=== PATIENT | female | born 1970 | race Caucasian/White ===

== ENCOUNTER 2016-11-05 17:57 | Emergency (ER) | payer BC ==
[~2016-11-05] VITALS: Ht 162.6 cm; Wt 72.0 kg
[~2016-11-05 17:57] MED LIST: MULT-884 PO; ZLF50 PO
[2016-11-05 18:00] VITALS: TEMP 36.8; Ht 162.6 cm; Wt 72.0 kg
[2016-11-05 19:01] LABS: BENZODIAZEPINE, URINE NEG (NEG); COCAINE,URINE NEG (NEG); PHENCYCLIDINE, URINE NEG (NEG)
[2016-11-05 19:30] LABS: HEMATOCRIT 36.8 % (37-47); MEAN CELL VOLUME 83.1 fL (80-100); MEAN CORPUSCULAR HEMOGLOBIN 26.2 pg (25-34); MEAN CORPUSCULAR HGB CONC 31.5 g/dl (32-36); MEAN PLATELET VOLUME 9.3 fL (7.4-10.4); PLATELET COUNT 349 K/uL (130-400); RED BLOOD COUNT 4.43 M/uL (4.2-5.4); WHITE BLOOD COUNT 8.48 K/uL (4.8-10.8)
[2016-11-05] MEDS ORDERED: LORAZEPAM 1 MG TAB SL STA (19:30)
[2016-11-05 19:49] LABS: ACETAMINOPHEN < 2 ug/ml (10-30); BUN/CREATININE RATIO 6.1 (10-20); CALCIUM 8.7 mg/dl (8.5-10.1); CREATININE 0.53 mg/dl (0.60-1.20); POTASSIUM 4.4 mmol/L (3.5-5.1)
[2016-11-05 20:00] LABS: THYROID STIMULATING HORMONE 1.57 uIu/ml (0.300-4.500)
[2016-11-05] MEDS ORDERED: LORAZEPAM 2 MG/ML 1 ML VIAL IM STA (20:25)
[2016-11-05] MEDS ORDERED: HALOPERIDOL DECANOATE INJ 50 MG/ML VIAL IM ONE (20:30)
[2016-11-05] MEDS ORDERED: HALOPERIDOL LACTATE 5 MG/ML 1 ML VIAL ONE (20:36)
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
[2016-11-05] MEDS ORDERED: THIAMINE HCL 100 MG/ML 2 ML VIAL IM STA (22:59)
--- NOTE | 2016-11-06 06:24 | EMERGENCY ROOM VISIT NOTE ---
ED Visit Note First contact with patient: 22:57 46 yr old heavily intoxicated female brought in by friend as she was making suicidal statements/threats. Initially evaluated and sedated by Dr Yanez do to need for restraints. She was medically evaluated and found to have very high Etoh. 302 petition on file due to statements. Signed out to me awaiting sobering up. Sleeping soundly and very somnolent on trying on awaken on multiple evaluations. Given IM Thiamine with her alcoholism history. Mild hypoxia at one point though lungs clear and improved with just 2 L NC. Still too sedated to be able to do mental health evaluation. Signed out to Dr Vidal awaiting sobering up.
--- NOTE | 2016-11-06 09:52 | EMERGENCY ROOM VISIT NOTE ---
ED Visit Note This patient was signed out to me awaiting mental health evaluation. The patient is evaluated by can help. The patient does not recall any of the statements that she had made previously. She is currently awake and alert. She denies being suicidal or homicidal. Can help did not have any concerns about the patient going home. The patient will be discharged.
[2016-11-06 10:25] VITALS: BP 108/65; PULSE 88; O2SAT 98
== END 2016-11-06 10:25 | disposition home or self-care (01) ==
LOC: C.EDB 17:59 → C.EDA 11-06 10:25
DX: F10.120 Alcohol abuse with intoxication, uncomplicated (principal); R45.851 Suicidal ideations; F32.9 Major depressive disorder, single episode, unspecified; J43.9 Emphysema, unspecified; F17.200 Nicotine dependence, unspecified, uncomplicated; Z85.118 Personal history of other malignant neoplasm of bronchus and lung; Z91.410 Personal history of adult physical and sexual abuse; Z83.3 Family history of diabetes mellitus; Z82.49 Family history of ischemic heart disease and other diseases of the circulatory system; Z84.1 Family history of disorders of kidney and ureter

== ENCOUNTER 2017-03-08 23:42 | Emergency (ER) | payer BC, OTHER ==
[~2017-03-08] VITALS: Ht 162.6 cm; Wt 76.8 kg
[2017-03-08 23:50] VITALS: TEMP 37.2; Ht 162.6 cm; Wt 76.8 kg
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
[2017-03-09 00:57] LABS: BENZODIAZEPINE, URINE NEG (NEG); COCAINE,URINE NEG (NEG); PHENCYCLIDINE, URINE NEG (NEG)
[2017-03-09 00:59] LABS: BUN/CREATININE RATIO 5.2 (10-20); CALCIUM 8.7 mg/dl (8.5-10.1); CREATININE 0.58 mg/dl (0.60-1.20); POTASSIUM 3.3 mmol/L (3.5-5.1)
[2017-03-09 10:40] VITALS: BP 110/66; PULSE 87; O2SAT 93
== END 2017-03-09 10:41 | disposition home or self-care (01) ==
LOC: C.EDA 23:42 → EDBD 23:42 → C.EDA 03-09 10:41
DX: F10.129 Alcohol abuse with intoxication, unspecified (principal); Y90.8 Blood alcohol level of 240 mg/100 ml or more; K59.00 Constipation, unspecified; F32.9 Major depressive disorder, single episode, unspecified; J43.9 Emphysema, unspecified; F43.10 Post-traumatic stress disorder, unspecified; K27.9 Peptic ulcer, site unspecified, unspecified as acute or chronic, without hemorrhage or perforation; F12.10 Cannabis abuse, uncomplicated; Z83.3 Family history of diabetes mellitus; Z82.49 Family history of ischemic heart disease and other diseases of the circulatory system; Z84.1 Family history of disorders of kidney and ureter

== ENCOUNTER 2017-05-09 16:34 | Emergency (ER) | payer OTHER ==
[~2017-05-09] VITALS: Ht 162.6 cm; Wt 77.6 kg
[2017-05-09 16:42] VITALS: TEMP 36.5; Ht 162.6 cm; Wt 77.6 kg
[2017-05-09] MEDS ORDERED: VNTHFA/IN INH (16:56)
[2017-05-09] MEDS ORDERED: KLONOPIN PO (16:56)
[2017-05-09] MEDS ORDERED: AMPH10TA2 PO (16:56)
--- NOTE | 2017-05-09 17:32 | DIAGNOSTIC IMAGING REPORT ---
CHEST ONE VIEW PORTABLE CLINICAL HISTORY: Medical clearance. COMPARISON STUDY: Chest radiograph May 03, 2015. FINDINGS: Lung volumes are normal. No pneumothorax or pleural effusion is present. Pulmonary vascularity is normal. No consolidation is identified. Appearance of the chest is unchanged. Opacity at the right cardiophrenic angle likely reflects epicardial fat pad. IMPRESSION: No acute cardiopulmonary findings. Electronically signed by: Cornelio Alvarez M.D. 05/09/2017 5:31 PM Dictated Date/Time: 05/09/2017 5:30 PM
[2017-05-09 17:35] LABS: BASO % 0.7 %; BASO ABS # 0.07 K/uL (0-0.2); COMPLETE YES; EOS % 4.1 %; IG% 0.2 %; LYMPH % 41.4 %; LYMPH ABS # 4.01 K/uL (1.2-3.4); MEAN CELL VOLUME 82.7 fL (80-100); MEAN CORPUSCULAR HEMOGLOBIN 25.4 pg (25-34); MEAN CORPUSCULAR HGB CONC 30.7 g/dl (32-36); MEAN PLATELET VOLUME 8.9 fL (7.4-10.4); MONO % 8.2 %; NEUT % 45.4 %; PLATELET COUNT 434 K/uL (130-400); WHITE BLOOD COUNT 9.68 K/uL (4.8-10.8)
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
[2017-05-09 17:53] LABS: ALT/SGPT 45 U/L (12-78); AST/SGOT 73 U/L (15-37); BLOOD UREA NITROGEN 4 mg/dl (7-18); BUN/CREATININE RATIO 7.2 (10-20); CALCIUM 8.6 mg/dl (8.5-10.1); CARBON DIOXIDE 22 mmol/L (21-32); CHLORIDE 109 mmol/L (98-107); CREATININE 0.59 mg/dl (0.60-1.20); GLUCOSE 91 mg/dl (70-99); POTASSIUM 3.6 mmol/L (3.5-5.1); SODIUM 142 mmol/L (136-145)
[2017-05-09 18:04] LABS: ALKALINE PHOSPHATASE 80 U/L (45-117)
[2017-05-09] MEDS ORDERED: LORAZEPAM 1 MG TAB SL STA (19:49)
[2017-05-09 20:06] LABS: BENZODIAZEPINE, URINE NEG (NEG); COCAINE,URINE NEG (NEG); PHENCYCLIDINE, URINE NEG (NEG)
[2017-05-09 20:32] LABS: URINE APPEARANCE CLEAR (CLEAR); URINE BILIRUBIN NEG (NEG); URINE COLOR YELLOW; URINE EPITHELIAL CELL AUTO >30 /lpf (0-5); URINE NITRITE NEG (NEG); URINE PH 5.5 (4.5-7.5); URINE SPECIFIC GRAVITY 1.023 (1.000-1.030); UROBILINOGEN NEG (NEG)
[2017-05-09 20:38] LABS: MANUAL MICROSCOPIC REQUIRED? NO; REVIEW REQ? NO
[2017-05-09 20:48] VITALS: BP 124/68; PULSE 82; O2SAT 95
[2017-05-09 21:21] LABS: ACETAMINOPHEN < 2 ug/ml (10-30)
[2017-05-16 08:31] LABS: SYNTHETIC CANNABINOIDS QL URIN NEGATIVE (Negative)
== END 2017-05-09 20:50 | disposition home or self-care (01) ==
LOC: C.EDB 16:36 → C.EDA 20:50
DX: F10.129 Alcohol abuse with intoxication, unspecified (principal); F32.9 Major depressive disorder, single episode, unspecified; R45.851 Suicidal ideations; J43.9 Emphysema, unspecified; F17.200 Nicotine dependence, unspecified, uncomplicated; Z87.11 Personal history of peptic ulcer disease; Z91.410 Personal history of adult physical and sexual abuse; Z85.118 Personal history of other malignant neoplasm of bronchus and lung; Z83.3 Family history of diabetes mellitus; Z82.49 Family history of ischemic heart disease and other diseases of the circulatory system; Z84.1 Family history of disorders of kidney and ureter

== ENCOUNTER 2017-11-07 11:12 | Inpatient (IN) | payer OTHER ==
[~2017-11-07] VITALS: Ht 162.6 cm; Wt 73.0 kg
[~2017-11-07 11:12] MED LIST changes: +AMPH10TA2 PO; +KLONOPIN PO; -MULT-884 PO; +VNTHFA/IN INH; -ZLF50 PO
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
[2017-11-07 12:27] LABS: BASO % 0.3 %; BASO ABS # 0.04 K/uL (0-0.2); EOS % 0.6 %; EOS ABS # 0.08 K/uL (0-0.5); HEMATOCRIT 40.8 % (37-47); HEMOGLOBIN 13.4 g/dL (12.0-16.0); IG# 0.05 K/uL (0.00-0.02); LYMPH % 29.3 %; LYMPH ABS # 3.96 K/uL (1.2-3.4); MEAN CELL VOLUME 81.3 fL (80-100); MEAN CORPUSCULAR HEMOGLOBIN 26.7 pg (25-34); MEAN CORPUSCULAR HGB CONC 32.8 g/dl (32-36); MEAN PLATELET VOLUME 9.1 fL (7.4-10.4); MONO % 6.7 %; NEUT % 62.7 %; NEUT ABS # 8.48 K/uL (1.4-6.5); PLATELET COUNT 304 K/uL (130-400); RED CELL DISTRIBUTION WIDTH CV 18.1 % (11.5-14.5); RED CELL DISTRIBUTION WIDTH SD 53.1 fL (36.4-46.3); WHITE BLOOD COUNT 13.51 K/uL (4.8-10.8)
--- NOTE | 2017-11-07 12:38 | DIAGNOSTIC IMAGING REPORT ---
CT SCAN OF THE BRAIN WITHOUT IV CONTRAST CLINICAL HISTORY: Fall. COMPARISON STUDY: CT of the brain dated 05/03/2015. TECHNIQUE: Unenhanced axial CT scan of the brain is performed from the vertex to the skull base. A dose lowering technique was utilized adhering to the principles of ALARA. CT DOSE: 1013.73 mGy.cm FINDINGS: Brain parenchyma: The brain parenchyma is normal in appearance. There is no hemorrhage, mass effect, or evidence of acute territorial ischemia by CT criteria. Verduzco-white matter is preserved. No extra-axial fluid collection is seen. Ventricles, sulci, cisterns: Normal in configuration. Intracranial vasculature: The visualized intracranial vasculature at the skull base is normal in appearance. Calvarium: There is no depressed calvarial fracture. Age-indeterminate nasal bone fractures are suspected. Sinuses and mastoids: Mild to moderate mucosal thickening is seen within the right maxillary antrum, the ethmoid sinuses, and the sphenoid sinuses. There is a trace right mastoid effusion. The left mastoid air cells are well pneumatized. Orbits: The bony orbits are grossly intact. IMPRESSION: 1. No acute intracranial abnormality. 2. Paranasal sinus disease as above. 3. Question age-indeterminate nasal bone fractures. Clinical correlation will be required. Electronically signed by: Herman Nathan M.D. 11/07/2017 12:37 PM Dictated Date/Time: 11/07/2017 12:33 PM
--- NOTE | 2017-11-07 12:39 | DIAGNOSTIC IMAGING REPORT ---
CHEST ONE VIEW PORTABLE CLINICAL HISTORY: cough dyspnea COMPARISON STUDY: 05/09/2017 FINDINGS: Minimal chronic interstitial change left base. No focal infiltrate of an acute nature. No significant cardiac enlargement. Diaphragms are smooth. IMPRESSION: Chronic change. No acute process. The above report was generated using voice recognition software. It may contain grammatical, syntax or spelling errors. Electronically signed by: Artur Evans M.D. 11/07/2017 12:38 PM Dictated Date/Time: 11/07/2017 12:37 PM
--- NOTE | 2017-11-07 12:41 | DIAGNOSTIC IMAGING REPORT ---
CT SCAN OF THE CERVICAL SPINE CLINICAL HISTORY: Fall. COMPARISON STUDY: No priors. TECHNIQUE: CT scan of the cervical spine is performed from the skull base to the upper thoracic spine. Images are reviewed in the axial, sagittal, and coronal planes. IV contrast was not administered for this examination. A dose lowering technique was utilized adhering to the principles of ALARA. FINDINGS: Skeletal structures: The skeletal structures are well mineralized. There is no evidence of fracture or subluxation involving the cervical spine. Vertebral body height and alignment are maintained. Straightening of the cervical lordosis. Anterior osteophytes are seen throughout. The odontoid process and lateral masses are intact. The atlantoaxial articulation is preserved noting productive degenerative change. The spinous processes appear intact. Mild facet arthropathy is seen in the lower cervical region. Intervertebral discs: Minimal disc space narrowing is seen at C6-C7. The remaining disc spaces are maintained. Central canal: Posterior disc osteophyte complexes at C5-C6 and C6-C7 may contribute to mild acquired compromise of the central canal. Soft tissues: The prevertebral and paraspinous soft tissues are within normal limits. Calvarium: The visualized calvarium at the skull base appears intact. Brain parenchyma: Partially visualized brain parenchyma the skull base is within normal limits. Sinuses and mastoids: Mucosal thickening is seen within the right maxillary antrum and the sphenoid sinuses. There is a trace right mastoid effusion. The left mastoid air cells are well pneumatized. Lung apices: Apical scarring and mild emphysematous change are noted. IMPRESSION: There is no evidence of fracture or subluxation involving the cervical spine. Electronically signed by: Herman Nathan M.D. 11/07/2017 12:40 PM Dictated Date/Time: 11/07/2017 12:37 PM
[2017-11-07 12:46] LABS: ALBUMIN 3.8 gm/dl (3.4-5.0); CALCIUM 8.8 mg/dl (8.5-10.1); CREATININE 0.67 mg/dl (0.60-1.20); POTASSIUM 3.3 mmol/L (3.5-5.1)
[2017-11-07 12:56] LABS: TOTAL PROTEIN 7.7 gm/dl (6.4-8.2)
[2017-11-07] MEDS ORDERED: CALCIUM CARBONATE 500 MG CHEWABLE PO PRN (13:45)
[2017-11-07] MEDS ORDERED: LORAZEPAM 1 MG TAB SL STA (22:58)
[2017-11-07] MEDS ORDERED: ONDANSETRON INJ 2 MG/ML 2 ML VIAL IV STA (23:07)
[2017-11-07] MEDS ORDERED: LORAZEPAM 2 MG/ML 1 ML VIAL IV STA (23:07)
--- NOTE | 2017-11-07 23:22 | EMERGENCY ROOM VISIT NOTE ---
ED Visit Note This is a 47-year-old female who was signed out to me awaiting mental health evaluation. During the patient's stay, she developed withdrawal symptoms and required IV Ativan and IV Zofran as she developed nausea and vomiting as well as shaking. The patient was administered the medication. I spoke with Dr. Christensen from psychiatry. He would prefer that the patient be medically admitted and they will be consulted until the patient is more medically stable for transfer to the psychiatric floor. I spoke with the hospitalist about the patient, they will see the patient for medical admission for withdrawal.
[2017-11-08] VITALS (7 sets, daily range): BP systolic 113–127; BP diastolic 76–86; PULSE 80–112; TEMP 36.6–37.3; O2SAT 93–97; Ht 162.6 cm; Wt 73.0 kg
[2017-11-08] MEDS ORDERED: LORAZEPAM 2 MG/ML 1 ML VIAL IV PRN (00:15)
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
[2017-11-08] MEDS ORDERED: MULTI-VITAMIN INFUSION INJ 10 ML, THIAMINE HCL INJ 100 MG, FoLIC ACID INJ 1 MG in SODIU... IV ONE ×2 (02:30→13:45)
[2017-11-08] MEDS ORDERED: LORAZEPAM INJ 3 MG in SYRINGE 1.5 ML IV PRN (04:30)
[2017-11-08] MEDS ORDERED: LORAZEPAM INJ 2 MG in SYRINGE 1 ML IV PRN (04:30)
[2017-11-08] MEDS ORDERED: PNEUMOCOCCAL POLYSACCHARIDES 25 MCG/0.5 ML VIAL/SYR IM. ONE (05:45)
[2017-11-08] MEDS ORDERED: PNEUMOCOCCAL ADMINISTRATION CHARGE ONE (05:45)
[2017-11-08] MEDS ORDERED: HEPARIN SOD 5000 UNIT/0.5 ML CARP SQ SCH (06:00)
[2017-11-08] MEDS: ALUMINUM/MAGNESIUM/SIMETH (MAALOX MAX) 30 ML UDC PO PRN ×2 (07:17→17:16)
[2017-11-08] MEDS ORDERED: DEXL60CA4 PO (10:29)
[2017-11-08] MEDS ORDERED: VENL75CA PO (10:29)
[2017-11-08] MEDS ORDERED: LEVE250T PO (10:29)
[2017-11-08] MEDS ORDERED: ABL10 PO (10:29)
[2017-11-08] MEDS ORDERED: SERTRALINE HCL 50 MG TAB PO ONE (12:00)
[2017-11-08] MEDS: LORAZEPAM INJ 1 MG in SYRINGE 0.5 ML IV PRN ×2 (12:06→23:42)
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
[2017-11-08 12:55] LABS: BASO % 0.2 %; BASO ABS # 0.02 K/uL (0-0.2); EOS % 1.3 %; EOS ABS # 0.11 K/uL (0-0.5); HEMATOCRIT 34.7 % (37-47); HEMOGLOBIN 11.1 g/dL (12.0-16.0); IG# 0.02 K/uL (0.00-0.02); LYMPH ABS # 2.15 K/uL (1.2-3.4); MEAN CELL VOLUME 81.1 fL (80-100); MEAN CORPUSCULAR HEMOGLOBIN 25.9 pg (25-34); MONO % 10.2 %; MONO ABS # 0.88 K/uL (0.11-0.59); NEUT % 63.1 %; NEUT ABS # 5.43 K/uL (1.4-6.5); PLATELET COUNT 267 K/uL (130-400); RED CELL DISTRIBUTION WIDTH CV 17.9 % (11.5-14.5); RED CELL DISTRIBUTION WIDTH SD 52.8 fL (36.4-46.3); WHITE BLOOD COUNT 8.61 K/uL (4.8-10.8)
[2017-11-08 13:15] LABS: CALCIUM 8.1 mg/dl (8.5-10.1); CREATININE 0.59 mg/dl (0.60-1.20); POTASSIUM 3.5 mmol/L (3.5-5.1)
[2017-11-08] MEDS ORDERED: GABAPENTIN 600 MG TAB PO SCH (13:15)
[2017-11-08] MEDS ORDERED: CLONIDINE HCL 0.1 MG TAB PO PRN (13:15)
[2017-11-08] MEDS ORDERED: LEVALBUTEROL/IPRATROPIUM NEB INH PRN (13:15)
[2017-11-08 13:16] LABS: PHOSPHORUS 1.9 mg/dl (2.5-4.9)
--- NOTE | 2017-11-08 13:20 | Progress Note ---
Medicine Progress Note Date & Time of Visit: Nov 08, 2017 at 13:10. Subjective seen with JOSSELYN Middleton at the bedside states she feels tired but slightly better than yesterday has some anxiety but denies tremors, hallucinations states mood could be better, but denies suicidality has some sinus congestion, rhinorrhea has chronic cough, no dyspnea no chest pain, dizziness, palpitations no other symptoms Objective Last 8 Hrs Date Time Temp Pulse Resp B/P (MAP) Pulse Ox O2 Delivery O2 Flow Rate FiO2 11/08/17 11:09 36.8 82 20 126/84 (98) 97 Room Air 11/08/17 08:00 Room Air 11/08/17 07:12 37.3 93 20 125/80 (95) 95 Physical Exam: General- oriented x 3, not in distress, speaks in sentences with no effort appears tired, has to pause to answer questions about her medications, PCP, etc. Head- atraumatic Eyes- PERRL, EOMI, anicteric ENT- poor dentition, oropharynx clear Neck- supple, no JVD, no adenopathy, no thyromegaly Lungs- clear breath sounds bilaterally Heart- regular rhythm; no murmur, normal rate Abdomen- normal bowel sounds, soft, nontender, non distended Extremities- no pretibial edema, no calf tenderness; peripheral pulses intact Neuro- alert, oriented x 3; PERRL, EOMI; no facial palsy; no dysarthria; motor 5 /5 bilaterally; no other gross focal deficits Skin- warm & dry Psych- no suicidal ideations Laboratory Results: Last 24 Hours Test 11/08/17 07:10 11/08/17 12:31 Prothrombin Time 10.7 SECONDS Prothromb Time International Ratio 1.0 Activated Partial Thromboplast Time 28.0 SECONDS Partial Thromboplastin Ratio 1.1 White Blood Count 8.61 K/uL Red Blood Count 4.28 M/uL Hemoglobin 11.1 g/dL Hematocrit 34.7 % Mean Corpuscular Volume 81.1 fL Mean Corpuscular Hemoglobin 25.9 pg Mean Corpuscular Hemoglobin Concent 32.0 g/dl Platelet Count 267 K/uL Mean Platelet Volume 9.0 fL Neutrophils (%) (Auto) 63.1 % Lymphocytes (%) (Auto) 25.0 % Monocytes (%) (Auto) 10.2 % Eosinophils (%) (Auto) 1.3 % Basophils (%) (Auto) 0.2 % Neutrophils # (Auto) 5.43 K/uL Lymphocytes # (Auto) 2.15 K/uL Monocytes # (Auto) 0.88 K/uL Eosinophils # (Auto) 0.11 K/uL Basophils # (Auto) 0.02 K/uL RDW Standard Deviation 52.8 fL RDW Coefficient of Variation 17.9 % Immature Granulocyte % (Auto) 0.2 % Immature Granulocyte # (Auto) 0.02 K/uL Assessment & Plan Patient is a poor historian, will obtain records from PCP in [place]?, will obtain medication list from Pharmacist in [place]. Please clarify past medical history and medications from patient again. ALCOHOL INTOXICATION HISTORY OF ALCOHOLISM, DELIRIUM TREMENS - no signs of alc withdrawal at this time - Alcohol withdrawal protocol including Gabapentin Taper SUICIDAL IDEATIONS HISTORY OF DEPRESSION - denies suicidal ideations today evaluated by Psych SVC - Sertraline started 1:1 not in indicated at this time per psych svc ACUTE VS. CHRONIC SINUSITIS - Augmentin BID HISTORY OF SEIZURE - will try to get records from PCP in [place]? and medication list from Pharmacy patient states she takes Keppra but does not recall the dose HISTORY OF COPD SMOKING - states she uses Albuterol inhaler daily - not in exacerbation - PRN Nebs Nicotine patch HISTORY OF HYPERTENSION - PRN Clonidine MARIJUANA USE - needs counselling DVT PROPHYLAXIS SCDs FULL CODE DISPOSITION Psych SVC recommending transfer from Hospital to Inpatient Alc Rehab Current Inpatient Medications: Current Inpatient Medications Medications (Trade) Dose Ordered Sig/Leola Route Start Time Stop Time Status Last Admin Dose Admin Al Hydrox/Mg Hydrox/Simethicone (Maalox Max Susp) 15 ml Q4H PRN PO 11/08/17 00:15 12/08/17 00:14 11/08/17 07:17 15 ML Ondansetron HCl (Zofran Inj) 4 mg Q6H PRN IV 11/08/17 00:15 12/08/17 00:14 Lorazepam (Ativan Inj) PRN Dosing -Active Protocol Q1H PRN IV 11/08/17 00:15 12/08/17 00:14 Lorazepam 1 mg/ Syringe 1 ml @ 1 mls/min Q1H PRN IV 11/08/17 04:30 12/08/17 04:29 11/08/17 12:06 1 MLS/MIN Lorazepam 2 mg/ Syringe 2 ml @ 1 mls/min Q1H PRN IV 11/08/17 04:30 12/08/17 04:29 Lorazepam 3 mg/ Syringe 3 ml @ 1 mls/min Q1H PRN IV 11/08/17 04:30 12/08/17 04:29 Sertraline HCl (Zoloft Tab) 50 mg QAM PO 11/09/17 09:00 12/09/17 08:59 Sodium Chloride 1,000 ml @ 75 mls/hr [id number] IV 11/08/17 13:01 12/08/17 13:00 UNV Multivitamins 10 ml/Thiamine HCl 100 mg/Folic Acid 1 mg/Sodium Chloride 1,011.2 ml @ 60 mls/hr [id number] ONCE IV 11/08/17 13:01 11/09/17 05:52 UNV Gabapentin (Neurontin Tab) 1,200 mg SEE PROTOCOL TEXT PO 11/08/17 13:15 12/08/17 13:14 UNV Lorazepam (Ativan Tab) 0.5 mg Q4H PRN PO 11/08/17 13:15 12/08/17 13:14 UNV Nicotine (Nicoderm Cq 7 Mg Patch) 1 patch QAM TD 11/09/17 09:00 12/09/17 08:59 UNV Miscellaneous (Remove Nicoderm Patch) 1 ea HS N/A 11/08/17 21:00 12/08/17 20:59 UNV Nicotine (Nicoderm Cq 7 Mg Patch) 1 patch 1301 ONCE TD 11/08/17 13:01 11/08/17 13:02 UNV Amoxicillin/ Clavulanate Potassium (Augmentin Tab) 875 mg BIDM PO 11/08/17 17:00 11/18/17 16:59 UNV Miscellaneous (Xopenex/ Atrovent Neb) 1 ea Q4H PRN INH 11/08/17 13:15 12/08/17 13:14 UNV Clonidine HCl (Catapres Tab) 0.1 mg Q6H PRN PO 11/08/17 13:15 12/08/17 13:14 UNV
[2017-11-08] MEDS ORDERED: VNTHFA/IN INH (13:25)
[2017-11-08] MEDS ORDERED: NXM/40 PO (13:25)
[2017-11-08] MEDS ORDERED: EFFSR75 PO (13:25)
[2017-11-08] MEDS ORDERED: LEVETIRACETAM 500 MG TAB PO ONE (13:45)
[2017-11-08] MEDS ORDERED: NICOTINE 7 MG/24 HR TDSY TD ONE (13:45)
[2017-11-08] MEDS ORDERED: LEVALBUTEROL 1.25MG/0.5ML NEB INH PRN (14:00)
[2017-11-08] MEDS ORDERED: IPRATROPIUM BROMIDE NEB SOLN 0.02% 2.5 ML VIAL INH PRN (14:00)
[2017-11-08] MEDS: POT PHOSPHATE MONOBASIC W/ SOD TAB PO SCH ×3 (14:11→20:43)
[2017-11-08] MEDS: GABAPENTIN 1200MG LOADING DOSE PO SCH (14:49)
[2017-11-08] MEDS: AMOXICILLIN/CLAVULANATE TAB 875 MG TAB PO SCH (16:47)
[2017-11-08] MEDS: GABAPENTIN 600MG Q6H DOSE PO SCH (19:29)
[2017-11-08] MEDS: LEVETIRACETAM 500 MG TAB PO SCH (20:43)
[2017-11-09] VITALS (8 sets, daily range): BP systolic 119–139; BP diastolic 81–96; PULSE 77–90; TEMP 36.5–37.1; O2SAT 94–98
[2017-11-09] MEDS: GABAPENTIN 600MG Q6H DOSE PO SCH (05:31)
[2017-11-09] MEDS: SODIUM CHLORIDE 0.9% 1000ML 1,000 ML IV SCH ×2 (05:32→20:45)
[2017-11-09] MEDS: AMOXICILLIN/CLAVULANATE TAB 875 MG TAB PO SCH ×2 (08:59→17:12)
[2017-11-09] MEDS ORDERED: PANTOprazole SOD 40 MG TAB PO SCH (09:00)
[2017-11-09] MEDS: POT PHOSPHATE MONOBASIC W/ SOD TAB PO SCH ×4 (09:01→20:45)
[2017-11-09] MEDS: SERTRALINE HCL 50 MG TAB PO SCH (09:01)
[2017-11-09] MEDS: NICOTINE 7 MG/24 HR TDSY TD SCH (09:02)
[2017-11-09] MEDS: LEVETIRACETAM 500 MG TAB PO SCH ×2 (09:04→20:46)
[2017-11-09] MEDS: LORAZEPAM 0.5 MG TAB PO PRN ×3 (09:06→21:51)
[2017-11-09] MEDS: ALUMINUM/MAGNESIUM/SIMETH (MAALOX MAX) 30 ML UDC PO PRN (09:07)
--- NOTE | 2017-11-09 11:50 | Psychiatric Progress Notes ---
Progress Note Date of Service Nov 09, 2017. Interval History 47-year-old white female with a history of severe alcohol dependence, depression not otherwise specified, OCD, and treatment noncompliance who presented to the emergency room yesterday with alcohol intoxication, hematemesis , and thoughts about harming herself. She was admitted medically for alcohol withdrawal, and psychiatry is consulted to assess suicidality. Chief Complaint "Just tired ". Subjective Patient was seen & assessed and interval progress reviewed, case reviewed with adult protective caseworker, and with the primary attending yesterday. Tamara states that her mood has improved since admission, she continues to deny suicidal thoughts, and she remains willing for rehab. Her outpatient adult protective caseworker, Lilliam, through the [facility] was contacted and reported that the patient contacted her on the day of admission stating she was not feeling well and had back and chest pain. Lilliam went to the patient's house, found her extremely intoxicated, and brought her to the emergency room. Lilliam dated the patient has had multiple ER visits for intoxication, and in June 2017 was sent to [facility] for detox and then rehab, but left after 3 days. She stated the patient has been noncompliant with most rehab attempts. She denies withdrawal symptoms, but continues to feel tired, although she slept well last night. She denies any side effects to the sertraline. She is hoping to get in touch with her brother , who lives in [place], and is supportive. Encouraged her to talk to him about packing a bag for her in case she is accepted to rehab and is able to go there directly from the hospital. Mental Status Exam During interview pt is: cooperative, other (Appears tired, but able to answer questions appropriately) Appearance: disheveled, other (Overweight, lying in bed dressed in a hospital gown, disheveled and unkempt, appears older than stated age, poor dentition.) Eye contact is: good Motor behavior is: no abnormal motor movements Speech: normal in rate, rhythm & volume Affect: mood congruent, depressed (But reactive and appropriate) Mood is: other ("A little better") Thought process: goal directed Thought content: reality based without delusions Suicidal thought are: denied Homicidal thoughts are: denied Hallucinations: denies auditory, denies visual Cognition: attention grossly intact, language grossly intact, other (Memory impaired as evidenced by inability to give an accurate timeline of events and for events that occurred when intoxicated) Insight: fair Judgement: fair Impression 47-year-old white female with a history of severe alcohol dependence, depression not otherwise specified, OCD, and treatment noncompliance who is admitted medically with alcohol withdrawal after she presented to the emergency room yesterday with a blood alcohol level of 368. She made suicidal statements in the emergency room while intoxicated, but has denied active suicidal thoughts since admission. She has had chronic, passive suicidal thoughts for the past 10 years without any attempts. She remains willing for inpatient substance abuse treatment, states she is ready to make a change to get sober and improve her health. She has been restarted on sertraline for mood and anxiety symptoms. Plan (1) Depression Differential includes major depression versus substance-induced depression. There may also be a personality disorder component. Patient endorses depressive symptoms and is willing to retrial sertraline, which I will start at 25 mg today and increase to 50 mg tomorrow. She was educated about the common side effects, risks, and benefits of the medication, including that she needs to take it for a full 4-6 weeks to see the full effect , and that she needs to abstain from alcohol in order for it to work optimally. She expressed understanding. I have asked the psychiatric liaison nurse to contact her outpatient adult protective caseworker for collateral information, as the patient admits she does not recall all the events that occurred prior to admission and her adult protective caseworker was apparently present and brought her into the hospital. She is not acutely suicidal and is willing to go to rehab, so would pursue that as soon as she is medically stable. 11/09 -continue sertraline 50 mg daily. She will need to follow up with an outpatient psychiatrist and therapist after completing rehab, and this will be arranged by the rehab program. She has never had good compliance with treatment in the past, and would benefit from a step down program such as a half-way house. -No indication for inpatient mental health treatment. Patient is psychiatrically stable to go to inpatient substance abuse treatment. If her discharge plans change, please notify our team so that she can be assessed and appropriate outpatient treatment arranged. (2) Alcohol dependence Patient indicates she is willing to return to inpatient rehab, and this is my primary recommendation, as her mood and anxiety symptoms her unlikely to improve if she continues to drink. I have encouraged her to complete the rehab program, then followed through with a half-way house or stepdown program, as she is unlikely to maintain sobriety if she returns to independent living. She should also pursue employment, so that she can achieve her goal of getting her own place to live. Please consult case management for rehab referrals. Would recommend that she go straight from the hospital to inpatient rehab to decrease the risk of relapse. 11/09 -case management to make referrals for inpatient substance abuse treatment. Ideally she would go directly from the hospital to rehab. (3) Alcohol withdrawal Treatment of alcohol withdrawal per primary team. Discussed briefly with the resident physician, and suggested consideration of use of the AWSS withdrawal protocol, with the gabapentin taper to help prevent withdrawal symptoms and avoid benzodiazepine use if possible. She should not be discharged from the hospital on any controlled substances due to the severity of her substance abuse. Discharge / Aftercare Planning Primary Care Physician: Name: Adiel Trevizo Therapist: Name: Jacinda, "I had one before" Offset Proof Press Operator: Name: Jacinda Visit Code E&M Code: 53702 Risk Factors Assessment : Yes /single/: No (But from ) Higher / Fall in social status: No Health problems: Yes Mental Health Diagnoses: Yes Substance use disorders: Yes Previous attempt: No Family history of suicide: Yes Previous psychiatric stay: No Hopelessness: Yes Smoker: Yes Protective Factors Assessment Rastafarian beliefs: Yes : Yes Responsible for young children: No Employed: No Stable relationships: Yes (Has supportive friends) Good rapport with provider: No Data Vital Signs Last 24 Hrs: Date Time Temp Pulse Resp B/P (MAP) Pulse Ox O2 Delivery O2 Flow Rate FiO2 11/09/17 08:25 36.6 79 119/85 (96) 97 11/09/17 08:00 Room Air 11/09/17 04:39 37.0 84 18 123/81 (95) 97 Room Air 11/09/17 04:00 Room Air 11/09/17 00:22 36.5 87 18 124/85 (98) 94 Room Air 11/09/17 00:00 Room Air 11/08/17 19:30 Room Air 11/08/17 19:06 36.8 99 20 125/81 (96) 93 Room Air 11/08/17 16:00 Room Air 11/08/17 15:11 37.0 80 16 116/77 (90) 96 Room Air 11/08/17 12:00 Room Air Meds Administered Last 24 Hrs: Meds Administered (Past 24Hrs) Medications (Trade) Dose Ordered Sig/Leola Route Start Time Stop Time Status Last Admin Dose Admin Calcium Carbonate (Tums Chew Tab) 500 mg NOW PRN PO 11/07/17 13:45 11/08/17 02:03 DC 11/07/17 14:00 500 MG Lorazepam (Ativan Tab) 2 mg NOW STAT SL 11/07/17 22:58 11/07/17 23:07 DC 11/07/17 23:08 2 MG Ondansetron HCl (Zofran Inj) 4 mg NOW STAT IV 11/07/17 23:07 11/07/17 23:08 DC 11/07/17 23:23 4 MG Lorazepam (Ativan Inj) 2 mg NOW STAT IV 11/07/17 23:07 11/07/17 23:08 DC 11/07/17 23:23 2 MG Al Hydrox/Mg Hydrox/Simethicone (Maalox Max Susp) 15 ml Q4H PRN PO 11/08/17 00:15 12/08/17 00:14 11/09/17 09:07 15 ML Multivitamins 10 ml/Thiamine HCl 100 mg/Folic Acid 1 mg/Sodium Chloride 1,011.2 ml @ 500 mls/ hr Q2H2M ONCE IV 11/08/17 02:30 11/08/17 04:31 DC 11/08/17 04:07 500 MLS/HR Lorazepam 1 mg/ Syringe 1 ml @ 1 mls/min Q1H PRN IV 11/08/17 04:30 12/08/17 04:29 11/08/17 23:42 1 MLS/MIN Sertraline HCl (Zoloft Tab) 50 mg QAM PO 11/09/17 09:00 12/09/17 08:59 11/09/17 09:01 50 MG Sertraline HCl (Zoloft Tab) 25 mg NOW ONCE PO 11/08/17 12:00 11/08/17 12:12 DC 11/08/17 12:39 25 MG Sodium Chloride 1,000 ml @ 75 mls/hr [id number] IV 11/09/17 06:30 12/09/17 06:29 11/09/17 05:32 75 MLS/HR Multivitamins 10 ml/Thiamine HCl 100 mg/Folic Acid 1 mg/Sodium Chloride 1,011.2 ml @ 60 mls/hr [id number] ONCE IV 11/08/17 13:45 11/09/17 06:36 DC 11/08/17 14:10 60 MLS/HR Lorazepam (Ativan Tab) 0.5 mg Q4H PRN PO 11/08/17 13:15 12/08/17 13:14 11/09/17 09:06 0.5 MG Nicotine (Nicoderm Cq 7 Mg Patch) 1 patch QAM TD 11/09/17 09:00 12/09/17 08:59 11/09/17 09:02 1 PATCH Miscellaneous (Remove Nicoderm Patch) 1 ea HS N/A 11/08/17 21:00 12/08/17 20:59 11/08/17 20:43 1 EA Nicotine (Nicoderm Cq 7 Mg Patch) 1 patch 1345 ONCE TD 11/08/17 13:45 11/08/17 13:46 DC 11/08/17 14:10 1 PATCH Amoxicillin/ Clavulanate Potassium (Augmentin Tab) 875 mg BIDM PO 11/08/17 17:00 11/18/17 16:59 11/09/17 08:59 875 MG Levetiracetam (Keppra Tab) 500 mg BID PO 11/08/17 21:00 12/08/17 20:59 11/09/17 09:04 500 MG Pantoprazole Sodium (Protonix Tab) 1 mg DAILY PO 11/09/17 09:00 11/09/17 09:08 DC 11/09/17 09:03 40 MG Levetiracetam (Keppra Tab) 500 mg 1345 ONCE PO 11/08/17 13:45 11/08/17 13:46 DC 11/08/17 14:10 500 MG Potassium/ Phosphorus/Sodium (Phospha 250 Neutral 155-852-130 Mg) 2 tab QID PO 11/08/17 13:30 12/08/17 13:29 11/09/17 09:01 2 TAB Gabapentin (Neurontin Tab) 1,200 mg TODAY@1400 PO 11/08/17 14:00 12/08/17 13:59 3/14/18 14:49 1,200 MG Gabapentin (Neurontin Tab) 600 mg Q6H PO 11/08/17 20:00 11/09/17 06:01 DC 11/09/17 05:31 600 MG Lab Results Last 24 Hrs: Last 24 Hours Test 11/08/17 12:31 11/09/17 08:01 White Blood Count 8.61 K/uL Red Blood Count 4.28 M/uL Hemoglobin 11.1 g/dL Hematocrit 34.7 % Mean Corpuscular Volume 81.1 fL Mean Corpuscular Hemoglobin 25.9 pg Mean Corpuscular Hemoglobin Concent 32.0 g/dl Platelet Count 267 K/uL Mean Platelet Volume 9.0 fL Neutrophils (%) (Auto) 63.1 % Lymphocytes (%) (Auto) 25.0 % Monocytes (%) (Auto) 10.2 % Eosinophils (%) (Auto) 1.3 % Basophils (%) (Auto) 0.2 % Neutrophils # (Auto) 5.43 K/uL Lymphocytes # (Auto) 2.15 K/uL Monocytes # (Auto) 0.88 K/uL Eosinophils # (Auto) 0.11 K/uL Basophils # (Auto) 0.02 K/uL RDW Standard Deviation 52.8 fL RDW Coefficient of Variation 17.9 % Immature Granulocyte % (Auto) 0.2 % Immature Granulocyte # (Auto) 0.02 K/uL Sodium Level 134 mmol/L Potassium Level 3.5 mmol/L Chloride Level 101 mmol/L Carbon Dioxide Level 24 mmol/L Anion Gap 9.0 mmol/L Blood Urea Nitrogen 6 mg/dl Creatinine 0.59 mg/dl Est Creatinine Clear Calc Drug Dose 117.2 ml/min Estimated GFR () 127.4 Estimated GFR (Non- 109.9 BUN/Creatinine Ratio 10.0 Random Glucose 110 mg/dl Calcium Level 8.1 mg/dl Phosphorus Level 1.9 mg/dl Magnesium Level 1.8 mg/dl Vitamin B12 Level 412 pg/mL Folate > 24.00 ng/mL
[2017-11-09] MEDS: ONDANSETRON INJ 2 MG/ML 2 ML VIAL IV PRN (12:12)
[2017-11-09] MEDS: GABAPENTIN 1200MG LOADING DOSE PO SCH (13:51)
[2017-11-09] MEDS: GABAPENTIN 600MG Q8H DOSE PO SCH ×2 (13:52→21:51)
--- NOTE | 2017-11-09 15:27 | Progress Note ---
Internal Med Progress Note Date of Service: Nov 09, 2017. Provider Documentation: SUBJECTIVE: Seen and examined at bedside Reports having sinus congestion Admit to having Emphysema but has not been using inhalers due to financial issues Denies chest pain No signs of withdrawal Denies any suicidal thoughts No other complaints OBJECTIVE: Vital Signs-as noted below Physical Exam: General Appearance:Moderately built and nourished, no apparent distress Head: normocephalic, Atraumatic Eyes: normal inspection, EOMI, PERRL Neck: supple, Trachea midline Respiratory/Chest: Normal breath sounds, CTA Cardiovascular: S1, S2, No murmur Abdomen/GI:Soft, Non tender, Bowel sounds present Extremities/Musculoskelatal:normal inspection, no edema Neurologic/Psych:AAOX3, grossly no focal neurological deficits Skin: normal color, warm Lab data as noted below. ASSESSMENT & PLAN: Patient is a 47 yr female, poor historian, will obtain records from PCP in [facility]? , will obtain medication list from Pharmacist in [place]. Please clarify past medical history and medications from patient as able Alcohol Intoxication: H/O Alcoholism, Delirium Tremens no signs of withdrawal Continue Alcohol withdrawal protocol including Gabapentin Taper Needs Alcohol rehab placement DC IVF tmw Depression: Appreciate Psychiatry Input Continue Sertraline Needs follow up with Psychiatry as outpatient Possible Sinusitis, UTI Continue Augmentin BID Denies urinary symptoms H/O Seizure Will try to get records from PCP in [facility]? and medication list from Pharmacy patient states she takes Keppra but does not recall the dose Continue Keppra H/O COPD Ongoing Tobacco use: She uses Albuterol inhaler daily No signs of exacerbation PRN Nebs Nicotine patch H/O HTN: PRN Clonidine Marijuana Use: educational guidance counselor to quit DVT Px: SCDs Code Status: Full Code Disposition: Needs Inpatient Alcohol Rehab placement Vital Signs: Date Time Temp Pulse Resp B/P (MAP) Pulse Ox O2 Delivery O2 Flow Rate FiO2 11/09/17 14:53 36.9 77 16 134/91 (105) 97 11/09/17 12:00 Room Air 11/09/17 11:39 37.1 90 17 130/96 (107) 95 11/09/17 08:25 36.6 79 119/85 (96) 97 11/09/17 08:00 Room Air 11/09/17 04:39 37.0 84 18 123/81 (95) 97 Room Air 11/09/17 04:00 Room Air 11/09/17 00:22 36.5 87 18 124/85 (98) 94 Room Air 11/09/17 00:00 Room Air 11/08/17 19:30 Room Air 11/08/17 19:06 36.8 99 20 125/81 (96) 93 Room Air 11/08/17 16:00 Room Air Lab Results: Results Past 24 Hours Test 11/09/17 08:01 Range/Units Vitamin B12 Level 412 211-911 pg/mL Folate > 24.00 >5.38 ng/mL
[2017-11-10] VITALS (7 sets, daily range): BP systolic 117–142; BP diastolic 82–100; PULSE 67–103; TEMP 36.3–36.9; O2SAT 97–99
[2017-11-10] MEDS ORDERED: IBUPROFEN 200 MG TAB PO ONE (04:30)
[2017-11-10] MEDS: GABAPENTIN 600MG Q8H DOSE PO SCH (06:23)
[2017-11-10] MEDS: SERTRALINE HCL 50 MG TAB PO SCH (08:20)
[2017-11-10] MEDS: POT PHOSPHATE MONOBASIC W/ SOD TAB PO SCH ×4 (08:20→20:24)
[2017-11-10] MEDS: PANTOprazole SOD 40 MG TAB PO SCH (08:20)
[2017-11-10] MEDS: AMOXICILLIN/CLAVULANATE TAB 875 MG TAB PO SCH ×2 (08:21→16:49)
[2017-11-10] MEDS: LEVETIRACETAM 500 MG TAB PO SCH ×2 (08:21→20:24)
[2017-11-10] MEDS: NICOTINE 7 MG/24 HR TDSY TD SCH (08:22)
[2017-11-10 10:09] LABS: CALCIUM 8.5 mg/dl (8.5-10.1); CREATININE 0.61 mg/dl (0.60-1.20); POTASSIUM 4.1 mmol/L (3.5-5.1)
[2017-11-10] MEDS: LORAZEPAM 0.5 MG TAB PO PRN ×3 (12:45→23:10)
[2017-11-10] MEDS: GABAPENTIN 1200MG LOADING DOSE PO SCH (13:35)
[2017-11-10] MEDS: IBUPROFEN 200 MG TAB PO PRN (15:28)
[2017-11-10] MEDS: SODIUM CHLORIDE 0.9% 1000ML 1,000 ML IV SCH (16:49)
[2017-11-10] MEDS: GABAPENTIN 600MG Q12H DOSE PO SCH (16:49)
--- NOTE | 2017-11-10 18:06 | Progress Note ---
Internal Med Progress Note Date of Service: Nov 10, 2017. Provider Documentation: SUBJECTIVE: Seen and examined at bedside No significant change from yesterday Has dry cough Denies chest pain, SOB No signs of withdrawal Denies any suicidal thoughts No other complaints OBJECTIVE: Vital Signs-as noted below Physical Exam: General Appearance:Moderately built and nourished, no apparent distress Head: normocephalic, Atraumatic Eyes: normal inspection, EOMI, PERRL Neck: supple, Trachea midline Respiratory/Chest: Normal breath sounds, CTA Cardiovascular: S1, S2, No murmur Abdomen/GI:Soft, Non tender, Bowel sounds present Extremities/Musculoskelatal:normal inspection, no edema Neurologic/Psych:AAOX3, grossly no focal neurological deficits Skin: normal color, warm Lab data as noted below. ASSESSMENT & PLAN: Patient is a 47 yr female, poor historian, will obtain records from PCP in [facility]? , will obtain medication list from Pharmacist in [place]. Please clarify past medical history and medications from patient as able Alcohol Intoxication: H/O Alcoholism, Delirium Tremens no signs of withdrawal Continue Alcohol withdrawal protocol including Gabapentin Taper Needs Alcohol rehab placement DC IVF Depression: Appreciate Psychiatry Input Continue Sertraline Needs follow up with Psychiatry as outpatient Possible Sinusitis, UTI Continue Augmentin BID Denies urinary symptoms H/O Seizure Will try to get records from PCP in [facility]? and medication list from Pharmacy patient states she takes Keppra but does not recall the dose Continue Keppra H/O COPD Ongoing Tobacco use: She uses Albuterol inhaler daily No signs of exacerbation PRN Nebs Nicotine patch H/O HTN: PRN Clonidine Marijuana Use: certified alcohol counselor to quit DVT Px: SCDs Code Status: Full Code Disposition: Needs Inpatient Alcohol Rehab placement social work specialist consulted Vital Signs: Date Time Temp Pulse Resp B/P (MAP) Pulse Ox O2 Delivery O2 Flow Rate FiO2 11/10/17 16:00 Room Air 11/10/17 15:29 36.9 103 18 136/93 (107) 99 11/10/17 14:44 36.9 103 20 136/93 (107) 99 11/10/17 12:00 Room Air 11/10/17 11:07 36.4 83 18 130/93 (105) 97 11/10/17 08:03 36.9 82 18 137/93 (108) 98 3/16/18 07:49 Room Air 11/10/17 04:20 Room Air 11/10/17 03:51 36.3 78 18 117/82 (94) 98 Room Air 11/10/17 00:20 Room Air 11/09/17 23:43 36.5 84 18 137/96 (110) 98 Room Air 11/09/17 20:30 Room Air 11/09/17 19:47 36.7 79 16 139/92 (108) 97 Room Air 11/09/17 19:06 36.8 79 16 134/89 (104) 97 Lab Results: Results Past 24 Hours Test 11/10/17 08:30 Range/Units Sodium Level 136 136-145 mmol/L Potassium Level 4.1 3.5-5.1 mmol/L Chloride Level 106 98-107 mmol/L Carbon Dioxide Level 21 21-32 mmol/L Anion Gap 8.0 3-11 mmol/L Blood Urea Nitrogen 4 7-18 mg/dl Creatinine 0.61 0.60-1.20 mg/dl Est Creatinine Clear Calc Drug Dose 113.3 ml/min Estimated GFR () 126.0 Estimated GFR (Non- 108.7 BUN/Creatinine Ratio 6.5 10-20 Random Glucose 136 70-99 mg/dl Calcium Level 8.5 8.5-10.1 mg/dl Magnesium Level 2.1 1.8-2.4 mg/dl
[2017-11-11 00:25] VITALS: BP 134/87; PULSE 60; TEMP 36.8; O2SAT 96
[2017-11-11 04:11] VITALS: BP 128/84; PULSE 63; TEMP 36.7; O2SAT 96
[2017-11-11] MEDS: GABAPENTIN 600MG Q12H DOSE PO SCH (06:08)
[2017-11-11 07:42] LABS: WHITE BLOOD COUNT 8.14 K/uL (4.8-10.8)
[2017-11-11 07:43] LABS: HEMATOCRIT 35.8 % (37-47); HEMOGLOBIN 11.6 g/dL (12.0-16.0); MEAN CELL VOLUME 82.9 fL (80-100); MEAN CORPUSCULAR HEMOGLOBIN 26.9 pg (25-34); MEAN CORPUSCULAR HGB CONC 32.4 g/dl (32-36); MEAN PLATELET VOLUME 9.4 fL (7.4-10.4); PLATELET COUNT 260 K/uL (130-400); RED CELL DISTRIBUTION WIDTH CV 18.3 % (11.5-14.5); RED CELL DISTRIBUTION WIDTH SD 55.1 fL (36.4-46.3)
[2017-11-11 08:03] LABS: CALCIUM 8.1 mg/dl (8.5-10.1); CREATININE 0.51 mg/dl (0.60-1.20); POTASSIUM 4.3 mmol/L (3.5-5.1)
[2017-11-11 08:05] VITALS: BP 129/89; PULSE 67; TEMP 36.8; O2SAT 98
[2017-11-11] MEDS: PANTOprazole SOD 40 MG TAB PO SCH (08:17)
[2017-11-11] MEDS: SERTRALINE HCL 50 MG TAB PO SCH (08:17)
[2017-11-11] MEDS: AMOXICILLIN/CLAVULANATE TAB 875 MG TAB PO SCH ×2 (08:17→16:52)
[2017-11-11] MEDS: POT PHOSPHATE MONOBASIC W/ SOD TAB PO SCH ×4 (08:18→20:13)
[2017-11-11] MEDS: LEVETIRACETAM 500 MG TAB PO SCH ×2 (08:18→20:13)
[2017-11-11] MEDS: NICOTINE 7 MG/24 HR TDSY TD SCH (08:19)
[2017-11-11 12:00] VITALS: BP 128/85; PULSE 78; TEMP 36.9; O2SAT 98
[2017-11-11] MEDS: ONDANSETRON INJ 2 MG/ML 2 ML VIAL IV PRN (12:43)
[2017-11-11] MEDS: LORAZEPAM 0.5 MG TAB PO PRN ×3 (12:46→23:54)
[2017-11-11] MEDS: GABAPENTIN 1200MG LOADING DOSE PO SCH (14:48)
--- NOTE | 2017-11-11 15:33 | Progress Note ---
Internal Med Progress Note Date of Service: Nov 11, 2017. Provider Documentation: SUBJECTIVE: Seen and examined at bedside States having diarrhea since yesterday Reports mild back discomfort Denies chest pain, SOB, dizziness No signs of withdrawal No other complaints OBJECTIVE: Vital Signs-as noted below Physical Exam: General Appearance:Moderately built and nourished, no apparent distress Head: normocephalic, Atraumatic Eyes: normal inspection, EOMI, PERRL Neck: supple, Trachea midline Respiratory/Chest: Normal breath sounds, CTA Cardiovascular: S1, S2, No murmur Abdomen/GI:Soft, Non tender, Bowel sounds present Extremities/Musculoskelatal:normal inspection, no edema Neurologic/Psych:AAOX3, grossly no focal neurological deficits Skin: normal color, warm Lab data as noted below. ASSESSMENT & PLAN: Patient is a 47 yr female, poor historian, will obtain records from PCP in [facility]? , will obtain medication list from Pharmacist in [place]. Please clarify past medical history and medications from patient as able Alcohol Intoxication: H/O Alcoholism, Delirium Tremens no signs of withdrawal Continue Alcohol withdrawal protocol including Gabapentin Taper Needs Alcohol rehab placement IVF discontinued Awaiting for placement Diarrhea: Check Stool for c.diff monitor Depression: Appreciate Psychiatry Input Continue Sertraline Needs follow up with Psychiatry as outpatient Possible Sinusitis, UTI Continue Augmentin BID Denies urinary symptoms H/O Seizure Will try to get records from PCP in [facility]? and medication list from Pharmacy patient states she takes Keppra but does not recall the dose Continue Keppra H/O COPD Ongoing Tobacco use: She uses Albuterol inhaler daily No signs of exacerbation PRN Nebs Nicotine patch H/O HTN: PRN Clonidine Marijuana Use: legal counsel to quit DVT Px: SCDs Code Status: Full Code Disposition: Needs Inpatient Alcohol Rehab placement perinatal social worker consulted Vital Signs: Date Time Temp Pulse Resp B/P (MAP) Pulse Ox O2 Delivery O2 Flow Rate FiO2 11/11/17 12:00 36.9 78 20 128/85 (99) 98 Room Air 11/11/17 12:00 98 Room Air 11/11/17 08:05 36.8 67 20 129/89 (102) 98 Room Air 11/11/17 08:00 Room Air 11/11/17 04:11 36.7 63 18 128/84 (99) 96 Room Air 11/11/17 04:00 Room Air 11/11/17 00:25 36.8 60 18 134/87 (103) 96 Room Air 11/11/17 00:00 Room Air 11/10/17 20:00 Room Air 11/10/17 19:55 133/87 (102) 11/10/17 19:38 36.6 67 20 142/100 (114) 98 Room Air 11/10/17 16:00 Room Air Lab Results: Results Past 24 Hours Test 11/11/17 07:23 Range/Units White Blood Count 8.14 4.8-10.8 K/uL Red Blood Count 4.32 4.2-5.4 M/uL Hemoglobin 11.6 12.0-16.0 g/dL Hematocrit 35.8 37-47 % Mean Corpuscular Volume 82.9 80-100 fL Mean Corpuscular Hemoglobin 26.9 25-34 pg Mean Corpuscular Hemoglobin Concent 32.4 32-36 g/dl RDW Standard Deviation 55.1 36.4-46.3 fL RDW Coefficient of Variation 18.3 11.5-14.5 % Platelet Count 260 130-400 K/uL Mean Platelet Volume 9.4 7.4-10.4 fL Sodium Level 136 136-145 mmol/L Potassium Level 4.3 3.5-5.1 mmol/L Chloride Level 107 98-107 mmol/L Carbon Dioxide Level 23 21-32 mmol/L Anion Gap 6.0 3-11 mmol/L Blood Urea Nitrogen 8 7-18 mg/dl Creatinine 0.51 0.60-1.20 mg/dl Est Creatinine Clear Calc Drug Dose 135.4 ml/min Estimated GFR () 133.7 Estimated GFR (Non- 115.3 BUN/Creatinine Ratio 15.2 10-20 Random Glucose 100 70-99 mg/dl Calcium Level 8.1 8.5-10.1 mg/dl
[2017-11-11 16:05] VITALS: BP 125/93; PULSE 69; TEMP 36.9; O2SAT 98
[2017-11-11 19:08] VITALS: BP 121/83; PULSE 74; TEMP 37; O2SAT 98
[2017-11-11] MEDS: IBUPROFEN 200 MG TAB PO PRN (19:11)
[2017-11-12] VITALS (9 sets, daily range): BP systolic 109–119; BP diastolic 73–81; PULSE 71–82; TEMP 36.7–37.1; O2SAT 94–98
[2017-11-12] MEDS ORDERED: GABAPENTIN 600MG X1 DOSE PO SCH (06:00)
[2017-11-12] MEDS: POT PHOSPHATE MONOBASIC W/ SOD TAB PO SCH ×2 (07:49→12:11)
[2017-11-12] MEDS: LEVETIRACETAM 500 MG TAB PO SCH ×2 (07:49→20:58)
[2017-11-12] MEDS: PANTOprazole SOD 40 MG TAB PO SCH (07:49)
[2017-11-12] MEDS: NICOTINE 7 MG/24 HR TDSY TD SCH (07:50)
[2017-11-12] MEDS: AMOXICILLIN/CLAVULANATE TAB 875 MG TAB PO SCH ×2 (07:50→17:23)
[2017-11-12] MEDS: SERTRALINE HCL 50 MG TAB PO SCH (07:50)
[2017-11-12] MEDS: LORAZEPAM 0.5 MG TAB PO PRN ×2 (12:11→23:29)
--- NOTE | 2017-11-12 14:17 | Progress Note ---
Internal Med Progress Note Date of Service: Nov 12, 2017. Provider Documentation: SUBJECTIVE: Seen and examined at bedside [place] anxious this morning, improved after ativan No other complaints Denies chest pain, SOB, dizziness OBJECTIVE: Vital Signs-as noted below Physical Exam: General Appearance:Moderately built and nourished, no apparent distress Head: normocephalic, Atraumatic Eyes: normal inspection, EOMI, PERRL Neck: supple, Trachea midline Respiratory/Chest: Normal breath sounds, CTA Cardiovascular: S1, S2, No murmur Abdomen/GI:Soft, Non tender, Bowel sounds present Extremities/Musculoskelatal:normal inspection, no edema Neurologic/Psych:AAOX3, grossly no focal neurological deficits Skin: normal color, warm Lab data as noted below. ASSESSMENT & PLAN: Patient is a 47 yr female, poor historian, will obtain records from PCP in [facility]? , will obtain medication list from Pharmacist in [place]. Please clarify past medical history and medications from patient as able Alcohol Intoxication: H/O Alcoholism, Delirium Tremens no signs of withdrawal Continue Alcohol withdrawal protocol including Gabapentin Taper Needs Alcohol rehab placement IVF discontinued continue to monitor for withdrawal Ativan PRN Diarrhea: Check Stool for c.diff if reoccurs monitor Depression: Appreciate Psychiatry Input Continue Sertraline Needs follow up with Psychiatry as outpatient Possible Sinusitis, UTI Continue Augmentin BID Denies urinary symptoms H/O Seizure Will try to get records from PCP in [facility]? and medication list from Pharmacy ( [facility]) patient states she takes Keppra but does not recall the dose Continue Keppra H/O COPD Ongoing Tobacco use: She uses Albuterol inhaler daily No signs of exacerbation PRN Nebs Nicotine patch H/O HTN: PRN Clonidine Marijuana Use: job placement counselor to quit DVT Px: SCDs Code Status: Full Code Disposition: Needs Inpatient Alcohol Rehab placement social media developer consulted Vital Signs: Date Time Temp Pulse Resp B/P (MAP) Pulse Ox O2 Delivery O2 Flow Rate FiO2 11/12/17 08:00 97 Room Air 11/12/17 07:55 36.7 74 20 117/73 (88) 97 Room Air 11/12/17 04:00 Room Air 11/12/17 03:49 36.9 78 20 109/75 (86) 97 Room Air 11/12/17 00:14 36.9 72 18 112/76 (88) 98 Room Air 11/12/17 00:01 Room Air 11/11/17 20:00 Room Air 11/11/17 19:08 37.0 74 18 121/83 (96) 98 Room Air 11/11/17 16:05 36.9 69 18 125/93 (104) 98 Room Air 11/11/17 16:00 Room Air
[2017-11-12] MEDS: GABAPENTIN 1200MG LOADING DOSE PO SCH (15:29)
[2017-11-12] MEDS: DOCUSATE SODIUM 100 MG CAP PO PRN (20:58)
[2017-11-13 04:18] VITALS: BP 122/79; PULSE 81; TEMP 36.7; O2SAT 98
[2017-11-13 08:00] VITALS: O2SAT 98
[2017-11-13 08:06] VITALS: BP 118/79; PULSE 75; TEMP 36.9; O2SAT 98
[2017-11-13] MEDS: PANTOprazole SOD 40 MG TAB PO SCH (08:50)
[2017-11-13] MEDS: LEVETIRACETAM 500 MG TAB PO SCH (08:50)
[2017-11-13] MEDS: SERTRALINE HCL 50 MG TAB PO SCH (08:50)
[2017-11-13] MEDS: DOCUSATE SODIUM 100 MG CAP PO PRN (08:51)
[2017-11-13] MEDS: LORAZEPAM 0.5 MG TAB PO PRN (08:51)
[2017-11-13] MEDS: AMOXICILLIN/CLAVULANATE TAB 875 MG TAB PO SCH (09:58)
[2017-11-13] MEDS: NICOTINE 7 MG/24 HR TDSY TD SCH (09:58)
[2017-11-13 11:30] VITALS: BP 117/77; PULSE 75; TEMP 36.8; O2SAT 98
[2017-11-13 12:00] VITALS: O2SAT 98
--- NOTE | 2017-11-13 12:49 | Progress Note ---
Internal Med Progress Note Date of Service: Nov 13, 2017. Provider Documentation: SUBJECTIVE: Seen and examined at bedside Feels well today No complaints Patient is not interested in going to alcohol rehab facility She prefers to be discharged home and understands the consequences Denies chest pain, SOB, dizziness OBJECTIVE: Vital Signs-as noted below Physical Exam: General Appearance:Moderately built and nourished, no apparent distress Head: normocephalic, Atraumatic Eyes: normal inspection, EOMI, PERRL Neck: supple, Trachea midline Respiratory/Chest: Normal breath sounds, CTA Cardiovascular: S1, S2, No murmur Abdomen/GI:Soft, Non tender, Bowel sounds present Extremities/Musculoskelatal:normal inspection, no edema Neurologic/Psych:AAOX3, grossly no focal neurological deficits Skin: normal color, warm Lab data as noted below. ASSESSMENT & PLAN: Alcohol Intoxication: H/O Alcoholism, Delirium Tremens no signs of withdrawal Continue Alcohol withdrawal protocol including Gabapentin Taper Needs Alcohol rehab placement but patient prefers to be discharged home IVF discontinued continue to monitor for withdrawal Ativan PRN Diarrhea: Resolved monitor Depression: Was on Abilify and Effexor at home but ? compliance as patient has not refilled her meds since July 2017 as per her Pharmacist Appreciate Psychiatry Input Continue Sertraline Needs follow up with Psychiatry as outpatient Discussed with today Plan to continue sertraline only (Stop Abilify and Effexor) Possible Sinusitis, UTI Completed Augmentin BID, 5 days Denies urinary symptoms H/O Seizure Takes Keppra 500 BID her home dose No acute issues H/O COPD Ongoing Tobacco use: She uses Albuterol inhaler daily No signs of exacerbation PRN Nebs Nicotine patch Refuses to quit smoking despite counselling H/O HTN: PRN Clonidine Marijuana Use: assistant counsel to quit DVT Px: SCDs Code Status: Full Code Disposition: Needs Inpatient Alcohol Rehab placement, but patient refuses currently and wants to be discharged home school social worker consulted Plan to discharge home today Follow up with your PCP Dr.Tamar Puentes in 1 week as scheduled Follow up with your Psychiatrist as advised Your Medication changes: Stop taking Abilify and Effexor Start taking Zoloft 50mg daily Seek immediate medical attention if your symptoms reoccur or worsen Quit smoking and drinking alcohol as advised Vital Signs: Date Time Temp Pulse Resp B/P (MAP) Pulse Ox O2 Delivery O2 Flow Rate FiO2 11/13/17 11:30 36.8 75 18 117/77 (90) 98 11/13/17 08:06 36.9 75 18 118/79 (92) 98 Room Air 11/13/17 04:18 36.7 81 20 122/79 (93) 98 Room Air 11/13/17 04:00 Room Air 11/13/17 00:00 Room Air 11/12/17 23:32 36.8 78 20 118/79 (92) 97 Room Air 11/12/17 20:00 Room Air 11/12/17 19:23 36.9 82 18 119/81 (94) 97 Room Air 11/12/17 16:00 97 Room Air 11/12/17 14:43 37.1 71 20 114/73 (87) 94
[2017-11-13] MEDS ORDERED: CLC100X PO (13:07)
[2017-11-13] MEDS ORDERED: ZLF50 PO (13:07)
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
--- NOTE | 2017-11-13 13:42 | Psychiatric Progress Notes ---
Psychiatric Progress Note Date of Service Nov 13, 2017. Notes Reviewed chart, discussed case with psychiatric liaison nurse, and discharge planning with Dr. Trinh. Recommend continuing sertraline 50mg daily and f/u with outpatient psychiatrist for med management. Tamara's outpatient mental health case manager , Lilliam, is trying to schedule her with Dr. Mccray. The primary recommendation continues to be inpatient rehab to address her alcoholism. Lilliam is aware and can assist the patient with referrals if she changes her mind and is willing to go to rehab.
[2017-11-13] MEDS: GABAPENTIN 1200MG LOADING DOSE PO SCH (14:04)
[2017-11-13 14:52] VITALS: BP 117/77; PULSE 75; TEMP 36.8; O2SAT 98
[2017-11-14] MEDS ORDERED: ARIPIprazole TAB 10 MG TAB PO SCH (09:00)
[2017-11-14] MEDS ORDERED: VENLAFAXINE HCL XR 75 MG CAPXR PO SCH (09:00)
== END 2017-11-13 15:08 | disposition home or self-care (01) | DRG 897 ==
LOC: C.EDB 11:13 → C.MS2W 11-08 00:12 → ENRESERV 11-08 00:55
PROVIDERS: ADMIT Family Medicine; ATTEND Internal Medicine
DX: F10.229 Alcohol dependence with intoxication, unspecified (principal); R45.851 Suicidal ideations; G40.89 Other seizures; N39.0 Urinary tract infection, site not specified; F43.10 Post-traumatic stress disorder, unspecified; J43.9 Emphysema, unspecified; F17.200 Nicotine dependence, unspecified, uncomplicated; F12.20 Cannabis dependence, uncomplicated; F41.8 Other specified anxiety disorders; J32.9 Chronic sinusitis, unspecified; Z91.19 Patient's noncompliance with other medical treatment and regimen; Z59.0 Homelessness

== ENCOUNTER 2022-03-16 10:09 | Inpatient (IN) ==
[2022-03-16] MEDS ORDERED: MULTI-VITAMIN INFUSION 10 ML, THIAMINE HCL 100 MG, FOLIC ACID 1 MG in SODIUM CHLORIDE 0... IV ONE (11:05)
[2022-03-16 11:15] LABS: Basophils # (auto) 0.09 K/uL (0-0.2); Basophils % (auto) 0.6 %; Eosinophils # (auto) 0.23 K/uL (0-0.50); Eosinophils % (auto) 1.5 %; Hematocrit (blood only) 39.8 % (34.1-44.9); Hemoglobin 13.6 g/dl (12.0-16.0); Immature Granulocytes # (auto) 0.12 K/uL (0.00-0.02); Immature Granulocytes % (auto) 0.8 %; Lymphocytes % (auto) 16.6 %; Mean Corpuscular Hemoglobin 34.2 pg (25.0-34.0); Mean Corpuscular Hgb Conc 34.2 g/dL (32.0-36.0); Mean Platelet Volume 9.7 fL (9.4-12.3); Monocytes # (auto) 1.86 K/uL (0.24-0.82); Monocytes % (auto) 11.9 %; Neutrophils # (auto) 10.74 K/uL (1.4-6.5); Neutrophils % (auto) 68.6 %; Platelet Count 400 K/uL (130-400); RDW Coefficient of Variation 16.2 % (11.5-14.5); RDW Standard Deviation 59.9 fL (36.4-46.3); Red Blood Count 3.98 M/uL (3.93-5.22); White Blood Count 15.64 K/ul (4.8-10.8)
[2022-03-16] MEDS ORDERED: SODIUM CHLORIDE 0.9% 1000ML 1,000 ML IV SCH (11:15)
[2022-03-16 11:28] LABS: INR 1.1 (0.9-1.1); Partial Thromboplastin Ratio 1.1; Partial Thromboplastin Time 30.9 Seconds (21.0-31.0); Prothrombin Time 11.9 Seconds (9.0-12.0)
[2022-03-16 11:31] LABS: Alanine Aminotransferase 31 U/L (7-52); Albumin Level 3.3 gm/dl (3.4-5.0); Alkaline Phosphatase 224 U/L (34-104); Anion Gap 11 (3-11); Aspartate Aminotransferase 86 U/L (13-39); BUN Creatinine Ratio 13.8 (10-20); Bilirubin,Total 2.8 mg/dl (0.2-1.0); Blood Urea Nitrogen 4 mg/dl (6-23); Calcium 8.2 mg/dl (8.5-10.1); Carbon Dioxide 23 mmol/L (21-32); Chloride 100 mmol/L (98-107); Creatinine Clr Calc Pharmacy 220.5 ml/min; Est GFR (African American) > 150.0 ml/min; Globulin 3.4 gm/dl (2.5-4.0); Glucose 117 mg/dl (70-99(Fasting)); Magnesium 1.7 mg/dl (1.7-2.4); Phosphorus 1.9 mg/dl (2.5-4.9); Potassium 3.1 mmol/L (3.5-5.1); Sodium 134 mmol/L (136-145); Total Protein 6.7 gm/dl (6.0-8.3)
[2022-03-16 11:47] LABS: Thyroid Stimulating Hormone 6.736 uIu/ml (0.300-4.500)
--- NOTE | 2022-03-16 11:48 | XRay Report ---
XR chest 1V portable CLINICAL HISTORY: weakness. Evaluate cardiopulmonary status COMPARISON STUDY: 03/03/2022 TECHNIQUE: 1 view of the chest FINDINGS: Single frontal view of the chest demonstrates the cardiomediastinal silhouette to be within normal li mits. The lungs are clear of alveolar opacities. There is no evidence for pleural effusion. There is no evidence for vascular congestion. There is no acute osseous pathology. IMPRESSION: 1. No acute cardiopulmonary disease. ACT 112: Negative or not required by law. Electronically signed by: Matt Urias M.D. 03/16/2022 11:46 AM
[2022-03-16] MEDS ORDERED: POTASSIUM PHOSPHATE 21 MMOL in SODIUM CHLORIDE 0.9% 500 ML IV ONE (12:00)
[2022-03-16] MEDS ORDERED: SODIUM CHLORIDE 1 GM TABLET PO ONE (12:00)
[2022-03-16 12:25] LABS: T4 Free Thyroxine 1.26 ng/dl (0.61-1.60)
[2022-03-16 12:42] LABS: Appearance Urine Clear (Clear); Bacteria Urine Automated 4+ (Negative); Bilirubin Urine Negative (Negative); Blood Urine Trace (Negative); Color Urine Dark Yellow; Epithelial Cell Urine Auto >30 /lpf (0-5); Glucose Urine UA Negative (Negative); Ketones Urine Trace (Negative); Leukocyte Esterase Urine Trace (Negative); Nitrite Urine Positive (Negative); Protein Urine Negative (Negative); RBC Urine Automated 0-4 /hpf (0-4); Specific Gravity Urine 1.007 (1.000-1.030); Urobilinogen Urine Positive (Negative)
[2022-03-16 12:53] LABS: Lyme Ab IgG w/WB Rflx Negative (Negative)
[2022-03-16 13:02] LABS: Lyme Ab IgM w/WB Rflx Equivocal (Negative)
[2022-03-16] MEDS ORDERED: cefTRIAXone SODIUM 1,000 MG/50 ML BAG IV STA (13:49)
--- NOTE | 2022-03-16 13:56 | History & Physical Report ---
Date of Service March 16, 2022 Assessment & Plan (1) Intractable nausea and vomiting: Plan: - This is been ongoing issue for over a month now, which started before patient gave up alcohol entirely. She was seen here on 03/[address] A/P did not reveal any acute findings other than hepatic steatosis and small abdominal varices suggesting possible portal hypertension. She was referred to GI, who she follows with regularly. She was actually scheduled for colonoscopy on 03/10 which was being done for constipation and occasional rectal bleeding. Results of the colonoscopy revealed nonbleeding internal hemorrhoids and a lipoma of the ascending colon. They recommended referral to [facility] for a lower EUS to further evaluate the ascending colon. - She has Phenergan for nausea and vomiting, we are avoiding Zofran due to prolonged QT interval on previous EKGs. - We will also consult [facility] as recommended by her primary [facility] GI team given the ascending colon lipoma. - Would recommend she follow-up with her regular GI team for her hepatic stea tosis portal hypertension. She not had any hematemesis. (2) UTI (urinary tract infection): Plan: - WBC 15.64, UA with nitrite, leuk esterase, 5-10 WBCs, 4+ bacteria. Urine cx pending. -Patient essentially asymptomatic other than some back pain which is chronic for her, nausea and vomiting longstanding. - Will start on Rocephin while hospitalized--a UTI may be causing some of her discomfort and nausea and vomiting but doubt that this is what caused this over a month ago (3) Hypokalemia: Plan: - 3.1, so far repleted with 21 mmol K-Phos in ED, will continue repletion, recheck with a.m. labs. - Magnesium borderline at 1.7, will replete with 1 bag. - Underlying alcohol abuse, intractable nausea/vomiting. - Prescribed 20 mEq KCl daily. (4) Hypophosphatemia: Plan: - 1.9, so far repleted with 21 mmol K-Phos in ED, will recheck with a.m. labs. (5) Hypocalcemia: Plan: - 8.2, add on ionized calcium-- - (6) Alcohol dependence: Plan: - Longstanding history of a fifth of alcohol per day for the past 9 years, however last drink 1 month ago. - Will place on AWSS. - Banana bag in ED. Continue IVF. - Daily folic acid and thiamine supplementation. - B12 and folic acid levels with a.m. labs. (7) Lyme disease: Plan: - Tested in ED given history of weakness, while living with an outdoor cat. - IgM is equivocal, bands pending. - Should she be positive for Lyme, the Rocephin she is receiving for her UTI will also cover for this. (8) Hypothyroidism: Plan: - Continue levothyroxine 112 mcg daily. (9) COPD (chronic obstructive pulmonary disease): Plan: - Has albuterol as needed, has not used recently. - No shortness of breath, evidence for acute exacerbation. (10) Depression: Plan: - No current medications. (11) Hemorrhoids: Plan: - Continue Anusol cream. History of Present Illness Chief Complaint: Generalized weakness Primary Care Provider: Natalia Puentes MD Tamara Hanna is a 51-year-old female with past medical history significant for al cohol abuse, COPD, CAD, hypertension, hypothyroidism, fatty liver, depression, anxiety who presents today from home with complaints of weakness. She states for the past month she has had left-sided abdominal pain and very frequent nausea and vomiting daily, with nearly 10 episodes per day. She was evaluated for this in our ED on 03/03 at that time she was hypokalemic and CT of the abdomen and pelvis was obtained and revealed splenomegaly, severe hepatic steatosis and small abdominal varices with trace pelvic ascites suggestive of portal hypertension, as well as a 7 mm intermediate left renal lesion which was too small to characterize. Appendix appeared normal, there is no bowel obstruction. She was discharged with Phenergan and a potassium supplement recommended to follow-up with her PCP. She did have follow-up with her PCP approximately 1 week later, who referred her to GI as she has frequent follow-up with them. She had a routine colonoscopy scheduled for , which revealed nonbleeding internal hemorrhoids and a small lipoma in the ascending colon. Plan was to refer her to [facility] for a lower endoscopy for to further evaluate the ascending colon lesion. Patient does have a longstanding history of alcohol abuse of a fifth a day for past 9 years, however stopped drinking alcohol entirely 1 month ago because she was vomiting so much did not feel it was worth it to keep drinking if she cannot keep it down. Of note, the nausea and vomiting did start before she stopped drinking alcohol. She reports agitation from not being able to drink, however denies any other withdrawal symptoms including seizures or hallucinations. In ED, she presented tachycardic heart rate of 121, otherwise vital signs within normal limits labs significant for elevated WBC of 15.64, elevated CRP at 4.16, potassium 3.1, sodium 134, calcium 8.2, phosphorus 1.9, t bili 2.8, AST 86, alk phos 224, TSH 6.736. UA with nitrites, leuk esterase, WBCs, bacteria and trace blood, ketones. Urine cx pending. Lyme IgM Ab equivocal. CXR unremarkable. Allergies Allergy/AdvReac Type Severity Reaction Status Date / Time promethazine AdvReac Intermediate MADE ME Verified 03/16/22 15:11 SICKER hair dye Allergy Unknown scalp Uncoded 03/16/22 15:11 irriration/swelling Home Medications Medication Instructions Recorded Confirmed Type ascorbic acid (vitamin C) 500 mg 500 mg PO QAM 06/24/21 03/16/22 History tablet (Vitamin C) omeprazole 20 mg capsule,delayed 20 mg PO BID #60 caps 07/01/21 03/16/22 Rx release Lactobacillus acidophilus 10 10,000 mmu cells PO QAM 07/20/21 03/16/22 History billion cell capsule (Probiotic) cyanocobalamin (vitamin B-12) 1,000 mcg PO QAM 07/20/21 03/16/22 History 1,000 mcg capsule albuterol sulfate 90 mcg/actuation 2 puff inhalation DIRECTED PRN 03/08/22 03/16/22 History aerosol inhaler COPD/ASTHMA cholecalciferol (vitamin D3) 10 10 mcg PO QAM 03/08/22 03/16/22 History mcg (400 unit) tablet (Vitamin D3) potassium chloride 20 mEq 20 meq PO QAM 03/08/22 03/16/22 History tablet,extended release(part/cryst) hydrocortisone 2.5 % topical cream 1 applic FL BID PRN Hemorrhoids 03/16/22 03/16/22 History with perineal applicator (Anusol-HC) levothyroxine 112 mcg tablet 112 mcg PO DAILY 03/16/22 03/16/22 History ondansetron 4 mg disintegrating 4 mg PO Q6H PRN NAUSEA/VOMITING 03/16/22 03/16/22 History tablet Past Med/Surg History Medical History Acid reflux Alcohol dependence A FIFTH A DAY FOR 9 YRS NONE FOR LAST 3 WEEKS "WAS GETTING SICK WHEN I DRINK IT AND MY BODY WON'T ALLOW ME TO HAVE IT" Anxiety and depression Constipation REASON FOR UPCOMING PROCEDURE COPD (chronic obstructive pulmonary disease) AND ASTHMA PER PT - LAST USE INHALER LAST WEEK Fatty liver Heavy menses High blood pressure NO MEDS/MONITORS History of anemia History of seizure LAST EVENT 2 YEARS AGO (ALCHOHOL WITHDRAWL) Hypothyroidism Muscle mass LOSS OF MUSCLE MASS OVER LAST 2 MON Nausea and vomiting reason for upcoming procedure PTSD (post-traumatic stress disorder) PUD (peptic ulcer disease) Rectal bleeding REASON FOR UPCOMING PROCEDURE Snores Spontaneous pneumothorax HX (REPAIRED 2005) Vitamin D deficiency pt reports probably all her vitamins are low Surgical History H/O tooth extraction 02/11/18 - Multiple teeth extracted under general anesthesia History of section X 3 History of colonoscopy MOST RECENT A COUPLE MONTHS AGO ? - PT NOT SURE DETAILS ON FINDINGS (DONE AT [facility]) History of endoscopy Family History Mother Family hx of colon cancer Stomach cancer Anxiety Depression Kidney disease Colorectal cancer Lung disease Gallbladder disease Family history of cancer Grandmother (Maternal) Stomach cancer Alcohol abuse Father Depression Cardiac disorder Kidney stones Kidney disease Myocardial infarction Oral-mouth cancer Lung disease Hypertension Sister Drug abuse Anxiety Depression Aunt Breast cancer Maternal Brother Family history of diabetes mellitus Other No family history of adverse response to anesthesia Denies family history of Ovarian cancer Prostate cancer Social History Smoking Status: Current every day smoker Tobacco Type: Cigarettes packs per day: 0.5; Years Smoked: 40; Cigarettes Per Day: 8; Second Hand Exposure: Yes; Hx Alcohol Use: Yes (HX VODKA A FIFTH A DAY (FOR 9 YRS), NONE FOR 3 WEEKS) Alcohol type: other Alcohol type Comment: VOLDKA Hx Substance Use: No Preferred Language: Puerto Rican Communication Ability: Effective Osteopathic Resident Required: No Beliefs That Will Affect Care: None marital status: Current Living Situation: Other Current Living Situation Comment: ROOMATE current occupational status: employed 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 Feels Safe at Home: Yes caffeine: Yes (coffee) Dental Care, Regularly: No Physical Activity Frequency: 1-2 Times per Week Seatbelt Use: always Sunscreen Use: No Assistive Devices: Denture - Upper, Denture - Lower and Glasses Review of Systems Review of Systems: Constitutional: Feels generally weak and fatigued; no fever/chills, myalgias, anorexia, night sweats Eyes: No diplopia, no worsening or blurred vision ENT: normal hearing, no trouble swallowing Respiratory: No cough, sputum, dyspnea at rest or on exertion Cardiovascular: No chest pain, tightness or palpitations Abdomen: Left-sided abdominal pain and over 1 month of nausea, vomiting, without hematemesis; BMs are loose, however infrequent : Denies dysuria, hematuria, increased urgency/frequency, urinary retention Musculoskeletal: Bilateral low back pain which is chronic for patient; no joint pain, calf pain, swelling Neurologic: No weakness, numbness/tingling, or balance problems Psychiatric: No anxiety or depression Skin: No rash or itch Physical Exam Physical Exam: General: awake, alert, no apparent distress Head: Normocephalic, atraumatic ENT: PERRL, EOMI, no pharyngeal exudate, mucous membranes moist Chest: Clear to auscultation, on room air, no adventitious breath sounds Cardiac: Regular rate and rhythm, no murmur, no JVD, normal peripheral pulses, good capillary refill Abdominal: TTP in LUQ and lower ribs; NABS x 4 quadrants, soft, otherwise nontender to palpation, no rebound, guarding or tenderness Extremities: Normal inspection, no peripheral edema or erythema, calfs nontender to palpation Psych: Normal mood and affect Neuro: AAO x 3, strength intact bilaterally and rated 5/5, no motor deficits, speech is clear, no peripheral sensory deficits Skin: no rash or erythema Results & Data Results & Data ([facility]) Vital Signs (Past 12 Hours) Vital Signs Temp Pulse Pulse Resp BP BP Pulse Ox 03/16/22 13:23 100 H 16 132/93 95 03/16/22 11:15 96 H 19 93 03/16/22 10:52 100 H 18 134/92 94 03/16/22 10:15 36.4 C L 121 H 18 125/75 98 O2 Del Method 03/16/22 13:23 Room Air 03/16/22 11:15 Room Air 03/16/22 10:52 Room Air 03/16/22 10:15 Room Air Laboratory Results Abnormal lab results 03/16/22 03/16/22 03/16/22 Range/Units 10:30 10:30 10:30 WBC 15.64 H (4.8-10.8) K/ul MCH 34.2 H (25.0-34.0) pg RDW Std Deviation 59.9 H (36.4-46.3) fL RDW Coeff of Celestina 16.2 H (11.5-14.5) % Neut # (Auto) 10.74 H (1.4-6.5) K/uL [place] # (Auto) 1.86 H (0.24-0.82) K/uL Immature Gran # (Auto) 0.12 H (0.00-0.02) K/uL Sodium 134 L (136-145) mmol/L Potassium 3.1 L (3.5-5.1) mmol/L BUN 4 L (6-23) mg/dl Creatinine 0.29 L (0.6-1.2) mg/dl Glucose 117 H (70-99(Fasting)) mg/dl Calcium 8.2 L (8.5-10.1) mg/dl Phosphorus 1.9 L (2.5-4.9) mg/dl Total Bilirubin 2.8 H (0.2-1.0) mg/dl AST 86 H (13-39) U/L Alkaline Phosphatase 224 H (34-104) U/L C-Reactive Protein (0-0.5) mg/dl Albumin 3.3 L (3.4-5.0) gm/dl TSH 6.736 H (0.300-4.500) uIu/ml Urine Ketones (Negative) Urine Blood (Negative) Urine Nitrite (Negative) Urine Urobilinogen (Negative) Ur Leukocyte Esterase (Negative) Urine WBC (Auto) (0-5) /hpf U Epithel Cells (Auto) (0-5) /lpf Urine Bacteria (Auto) (Negative) Lyme Disease IgM Ab (Negative) 03/16/22 03/16/22 03/16/22 Range/Units 10:30 10:30 12:19 WBC (4.8-10.8) K/ul MCH (25.0-34.0) pg RDW Std Deviation (36.4-46.3) fL RDW Coeff of Celestina (11.5-14.5) % Neut # (Auto) (1.4-6.5) K/uL [place] # (Auto) (0.24-0.82) K/uL Immature Gran # (Auto) (0.00-0.02) K/uL Sodium (136-145) mmol/L Potassium (3.5-5.1) mmol/L BUN (6-23) mg/dl Creatinine (0.6-1.2) mg/dl Glucose (70-99(Fasting)) mg/dl Calcium (8.5-10.1) mg/dl Phosphorus (2.5-4.9) mg/dl Total Bilirubin (0.2-1.0) mg/dl AST (13-39) U/L Alkaline Phosphatase (34-104) U/L C-Reactive Protein 4.16 H (0-0.5) mg/dl Albumin (3.4-5.0) gm/dl TSH (0.300-4.500) uIu/ml Urine Ketones Trace H (Negative) Urine Blood Trace H (Negative) Urine Nitrite Positive A (Negative) Urine Urobilinogen Positive H (Negative) Ur Leukocyte Esterase Trace H (Negative) Urine WBC (Auto) 5-10 H (0-5) /hpf U Epithel Cells (Auto) >30 H (0-5) /lpf Urine Bacteria (Auto) 4+ H (Negative) Lyme Disease IgM Ab Equivocal A (Negative) Diagnostic Findings Chest X-Ray 03/16/22 11:03 XR chest 1V portable CLINICAL HISTORY: weakness. Evaluate cardiopulmonary status COMPARISON STUDY: 03/03/2022 TECHNIQUE: 1 view of the chest FINDINGS: Single frontal view of the chest demonstrates the cardiomediastinal silhouette to be within normal limits. The lungs are clear of alveolar opacities. There is no evidence for pleural effusion. There is no evidence for vascular congestion. There is no acute osseous pathology. IMPRESSION: 1. No acute cardiopulmonary disease. ACT 112: Negative or not required by law. Electronically signed by: Matt Urias M.D. 03/16/2022 11:46 AM Chest X-Ray 03/16/22 11:03 XR chest 1V portable CLINICAL HISTORY: weakness. Evaluate cardiopulmonary status COMPARISON STUDY: 03/03/2022 TECHNIQUE: 1 view of the chest FINDINGS: Single frontal view of the chest demonstrates the cardiomediastinal silhouette to be within normal limits. The lungs are clear of alveolar opacities. There is no evidence for pleural effusion. There is no evidence for vascular congestion. There is no acute osseous pathology. IMPRESSION: 1. No acute cardiopulmonary disease. ACT 112: Negative or not required by law. Electronically signed by: Matt Urias M.D. 03/16/2022 11:46 AM ECG Additional Comments: Sinus tachycardia Otherwise normal ECG When compared with ECG of 03-MAR-2022 07:05,. Code Status & VTE Plan Code Status DNR/DNI Supervising Physician Co-Signing Physician Notes Patient seen and examined, chart reviewed, case discussed with Ana Paula Ruiz PA-C and I agree with the assessment and plan as above except as otherwise noted Tamara is a 51-year-old female with a history of alcohol dependence, COPD, CAD, tobacco abuse, hypertension, portal hypertension, hepatic steatosis, ADD, and depression who presented with numbness from her toes to her chest and a nondermatomal distribution and tachycardia with a equivocal Lyme IgM. She has been recommended for admission for evaluation of numbness and UTI. On assessment breathing is unlabored, regular tachycardic, tender at L rib border w hx of fracutre, no underlying abdomina ltenderness/rebout. Lungs clear. UTI UA infected appearing Leukocytosis to 15.64 Afebrile UC pending Patient also with equivocal IgM Lyme, negative IgG. Is covered with Rocephin for UTI. Creatinine not elevated on admission CRP 4.16, trended Hypophosphatemia, hypokalemia Phosphorus 1.9, magnesium normal, potassium 3.1 Repletion as noted, trend Numbness/tingling TSH 6.7, free T4 normal CRP as noted Nondermatomal distribution B12 pending No focal neurologic deficits Lyme equivocal Western blot pending, is covered with Rocephin treatment for UTI above If Western blot positive treat for 10 days. Pending sensitivities and clinical progression, cefuroxime reasonable for coverage of both UTI and Lyme if needed CXR: No acute findings PG Care Time/CCT Total # of Minutes Spent Total Time Spent with Patient: Total time spent is greater than 50% in coordination of care (as documented) at patient's floor/unit and/or counseling patient: Coding Level of Care Code 45952 Initial Inpt Care Lvl 3 Diagnoses Intractable nausea and vomiting R11.2 UTI (urinary tract infection) N39.0 Hypokalemia E87.6 Hypophosphatemia E83.39 Hypocalcemia E83.51 Alcohol dependence F10.29 Substance use status: unspecified alcohol-induced disorder Lyme disease A69.20 Hypothyroidism E03.9 COPD (chronic obstructive pulmonary disease) J44.9 Depression F32.9 Hemorrhoids K64.9 (1) Alcohol dependence Substance use status: unspecified alcohol-induced disorder Qualified Code(s): F10.29 - Alcohol dependence with unspecified alcohol-induced disorder
--- NOTE | 2022-03-16 15:05 | Emergency Department Note ---
Impression & Plan UTI (urinary tract infection), Hypokalemia, Hypophosphatasia, Acute hyponatremia, History of ETOH abuse ED Provider Note CHIEF COMPLAINT: Numbness and tingling of the hands, feet and torso HISTORY OF PRESENT ILLNESS: This 51-year-old female patient presents to the emergency department complaints of tingling of the hands, feet up to the breasts. Patient states she does not have full sensation when she wipes after toileting. She denies any recent falls or injuries to the back. She has not had any recent surgeries. Patient does have a history of alcohol abuse and stopped drinking 3 weeks ago. Patient is in the emergency department with her catalytic case operator who is she needs to be evaluated. Patient has not had any difficulty with speech, vision or headaches. She denies any chest pain or shortness of breath. The patient has had a poor p.o. intake and per her catalytic case operator does vomit quite often. Patient denies any blood in her emesis or stools. REVIEW OF SYSTEMS: A review of systems was performed with positives and pertinent negatives listed in the history of present illness. 10 systems were reviewed and are otherwise negative. ALLERGIES: see below MEDICATIONS: see below PMH: see below SOCIAL HISTORY: see below DDx: Infection, dehydration, metabolic abnormality, hypo/hyperglycemia, electrolyte disturbance, anemia, hypoxia, cardiac sources, intracerebral event, toxicologic, neurologic, as well as other pathologies. PHYSICAL EXAM: Vital signs reviewed. General: Chronically ill-appearing 51-year-old female, in no significant distress. HEENT: No scleral icterus, PERRLA, neck supple. Edentulous, dry mucous membranes Cardiovascular: Regular rate and rhythm, no extra sounds. Pulmonary: Clear to auscultation bilaterally, normal work of breathing. Abdomen: Soft, nontender, nondistended, positive bowel sounds. Musculoskeletal: Atraumatic, no peripheral edema. Neurologic: Patient awake alert and oriented x 3 Skin: Warm, dry, no rash EMERGENCY DEPARTMENT COURSE/MDM: This patient was evaluated and appeared to be in no significant distress. IV access was obtained and laboratory work was drawn. The patient is noted to be hyponatremic, hypokalemic, hypophosphatemic. Her alcohol level is 0. Patient's urinalysis is positive for infection but is also contaminated will be sent for culture. Patient's Lyme titer is equivocal IgM. Patient was given 1 g of IV ceftriaxone. She was given a banana bag and electrolytes were repleted. I did discuss my findings with the patient and her catalytic case operator at the bedside. It was felt that the patient has very little social support at home and that she was not doing well from a sobriety/p.o. intake standpoint and would not be able to do well at home tonight. Patient was discussed with the hospitalist service for admission and further management. She is expressed understanding of the plan and agrees. MONITORING: An order for cardiac monitoring was placed and the patient is noted to be in a sinus tachycardia at 120 beats per minute. RADIOLOGY: See below EKG: Sinus tachycardia 102 bpm. QTC is 513. Normal ST segments. No PVC, no PAC. No significant change from 03/03/2022. DISPOSITION: Admission Past Med/Surg History Medical History Acid reflux Alcohol dependence A FIFTH A DAY FOR 9 YRS NONE FOR LAST 3 WEEKS "WAS GETTING SICK WHEN I DRINK IT AND MY BODY WON'T ALLOW ME TO HAVE IT" Anxiety and depression Constipation REASON FOR UPCOMING PROCEDURE COPD (chronic obstructive pulmonary disease) AND ASTHMA PER PT - LAST USE INHALER LAST WEEK Fatty liver Heavy menses High blood pressure NO MEDS/MONITORS History of anemia History of seizure LAST EVENT 2 YEARS AGO (ALCHOHOL WITHDRAWL) Hypothyroidism Muscle mass LOSS OF MUSCLE MASS OVER LAST 2 MON Nausea and vomiting reason for upcoming procedure PTSD (post-traumatic stress disorder) PUD (peptic ulcer disease) Rectal bleeding REASON FOR UPCOMING PROCEDURE Snores Spontaneous pneumothorax HX (REPAIRED 2005) Vitamin D deficiency pt reports probably all her vitamins are low Surgical History H/O tooth extraction 02/11/18 - Multiple teeth extracted under general anesthesia History of section X 3 History of colonoscopy MOST RECENT A COUPLE MONTHS AGO ? - PT NOT SURE DETAILS ON FINDINGS (DONE AT [facility]) History of endoscopy Family History Mother Family hx of colon cancer Stomach cancer Anxiety Depression Kidney disease Colorectal cancer Lung disease Gallbladder disease Family history of cancer Grandmother (Maternal) Stomach cancer Alcohol abuse Father Depression Cardiac disorder Kidney stones Kidney disease Myocardial infarction Oral-mouth cancer Lung disease Hypertension Sister Drug abuse Anxiety Depression Aunt Breast cancer Maternal Brother Family history of diabetes mellitus Other No family history of adverse response to anesthesia Denies family history of Ovarian cancer Prostate cancer Social History Smoking Status: Current every day smoker Tobacco Type: Cigarettes packs per day: 0.5; Years Smoked: 40; Cigarettes Per Day: 6 CIGS PER DAY; Second Hand Exposure: Yes; Hx Alcohol Use: Yes (HX VODKA A FIFTH A DAY (FOR 9 YRS), NONE FOR 3 WEEKS) Alcohol type: other Alcohol type Comment: VOLDKA Hx Substance Use: No Preferred Language: Ecuadorean Communication Ability: Effective Group Exercise Instructor Required: No Beliefs That Will Affect Care: None marital status: Current Living Situation: Other Current Living Situation Comment: ROOMATE current occupational status: employed 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 Feels Safe at Home: Yes caffeine: Yes (coffee) Dental Care, Regularly: No Physical Activity Frequency: 1-2 Times per Week Seatbelt Use: always Sunscreen Use: No Assistive Devices: Denture - Upper, Denture - Lower and Glasses Allergies Allergies Allergy/AdvReac Type Severity Reaction Status Date / Time promethazine AdvReac Intermediate MADE ME Verified 03/16/22 15:11 SICKER hair dye Allergy Unknown scalp Uncoded 03/16/22 15:11 irriration/swelling Home Meds Home Medications Medication Instructions Recorded Confirmed ascorbic acid (vitamin C) 500 mg 500 mg PO QAM 06/24/21 03/15/22 tablet (Vitamin C) Lactobacillus acidophilus 10 10,000 mmu cells PO QAM 07/20/21 03/15/22 billion cell capsule (Probiotic) cyanocobalamin (vitamin B-12) 1,000 mcg PO QAM 07/20/21 03/15/22 1,000 mcg capsule albuterol sulfate 90 mcg/actuation 2 puff inhalation UD PRN 03/08/22 03/15/22 aerosol inhaler COPD/ASTHMA cholecalciferol (vitamin D3) 10 10 mcg PO QAM 03/08/22 03/15/22 mcg (400 unit) tablet (Vitamin D3) potassium chloride 20 mEq 20 meq PO QAM 03/08/22 03/15/22 tablet,extended release(part/cryst) promethazine 25 mg tablet 25 mg PO UD PRN Nausea/PAIN 03/08/22 03/15/22 Previous Rx's Medication Instructions Recorded omeprazole 20 mg capsule,delayed 20 mg PO BID #60 caps 07/01/21 release levothyroxine 112 mcg tablet 112 mcg PO .COMPLEX #32 tabs 12/08/21 ondansetron 4 mg disintegrating 4 mg PO Q6H #30 tabs 03/11/22 tablet hydrocortisone 2.5 % topical cream 1 applic PA BID hemorrhoids #30 03/15/22 with perineal applicator grams (Anusol-HC) Results & Data (ED) Vital Signs Vital Signs - 24 hr 03/16/22 10:15 03/16/22 10:52 03/16/22 11:15 Temperature 36.4 C L Temperature Source Oral Pulse Rate 121 H 96 H Pulse Rate [Right Finger] 100 H Pulse Rhythm Regular Pulse Rhythm [Right Finger] Regular Pulse Strength [Right Finger] Normal Respiratory Rate 18 18 19 Respiratory Effort / Characteristics Non-Labored Spontaneous Respiratory Depth Normal Respiratory Pattern Regular Blood Pressure 125/75 Blood Pressure [Right Arm] 134/92 Blood Pressure Mean 91 Blood Pressure Mean [Right Arm] 106 Blood Pressure Position [Right Arm] Lying Pulse Oximetry 98 94 93 Oxygen Delivery Method Room Air Room Air Room Air Sepsis Recent Fever Within 48 Hours No Sepsis New/Unexplained Change in Mental Status No Sepsis Action Taken by Nursing No Action Required 03/16/22 13:23 Temperature Temperature Source Pulse Rate Pulse Rate [Right Finger] 100 H Pulse Rhythm Pulse Rhythm [Right Finger] Pulse Strength [Right Finger] Respiratory Rate 16 Respiratory Effort / Characteristics Respiratory Depth Respiratory Pattern Blood Pressure Blood Pressure [Right Arm] 132/93 Blood Pressure Mean Blood Pressure Mean [Right Arm] 106 Blood Pressure Position [Right Arm] Pulse Oximetry 95 Oxygen Delivery Method Room Air Sepsis Recent Fever Within 48 Hours Sepsis New/Unexplained Change in Mental Status Sepsis Action Taken by Long Term Medications Current Medication List: was personally reviewed by me Laboratory Data Attestation: I reviewed the patient's lab results. Result diagrams: 03/16/22 10:30 03/16/22 10:30 Lab Results 03/16/22 03/16/22 03/16/22 Range/Units 10:30 10:30 10:30 WBC 15.64 H (4.8-10.8) K/ul RBC 3.98 (3.93-5.22) M/uL Hgb 13.6 (12.0-16.0) g/dl Hct 39.8 (34.1-44.9) % MCV 100.0 (80.0-100.0) fL MCH 34.2 H (25.0-34.0) pg MCHC 34.2 (32.0-36.0) g/dL RDW Std Deviation 59.9 H (36.4-46.3) fL RDW Coeff of Celestina 16.2 H (11.5-14.5) % Plt Count 400 (130-400) K/uL MPV 9.7 (9.4-12.3) fL Immature Gran % (Auto) 0.8 % Neut % (Auto) 68.6 % Lymph % (Auto) 16.6 % Amador % (Auto) 11.9 % Eos % (Auto) 1.5 % Baso % (Auto) 0.6 % Neut # (Auto) 10.74 H (1.4-6.5) K/uL Lymph # (Auto) 2.60 (1.2-3.4) K/uL Amador # (Auto) 1.86 H (0.24-0.82) K/uL Eos # (Auto) 0.23 (0-0.50) K/uL Baso # (Auto) 0.09 (0-0.2) K/uL Immature Gran # (Auto) 0.12 H (0.00-0.02) K/uL PT (9.0-12.0) Seconds INR (0.9-1.1) APTT (21.0-31.0) Seconds PTT Ratio Sodium 134 L (136-145) mmol/L Potassium 3.1 L (3.5-5.1) mmol/L Chloride 100 (98-107) mmol/L Carbon Dioxide 23 (21-32) mmol/L Anion Gap 11 (3-11) BUN 4 L (6-23) mg/dl Creatinine 0.29 L (0.6-1.2) mg/dl Est Cr Clr Drug Dosing 220.5 ml/min Est GFR ( Amer) > 150.0 ml/min Est GFR (Non-Af Amer) 135.0 ml/min BUN/Creatinine Ratio 13.8 (10-20) Glucose 117 H (70-99(Fasting)) mg/dl Lactate (0.4-2.0) mmol/L Calcium 8.2 L (8.5-10.1) mg/dl Phosphorus 1.9 L (2.5-4.9) mg/dl Magnesium 1.7 (1.7-2.4) mg/dl Total Bilirubin 2.8 H (0.2-1.0) mg/dl AST 86 H (13-39) U/L ALT 31 (7-52) U/L Alkaline Phosphatase 224 H (34-104) U/L C-Reactive Protein (0-0.5) mg/dl Total Protein 6.7 (6.0-8.3) gm/dl Albumin 3.3 L (3.4-5.0) gm/dl Globulin 3.4 (2.5-4.0) gm/dl Albumin/Globulin Ratio 1.0 (0.9-2) TSH 6.736 H (0.300-4.500) uIu/ml Free T4 1.26 (0.61-1.60) ng/dl Urine Color Urine Appearance (Clear) Urine pH (4.5-7.5) Ur Specific [place] (1.000-1.030) Urine Protein (Negative) Urine Glucose (UA) (Negative) Urine Ketones (Negative) Urine Blood (Negative) Urine Nitrite (Negative) Urine Bilirubin (Negative) Urine Urobilinogen (Negative) Ur Leukocyte Esterase (Negative) Urine WBC (Auto) (0-5) /hpf Urine RBC (Auto) (0-4) /hpf U Hyaline Cast (Auto) (0-5) /lpf U Epithel Cells (Auto) (0-5) /lpf Urine Bacteria (Auto) (Negative) Ethyl Alcohol mg/dL (<10.0) mg/dl Lyme Disease IgG Ab (Negative) Lyme Disease IgM Ab (Negative) SARS-CoV-2, RNA, NAAT (NEGATIVE) 03/16/22 03/16/22 03/16/22 Range/Units 10:30 10:30 10:30 WBC (4.8-10.8) K/ul RBC (3.93-5.22) M/uL Hgb (12.0-16.0) g/dl Hct (34.1-44.9) % MCV (80.0-100.0) fL MCH (25.0-34.0) pg MCHC (32.0-36.0) g/dL RDW Std Deviation (36.4-46.3) fL RDW Coeff of Celestina (11.5-14.5) % Plt Count (130-400) K/uL MPV (9.4-12.3) fL Immature Gran % (Auto) % Neut % (Auto) % Lymph % (Auto) % Amador % (Auto) % Eos % (Auto) % Baso % (Auto) % Neut # (Auto) (1.4-6.5) K/uL Lymph # (Auto) (1.2-3.4) K/uL Am[place] # (Auto) (0.24-0.82) K/uL Eos # (Auto) (0-0.50) K/uL Baso # (Auto) (0-0.2) K/uL Immature Gran # (Auto) (0.00-0.02) K/uL PT 11.9 (9.0-12.0) Seconds INR 1.1 (0.9-1.1) APTT 30.9 (21.0-31.0) Seconds PTT Ratio 1.1 Sodium (136-145) mmol/L Potassium (3.5-5.1) mmol/L Chloride (98-107) mmol/L Carbon Dioxide (21-32) mmol/L Anion Gap (3-11) BUN (6-23) mg/dl Creatinine (0.6-1.2) mg/dl Est Cr Clr Drug Dosing ml/min Est GFR ( Amer) ml/min Est GFR (Non-Af Amer) ml/min BUN/Creatinine Ratio (10-20) Glucose (70-99(Fasting)) mg/dl Lactate (0.4-2.0) mmol/L Calcium (8.5-10.1) mg/dl Phosphorus (2.5-4.9) mg/dl Magnesium (1.7-2.4) mg/dl Total Bilirubin (0.2-1.0) mg/dl AST (13-39) U/L ALT (7-52) U/L Alkaline Phosphatase (34-104) U/L C-Reactive Protein 4.16 H (0-0.5) mg/dl Total Protein (6.0-8.3) gm/dl Albumin (3.4-5.0) gm/dl Globulin (2.5-4.0) gm/dl Albumin/Globulin Ratio (0.9-2) TSH (0.300-4.500) uIu/ml Free T4 (0.61-1.60) ng/dl Urine Color Urine Appearance (Clear) Urine pH (4.5-7.5) Ur Specific [place] (1.000-1.030) Urine Protein (Negative) Urine Glucose (UA) (Negative) Urine Ketones (Negative) Urine Blood (Negative) Urine Nitrite (Negative) Urine Bilirubin (Negative) Urine Urobilinogen (Negative) Ur Leukocyte Esterase (Negative) Urine WBC (Auto) (0-5) /hpf Urine RBC (Auto) (0-4) /hpf U Hyaline Cast (Auto) (0-5) /lpf U Epithel Cells (Auto) (0-5) /lpf Urine Bacteria (Auto) (Negative) Ethyl Alcohol mg/dL (<10.0) mg/dl Lyme Disease IgG Ab Negative (Negative) Lyme Disease IgM Ab Equivocal A (Negative) SARS-CoV-2, RNA, NAAT (NEGATIVE) 03/16/22 03/16/22 03/16/22 Range/Units 11:18 12:10 12:19 WBC (4.8-10.8) K/ul RBC (3.93-5.22) M/uL Hgb (12.0-16.0) g/dl Hct (34.1-44.9) % MCV (80.0-100.0) fL MCH (25.0-34.0) pg MCHC (32.0-36.0) g/dL RDW Std Deviation (36.4-46.3) fL RDW Coeff of Celestina (11.5-14.5) % Plt Count (130-400) K/uL MPV (9.4-12.3) fL Immature Gran % (Auto) % Neut % (Auto) % Lymph % (Auto) % Amador % (Auto) % Eos % (Auto) % Baso % (Auto) % Neut # (Auto) (1.4-6.5) K/uL Lymph # (Auto) (1.2-3.4) K/uL Am[place] # (Auto) (0.24-0.82) K/uL Eos # (Auto) (0-0.50) K/uL Baso # (Auto) (0-0.2) K/uL Immature Gran # (Auto) (0.00-0.02) K/uL PT (9.0-12.0) Seconds INR (0.9-1.1) APTT (21.0-31.0) Seconds PTT Ratio Sodium (136-145) mmol/L Potassium (3.5-5.1) mmol/L Chloride (98-107) mmol/L Carbon Dioxide (21-32) mmol/L Anion Gap (3-11) BUN (6-23) mg/dl Creatinine (0.6-1.2) mg/dl Est Cr Clr Drug Dosing ml/min Est GFR ( Amer) ml/min Est GFR (Non-Af Amer) ml/min BUN/Creatinine Ratio (10-20) Glucose (70-99(Fasting)) mg/dl Lactate 1.5 (0.4-2.0) mmol/L Calcium (8.5-10.1) mg/dl Phosphorus (2.5-4.9) mg/dl Magnesium (1.7-2.4) mg/dl Total Bilirubin (0.2-1.0) mg/dl AST (13-39) U/L ALT (7-52) U/L Alkaline Phosphatase (34-104) U/L C-Reactive Protein (0-0.5) mg/dl Total Protein (6.0-8.3) gm/dl Albumin (3.4-5.0) gm/dl Globulin (2.5-4.0) gm/dl Albumin/Globulin Ratio (0.9-2) TSH (0.300-4.500) uIu/ml Free T4 (0.61-1.60) ng/dl Urine Color Urine Appearance (Clear) Urine pH (4.5-7.5) Ur Specific [place] (1.000-1.030) Urine Protein (Negative) Urine Glucose (UA) (Negative) Urine Ketones (Negative) Urine Blood (Negative) Urine Nitrite (Negative) Urine Bilirubin (Negative) Urine Urobilinogen (Negative) Ur Leukocyte Esterase (Negative) Urine WBC (Auto) (0-5) /hpf Urine RBC (Auto) (0-4) /hpf U Hyaline Cast (Auto) (0-5) /lpf U Epithel Cells (Auto) (0-5) /lpf Urine Bacteria (Auto) (Negative) Ethyl Alcohol mg/dL < 10.0 (<10.0) mg/dl Lyme Disease IgG Ab (Negative) Lyme Disease IgM Ab (Negative) SARS-CoV-2, RNA, NAAT NEGATIVE (NEGATIVE) 03/16/22 Range/Units 12:19 WBC (4.8-10.8) K/ul RBC (3.93-5.22) M/uL Hgb (12.0-16.0) g/dl Hct (34.1-44.9) % MCV (80.0-100.0) fL MCH (25.0-34.0) pg MCHC (32.0-36.0) g/dL RDW Std Deviation (36.4-46.3) fL RDW Coeff of Celestina (11.5-14.5) % Plt Count (130-400) K/uL MPV (9.4-12.3) fL Immature Gran % (Auto) % Neut % (Auto) % Lymph % (Auto) % Amador % (Auto) % Eos % (Auto) % Baso % (Auto) % Neut # (Auto) (1.4-6.5) K/uL Lymph # (Auto) (1.2-3.4) K/uL [place] # (Auto) (0.24-0.82) K/uL Eos # (Auto) (0-0.50) K/uL Baso # (Auto) (0-0.2) K/uL Immature Gran # (Auto) (0.00-0.02) K/uL PT (9.0-12.0) Seconds INR (0.9-1.1) APTT (21.0-31.0) Seconds PTT Ratio Sodium (136-145) mmol/L Potassium (3.5-5.1) mmol/L Chloride (98-107) mmol/L Carbon Dioxide (21-32) mmol/L Anion Gap (3-11) BUN (6-23) mg/dl Creatinine (0.6-1.2) mg/dl Est Cr Clr Drug Dosing ml/min Est GFR ( Amer) ml/min Est GFR (Non-Af Amer) ml/min BUN/Creatinine Ratio (10-20) Glucose (70-99(Fasting)) mg/dl Lactate (0.4-2.0) mmol/L Calcium (8.5-10.1) mg/dl Phosphorus (2.5-4.9) mg/dl Magnesium (1.7-2.4) mg/dl Total Bilirubin (0.2-1.0) mg/dl AST (13-39) U/L ALT (7-52) U/L Alkaline Phosphatase (34-104) U/L C-Reactive Protein (0-0.5) mg/dl Total Protein (6.0-8.3) gm/dl Albumin (3.4-5.0) gm/dl Globulin (2.5-4.0) gm/dl Albumin/Globulin Ratio (0.9-2) TSH (0.300-4.500) uIu/ml Free T4 (0.61-1.60) ng/dl Urine Color Dark Yellow Urine Appearance Clear (Clear) Urine pH 7.0 (4.5-7.5) Ur Specific [place] 1.007 (1.000-1.030) Urine Protein Negative (Negative) Urine Glucose (UA) Negative (Negative) Urine Ketones Trace H (Negative) Urine Blood Trace H (Negative) Urine Nitrite Positive A (Negative) Urine Bilirubin Negative (Negative) Urine Urobilinogen Positive H (Negative) Ur Leukocyte Esterase Trace H (Negative) Urine WBC (Auto) 5-10 H (0-5) /hpf Urine RBC (Auto) 0-4 (0-4) /hpf U Hyaline Cast (Auto) 1-5 (0-5) /lpf U Epithel Cells (Auto) >30 H (0-5) /lpf Urine Bacteria (Auto) 4+ H (Negative) Ethyl Alcohol mg/dL (<10.0) mg/dl Lyme Disease IgG Ab (Negative) Lyme Disease IgM Ab (Negative) SARS-CoV-2, RNA, NAAT (NEGATIVE) Administered Medications Sodium Chloride (Nss 1000ml) 1,000 mls @ 125 mls/hr IV .Q8H SLIM Stop: 03/16/22 19:14 Last Admin: 03/16/22 11:57 Dose: 125 mls/hr Documented By: CDV Potassium Phosphate 21 mmol/ (Sodium Chloride) 507 mls @ 88 mls/hr IV ONE ONE Stop: 03/16/22 17:45 Last Admin: 03/16/22 12:31 Dose: 88 mls/hr Documented By: CDV Discontinued Medications Multivitamins 10 ml/ Thiamine HCl 100 mg/ Folic Acid 1 mg/Sodium Chloride 1 ,011.2 mls @ 1,011.2 mls/hr IV .Q1H ONE Stop: 03/16/22 12:04 Last Infusion: 03/16/22 11:56 Dose: 0 mls/hr Documented By: Admin: 03/16/22 11:23 Dose: 1,011.2 mls/hr Documented By: CDV Ceftriaxone Sodium (Rocephin) 1,000 mg in 50 mls @ 100 mls/hr IV NOW STA Stop: 03/16/22 14:18 Last Infusion: 03/16/22 14:48 Dose: 0 mls/hr Documented By: Admin: 03/16/22 14:10 Dose: 100 mls/hr Documented By: CDV Sodium Chloride (Sodium Chloride 1 Gm Tablet) 1 gm PO ONE ONE Stop: 03/16/22 12:01 Last Admin: 03/16/22 12:31 Dose: 1 gm Documented By: CDV Imaging Data Radiologist's Impression: Chest X-Ray 03/16/22 11:03 XR chest 1V portable CLINICAL HISTORY: weakness. Evaluate cardiopulmonary status COMPARISON STUDY: 03/03/2022 TECHNIQUE: 1 view of the chest FINDINGS: Single frontal view of the chest demonstrates the cardiomediastinal silhouette to be within normal limits. The lungs are clear of alveolar opacities. There is no evidence for pleural effusion. There is no evidence for vascular congestion. There is no acute osseous pathology. IMPRESSION: 1. No acute cardiopulmonary disease. ACT 112: Negative or not required by law. Electronically signed by: Matt Urias M.D. 03/16/2022 11:46 AM Blood Pressure Blood Pressure Findings: Normal blood pressure Blood Pressure Disposition: did not require urgent referral Discharge Plan Visit Data Chief Complaint: Neuro Symptoms/Deficit Stated Complaint: NUMBNESS IN ARMS AND LEGS ED Provider: Sharri Joiner Discharge Problem: UTI (urinary tract infection), Hypokalemia, Hypophosphatasia, Acute hyponatremia, History of ETOH abuse Forms Stand Alone Forms: My [facility] Prescriptions Prescriptions: No Action levothyroxine 112 mcg tablet 112 mcg PO .COMPLEX Qty: 32 5RF Label Comments: I SWALLOW IT , THAT'S ALL THEY TOLD ME TO DO Rx Instructions: Take 112 mcg PO daily but take an extra 1/2 tab on Sundays. Medication to be taken Sublingually due to GI absorption issues. ( VERIFIED DOSE INFO PAT CALL 03/08/22) ondansetron 4 mg tablet,disintegrating 4 mg PO Q6H Qty: 30 0RF hydrocortisone [Anusol-HC] 2.5 % cream with perineal applicator 1 applic PA BID Qty: 30 1RF omeprazole 20 mg capsule,delayed release(DR/EC) 20 mg PO BID Qty: 60 2RF ascorbic acid (vitamin C) [Vitamin C] 500 mg Tablet 500 mg PO QAM cholecalciferol (vitamin D3) [Vitamin D3] 10 mcg (400 unit) Tablet 10 mcg PO QAM potassium chloride 20 mEq tablet,ER particles/crystals 20 meq PO QAM promethazine 25 mg tablet 25 mg PO UD PRN (Reason: Nausea/PAIN) albuterol sulfate 90 mcg/actuation HFA aerosol inhaler 2 puff inhalation UD PRN (Reason: COPD/ASTHMA) Label Comments: LAST USE THE OTHER DAY cyanocobalamin (vitamin B-12) 1,000 mcg capsule 1,000 mcg PO QAM Probiotic 10 billion cell Capsule 10,000 mmu cells PO QAM Referrals Referrals: Natalia Puentes MD [Primary Care Provider] - : UTI (urinary tract infection) Qualifiers: Urinary tract infection type: acute cystitis Hematuria presence: without hematuria Qualified Code(s): N30.00 - Acute cystitis without hematuria
[2022-03-16] MEDS ORDERED: ALBUTEROL HFA 8 GM INHALER INH PRN (16:26)
[2022-03-16] MEDS ORDERED: POLYETHYLENE (MIRALAX) 17 GM PACK PO PRN (16:26)
[2022-03-16] MEDS ORDERED: PROMETHAZINE HCL 25 MG TAB PO PRN (16:26)
[2022-03-16] MEDS ORDERED: MoRPHine SULFATE 2 MG/ML CARP IV PRN (16:26)
[2022-03-16] MEDS ORDERED: LORazepam 1 MG TAB PO PRN (16:40)
--- NOTE | 2022-03-16 16:51 | Electrocardiogram Report ---
Test Reason : Blood Pressure : / mmHG Vent. Rate : 102 BPM Atrial Rate : 102 BPM P-R Int : 148 ms QRS Dur : 078 ms QT Int : 394 ms P-R-T Axes : 061 049 064 degrees QTc Int : 513 ms Sinus tachycardia Otherwise normal ECG When compared with ECG of 03-MAR-2022 07:05, Criteria for Septal infarct are no longer Present Confirmed by Genaro Torrez ([id number]) on 03/16/2022 4:50:49 PM Referred By: REFERRED SELF Confirmed By:Genaro Torrez
[2022-03-16] MEDS: KETOROLAC TROMETHAMINE 15 MG/ML VIAL IV PRN (17:08)
[2022-03-16] MEDS ORDERED: POTASSIUM CHLORIDE CRTAB 20 MEQ TABCR PO STA (17:08)
[2022-03-16] MEDS ORDERED: MAGNESIUM SULFATE / D5W 1 GM/100 ML BAG IV ONE (17:15)
[2022-03-16] MEDS: FOLIC ACID 1 MG TAB PO SCH (17:44)
[2022-03-16] MEDS: THIAMINE HCL 100 MG TAB PO SCH (17:45)
[2022-03-16] MEDS: MoRPHine SULFATE 4 MG/ML 1 ML CARP\\VIAL IV PRN (20:22)
[2022-03-16] MEDS: PANTOprazole 40 MG TAB PO SCH (20:23)
[2022-03-16] MEDS: HYDROCORTISONE HC 2.5% CRM 30GM TUBE EXT SCH (20:23)
[2022-03-17] MEDS: MoRPHine SULFATE 4 MG/ML 1 ML CARP\\VIAL IV PRN ×3 (01:25→20:19)
[2022-03-17] MEDS: LEVOTHYROXINE SODIUM 112 MCG TABLET PO SCH (05:51)
[2022-03-17] MEDS: CHOLECALCIFEROL 400 UNITS 10 MCG TAB PO SCH (08:25)
[2022-03-17] MEDS: POTASSIUM CHLORIDE CRTAB 20 MEQ TABCR PO SCH (08:25)
[2022-03-17] MEDS: ASCORBIC ACID 500 MG TAB PO SCH (08:25)
[2022-03-17] MEDS: CYANOCOBALAMIN (B-12) 500 MCG TABLET PO SCH (08:25)
[2022-03-17] MEDS: FOLIC ACID 1 MG TAB PO SCH (08:26)
[2022-03-17] MEDS: THIAMINE HCL 100 MG TAB PO SCH (08:26)
[2022-03-17] MEDS: PANTOprazole 40 MG TAB PO SCH ×2 (08:27→20:16)
[2022-03-17] MEDS: HYDROCORTISONE HC 2.5% CRM 30GM TUBE EXT SCH ×2 (08:28→20:16)
[2022-03-17] MEDS: LIDOCAINE 5% 1 PATCH TD SCH (08:29)
[2022-03-17 08:48] LABS: Basophils # (auto) 0.09 K/uL (0-0.2); Basophils % (auto) 0.7 %; Eosinophils # (auto) 0.48 K/uL (0-0.50); Eosinophils % (auto) 3.9 %; Hemoglobin 12.2 g/dl (12.0-16.0); Immature Granulocytes # (auto) 0.09 K/uL (0.00-0.02); Immature Granulocytes % (auto) 0.7 %; Lymphocytes # (auto) 2.64 K/uL (1.2-3.4); Lymphocytes % (auto) 21.5 %; Mean Corpuscular Hemoglobin 33.9 pg (25.0-34.0); Mean Corpuscular Volume 102.8 fL (80.0-100.0); Mean Platelet Volume 9.8 fL (9.4-12.3); Monocytes # (auto) 1.85 K/uL (0.24-0.82); Neutrophils # (auto) 7.15 K/uL (1.4-6.5); Neutrophils % (auto) 58.2 %; Platelet Count 345 K/uL (130-400); RDW Coefficient of Variation 16.1 % (11.5-14.5); RDW Standard Deviation 61.7 fL (36.4-46.3)
[2022-03-17 09:14] LABS: Alanine Aminotransferase 30 U/L (7-52); Albumin Level 2.9 gm/dl (3.4-5.0); Alkaline Phosphatase 209 U/L (34-104); Anion Gap 6 (3-11); Aspartate Aminotransferase 86 U/L (13-39); Bilirubin,Total 2.3 mg/dl (0.2-1.0); Blood Urea Nitrogen 3 mg/dl (6-23); Calcium 7.9 mg/dl (8.5-10.1); Carbon Dioxide 24 mmol/L (21-32); Chloride 107 mmol/L (98-107); Est GFR (African American) > 150.0 ml/min; Est GFR (Non-African American) 145.7 ml/min; Globulin 2.8 gm/dl (2.5-4.0); Glucose 104 mg/dl (70-99(Fasting)); Magnesium 1.8 mg/dl (1.7-2.4); Phosphorus 2.5 mg/dl (2.5-4.9); Potassium 3.7 mmol/L (3.5-5.1); Sodium 137 mmol/L (136-145); Total Protein 5.7 gm/dl (6.0-8.3)
--- NOTE | 2022-03-17 09:42 | Gastrointestinal Consultation ---
Date of Consultation March 17, 2022 Assessment & Plan (1) Intractable nausea and vomiting: (2) Abdominal pain: Plan Patient is a 51 year old female with a past medical history of alcohol abuse, COPD, CAD, hypertensions, hypothyroidism, fatty liver, depression, anxiety who presented yesterday to ED with complaints of weakness in her hands. she also has been complaining of a one month history of left sided abdominal pain, nausea, and vomiting. GI was consulted to evaluate this. - patient is written for promethazine 25mg as needed for nausea/vomiting. Per MAR she has not gotten this yet. she tells me nausea/vomiting has not returned since admission. should follow with endocrine on abnormal TSH. can consider GES as outpatient. - her left sided abdominal pain may be related to constipation. her last bowel movement was 2 days ago. Would try to limit narcotic pain medications. Can start miralax 17 gm daily and see if moving her bowels helps her symptoms. Her colonoscopy and egd are up to date. - she did have elevated lfts, will update US of liver to further evaluate. Supervising Physician Co-Signing Physician Notes Agree with CLARICE Bernstein as above Abd: Soft, NT, ND Recommend HIDA scan for further evaluation of abnormal RUQ US as per radiologist. Continue current therapy and supportive care Consider GES as outpatient History of Present Illness Reason for Consultation: Nausea and vomiting Requesting Physician: Ana Paula Ruiz PA-C Attending Physician: Paco Morgan MD History of Present Illness Patient is a 51 year old female with a past medical history of alcohol abuse, COPD, CAD, hypertensions, hypothyroidism, fatty liver, depression, anxiety who presented yesterday to ED with complaints of weakness in her hands. she also has been complaining of a one month history of left sided abdominal pain, nausea, and vomiting. GI was consulted to evaluate this. In ED, she presented tachycardic heart rate of 121, otherwise vital signs within normal limits labs significant for elevated WBC of 15.64, elevated CRP at 4.16, potassium 3.1, sodium 134, calcium 8.2, phosphorus 1.9, t bili 2.8, AST 86, alk phos 224, TSH 6.736. UA with nitrites, leuk esterase, WBCs, bacteria and trace blood, ketones. Urine cx pending. Lyme IgM Ab equivocal. CXR unremarkable. She tells me she that the nausea and vomiting has been ongioing for the past month. She admits to early satiety. she denies any heartburn or dysphagia. she tells me that since admission her nausea and vomiting has resolved and she has had no further symptoms. the left sided abdominal pain has also been ongoing for the past month. rated 5/10. she feels its been better since starting morphine. she also admits to constipation. she tells me she can go days between her bowel movements. Last bowel movement was 2 days ago. she is not sure if moving her bowels improves pain. she does admit to some blood with moving bowels. no melena. colonoscopy 03/15/22 internal hemorrhoids, lipoma in ascending colon ( EUS set up as outpatient to further evaluate). egd 07/26/[address] 03/03/22 was suggestive of severe fatty liver and possible cirrhosis. she does admit to a 10 year history of a gallon of vodka a day. she tells me that the last time she used any alcohol was a month ago. Allergies Allergy/AdvReac Type Severity Reaction Status Date / Time promethazine AdvReac Intermediate MADE ME Verified 03/16/22 15:11 SICKER hair dye Allergy Unknown scalp Uncoded 03/16/22 15:11 irriration/swelling Home Medications Medication Instructions Recorded Confirmed Type ascorbic acid (vitamin C) 500 mg 500 mg PO QAM 06/24/21 03/16/22 History tablet (Vitamin C) omeprazole 20 mg capsule,delayed 20 mg PO BID #60 caps 07/01/21 03/16/22 Rx release Lactobacillus acidophilus 10 10,000 mmu cells PO QAM 07/20/21 03/16/22 History billion cell capsule (Probiotic) cyanocobalamin (vitamin B-12) 1,000 mcg PO QAM 07/20/21 03/16/22 History 1,000 mcg capsule albuterol sulfate 90 mcg/actuation 2 puff inhalation DIRECTED PRN 03/08/22 03/16/22 History aerosol inhaler COPD/ASTHMA cholecalciferol (vitamin D3) 10 10 mcg PO QAM 03/08/22 03/16/22 History mcg (400 unit) tablet (Vitamin D3) potassium chloride 20 mEq 20 meq PO QAM 03/08/22 03/16/22 History tablet,extended release(part/cryst) hydrocortisone 2.5 % topical cream 1 applic MA BID PRN Hemorrhoids 03/16/22 03/16/22 History with perineal applicator (Anusol-HC) levothyroxine 112 mcg tablet 112 mcg PO DAILY 03/16/22 03/16/22 History ondansetron 4 mg disintegrating 4 mg PO Q6H PRN NAUSEA/VOMITING 03/16/22 03/16/22 History tablet Patient History Medical History Acid reflux Alcohol dependence A FIFTH A DAY FOR 9 YRS NONE FOR LAST 3 WEEKS "WAS GETTING SICK WHEN I DRINK IT AND MY BODY WON'T ALLOW ME TO HAVE IT" Anxiety and depression Constipation REASON FOR UPCOMING PROCEDURE COPD (chronic obstructive pulmonary disease) AND ASTHMA PER PT - LAST USE INHALER LAST WEEK Fatty liver Heavy menses High blood pressure NO MEDS/MONITORS History of anemia History of seizure LAST EVENT 2 YEARS AGO (ALCHOHOL WITHDRAWL) Hypothyroidism Muscle mass LOSS OF MUSCLE MASS OVER LAST 2 MON Nausea and vomiting reason for upcoming procedure PTSD (post-traumatic stress disorder) PUD (peptic ulcer disease) Rectal bleeding REASON FOR UPCOMING PROCEDURE Snores Spontaneous pneumothorax HX (REPAIRED 2005) Vitamin D deficiency pt reports probably all her vitamins are low Surgical History H/O tooth extraction 02/11/18 - Multiple teeth extracted under general anesthesia History of section X 3 History of colonoscopy MOST RECENT A COUPLE MONTHS AGO ? - PT NOT SURE DETAILS ON FINDINGS (DONE AT [facility]) History of endoscopy Family History Mother Family hx of colon cancer Stomach cancer Anxiety Depression Kidney disease Colorectal cancer Lung disease Gallbladder disease Family history of cancer Grandmother (Maternal) Stomach cancer Alcohol abuse Father Depression Cardiac disorder Kidney stones Kidney disease Myocardial infarction Oral-mouth cancer Lung disease Hypertension Sister Drug abuse Anxiety Depression Aunt Breast cancer Maternal Brother Family history of diabetes mellitus Other No family history of adverse response to anesthesia Denies family history of Ovarian cancer Prostate cancer Social History Smoking Status: Current every day smoker Tobacco Type: Cigarettes packs per day: 0.5; Years Smoked: 40; Cigarettes Per Day: 8; Second Hand Exposure: Yes; Hx Alcohol Use: Yes (HX VODKA A FIFTH A DAY (FOR 9 YRS), NONE FOR 3 WEEKS) Alcohol type: other Alcohol type Comment: VOLDKA Hx Substance Use: No Preferred Language: Turkish Communication Ability: Effective Marketing Support Specialist Required: No Beliefs That Will Affect Care: None marital status: Current Living Situation: Other Current Living Situation Comment: ROOMATE current occupational status: employed 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 How many Children do You have: 3 Feels Safe at Home: Yes caffeine: Yes (coffee) Dental Care, Regularly: No Physical Activity Frequency: 1-2 Times per Week Seatbelt Use: always Sunscreen Use: No Assistive Devices: None Review of Systems Review of Systems: Constitutional: Feels generally weak and fatigued; no fever/chills, myalgias, anorexia, night sweats Eyes: No diplopia, no worsening or blurred vision ENT: normal hearing, no trouble swallowing Respiratory: No cough, sputum, dyspnea at rest or on exertion Cardiovascular: No chest pain, tightness or palpitations Abdomen: Left-sided abdominal pain and over 1 month of nausea, vomiting, without hematemesis : Denies dysuria, hematuria, increased urgency/frequency, urinary retention Musculoskeletal: Bilateral low back pain which is chronic for patient; no joint pain, calf pain, swelling Neurologic: No weakness, numbness/tingling, or balance problems Psychiatric: No anxiety or depression Skin: No rash or itch Physical Exam Constitutional: WD/WN, vitals as above Eyes: + anicteric sclerae and PERRL ENMT: external ear and nose normal, oropharynx normal Respiratory: normal respiratory effort, lungs clear to auscultation Cardiovascular: RRR, no murmur, no edema Gastrointestinal (Abdomen): normal bowel sounds, mild diffuse tenderness, no guarding, soft. Skin: no rashes, warm and dry Psychiatric: A+Ox3, euthymic affect Results & Data ([facility]) Vital Signs (Past 12 Hours) Vital Signs Temp Pulse Pulse Resp BP Pulse Ox O2 Del Method 03/17/22 07:26 96 H 03/17/22 07:11 36.4 C L 90 18 116/83 96 Room Air 03/17/22 04:04 36.9 C 87 18 116/83 94 Room Air 03/16/22 22:17 102 H 03/16/22 23:07 36.8 C 102 H 18 106/73 95 PG Care Time/CCT Total # of Minutes Spent Total Time Spent with Patient: Total time spent is greater than 50% in coordination of care (as documented) at patient's floor/unit and/or counseling patient: Coding Level of Care Code 12921 Inpt Consult Level 4 Diagnoses Intractable nausea and vomiting R11.2 Abdominal pain R10.9
[2022-03-17 09:48] LABS: Folate (Folic Acid) 4.78 ng/ml (>5.38)
[2022-03-17] MEDS: POLYETHYLENE (MIRALAX) 17 GM PACK PO SCH ×2 (10:45→20:19)
--- NOTE | 2022-03-17 11:53 | Hospitalist Progress Note ---
Date of Service March 17, 2022 Assessment & Plan (1) Intractable nausea and vomiting: Plan: - This is been ongoing issue for over a month now, which started before patient gave up alcohol entirely. She was seen here on 03/[address] A/P did not reveal any acute findings other than hepatic steatosis and small abdominal varices suggesting possible portal hypertension. She was referred to GI, who she follows with regularly. She was actually scheduled for colonoscopy on 03/10 which was being done for constipation and occasional rectal bleeding. Results of the colonoscopy revealed nonbleeding internal hemorrhoids and a lipoma of the ascending colon. They recommended referral to [facility] for a lower EUS to further evaluate the ascending colon. - She has Phenergan for nausea and vomiting, we are avoiding Zofran due to prolonged QT interval on previous EKGs. - Did not require phenergan overnight, nausea improved - [facility] Consulted given past hx. No indciation for EGD/colo at this time. +bowel regimen. Minimize narcotics. - Liver US pending (2) UTI (urinary tract infection): Plan: - WBC 15.64, UA with nitrite, leuk esterase, 5-10 WBCs, 4+ bacteria. Urine cx pending. -Patient essentially asymptomatic other than some back pain which is chronic for her, nausea and vomiting longstanding. - On admit ? if a UTI may be causing some of her discomfort and nausea and vomiting but doubt that this is what caused this over a month ago - UC multiple counts. No dysuria on reassment. - No addition tx for this, even if underlying UTI would covered w/ rocephin for Lyme + test (3) Hypokalemia: Plan: - Mg, K, Ph repleted on admit and normalized next day (4) Hypophosphatemia: Plan: - Repleted, normalized (5) Hypocalcemia: Plan: - Ical low - calcium supplementation ordered (6) Alcohol dependence: Plan: - Longstanding history of a fifth of alcohol per day for the past 9 years, however last drink 1 month ago. - Will place on AWSS. - Banana bag in ED. Continue IVF. - Daily folic acid and thiamine supplementation. - +Folic acid supplementation, levels low (7) Lyme disease: Plan: - Tested in ED given history of weakness, while living with an outdoor cat. - IgM is equivocal, bands pending. - Rocphin coverage at this time (8) Hypothyroidism: Plan: - Continue levothyroxine 112 mcg daily. (9) COPD (chronic obstructive pulmonary disease): Plan: - Has albuterol as needed, has not used recently. - No shortness of breath, evidence for acute exacerbation. (10) Depression: Plan: - No current medications. (11) Hemorrhoids: Plan: - Continue Anusol cream. Admission and Anticipated Discharge Date Admission Date: March 16, 2022 Subjective Seen at bedside. Some LLQ abdominal pain today, no rib pain. Sweaty overnight with some subjective feeling of fever. No cp, cp, sob/dyspnea. No muscle aches. +fatigue. No BM today. Review of Systems Review of Systems: All systems reviewed & are unremarkable except as noted in Subjective Physical Exam Physical Exam: General: A&Ox3. NAD. Cooperative. HEENT: Atraumatic, normocephalic. Pulm: CTAB A&P. -wheezes, -rales, -rhonchi. Symmetrical chest rise. No increased work of breathing. No respiratory distress. Cardiac: RRR, -mrg. Radial pulses intact and symmetrical. Abdominal: +LLQ TTP. Minimal LL rib tenderness today. No rebound/guarding. Soft. Results & Data Results & Data ([facility]) Vital Signs (Past 12 Hours) Vital Signs Temp Pulse Pulse Resp BP BP Pulse Ox 03/17/22 11:04 36.7 C 107 H 20 116/85 95 03/17/22 07:30 03/17/22 07:26 96 H 03/17/22 07:11 36.4 C L 90 18 116/83 96 03/17/22 04:04 36.9 C 87 18 116/83 94 O2 Del Method 03/17/22 11:04 Room Air 03/17/22 07:30 Room Air 03/17/22 07:26 03/17/22 07:11 Room Air 03/17/22 04:04 Room Air PG Care Time/CCT Total # of Minutes Spent Total Time Spent with Patient: Total time spent is greater than 50% in coordination of care (as documented) at patient's floor/unit and/or counseling patient: Coding Level of Care Code 55134 Subseq Hosp Care Lvl 2 Diagnoses Intractable nausea and vomiting R11.2 UTI (urinary tract infection) N39.0 Hypokalemia E87.6 Hypophosphatemia E83.39 Hypocalcemia E83.51 Alcohol dependence F10.29 Substance use status: unspecified alcohol-induced disorder Lyme disease A69.20 Hypothyroidism E03.9 COPD (chronic obstructive pulmonary disease) J44.9 Depression F32.9 Hemorrhoids K64.9 (1) Alcohol dependence Substance use status: unspecified alcohol-induced disorder Qualified Code(s): F10.29 - Alcohol dependence with unspecified alcohol-induced disorder
--- NOTE | 2022-03-17 14:40 | Ultrasound Report ---
US liver CLINICAL HISTORY: elevated lfts TECHNIQUE: Multiple real-time sonographic images of the right upper quadrant were obtained. Comparison: None available at the time of this dictation. FINDINGS: The liver is diffusely echogenic in appearance with poor ultrasound penetration, with normal contour, which is consistent with fatty infiltration. No focal mass lesions are seen. No intrahepatic duct al dilatation is seen. Low level internal echoes are identified layering dependently within the gall bladder, which is consistent with gallbladder sludge. The gallbladder wall is not thickened. There is no pericholecystic fluid present. The wall measures 0.3 cm. Tenderness is noted over the gallbladder region. The common duct measures 0.9 cm in diameter at the level of the hepatic artery. The visuali zed portions of the pancreas appear normal. The right kidney shows normal echogenicity, cortical thickness and renal contour. The right kidney sh ows no evidence of hydronephrosis or mass. No ascites or free fluid is seen in Aguirre's pouch. IMPRESSION: 1. Gallbladder sludge, biliary ductal dilation, and gallbladder wall thickening is seen. There is te nderness over the gallbladder. Findings may represent acalculous cholecystitis. A nuclear medicine HI DA scan can be performed if there is remaining uncertainty. 2. Hepatic steatosis. ACT 112: Negative or not required by law. Electronically signed by: Mak Kaminski M.D. 03/17/2022 2:37 PM
[2022-03-17] MEDS: CALCIUM CARBONATE 1250MG TAB PO SCH ×2 (15:14→20:16)
--- NOTE | 2022-03-17 15:38 | Surgery Consultation ---
Date of Consultation March 17, 2022 Assessment & Plan (1) Abdominal pain: (2) History of ETOH abuse: (3) Intractable nausea and vomiting: Plan 51 year-old female with history of alcohol abuse intractable nausea and vomiting and recent left upper abdominal pain and numbness of her hands now with US showing gallbladder sludge and pain on exam which could possibly be early acute cholecystitis. She does have mild leukocytosis but this has improved. She is not complaint of any RUQ pain specifically after eating. CT scan in early February showing signs of cirrhosis likely secondary to her alcohol abuse. Plan: No indication for cholecystectomy at this time based on her vague symptoms of LUQ pain and nausea and vomiting especially given her CT scan early this month concerning for cirrhosis. Her t. bili has been elevated as well as LFTS. This is likely due to her cirrhosis. She is tender in the RUQ but again this could but due to cirrhosis and not cholecystitis. Could obtain MRCP for further evaluation of her liver and gallbladder. Would continue current medical management Encourage ambulation Laxative per GI for her chronic constipation Dr. Hart has seen and examined patient, see addendum for further recommendations/plan. Supervising Physician Co-Signing Physician Notes I have seen and examined the patient personally, and agree with the above assessment plan. She was admitted a few weeks ago for severe hepatic steatosis and has signs of possible early cirrhosis and portal hypertension. There is no acute indication for cholecystectomy. We will follow along peripherally. History of Present Illness Reason for Consultation: Possible cholecystitis Requesting Physician: Paco Morgan MD Attending Physician: Paco Morgan MD History of Present Illness Tamara is a 51 year-old female who presented to hospital with numbness of her hands left upper abdominal pain with chronic nausea and vomiting. She recently stopped drinking alcohol but per records was drinking 1/5 vodka daily for 9 years. She recently had colonoscopy which was unremarkable. Had EGD in 2020 which showed mild gastritis. She has had chronic constipation since her c- section for many years. States she chronically has had nausea and vomiting for years. US was ordered due to elevated lfts which showed gallbladder with sludge, no wall thickening, or pericholecystic fluid. She was tender of the gallbladder on US which could correlate with acute cholecystitis. She had a CT scan on 03/03/2022 which suggested severe fatty liver with small varices which could reflect cirrhosis. Our services consulted for possible cholecystitis. Allergies Allergy/AdvReac Type Severity Reaction Status Date / Time promethazine AdvReac Intermediate MADE ME Verified 03/16/22 15:11 SICKER hair dye Allergy Unknown scalp Uncoded 03/16/22 15:11 irriration/swelling Home Medications Medication Instructions Recorded Confirmed Type ascorbic acid (vitamin C) 500 mg 500 mg PO QAM 06/24/21 03/16/22 History tablet (Vitamin C) omeprazole 20 mg capsule,delayed 20 mg PO BID #60 caps 07/01/21 03/16/22 Rx release Lactobacillus acidophilus 10 10,000 mmu cells PO QAM 07/20/21 03/16/22 History billion cell capsule (Probiotic) cyanocobalamin (vitamin B-12) 1,000 mcg PO QAM 07/20/21 03/16/22 History 1,000 mcg capsule albuterol sulfate 90 mcg/actuation 2 puff inhalation DIRECTED PRN 03/08/22 03/16/22 History aerosol inhaler COPD/ASTHMA cholecalciferol (vitamin D3) 10 10 mcg PO QAM 03/08/22 03/16/22 History mcg (400 unit) tablet (Vitamin D3) potassium chloride 20 mEq 20 meq PO QAM 03/08/22 03/16/22 History tablet,extended release(part/cryst) hydrocortisone 2.5 % topical cream 1 applic VA BID PRN Hemorrhoids 03/16/22 03/16/22 History with perineal applicator (Anusol-HC) levothyroxine 112 mcg tablet 112 mcg PO DAILY 03/16/22 03/16/22 History ondansetron 4 mg disintegrating 4 mg PO Q6H PRN NAUSEA/VOMITING 03/16/22 03/16/22 History tablet Patient History Medical History Acid reflux Alcohol dependence A FIFTH A DAY FOR 9 YRS NONE FOR LAST 3 WEEKS "WAS GETTING SICK WHEN I DRINK IT AND MY BODY WON'T ALLOW ME TO HAVE IT" Anxiety and depression Constipation REASON FOR UPCOMING PROCEDURE COPD (chronic obstructive pulmonary disease) AND ASTHMA PER PT - LAST USE INHALER LAST WEEK Fatty liver Heavy menses High blood pressure NO MEDS/MONITORS History of anemia History of seizure LAST EVENT 2 YEARS AGO (ALCHOHOL WITHDRAWL) Hypothyroidism Muscle mass LOSS OF MUSCLE MASS OVER LAST 2 MON Nausea and vomiting reason for upcoming procedure PTSD (post-traumatic stress disorder) PUD (peptic ulcer disease) Rectal bleeding REASON FOR UPCOMING PROCEDURE Snores Spontaneous pneumothorax HX (REPAIRED 2005) Vitamin D deficiency pt reports probably all her vitamins are low Surgical History H/O tooth extraction 02/11/18 - Multiple teeth extracted under general anesthesia History of section X 3 History of colonoscopy MOST RECENT A COUPLE MONTHS AGO ? - PT NOT SURE DETAILS ON FINDINGS (DONE AT [facility]) History of endoscopy Family History Mother Family hx of colon cancer Stomach cancer Anxiety Depression Kidney disease Colorectal cancer Lung disease Gallbladder disease Family history of cancer Grandmother (Maternal) Stomach cancer Alcohol abuse Father Depression Cardiac disorder Kidney stones Kidney disease Myocardial infarction Oral-mouth cancer Lung disease Hypertension Sister Drug abuse Anxiety Depression Aunt Breast cancer Maternal Brother Family history of diabetes mellitus Other No family history of adverse response to anesthesia Denies family history of Ovarian cancer Prostate cancer Social History Smoking Status: Current every day smoker Tobacco Type: Cigarettes packs per day: 0.5; Years Smoked: 40; Cigarettes Per Day: 8; Second Hand Exposure: Yes; Hx Alcohol Use: Yes (HX VODKA A FIFTH A DAY (FOR 9 YRS), NONE FOR 3 WEEKS) Alcohol type: other Alcohol type Comment: VOLDKA Hx Substance Use: No Preferred Language: Haitian Communication Ability: Effective Title One Teacher Required: No Beliefs That Will Affect Care: None marital status: Current Living Situation: Other Current Living Situation Comment: ROOMATE current occupational status: employed 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 How many Children do You have: 3 Feels Safe at Home: Yes caffeine: Yes (coffee) Dental Care, Regularly: No Physical Activity Frequency: 1-2 Times per Week Seatbelt Use: always Sunscreen Use: No Assistive Devices: None Review of Systems Review of Systems: All systems reviewed & are unremarkable except as noted in HPI & below Physical Exam Constitutional: WD/WN, vitals as above no acute distress and not ill appearing Respiratory: normal respiratory effort, lungs clear to auscultation Cardiovascular: RRR, no murmur, no edema Gastrointestinal (Abdomen): Inspection/Auscultation: abdomen normal to inspection and normal bowel sounds; abdomen not distended Percussion/Palpation: + abdomen tender (RUQ, LUQ), abdomen soft and + fluid wave; no guarding and abdomen not rigid Skin: no rashes, warm and dry no jaundice Psychiatric: Orientation: alert and oriented x 3 Results & Data ([facility]) Vital Signs (Past 12 Hours) Vital Signs Temp Pulse Pulse Resp BP BP Pulse Ox 03/17/22 14:55 36.8 C 102 H 19 124/84 95 03/17/22 11:04 36.7 C 107 H 20 116/85 95 03/17/22 07:30 03/17/22 07:26 96 H 03/17/22 07:11 36.4 C L 90 18 116/83 96 03/17/22 04:04 36.9 C 87 18 116/83 94 O2 Del Method 03/17/22 14:55 Room Air 03/17/22 11:04 Room Air 03/17/22 07:30 Room Air 03/17/22 07:26 03/17/22 07:11 Room Air 03/17/22 04:04 Room Air Laboratory Results 03/17/22 03/17/22 03/17/22 Range/Units 07:52 07:52 07:52 WBC 12.30 H (4.8-10.8) K/ul RBC 3.60 L (3.93-5.22) M/uL Hgb 12.2 (12.0-16.0) g/dl Hct 37.0 (34.1-44.9) % MCV 102.8 H (80.0-100.0) fL MCH 33.9 (25.0-34.0) pg MCHC 33.0 (32.0-36.0) g/dL RDW Std Deviation 61.7 H (36.4-46.3) fL RDW Coeff of Celestina 16.1 H (11.5-14.5) % Plt Count 345 (130-400) K/uL MPV 9.8 (9.4-12.3) fL Immature Gran % (Auto) 0.7 % Neut % (Auto) 58.2 % Lymph % (Auto) 21.5 % [place] % (Auto) 15.0 % Eos % (Auto) 3.9 % Baso % (Auto) 0.7 % Neut # (Auto) 7.15 H (1.4-6.5) K/uL Lymph # (Auto) 2.64 (1.2-3.4) K/uL [place] # (Auto) 1.85 H (0.24-0.82) K/uL Eos # (Auto) 0.48 (0-0.50) K/uL Baso # (Auto) 0.09 (0-0.2) K/uL Immature Gran # (Auto) 0.09 H (0.00-0.02) K/uL Sodium 137 (136-145) mmol/L Potassium 3.7 (3.5-5.1) mmol/L Chloride 107 (98-107) mmol/L Carbon Dioxide 24 (21-32) mmol/L Anion Gap 6 (3-11) BUN 3 L (6-23) mg/dl Creatinine 0.23 L (0.6-1.2) mg/dl Est Cr Clr Drug Dosing 285.0 ml/min Est GFR ( Amer) > 150.0 ml/min Est GFR (Non-Af Amer) 145.7 ml/min BUN/Creatinine Ratio 13.0 (10-20) Glucose 104 H (70-99(Fasting)) mg/dl Calcium 7.9 L (8.5-10.1) mg/dl Ionized Calcium (1.12-1.32) mmol/L Phosphorus 2.5 (2.5-4.9) mg/dl Magnesium 1.8 (1.7-2.4) mg/dl Total Bilirubin 2.3 H (0.2-1.0) mg/dl AST 86 H (13-39) U/L ALT 30 (7-52) U/L Alkaline Phosphatase 209 H (34-104) U/L Total Protein 5.7 L (6.0-8.3) gm/dl Albumin 2.9 L (3.4-5.0) gm/dl Globulin 2.8 (2.5-4.0) gm/dl Albumin/Globulin Ratio 1.0 (0.9-2) Vitamin B12 602 (180-914) pg/ml Folate 4.78 L (>5.38) ng/ml 03/16/22 Range/Units 17:03 WBC (4.8-10.8) K/ul RBC (3.93-5.22) M/uL Hgb (12.0-16.0) g/dl Hct (34.1-44.9) % MCV (80.0-100.0) fL MCH (25.0-34.0) pg MCHC (32.0-36.0) g/dL RDW Std Deviation (36.4-46.3) fL RDW Coeff of Celestina (11.5-14.5) % Plt Count (130-400) K/uL MPV (9.4-12.3) fL Immature Gran % (Auto) % Neut % (Auto) % Lymph % (Auto) % [place] % (Auto) % Eos % (Auto) % Baso % (Auto) % Neut # (Auto) (1.4-6.5) K/uL Lymph # (Auto) (1.2-3.4) K/uL [place] # (Auto) (0.24-0.82) K/uL Eos # (Auto) (0-0.50) K/uL Baso # (Auto) (0-0.2) K/uL Immature Gran # (Auto) (0.00-0.02) K/uL Sodium (136-145) mmol/L Potassium (3.5-5.1) mmol/L Chloride (98-107) mmol/L Carbon Dioxide (21-32) mmol/L Anion Gap (3-11) BUN (6-23) mg/dl Creatinine (0.6-1.2) mg/dl Est Cr Clr Drug Dosing ml/min Est GFR ( Amer) ml/min Est GFR (Non-Af Amer) ml/min BUN/Creatinine Ratio (10-20) Glucose (70-99(Fasting)) mg/dl Calcium (8.5-10.1) mg/dl Ionized Calcium 1.04 L (1.12-1.32) mmol/L Phosphorus (2.5-4.9) mg/dl Magnesium (1.7-2.4) mg/dl Total Bilirubin (0.2-1.0) mg/dl AST (13-39) U/L ALT (7-52) U/L Alkaline Phosphatase (34-104) U/L Total Protein (6.0-8.3) gm/dl Albumin (3.4-5.0) gm/dl Globulin (2.5-4.0) gm/dl Albumin/Globulin Ratio (0.9-2) Vitamin B12 (180-914) pg/ml Folate (>5.38) ng/ml Diagnostic Findings US liver CLINICAL HISTORY: elevated lfts TECHNIQUE: Multiple real-time sonographic images of the right upper quadrant were obtained. Comparison: None available at the time of this dictation. FINDINGS: The liver is diffusely echogenic in appearance with poor ultrasound penetration, with normal contour, which is consistent with fatty infiltration. No focal mass lesions are seen. No intrahepatic ductal dilatation is seen. Low level internal echoes are identified layering dependently within the gallbladder, which is consistent with gallbladder sludge. The gallbladder wall is not thickened. There is no pericholecystic fluid present. The wall measures 0.3 cm. Tenderness is noted over the gallbladder region. The common duct measures 0.9 cm in diameter at the level of the hepatic artery. The visualized portions of the pancreas appear normal. The right kidney shows normal echogenicity, cortical thickness and renal contour. The right kidney shows no evidence of hydronephrosis or mass. No ascites or free fluid is seen in Aguirre's pouch. IMPRESSION: 1. Gallbladder sludge, biliary ductal dilation, and gallbladder wall thickening is seen. There is tenderness over the gallbladder. Findings may represent acalculous cholecystitis. A nuclear medicine HIDA scan can be performed if there is remaining uncertainty. 2. Hepatic steatosis. CT OF THE ABDOMEN AND PELVIS WITH CONTRAST 03/03/2022 CLINICAL HISTORY: Lower abdominal pain, nausea and vomiting. COMPARISON STUDY: Pelvic ultrasound February 19, 2020. TECHNIQUE: Following IV administration of 94 mL of Optiray, axial images of the abdomen and pelvis were obtained from the lung bases to the proximal femurs. Images were reviewed in the axial, sagittal, and coronal planes. IV contrast was administered without complication. Automated exposure control was utilized for the study. A dose lowering technique was utilized adhering to the principles of ALARA. CT DOSE: 676.56 mGycm FINDINGS: Emphysema is noted within the lower lungs. No pneumatosis, free air or portal venous gas is present. Severe geographic hepatic steatosis is noted. No hepatic lesions are identified on this portal venous phase study. A recanalized paraumbilical vein is noted. The main, left and right portal veins are patent. There are small paraesophageal varices. Trace ascites within the pelvis is noted. Borderline splenomegaly is noted. Adrenal glands, right kidney and pancreas are unremarkable. There is no biliary or pancreatic ductal dilatation. A 7 mm intermediate attenuation lesion within the midpole of the left kidney on image 170 of 501 is noted. This is indeterminate. A 6 mm hypodense lesion within the upper pole of the left kidney is too small to characterize as well but favors a cyst. There is no evidence for a bowel obstruction. Submucosal fat deposition within the colon is noted. The appendix is normal. No abdominal or pelvic lymphadenopathy is present. No acute fracture or suspicious lesion within the visualized skeletal structures. Major vasculature is patent. IMPRESSION: 1. Normal appendix. No bowel obstruction. Submucosal fat deposition within the colon which may indicate chronic inflammation. 2. Severe geographic hepatic steatosis. Small abdominal varices and trace pelvic ascites. These findings suggest portal hypertension possibly on the basis of cirrhosis. 3. 7 mm intermediate attenuation left renal lesion. This is too small to characterize. This could reflect a hyperdense cyst or small solid renal lesion. Follow-up renal protocol CT in 6 months is recommended.
[2022-03-17] MEDS: cefTRIAXone SODIUM 2,000 MG in DEXTROSE 5% 50 ML IV SCH (16:27)
[2022-03-17] MEDS: metroNIDAZOLE 500 MG/100 ML BAG IV SCH (16:27)
[2022-03-17 17:29] LABS: 18KDIGG Band NON-REACTIVE; 23KDIGG Band NON-REACTIVE; 23KDIGM Band NON-REACTIVE; 28KDIGG Band REACTIVE; 30KDIGG Band NON-REACTIVE; 39KDIGG Band REACTIVE; 39KDIGM Band NON-REACTIVE; 41KDIGG Band REACTIVE; 41KDIGM Band NON-REACTIVE; 45KDIGG Band NON-REACTIVE; 58KDIGG Band REACTIVE; 66KDIGG Band NON-REACTIVE; 93KDIGG Band NON-REACTIVE; Lyme Antibodies, WB IgG NEGATIVE (NEGATIVE); Lyme Antibodies, WB IgM NEGATIVE (NEGATIVE)
--- NOTE | 2022-03-17 19:01 | Magnetic Resonance Report ---
MRCP CLINICAL HISTORY: Elevated hepatic transaminases. COMPARISON STUDY: Abdominal CT dated 03/03/2022. Abdominal ultrasound dated 03/17/2022. TECHNIQUE: Abdominal MRCP is performed utilizing various T2-weighted sequences in the axial and coron al planes. IV contrast was not administered for this examination. 3-D reformats are created and asses sed. The examination is degraded by motion artifact. FINDINGS: The gallbladder is distended and there is intraluminal sludge/debris. There is trace pericholecystic fluid. The common bile duct is mildly dilated measuring up to 8 mm diameter. No significant intrahepa tic biliary ductal dilatation is seen. There are no definitive filling defects identified to indicate choledocholithiasis. The pancreatic duct is normal in caliber. Focal narrowing is suggested at the c onfluence of the common hepatic ducts. This is best seen on the 3-D reformatted images and on coronal MRCP image #106. The liver is enlarged and heterogeneous, measuring 20 cm in length. Severe steatosis was shown by ult rasound. Periportal edema is suggested. The unenhanced spleen, pancreas, and adrenal glands are gross ly normal. The kidneys are normal in size and without hydronephrosis. A subcentimeter cyst is noted i n the left kidney. There is trace perihepatic free fluid. The abdominal aorta is normal in caliber. N o bowel obstruction is seen. Atelectasis is noted at the right lung base. A small hiatal hernia is no karen. IMPRESSION: 1. Motion compromised examination. 2. Distended gallbladder with intraluminal sludge/debris. There is trace pericholecystic fluid and ac alculus cholecystitis is not excluded. 3. The common bile duct is mildly dilated with no intraluminal filling defects identified to confirm choledocholithiasis. 4. Focal narrowing is suggested at the confluence of the common hepatic ducts. Stricture or less like ly mass lesion is not excluded. There is no significant upstream intrahepatic biliary ductal dilatati on. ERCP could be considered for further evaluation. 5. Hepatomegaly and hepatic steatosis. Dictated: 03/17/2022 6:27 PM Transcribed: 03/17/2022 6:47 PM Itzel [id number] [email or web address] Electronically signed by: Herman Nathan M.D. 03/17/2022 6:58 PM
[2022-03-18] MEDS: metroNIDAZOLE 500 MG/100 ML BAG IV SCH ×4 (00:19→22:43)
[2022-03-18] MEDS: LEVOTHYROXINE SODIUM 112 MCG TABLET PO SCH (06:47)
[2022-03-18 07:34] LABS: Basophils # (auto) 0.08 K/uL (0-0.2); Basophils % (auto) 0.7 %; Eosinophils # (auto) 0.36 K/uL (0-0.50); Hematocrit (blood only) 34.4 % (34.1-44.9); Hemoglobin 11.5 g/dl (12.0-16.0); Immature Granulocytes # (auto) 0.07 K/uL (0.00-0.02); Immature Granulocytes % (auto) 0.6 %; Lymphocytes # (auto) 2.39 K/uL (1.2-3.4); Lymphocytes % (auto) 19.9 %; Mean Corpuscular Hemoglobin 34.1 pg (25.0-34.0); Mean Corpuscular Hgb Conc 33.4 g/dL (32.0-36.0); Mean Corpuscular Volume 102.1 fL (80.0-100.0); Mean Platelet Volume 9.5 fL (9.4-12.3); Monocytes # (auto) 1.85 K/uL (0.24-0.82); Monocytes % (auto) 15.4 %; Neutrophils # (auto) 7.29 K/uL (1.4-6.5); Neutrophils % (auto) 60.4 %; Platelet Count 306 K/uL (130-400); RDW Coefficient of Variation 16.2 % (11.5-14.5); RDW Standard Deviation 60.2 fL (36.4-46.3); Red Blood Count 3.37 M/uL (3.93-5.22); White Blood Count 12.04 K/ul (4.8-10.8)
[2022-03-18 07:57] LABS: Alanine Aminotransferase 30 U/L (7-52); Albumin Level 2.8 gm/dl (3.4-5.0); Alkaline Phosphatase 187 U/L (34-104); Anion Gap 7 (3-11); Aspartate Aminotransferase 85 U/L (13-39); Bilirubin,Total 2.2 mg/dl (0.2-1.0); Blood Urea Nitrogen 3 mg/dl (6-23); Calcium 8.5 mg/dl (8.5-10.1); Carbon Dioxide 23 mmol/L (21-32); Chloride 107 mmol/L (98-107); Creatinine Clr Calc Pharmacy 221.9 ml/min; Est GFR (African American) > 150.0 ml/min; Est GFR (Non-African American) 133.5 ml/min; Globulin 2.7 gm/dl (2.5-4.0); Glucose 114 mg/dl (70-99(Fasting)); Potassium 3.8 mmol/L (3.5-5.1); Sodium 137 mmol/L (136-145); Total Protein 5.5 gm/dl (6.0-8.3)
[2022-03-18] MEDS: cefTRIAXone SODIUM 2,000 MG in DEXTROSE 5% 50 ML IV SCH (08:29)
[2022-03-18] MEDS ORDERED: bisacodyL 5 MG TABEC PO PRN (09:48)
[2022-03-18] MEDS ORDERED: traMADol HCL 50 MG TABLET PO PRN (09:52)
[2022-03-18] MEDS: KETOROLAC TROMETHAMINE 15 MG/ML VIAL IV PRN (10:00)
--- NOTE | 2022-03-18 10:20 | Communication Note ---
Date of Service: March 18, 2022 [facility] GI asked to review MRCP. Imaging test with a distended gallbladder and sludge, mildly dilated CBD w/o intraluminal filling defects but concern for focal narrowing at the confluence of the common hepatic ducts. Platelet count normal, coag studies normal. Would ask that she is kept NPO for EUS +/- ERCP pending endoscopy and OR availability.
--- NOTE | 2022-03-18 11:28 | Surgery Progress Note ---
Date of Service March 18, 2022 Assessment & Plan (1) Abdominal pain: (2) History of ETOH abuse: (3) Intractable nausea and vomiting: Plan 51 year-old female with history of alcohol abuse intractable nausea and vomiting and recent left upper abdominal pain and numbness of her hands now with US showing gallbladder sludge and pain on exam which could possibly be early acute cholecystitis. She does have mild leukocytosis but this has improved. She is not complaining of any RUQ pain specifically after eating. CT scan in early February showing signs of cirrhosis likely secondary to her alcohol abuse. 03/18/2022: No RUQ abdominal pain MRCP showing distended gallbladder with sludge, mild pericholecystic fluid, focal narrowing at common hepatic duct Plan: No indication for cholecystectomy at this time based on her vague symptoms of LUQ pain and nausea and vomiting especially given her CT scan early this month concerning for cirrhosis. Her t. bili has been elevated as well as LFTS. This is likely due to her cirrhosis. She is tender in the RUQ but again this could but due to cirrhosis and not cholecystitis. GI planning for possible EUS/ERCP for MRCP findings Can continue IV antibiotics for now but cholecystitis is considered less likely Would continue current medical management Encourage ambulation our services singing off, will follow peripherally, [facility] surgery covering over weekend. Dr. Hart has seen and examined patient, agrees with above. Admission and Anticipated Discharge Date Admission Date: March 16, 2022 Supervising Physician Co-Signing Physician Notes I have seen and examined the patient personally and agree with the above assessment plan. No urgent surgical intervention required. We will await the results of the ERCP. If she requires any surgical intervention, she will most likely need to be done at a tertiary care center due to her probable cirrhosis. Subjective no RUQ abdominal pain main complaint is numbness and pain in her fingers, feet, and leg. GI might be planning for EUS with ERCP today based on MRCP findings Physical Exam Constitutional: WD/WN, vitals as above no acute distress and not ill appearing Neck: normal visual inspection and trachea midline Respiratory: normal respiratory effort; no respiratory distress and no labored breathing Skin: no rashes, warm and dry Psychiatric: Orientation: alert and oriented x 3 Results & Data ([facility]) Vital Signs (Past 12 Hours) Vital Signs Temp Pulse Pulse Resp BP BP Pulse Ox 03/18/22 11:06 36.7 C 96 H 16 123/76 95 03/18/22 08:36 37.0 C 101 H 16 113/73 94 03/18/22 07:17 110 H 03/18/22 02:40 36.9 C 100 H 18 108/77 94 O2 Del Method 03/18/22 11:06 Room Air 03/18/22 08:36 Room Air 03/18/22 07:17 03/18/22 02:40 Room Air Laboratory Results 03/18/22 03/18/22 03/16/22 Range/Units 07:25 07:25 10:30 WBC 12.04 H (4.8-10.8) K/ul RBC 3.37 L (3.93-5.22) M/uL Hgb 11.5 L (12.0-16.0) g/dl Hct 34.4 (34.1-44.9) % MCV 102.1 H (80.0-100.0) fL MCH 34.1 H (25.0-34.0) pg MCHC 33.4 (32.0-36.0) g/dL RDW Std Deviation 60.2 H (36.4-46.3) fL RDW Coeff of Celestina 16.2 H (11.5-14.5) % Plt Count 306 (130-400) K/uL MPV 9.5 (9.4-12.3) fL Immature Gran % (Auto) 0.6 % Neut % (Auto) 60.4 % Lymph % (Auto) 19.9 % [place] % (Auto) 15.4 % Eos % (Auto) 3.0 % Baso % (Auto) 0.7 % Neut # (Auto) 7.29 H (1.4-6.5) K/uL Lymph # (Auto) 2.39 (1.2-3.4) K/uL [place] # (Auto) 1.85 H (0.24-0.82) K/uL Eos # (Auto) 0.36 (0-0.50) K/uL Baso # (Auto) 0.08 (0-0.2) K/uL Immature Gran # (Auto) 0.07 H (0.00-0.02) K/uL Sodium 137 (136-145) mmol/L Potassium 3.8 (3.5-5.1) mmol/L Chloride 107 (98-107) mmol/L Carbon Dioxide 23 (21-32) mmol/L Anion Gap 7 (3-11) BUN 3 L (6-23) mg/dl Creatinine 0.30 L (0.6-1.2) mg/dl Est Cr Clr Drug Dosing 221.9 ml/min Est GFR ( Amer) > 150.0 ml/min Est GFR (Non-Af Amer) 133.5 ml/min BUN/Creatinine Ratio 10.0 (10-20) Glucose 114 H (70-99(Fasting)) mg/dl Calcium 8.5 (8.5-10.1) mg/dl Total Bilirubin 2.2 H (0.2-1.0) mg/dl AST 85 H (13-39) U/L ALT 30 (7-52) U/L Alkaline Phosphatase 187 H (34-104) U/L Total Protein 5.5 L (6.0-8.3) gm/dl Albumin 2.8 L (3.4-5.0) gm/dl Globulin 2.7 (2.5-4.0) gm/dl Albumin/Globulin Ratio 1.0 (0.9-2) Lyme IgG (Western Blot) NEGATIVE (NEGATIVE) Lyme IgG 18 kDa Band NON-REACTIVE Lyme IgG 23 kDa Band NON-REACTIVE Lyme IgG 28 kDa Band REACTIVE A Lyme IgG 30 kDa Band NON-REACTIVE Lyme IgG 39 kDa Band REACTIVE A Lyme IgG 41 kDa Band REACTIVE A Lyme IgG 45 kDa Band NON-REACTIVE Lyme IgG 58 kDa Band REACTIVE A Lyme IgG 66 kDa Band NON-REACTIVE Lyme IgG 93 kDa Band NON-REACTIVE Lyme IgM Ab (WB) NEGATIVE (NEGATIVE) Lyme IgM 23 kDa Band NON-REACTIVE Lyme IgM 39 kDa Band NON-REACTIVE Lyme IgM 41 kDa Band NON-REACTIVE Diagnostic Findings MRCP CLINICAL HISTORY: Elevated hepatic transaminases. COMPARISON STUDY: Abdominal CT dated 03/03/2022. Abdominal ultrasound dated 03/17/2022. TECHNIQUE: Abdominal MRCP is performed utilizing various T2-weighted sequences in the axial and coronal planes. IV contrast was not administered for this examination. 3-D reformats are created and assessed. The examination is degraded by motion artifact. FINDINGS: The gallbladder is distended and there is intraluminal sludge/debris. There is trace pericholecystic fluid. The common bile duct is mildly dilated measuring up to 8 mm diameter. No significant intrahepatic biliary ductal dilatation is seen. There are no definitive filling defects identified to indicate choledocholithiasis. The pancreatic duct is normal in caliber. Focal narrowing is suggested at the confluence of the common hepatic ducts. This is best seen on the 3-D reformatted images and on coronal MRCP image #106. The liver is enlarged and heterogeneous, measuring 20 cm in length. Severe steatosis was shown by ultrasound. Periportal edema is suggested. The unenhanced spleen, pancreas, and adrenal glands are grossly normal. The kidneys are normal in size and without hydronephrosis. A subcentimeter cyst is noted in the left kidney. There is trace perihepatic free fluid. The abdominal aorta is normal in caliber. No bowel obstruction is seen. Atelectasis is noted at the right lung base. A small hiatal hernia is noted. IMPRESSION: 1. Motion compromised examination. 2. Distended gallbladder with intraluminal sludge/debris. There is trace pericholecystic fluid and acalculus cholecystitis is not excluded. 3. The common bile duct is mildly dilated with no intraluminal filling defects identified to confirm choledocholithiasis. 4. Focal narrowing is suggested at the confluence of the common hepatic ducts. Stricture or less likely mass lesion is not excluded. There is no significant upstream intrahepatic biliary ductal dilatation. ERCP could be considered for further evaluation. 5. Hepatomegaly and hepatic steatosis.
--- NOTE | 2022-03-18 12:31 | History & Physical Bridge Note ---
Date of Service March 18, 2022 History & Physical Bridge Note I have examined the patient, reviewed the History & Physical and in the interval since the performance of the History & Physical I have noted the following changes of clinical significance: no changes noted, endoscopic ultrasound and ERCP have been requested by the patient's normal GI provider. Given the patient's history of alcohol abuse this could certainly represent alcoholic hepatitis or perhaps a common bile duct stone given her imaging studies. We will proceed with upper endoscopy and endoscopic ultrasound this morning, if a gallstone is seen in the bile duct we will then do ERCP. If no gallstone is seen in the bile duct then a liver biopsy will be performed to help clarify her underlying liver problem. We have discussed the risks and benefits of upper endoscopy endoscopic ultrasound and ERCP to include bleeding, infection, perforation, pain, pancreatitis, bile leak and postprocedural discomfort.
[2022-03-18] MEDS ORDERED: INDOMETHACIN 50 MG SUPP PR ONE (12:45)
[2022-03-18] MEDS ORDERED: HEPARIN 100 UNIT/ML 5ML FLUSH ONE (12:56)
--- NOTE | 2022-03-18 12:59 | Anesthesiology Consultation ---
Date of Service March 18, 2022 Assessment & Plan (1) Encounter for pre-operative examination: Chart Review Chart Review: Acceptable Risk for Surgery History Surgery Operation Date: 03/18/22 09:40 Proposed Procedures p Endoscopic Ultrasonography Upper - Helen Beard DO s Endoscopic Retrograde Cholangiopancreatogram - Helen Beard DO Height/Weight Height: 5 ft 4 in Weight: 74.6 kg Allergies Allergy/AdvReac Type Severity Reaction Status Date / Time promethazine AdvReac Intermediate MADE ME Verified 03/16/22 15:11 SICKER hair dye Allergy Unknown scalp Uncoded 03/16/22 15:11 irriration/swelling Medications Home Medications Medication Instructions Recorded Confirmed Last Taken ascorbic acid (vitamin C) 500 mg 500 mg PO QAM 06/24/21 03/16/22 03/15/22 tablet (Vitamin C) omeprazole 20 mg capsule,delayed 20 mg PO BID #60 caps 07/01/21 03/16/22 03/15/22 release Lactobacillus acidophilus 10 10,000 mmu cells PO QAM 07/20/21 03/16/22 03/15/22 billion cell capsule (Probiotic) cyanocobalamin (vitamin B-12) 1,000 mcg PO QAM 07/20/21 03/16/22 03/15/22 1,000 mcg capsule albuterol sulfate 90 mcg/actuation 2 puff inhalation DIRECTED PRN 03/08/22 03/16/22 03/11/22 aerosol inhaler COPD/ASTHMA cholecalciferol (vitamin D3) 10 10 mcg PO QAM 03/08/22 03/16/22 03/15/22 mcg (400 unit) tablet (Vitamin D3) potassium chloride 20 mEq 20 meq PO QAM 03/08/22 03/16/22 03/16/22 tablet,extended release(part/cryst) hydrocortisone 2.5 % topical cream 1 applic [place] BID PRN Hemorrhoids 03/16/22 03/16/22 Unknown with perineal applicator (Anusol-HC) levothyroxine 112 mcg tablet 112 mcg PO DAILY 03/16/22 03/16/22 03/15/22 ondansetron 4 mg disintegrating 4 mg PO Q6H PRN NAUSEA/VOMITING 03/16/22 2 Unknown tablet Active Medications Generic Name Dose Route Start Last Admin Trade Name Freq PRN Reason Stop Dose Admin Ascorbic Acid 500 mg 03/17/22 09:00 03/17/22 08:25 Ascorbic Acid 500 Mg Tab PO 04/16/22 08:59 500 mg QAM SLIM Administration Calcium Carbonate 1,250 mg 03/17/22 12:00 03/17/22 20:16 Calcium Carbonate 1250mg Tab PO 04/16/22 11:59 1,250 mg BID SLIM Administration Cyanocobalamin 1,000 mcg 03/17/22 09:00 03/17/22 08:25 Cyanocobalamin (B-12) 500 Mcg Tablet PO 04/16/22 08:59 1,000 mcg QAM SLIM Administration Folic Acid 1 mg 03/16/22 09:00 03/17/22 08:26 Folic Acid 1 Mg Tab PO 04/15/22 08:59 1 mg QAM SLIM Administration Hydrocortisone 1 appln 03/16/22 21:00 03/17/22 20:16 Hydrocortisone Hc 2.5% Crm 30gm Tube EXT 04/15/22 20:59 Not Given BID SLIM Metronidazole 500 mg in 100 mls @ 100 mls/hr 03/17/22 15:30 03/18/22 08:28 Flagyl IV 03/27/22 15:29 100 mls/hr Q8H SLIM Administration Protocol Ceftriaxone Sodium 2,000 mg/ 70 mls @ 100 mls/hr 03/17/22 15:30 03/18/22 08:29 Dextrose IV 03/27/22 15:29 100 mls/hr DAILY SLIM Administration Protocol Ketorolac Tromethamine 10 mg 03/16/22 16:26 03/18/22 10:00 Ketorolac Tromethamine 15 Mg/Ml Vial IV 03/21/22 16:25 10 mg Q6H PRN Administration Pain & Pre PT Levothyroxine Sodium 112 mcg 03/17/22 06:30 03/18/22 06:47 Levothyroxine Sodium 112 Mcg Tablet PO 04/16/22 06:29 Not Given DAILYBB SLIM Lidocaine 1 patch 03/17/22 09:00 03/17/22 08:29 Lidocaine 5% 1 Patch TD 04/16/22 08:59 1 patch QAM SLIM Administration Miscellaneous 1 each 03/17/22 21:00 03/17/22 20:17 Remove Lidoderm Patch N/A 04/16/22 20:59 1 each DAILY@2100 SLIM Administration Pantoprazole Sodium 40 mg 03/16/22 21:00 03/17/22 20:16 Pantoprazole 40 Mg Tab PO 04/15/22 20:59 40 mg BID SLIM Administration Polyethylene Glycol 17 gm 03/17/22 10:15 03/17/22 20:19 Polyethylene (Miralax) 17 Gm Pack PO 04/16/22 10:14 17 gm DAILY SLIM Administration Potassium Chloride 20 meq 03/17/22 09:00 03/17/22 08:25 Potassium Chloride Crtab 20 Meq Tabcr PO 04/16/22 08:59 20 meq QAM SLIM Administration Promethazine HCl 25 mg 03/16/22 16:26 03/17/22 16:28 Promethazine Hcl 25 Mg Tab PO 04/15/22 16:25 25 mg Q6H PRN Administration Nausea/PAIN Thiamine HCl 100 mg 03/16/22 17:00 03/17/22 08:26 Thiamine Hcl 100 Mg Tab PO 04/15/22 16:59 100 mg QAM SLIM Administration Vitamin D 400 units 03/17/22 09:00 03/17/22 08:25 Cholecalciferol 400 Units 10 Mcg Tab PO 04/16/22 08:59 400 units QAM SLIM Administration NPO Date Last Intake of Fluids: 03/17/22 Time Last Intake of Fluids: 08:30 Date Last Intake of Solids: 03/17/22 Time Last Intake of Solids: 08:30 Past Medical History Medical History Acid reflux Alcohol dependence A FIFTH A DAY FOR 9 YRS NONE FOR LAST 3 WEEKS "WAS GETTING SICK WHEN I DRINK IT AND MY BODY WON'T ALLOW ME TO HAVE IT" Anxiety and depression Constipation REASON FOR UPCOMING PROCEDURE COPD (chronic obstructive pulmonary disease) AND ASTHMA PER PT - LAST USE INHALER LAST WEEK Fatty liver Heavy menses High blood pressure NO MEDS/MONITORS History of anemia History of seizure LAST EVENT 2 YEARS AGO (ALCHOHOL WITHDRAWL) Hypothyroidism Muscle mass LOSS OF MUSCLE MASS OVER LAST 2 MON Nausea and vomiting reason for upcoming procedure PTSD (post-traumatic stress disorder) PUD (peptic ulcer disease) Rectal bleeding REASON FOR UPCOMING PROCEDURE Snores Spontaneous pneumothorax HX (REPAIRED 2005) Vitamin D deficiency pt reports probably all her vitamins are low Past Family History Family History Mother Family hx of colon cancer Stomach cancer Anxiety Depression Kidney disease Colorectal cancer Lung disease Gallbladder disease Family history of cancer Grandmother (Maternal) Stomach cancer Alcohol abuse Father Depression Cardiac disorder Kidney stones Kidney disease Myocardial infarction Oral-mouth cancer Lung disease Hypertension Sister Drug abuse Anxiety Depression Aunt Breast cancer Maternal Brother Family history of diabetes mellitus Other No family history of adverse response to anesthesia Denies family history of Ovarian cancer Prostate cancer Past Surgical History Surgical History H/O tooth extraction 02/11/18 - Multiple teeth extracted under general anesthesia History of section X 3 History of colonoscopy MOST RECENT A COUPLE MONTHS AGO ? - PT NOT SURE DETAILS ON FINDINGS (DONE AT [facility]) History of endoscopy Social History Smoking Status: Current every day smoker tobacco type: cigarettes Smoking cigarettes per day: 8 Hx Alcohol Use: Yes (HX VODKA A FIFTH A DAY (FOR 9 YRS), NONE FOR 3 WEEKS) Alcohol type: other alcohol intake frequency: 3 or more drinks per day Hx Substance Use: No substance use type: does not use Physical Exam Vital Signs Last Vital Signs Temp 36.7 C 03/18/22 12:35 Pulse 97 H 03/18/22 12:35 Resp 20 03/18/22 12:35 BP 121/97 03/18/22 12:35 Pulse Ox 100 03/18/22 12:35 O2 Del Method 03/18/22 12:35 Testing Laboratory Results 03/18/22 07:25 03/18/22 07:25 PT 11.9 Seconds (9.0-12.0) 03/16/22 10:30 INR 1.1 (0.9-1.1) 03/16/22 10:30 APTT 30.9 Seconds (21.0-31.0) 03/16/22 10:30 Urine Color Dark Yellow 03/16/22 12:19 Urine Appearance Clear (Clear) 03/16/22 12:19 Urine pH 7.0 (4.5-7.5) 03/16/22 12:19 Ur Specific [place] 1.007 (1.000-1.030) 03/16/22 12:19 Urine Protein Negative (Negative) 03/16/22 12:19 Urine Glucose (UA) Negative (Negative) 03/16/22 12:19 Urine Ketones Trace (Negative) H 03/16/22 12:19 Urine Nitrite Positive (Negative) A 03/16/22 12:19 Ur Leukocyte Esterase Trace (Negative) H 03/16/22 12:19 Urine WBC (Auto) 5-10 /hpf (0-5) H 03/16/22 12:19 Urine RBC (Auto) 0-4 /hpf (0-4) 03/16/22 12:19 U Hyaline Cast (Auto) 1-5 /lpf (0-5) 03/16/22 12:19 U Epithel Cells (Auto) >30 /lpf (0-5) H 03/16/22 12:19 Urine Bacteria (Auto) 4+ (Negative) H 03/16/22 12:19 03/16/22 12:19 Urine Culture - Final Urine,Clean Catch Three types of organisms present, all high counts. Repeat collection recommended. No further identifications or sensitivities to follow.
[2022-03-18] MEDS ORDERED: ATROPINE SULFATE 0.1 MG/ML 10ML SYR IV PRN (13:02)
[2022-03-18] MEDS ORDERED: ONDANSETRON INJ 2 MG/ML 2 ML VIAL IV PRN (13:02)
[2022-03-18] MEDS: CYANOCOBALAMIN (B-12) 500 MCG TABLET PO SCH (13:06)
[2022-03-18] MEDS: ASCORBIC ACID 500 MG TAB PO SCH (13:06)
[2022-03-18] MEDS: CHOLECALCIFEROL 400 UNITS 10 MCG TAB PO SCH (13:06)
[2022-03-18] MEDS: CALCIUM CARBONATE 1250MG TAB PO SCH ×2 (13:06→20:20)
[2022-03-18] MEDS: FOLIC ACID 1 MG TAB PO SCH (13:06)
[2022-03-18] MEDS: LIDOCAINE 5% 1 PATCH TD SCH (13:07)
[2022-03-18] MEDS: HYDROCORTISONE HC 2.5% CRM 30GM TUBE EXT SCH ×2 (13:07→20:21)
[2022-03-18] MEDS: THIAMINE HCL 100 MG TAB PO SCH (13:07)
[2022-03-18] MEDS: PANTOprazole 40 MG TAB PO SCH ×2 (13:07→20:20)
[2022-03-18] MEDS: POTASSIUM CHLORIDE CRTAB 20 MEQ TABCR PO SCH (13:07)
[2022-03-18] MEDS ORDERED: PROPOFOL IV EMULSION 10 MG/ML 20 ML VIAL IV ONE ×2 (13:08→13:27)
[2022-03-18] MEDS ORDERED: fentaNYL citrate 100 MCG/2 ML VIAL ONE (13:08)
[2022-03-18] MEDS ORDERED: LIDOCAINE 2% MPF LOCAL 5 ML VIAL INFIL ONE (13:08)
--- NOTE | 2022-03-18 13:22 | GI REPORT ---
Patient Name: Tamara Hanna Procedure Date: 03/18/2022 1:11 PM Date of : 1970 Admit Type: Inpatient Age: 51 Gender: Female Attending MD: Helen Beard DO Procedure: Upper GI endoscopy Providers: Helen Beard DO Referring MD: Paco Morgan Iv, M.d., Booker Ellsworth, Indications: Portal hypertension with suspected esophageal varices Medicines: Monitored Anesthesia Care Complications: No immediate complications. Estimated blood loss: Minimal. Estimated Blood Loss: Estimated blood loss was minimal. Procedure: Pre-Anesthesia Assessment: - Prior to the procedure, a History and Physical was performed, and patient medications, allergies and sensitivities were reviewed. The patient's tolerance of previous anesthesia was reviewed. - The risks and benefits of the procedure and the sedation options and risks were discussed with the patient. All questions were answered and informed consent was obtained. - Patient identification and proposed procedure were verified prior to the procedure by the physician, the nurse and the sealing machine operator. The procedure was verified in the procedure room. - Pre-procedure physical examination revealed no contraindications to sedation. - ASA Grade Assessment: III - A patient with severe systemic disease. - After reviewing the risks and benefits, the patient was deemed in satisfactory condition to undergo the procedure. - The anesthesia plan was to use monitored anesthesia care (MAC). - Immediately prior to administration of medications, the patient was re-assessed for adequacy to receive sedatives. - The heart rate, respiratory rate, oxygen saturations, blood pressure, adequacy of pulmonary ventilation, and response to care were monitored throughout the procedure. - The physical status of the patient was re-assessed after the procedure. After obtaining informed consent, the endoscope was passed under direct vision. Throughout the procedure, the patient's blood pressure, pulse, and oxygen saturations were monitored continuously. The Endoscope was introduced through the mouth, and advanced to the third part of duodenum. The upper GI endoscopy was accomplished without difficulty. The patient tolerated the procedure well. Findings: There is no endoscopic evidence of varices in the entire esophagus. The Z-line was irregular and was found 38 cm from the incisors. Biopsies were taken with a cold forceps for histology. The pathology specimen was placed into Bottle A. Estimated blood loss was minimal. Mild portal hypertensive gastropathy was found in the entire examined stomach. The examined duodenum was normal. Impression: - Z-line irregular, 38 cm from the incisors. Biopsied. - Portal hypertensive gastropathy. - Normal examined duodenum. Recommendation: - Perform an upper endoscopic ultrasound (UEUS) today. - Await pathology results. Helen Beard D.O. Helen Beard, 03/18/2022 1:21:12 PM This report has been signed electronically. Note Initiated On: 03/18/2022 1:11 PM Number of Addenda: 0 I attest to the content of the Intraoperative Record and orders documented therein, exceptions below {[id number]}
[2022-03-18] MEDS ORDERED: GLYCOPYRROLATE 0.2 MG/ML VIAL ONE (13:27)
[2022-03-18] MEDS ORDERED: DEXAMETHASONE SOD INJ 4 MG/ML VIAL ONE (13:30)
[2022-03-18] MEDS ORDERED: ONDANSETRON INJ 2 MG/ML 2 ML VIAL ONE (13:30)
--- NOTE | 2022-03-18 13:52 | Post Operative Brief Note ---
Immediate Post Op Note v1 Date of Surgery March 18, 2022 Pre & Post Diagnosis Operation Date: 03/18/22 09:40 Pre-Op Diagnosis: GENERALLIZED WEANESS, ELECTROLYES ABNORMALITIES Post-Op Diagnosis: gastritis, irregular GE junction suggestive of Sen's esophagus , liver bx I identified the patient and participated in the time-out.: Yes Procedure Operation Date: 03/18/22 09:40 Actual Procedures p Esophagogastroduodenoscopy with bx - Helen Beard DO p Endoscopic Ultrasonography Upper with liver bx - Helen Beard DO Surgeon Helen Beard, Trapeze Artist none Estimated Blood Loss 0 Findings Consistent with Post-Op Diagnosis
--- NOTE | 2022-03-18 13:53 | Communication Note ---
Date of Service: March 18, 2022 The patient underwent upper endoscopy and endoscopic ultrasound this afternoon. She was found to have evidence of portal gastropathy and irregular Z-line s uggestive of underlying short segment Sen's esophagus. A liver biopsy was performed due to extensive fatty infiltration and history of AST and ALT elevation. The patient's bile duct appeared to be within normal limits measuring approximately 7 mm greatest dimension. The gallbladder had extensive sludge and debris within it. Recommendation With anticoagulation for 72 hours Advance diet as tolerated Consider surgical evaluation for cholecystectomy given the extensive nature of the sludge and debris within the gallbladder Liver biopsy pending
--- NOTE | 2022-03-18 13:59 | GI REPORT ---
Patient Name: Tamara Hanna Procedure Date: 03/18/2022 1:21 PM Date of : 1970 Admit Type: Inpatient Age: 51 Gender: Female Attending MD: Helen Beard DO Procedure: Upper EUS Providers: Helen Beard DO Referring MD: Paco Morgan Md, Booker Ervin Case, DO Indications: Obstruction of bile duct on MRCP, Elevated liver enzymes Medicines: Monitored Anesthesia Care Complications: No immediate complications. Estimated blood loss: Minimal. Estimated Blood Loss: Estimated blood loss was minimal. Procedure: Pre-Anesthesia Assessment: - Prior to the procedure, a History and Physical was performed, and patient medications, allergies and sensitivities were reviewed. The patient's tolerance of previous anesthesia was reviewed. - The risks and benefits of the procedure and the sedation options and risks were discussed with the patient. All questions were answered and informed consent was obtained. - Patient identification and proposed procedure were verified prior to the procedure by the physician, the nurse and the emt basic. The procedure was verified in the procedure room. - Pre-procedure physical examination revealed no contraindications to sedation. - ASA Grade Assessment: III - A patient with severe systemic disease. - After reviewing the risks and benefits, the patient was deemed in satisfactory condition to undergo the procedure. - The anesthesia plan was to use monitored anesthesia care (MAC). - Immediately prior to administration of medications, the patient was re-assessed for adequacy to receive sedatives. - The heart rate, respiratory rate, oxygen saturations, blood pressure, adequacy of pulmonary ventilation, and response to care were monitored throughout the procedure. - The physical status of the patient was re-assessed after the procedure. After obtaining informed consent, the endoscope was passed under direct vision. Throughout the procedure, the patient's blood pressure, pulse, and oxygen saturations were monitored continuously. The Scope was introduced through the mouth, and advanced to the third part of duodenum. The upper EUS was accomplished without difficulty. The patient tolerated the procedure well. Findings: ENDOSONOGRAPHIC FINDING: : There was no sign of significant endosonographic abnormality in the ampulla. No pathologic lymphadenopathy and no masses were identified. There was no sign of significant endosonographic abnormality in the common bile duct. The maximum diameter of the duct was 7 mm. No stones, no biliary sludge and ducts of normal caliber were identified. There was abnormal echogenicity in the visualized portion of the liver. This area was hyperechoic. Fine needle biopsy was performed. Color Doppler imaging was utilized prior to needle puncture to confirm a lack of significant vascular structures within the needle path. One pass was made with the 19 gauge ultrasound core biopsy needle ([employer]) using a transgastric approach. A visible core of tissue was obtained. Final cytology results are pending. Estimated blood loss was minimal. There was no sign of significant endosonographic abnormality in the entire pancreas. The pancreas was well visualized, no pathologic lymphadenopathy, no masses. No lymphadenopathy seen. Extensive hyperechoic material consistent with sludge was visualized endosonographically in the gallbladder. Impression: - There was no sign of significant pathology in the ampulla. - There was no sign of significant pathology in the common bile duct. - There was abnormal echogenicity in the visualized portion of the liver. This was hyperechoic. Tissue has not been obtained. However, the endosonographic appearance is suggestive of fatty infiltration. Fine needle biopsy performed. - There was no sign of significant pathology in the entire pancreas. - Hyperechoic material consistent with sludge was visualized endosonographically in the gallbladder. Recommendation: - The patient will be observed post-procedure, until all discharge criteria are met. - Advance diet as tolerated today. - Await path results. - Nausea could be related to the extensiver amount of material in the gallbladder. Helen Beard D.O. Helen Beard, DO 03/18/2022 1:58:20 PM This report has been signed electronically. Note Initiated On: 03/18/2022 1:21 PM Number of Addenda: 0 I attest to the content of the Intraoperative Record and orders documented therein, exceptions below {[id number]}
--- NOTE | 2022-03-18 14:20 | Anesthesiology Progress Note ---
Date of Service March 18, 2022 Anesthesia Post Procedure Vital Signs Vital Signs: Temp Pulse Pulse Pulse Resp BP BP 03/18/22 14:19 104 H 16 121/86 03/18/22 14:10 105 H 14 116/74 03/18/22 14:00 107 H 20 130/92 03/18/22 13:50 36.5 C 112 H 14 110/81 03/18/22 12:35 36.7 C 97 H 20 121/97 03/18/22 11:06 36.7 C 96 H 16 123/76 03/18/22 08:36 37.0 C 101 H 16 113/73 03/18/22 07:17 110 H 03/18/22 02:40 36.9 C 100 H 18 108/77 03/17/22 22:16 105 H 03/17/22 23:07 37.0 C 91 H 18 106/73 03/17/22 19:19 36.6 C 92 H 18 119/87 03/17/22 15:44 100 H 03/17/22 14:55 36.8 C 102 H 19 124/84 Pulse Ox O2 Del Method O2 Flow Rate 03/18/22 14:19 95 Room Air 0 03/18/22 14:10 94 Room Air 0 03/18/22 14:00 97 Room Air 0 03/18/22 13:50 97 Oxymask 6 03/18/22 12:35 100 Room Air 03/18/22 11:06 95 Room Air 03/18/22 08:36 94 Room Air 03/18/22 07:17 03/18/22 02:40 94 Room Air 03/17/22 22:16 03/17/22 23:07 95 Room Air 03/17/22 19:19 95 Room Air 03/17/22 15:44 03/17/22 14:55 95 Room Air Pain Intensity Left Abdomen: Pain Intensity: 0 Bilateral Hand: Pain Intensity: 0 Transfer of Care Handoff Completed per policy Notes Mental Status: alert / awake / arousable Patient Amnestic to Procedure: Yes Nausea / Vomiting: adequately controlled Pain: adequately controlled Airway Patency, RR, SpO2: stable & adequate BP & HR: stable & adequate Hydration State: stable & adequate Anesthetic Complications: no major complications apparent
--- NOTE | 2022-03-18 15:12 | Hospitalist Progress Note ---
Date of Service March 18, 2022 Assessment & Plan (1) Intractable nausea and vomiting: Plan: Nausea/vomiting, abdominal pain, ?cholecystitis Present for over 1 month, proceeded giving up alcohol Patient does have history of cirrhosis. CT 03/03 with hepatic steatosis and possible portal hypertension, otherwise unremarkable. Follows as outpatient with GI, had a colonoscopy which showed nonbleeding internal hemorrhoids and ascending colon lipoma. Was to have [facility] [place] follow-up for EUS as outpatient - US: Gallbladder sludge, biliary ductal dilation, and gallbladder wall thickening is seen. There is tenderness over the gallbladder. Findings may represent acalculous cholecystitis. Covered with roceph/flagyl EGD 03/18: No evidence of varices. Irregular Z-line, biopsies taken. Portal hypertensive gastropathy. Normal duodenum. EUS as noted Liver biopsy pending Ultrasound with concern for gallbladder sludge and debris. MRCP motion compromised, distended gallbladder with intraluminal sludge/debris, trace pericholecystic fluid and a calculus cholecystitis not excluded. CBD mildly dilated, no filling defects to confirm choledocho. Hepatomegaly/hepatic steatosis appreciated. On upper EUS extensive hyperechoic material consistent with sludge visualized on EUS which may be contributing to patient's nausea. Surgery consulted, recommended no indication for cholecystectomy at this time based on symptoms & the setting of cirrhosis. Following peripherally at this time, medical management and antibiotics continued. ? percutaneous drainage if not improving with MM (2) Polyneuropathy: Plan: Patient endorses polyneuropathy, and pain in hands and feet bilaterally. No dermatomal distribution, upper and lower and bilateral. Endorses that has had this before chronically, but is worse in the last few days than it had been previously. Strength is intact 4+/5, but somewhat diffusely pain limited and uncomfortable, qualitatively decreased per pt No focal neurologic deficits appreciated B12 normal Calcium was low, this normalized with supplementation Potassium normal, creatinine normal A1c pending Med review with low likelihood for medication causing toxic neuropathy. Hx of EtoH abuse no etoh in last 6 weeks CK pending giving pain/aches No history of gout - RENITA pending (3) UTI (urinary tract infection): Plan: - On admission leukocytosis, UA with bacteria, culture multiple colonies high count - Patient asymptomatic other than some back pain which is chronic for her, nausea and vomiting longstanding. - On admit ? if a UTI may be causing some of her discomfort and nausea and vomiting but doubt that this is what caused this over a month ago - No addition tx for this, even if underlying UTI would covered w/ rocephin for Lyme + test (4) Hypokalemia: Plan: - Mg, K, Ph repleted on admit and normalized (5) Hypophosphatemia: Plan: - Repleted, normalized (6) Hypocalcemia: Plan: - Ical low - calcium supplementation ordered Calcium level normal 03/18 (7) Alcohol dependence: Plan: - Longstanding history of a fifth of alcohol per day for the past 9 years, however last drink 1 month ago. - Will place on AWSS. - Banana bag in ED. Continue IVF as needed/if NPO - +Folic acid supplementation, levels low (8) Lyme disease: Plan: - Tested in ED given history of weakness, while living with an outdoor cat. - IgM is equivocal, IgG bands 4/5 - Rocephin coverage at this time (9) Hypothyroidism: Plan: - Continue levothyroxine 112 mcg daily. (10) COPD (chronic obstructive pulmonary disease): Plan: - Has albuterol as needed, has not used recently. - No shortness of breath, evidence for acute exacerbation. (11) Depression: Plan: - No current medications. (12) Hemorrhoids: Plan: - Continue Anusol cream. Admission and Anticipated Discharge Date Admission Date: March 16, 2022 Subjective Nausea improved this morning at bedside. Continues to have mild intermittent stomach pain. Does continue to have numbness/tingling/burning pain in her hands, feet, ankles bilaterally which she has had before but which is much worse in the past couple of days. She denies any history of neuropathy/diabetes to her knowledge. She reports that the discomfort limits her strength, and while gross testing below is 4+5/5, is qualitatively much weaker than her normal baseline. Is hungry, and is eager to have clears advanced after her procedures today. No other questions at time of bedside. No fever. Review of Systems Review of Systems: All systems reviewed & are unremarkable except as noted in Subjective Physical Exam Physical Exam: General: A&Ox3. NAD. Cooperative. HEENT: Atraumatic, normocephalic. Vision.hearing intact. Pulm: CTAB A&P. -wheezes, -rales, -rhonchi. Symmetrical chest rise. No increased work of breathing. No respiratory distress. Cardiac: RRR, -mrg. Radial pulses intact and symmetrical. Abdominal: +RUQ/+LLQ TTP. Minimal LL rib tenderness today. No rebound/guarding. Soft. Extremities: Sensation of soft touch intact in hands, feet, knees bilaterally without asymmetry. Patient does endorse qualitative feeling like pins/needles in her upper and lower extremities bilaterally and worse distally. Billing Typist strength, wrist flexion/extension, elbow flexion/extension, ankle dorsiflexion/extension, and hip flexion 4+/5, qualitatively much weaker than normal per patient. Patellar DTR 1+ bilaterally. No saddle anesthesia. Spur ling's negative. Results & Data Results & Data ([facility]) Vital Signs (Past 12 Hours) Vital Signs Temp Pulse Pulse Pulse Resp BP BP 03/18/22 14:30 105 H 16 130/87 03/18/22 14:20 104 H 16 121/86 03/18/22 14:10 105 H 14 116/74 03/18/22 14:00 107 H 20 130/92 03/18/22 13:50 36.5 C 112 H 14 110/81 03/18/22 12:35 36.7 C 97 H 20 121/97 03/18/22 11:06 36.7 C 96 H 16 123/76 03/18/22 08:36 37.0 C 101 H 16 113/73 03/18/22 07:17 110 H Pulse Ox O2 Del Method O2 Flow Rate 03/18/22 14:30 94 Room Air 0 03/18/22 14:20 95 Room Air 0 03/18/22 14:10 94 Room Air 0 03/18/22 14:00 97 Room Air 0 03/18/22 13:50 97 Oxymask 6 03/18/22 12:35 100 Room Air 03/18/22 11:06 95 Room Air 03/18/22 08:36 94 Room Air 03/18/22 07:17 PG Care Time/CCT Total # of Minutes Spent Total Time Spent with Patient: Total time spent is greater than 50% in coordination of care (as documented) at patient's floor/unit and/or counseling patient: Coding Level of Care Code 37749 Subseq Hosp Care Lvl 2 Diagnoses Intractable nausea and vomiting R11.2 Polyneuropathy G62.9 UTI (urinary tract infection) N39.0 Hypokalemia E87.6 Hypophosphatemia E83.39 Hypocalcemia E83.51 Alcohol dependence F10.29 Substance use status: unspecified alcohol-induced disorder Lyme disease A69.20 Hypothyroidism E03.9 COPD (chronic obstructive pulmonary disease) J44.9 Depression F32.9 Hemorrhoids K64.9 (1) Alcohol dependence Substance use status: unspecified alcohol-induced disorder Qualified Code(s): F10.29 - Alcohol dependence with unspecified alcohol-induced disorder
[2022-03-18] MEDS: MELATONIN 3 MG TAB PO PRN (20:22)
[2022-03-18] MEDS: traMADol HCL 50 MG TABLET PO PRN (20:22)
--- NOTE | 2022-03-18 23:07 | Communication Note ---
Date of Service: March 18, 2022 day team aware of neuropathy of hands and feet. folate low. already receiving PO thiamine 100 and PO folate 1mg daily. ordering voltaren gel. Patient endorses heavy etoh use history. sober since 1.5 months ago, was drinking a fifth of a bottle a day before that. even heavier use before. denies hx of diabetes. ordering banana bag x1. Per 05/2021 echo, ef 55-60.
[2022-03-18] MEDS ORDERED: MULTI-VITAMIN INFUSION 10 ML, THIAMINE HCL 100 MG, FOLIC ACID 1 MG in SODIUM CHLORIDE 0... IV ONE (23:29)
[2022-03-18] MEDS: DICLOFENAC SOD 1% GEL 100 GM TUBE EXT PRN (23:37)
[2022-03-19] MEDS: LEVOTHYROXINE SODIUM 112 MCG TABLET PO SCH (05:50)
[2022-03-19] MEDS: traMADol HCL 50 MG TABLET PO PRN ×2 (05:56→18:18)
[2022-03-19 06:32] LABS: Basophils # (auto) 0.03 K/uL (0-0.2); Basophils % (auto) 0.2 %; Eosinophils # (auto) 0.03 K/uL (0-0.50); Eosinophils % (auto) 0.2 %; Hematocrit (blood only) 32.3 % (34.1-44.9); Hemoglobin 10.8 g/dl (12.0-16.0); Immature Granulocytes # (auto) 0.06 K/uL (0.00-0.02); Immature Granulocytes % (auto) 0.5 %; Lymphocytes # (auto) 1.96 K/uL (1.2-3.4); Lymphocytes % (auto) 14.8 %; Mean Corpuscular Hemoglobin 34.1 pg (25.0-34.0); Mean Corpuscular Hgb Conc 33.4 g/dL (32.0-36.0); Mean Corpuscular Volume 101.9 fL (80.0-100.0); Mean Platelet Volume 9.8 fL (9.4-12.3); Monocytes # (auto) 1.58 K/uL (0.24-0.82); Monocytes % (auto) 11.9 %; Neutrophils # (auto) 9.59 K/uL (1.4-6.5); Neutrophils % (auto) 72.4 %; Nucleated RBC # (auto) 0.02 K/uL (0-0); Nucleated RBC % (auto) 0.2 %; Platelet Count 344 K/uL (130-400); RDW Coefficient of Variation 16.1 % (11.5-14.5); RDW Standard Deviation 60.1 fL (36.4-46.3); Red Blood Count 3.17 M/uL (3.93-5.22); White Blood Count 13.25 K/ul (4.8-10.8)
[2022-03-19 06:42] LABS: Alanine Aminotransferase 29 U/L (7-52); Albumin Globulin Ratio 1.1 (0.9-2); Albumin Level 2.8 gm/dl (3.4-5.0); Alkaline Phosphatase 180 U/L (34-104); Anion Gap 7 (3-11); Aspartate Aminotransferase 72 U/L (13-39); BUN Creatinine Ratio 12.5 (10-20); Blood Urea Nitrogen 3 mg/dl (6-23); Calcium 8.2 mg/dl (8.5-10.1); Carbon Dioxide 24 mmol/L (21-32); Chloride 108 mmol/L (98-107); Creatinine Clr Calc Pharmacy 271.4 ml/min; Est GFR (African American) > 150.0 ml/min; Est GFR (Non-African American) 143.7 ml/min; Globulin 2.6 gm/dl (2.5-4.0); Glucose 115 mg/dl (70-99(Fasting)); Potassium 3.4 mmol/L (3.5-5.1); Sodium 139 mmol/L (136-145); Total Protein 5.4 gm/dl (6.0-8.3)
[2022-03-19 07:01] LABS: INR 1.2 (0.9-1.1); Prothrombin Time 12.4 Seconds (9.0-12.0)
[2022-03-19] MEDS: DICLOFENAC SOD 1% GEL 100 GM TUBE EXT PRN ×2 (07:32→18:14)
[2022-03-19] MEDS: metroNIDAZOLE 500 MG/100 ML BAG IV SCH ×3 (08:58→22:50)
[2022-03-19] MEDS: cefTRIAXone SODIUM 2,000 MG in DEXTROSE 5% 50 ML IV SCH (09:00)
[2022-03-19] MEDS: POTASSIUM CHLORIDE CRTAB 20 MEQ TABCR PO SCH (09:08)
[2022-03-19] MEDS: THIAMINE HCL 100 MG TAB PO SCH (09:09)
[2022-03-19] MEDS: CHOLECALCIFEROL 400 UNITS 10 MCG TAB PO SCH (09:09)
[2022-03-19] MEDS: FOLIC ACID 1 MG TAB PO SCH (09:09)
[2022-03-19] MEDS: CYANOCOBALAMIN (B-12) 500 MCG TABLET PO SCH (09:09)
[2022-03-19] MEDS: ASCORBIC ACID 500 MG TAB PO SCH (09:09)
[2022-03-19] MEDS: PANTOprazole 40 MG TAB PO SCH ×2 (09:10→20:37)
[2022-03-19] MEDS: HYDROCORTISONE HC 2.5% CRM 30GM TUBE EXT SCH ×2 (09:10→20:37)
[2022-03-19] MEDS: LIDOCAINE 5% 1 PATCH TD SCH (09:11)
[2022-03-19] MEDS: CALCIUM CARBONATE 1250MG TAB PO SCH ×2 (09:12→20:37)
[2022-03-19] MEDS: GABAPENTIN 100 MG CAP PO SCH ×2 (09:12→20:37)
[2022-03-19 10:42] LABS: Estimated Average Glucose 97 mg/dl
--- NOTE | 2022-03-19 13:57 | Hospitalist Progress Note ---
Date of Service March 19, 2022 Assessment & Plan (1) Intractable nausea and vomiting: Plan: Nausea/vomiting, abdominal pain, ?cholecystitis Present for over 1 month, proceeded giving up alcohol Patient does have history of cirrhosis. CT 03/03 with hepatic steatosis and possible portal hypertension, otherwise unremarkable. Follows as outpatient with GI, had a colonoscopy which showed nonbleeding internal hemorrhoids and ascending colon lipoma. Was to have [facility] follow-up for EUS as outpatient - US: Gallbladder sludge, biliary ductal dilation, and gallbladder wall thickening is seen. There is tenderness over the gallbladder. Findings may represent acalculous cholecystitis. Covered with roceph/flagyl EGD 03/18: No evidence of varices. Irregular Z-line, biopsies taken. Portal hypertensive gastropathy. Normal duodenum. EUS as noted Liver biopsy pending Ultrasound with concern for gallbladder sludge and debris. MRCP motion compromised, distended gallbladder with intraluminal sludge/debris, trace pericholecystic fluid and a calculus cholecystitis not excluded. CBD mildly dilated, no filling defects to confirm choledocho. Hepatomegaly/hepatic steatosis appreciated. On upper EUS extensive hyperechoic material consistent with sludge visualized on EUS which may be contributing to patient's nausea. Surgery consulted, recommended no indication for cholecystectomy at this time based on symptoms & the setting of cirrhosis. Following peripherally at this time, medical management and antibiotics continued. ? percutaneous drainage if not improving with MM 03/19 patient is clinically improving, and would like diet advanced today. Minimal pain. Slowly advance diet and follow clinically. Continue PT/OT (2) Polyneuropathy: Plan: Patient endorses polyneuropathy, and pain in hands and feet bilaterally. No dermatomal distribution, upper and lower and bilateral. Endorses that has had this before chronically, but is worse in the last few days than it had been previously. Strength is intact 4+/5, but somewhat diffusely pain limited and uncomfortable, qualitatively decreased per pt No focal neurologic deficits appreciated Spurling's negative B12 normal Calcium was low, this normalized with supplementation Potassium normal, creatinine normal A1c 5.0% Med review with low likelihood for medication causing toxic neuropathy. Hx of EtoH abuse no etoh in last 6 weeks CK Not elevated No history of gout - RENITA pending Hep C screen pending. Does not appear to have progressive ascending weakness at this time. Feet improved today, hands a little bit but not as much his feet. Thinks gabapentin is helping. Continue BID. (3) UTI (urinary tract infection): Plan: - On admission leukocytosis, UA with bacteria, culture multiple colonies high count - Patient asymptomatic other than some back pain which is chronic for her, nausea and vomiting longstanding. - On admit ? if a UTI may be causing some of her discomfort and nausea and vomiting but doubt that this is what caused this over a month ago - No addition tx for this, even if underlying UTI would covered w/ rocephin for Lyme + test (4) Hypokalemia: Plan: - Mg, K, Ph repleted on admit and normalized (5) Hypophosphatemia: Plan: - Repleted, normalized (6) Hypocalcemia: Plan: - Ical low - calcium supplementation ordered Calcium level normal 03/18 (7) Alcohol dependence: Plan: - Longstanding history of a fifth of alcohol per day for the past 9 years, however last drink 1 month ago. - Will place on AWSS. - Banana bag in ED. Continue IVF as needed/if NPO - +Folic acid supplementation, levels low (8) Lyme disease: Plan: - Tested in ED given history of weakness, while living with an outdoor cat. - IgM is equivocal, IgG bands 4/5 - Rocephin coverage at this time (9) Hypothyroidism: Plan: - Continue levothyroxine 112 mcg daily. (10) COPD (chronic obstructive pulmonary disease): Plan: - Has albuterol as needed, has not used recently. - No shortness of breath, evidence for acute exacerbation. (11) Depression: Plan: - No current medications. (12) Hemorrhoids: Plan: - Continue Anusol cream. Admission and Anticipated Discharge Date Admission Date: March 16, 2022 Subjective Seen at bedside this morning. Took gabapentin this morning, thinks this helped a little bit with her hand and foot pain, and notes that she slept better last night. She is not having abdominal pain this morning, and is tolerating a diet and would like this advance. Does continue to feel that her hands and feet and strength are limiting her, otherwise feels a little bit better. No chest pain/chest pressure, no shortness of breath. Intermittent nausea, no vomiting this morning Review of Systems Review of Systems: All systems reviewed & are unremarkable except as noted in Subjective Physical Exam Physical Exam: General: A&Ox3. NAD. Cooperative. HEENT: Atraumatic, normocephalic. Vision.hearing intact. Pulm: CTAB A&P. -wheezes, -rales, -rhonchi. Symmetrical chest rise. No increased work of breathing. No respiratory distress. Cardiac: RRR, -mrg. Radial pulses intact and symmetrical. Abdominal: No right upper quadrant tenderness today. Minimal LL rib tenderness today. No rebound/guarding. Soft. Extremities: Sensation of soft touch intact in hands, feet, knees bilaterally without asymmetry. Geology Teacher strength, elbow flexion, hip flexion, ankle dorsiflexion/plantarflexion 5/5 bilaterally. Results & Data Results & Data ([facility]) Vital Signs (Past 12 Hours) Vital Signs Temp Pulse Pulse Resp BP Pulse Ox O2 Del Method 03/19/22 11:09 36.7 C 99 H 16 128/82 93 Room Air 03/19/22 07:36 36.9 C 98 H 18 125/89 93 Room Air 03/19/22 07:16 96 H 03/19/22 04:01 36.7 C 96 H 18 117/72 94 Room Air PG Care Time/CCT Total # of Minutes Spent Total Time Spent with Patient: Total time spent is greater than 50% in coordination of care (as documented) at patient's floor/unit and/or counseling patient: Coding Level of Care Code 99808 Subseq Hosp Care Lvl 2 Diagnoses Intractable nausea and vomiting R11.2 Polyneuropathy G62.9 UTI (urinary tract infection) N39.0 Hypokalemia E87.6 Hypophosphatemia E83.39 Hypocalcemia E83.51 Alcohol dependence F10.29 Substance use status: unspecified alcohol-induced disorder Lyme disease A69.20 Hypothyroidism E03.9 COPD (chronic obstructive pulmonary disease) J44.9 Depression F32.9 Hemorrhoids K64.9 (1) Alcohol dependence Substance use status: unspecified alcohol-induced disorder Qualified Code(s): F10.29 - Alcohol dependence with unspecified alcohol-induced disorder
[2022-03-20] MEDS: DICLOFENAC SOD 1% GEL 100 GM TUBE EXT PRN (05:34)
[2022-03-20] MEDS: LEVOTHYROXINE SODIUM 112 MCG TABLET PO SCH (05:35)
[2022-03-20] MEDS ORDERED: LEVOTHYROXINE SODIUM 112 MCG TABLET PO SCH (06:30)
[2022-03-20] MEDS: metroNIDAZOLE 500 MG/100 ML BAG IV SCH ×3 (06:36→21:32)
[2022-03-20 07:27] LABS: Basophils # (auto) 0.05 K/uL (0-0.2); Basophils % (auto) 0.4 %; Eosinophils # (auto) 0.35 K/uL (0-0.50); Eosinophils % (auto) 2.7 %; Hematocrit (blood only) 32.9 % (34.1-44.9); Immature Granulocytes # (auto) 0.08 K/uL (0.00-0.02); Immature Granulocytes % (auto) 0.6 %; Lymphocytes # (auto) 2.49 K/uL (1.2-3.4); Lymphocytes % (auto) 19.6 %; Mean Corpuscular Hemoglobin 34.2 pg (25.0-34.0); Mean Corpuscular Hgb Conc 33.4 g/dL (32.0-36.0); Mean Corpuscular Volume 102.2 fL (80.0-100.0); Mean Platelet Volume 9.7 fL (9.4-12.3); Monocytes # (auto) 1.54 K/uL (0.24-0.82); Monocytes % (auto) 12.1 %; Neutrophils # (auto) 8.22 K/uL (1.4-6.5); Neutrophils % (auto) 64.6 %; Platelet Count 357 K/uL (130-400); RDW Coefficient of Variation 16.4 % (11.5-14.5); RDW Standard Deviation 61.5 fL (36.4-46.3); Red Blood Count 3.22 M/uL (3.93-5.22); White Blood Count 12.73 K/ul (4.8-10.8)
[2022-03-20 07:47] LABS: BUN Creatinine Ratio 11.8 (10-20); Calcium 8.5 mg/dl (8.5-10.1); Creatinine Clr Calc Pharmacy 191.3 ml/min; Est GFR (African American) 148.5 ml/min; Est GFR (Non-African American) 128.1 ml/min; Potassium 3.5 mmol/L (3.5-5.1)
[2022-03-20] MEDS: PANTOprazole 40 MG TAB PO SCH ×2 (08:06→20:08)
[2022-03-20] MEDS: ASCORBIC ACID 500 MG TAB PO SCH (08:06)
[2022-03-20] MEDS: GABAPENTIN 100 MG CAP PO SCH ×3 (08:06→20:08)
[2022-03-20] MEDS: CHOLECALCIFEROL 400 UNITS 10 MCG TAB PO SCH (08:06)
[2022-03-20] MEDS: CYANOCOBALAMIN (B-12) 500 MCG TABLET PO SCH (08:06)
[2022-03-20] MEDS: CALCIUM CARBONATE 1250MG TAB PO SCH ×2 (08:06→20:09)
[2022-03-20] MEDS: FOLIC ACID 1 MG TAB PO SCH (08:06)
[2022-03-20] MEDS: THIAMINE HCL 100 MG TAB PO SCH (08:06)
[2022-03-20] MEDS: POTASSIUM CHLORIDE CRTAB 20 MEQ TABCR PO SCH (08:06)
[2022-03-20] MEDS: LIDOCAINE 5% 1 PATCH TD SCH (08:06)
[2022-03-20] MEDS: HYDROCORTISONE HC 2.5% CRM 30GM TUBE EXT SCH ×2 (08:07→20:09)
[2022-03-20] MEDS: cefTRIAXone SODIUM 2,000 MG in DEXTROSE 5% 50 ML IV SCH (08:40)
[2022-03-20] MEDS ORDERED: MAGNESIUM HYDROXIDE SUSP 30 ML UDC PO PRN (10:42)
[2022-03-20] MEDS: POLYETHYLENE (MIRALAX) 17 GM PACK PO SCH (11:28)
--- NOTE | 2022-03-20 17:08 | Hospitalist Progress Note ---
Date of Service March 20, 2022 Assessment & Plan (1) Intractable nausea and vomiting: Plan: Nausea/vomiting, abdominal pain, ?cholecystitis Present for over 1 month, proceeded giving up alcohol Patient does have history of cirrhosis. CT 03/03 with hepatic steatosis and possible portal hypertension, otherwise unremarkable. Follows as outpatient with GI, had a colonoscopy which showed nonbleeding internal hemorrhoids and ascending colon lipoma. Was to have [facility] [place] follow-up for EUS as outpatient - US: Gallbladder sludge, biliary ductal dilation, and gallbladder wall thickening is seen. There is tenderness over the gallbladder. Findings may represent acalculous cholecystitis. Covered with roceph/flagyl EGD 03/18: No evidence of varices. Irregular Z-line, biopsies taken. Portal hypertensive gastropathy. Normal duodenum. EUS as noted Liver biopsy pending Ultrasound with concern for gallbladder sludge and debris. MRCP motion compromised, distended gallbladder with intraluminal sludge/debris, trace pericholecystic fluid and a calculus cholecystitis not excluded. CBD mildly dilated, no filling defects to confirm choledocho. Hepatomegaly/hepatic steatosis appreciated. On upper EUS extensive hyperechoic material consistent with sludge visualized on EUS which may be contributing to patient's nausea. Surgery consulted, recommended no indication for cholecystectomy at this time based on symptoms & the setting of cirrhosis. Following peripherally at this time, medical management and antibiotics continued. ? percutaneous drainage if not improving with MM 03/20, diet advanced with improved pain, but no bowel movement in several days. Doing well with diet, however has not moved bowels and continues to have poorly controlled pain in hands and feet. Bowel regimen increased included milk of mag and Dulcolax suppository. Seen by PT/OT, anticipate home health services with return home (2) Polyneuropathy: Plan: Patient endorses polyneuropathy, and pain in hands and feet bilaterally. No dermatomal distribution, upper and lower and bilateral. Endorses that has had this before chronically, but is worse in the last few days than it had been previously. Strength is intact 4+/5, but somewhat diffusely pain limited and uncomfortable, qualitatively decreased per pt No focal neurologic deficits appreciated. No overlying rash/erythema. Spurling's negative B12 normal Calcium was low, this normalized with supplementation Potassium normal, creatinine normal A1c 5.0% Med review with low likelihood for medication causing toxic neuropathy. Hx of EtoH abuse no etoh in last 6 weeks CK Not elevated No history of gout - CRP repeat/ESR/Inflammatory sendout pending - - Lyme tx as below, no other signs of neuro involvement Hep C screen neg. No progressive ascending weakness Improved symptoms in feet, hands somewhat equivocal. Thinks gabapentin is helping 3 times daily, continued (3) UTI (urinary tract infection): Plan: - On admission leukocytosis, UA with bacteria, culture multiple colonies high count - Patient asymptomatic other than some back pain which is chronic for her, nausea and vomiting longstanding. - On admit ? if a UTI may be causing some of her discomfort and nausea and vomiting but doubt that this is what caused this over a month ago - No addition tx for this, even if underlying UTI would covered w/ rocephin for Lyme + test (4) Hypokalemia: Plan: - Mg, K, Ph repleted on admit and normalized (5) Hypophosphatemia: Plan: - Repleted, normalized (6) Hypocalcemia: Plan: - Ical low - calcium supplementation ordered Calcium level normal 03/18 (7) Alcohol dependence: Plan: - Longstanding history of a fifth of alcohol per day for the past 9 years, however last drink 1 month ago. - Will place on AWSS. - Banana bag in ED. Continue IVF as needed/if NPO - +Folic acid supplementation, levels low (8) Lyme disease: Plan: - Tested in ED given history of weakness, while living with an outdoor cat. - IgM is equivocal, IgG bands 4/5 - Rocephin coverage at this time (9) Hypothyroidism: Plan: - Continue levothyroxine 112 mcg daily. (10) COPD (chronic obstructive pulmonary disease): Plan: - Has albuterol as needed, has not used recently. - No shortness of breath, evidence for acute exacerbation. (11) Depression: Plan: - No current medications. (12) Hemorrhoids: Plan: - Continue Anusol cream. Admission and Anticipated Discharge Date Admission Date: March 16, 2022 Subjective Seen the bedside this morning. Initially feeling well, continues to have pain in her hands although feet improved and thinks the gabapentin is helping. Tolerating meals well, abdominal pain improved. Has not had a bowel movement in several days, bowel regimen has not worked so far. Added milk of mag, and if not sufficient will trial look-alike suppository. Patient reports milk of mag Release works for her. No fever, chills, sweats. No chest pain or chest press ure. Continues to have some difficulty with coordination with her hands, and burning feeling in the hands without overlying rash. Review of Systems 2 Review of Systems: All systems reviewed & are unremarkable except as noted in Subjective Physical Exam Physical Exam: General: A&Ox3. NAD. Cooperative. HEENT: Atraumatic, normocephalic. Vision.hearing intact. Pulm: CTAB A&P. -wheezes, -rales, -rhonchi. Symmetrical chest rise. No increased work of breathing. No respiratory distress. Cardiac: RRR, -mrg. Radial pulses intact and symmetrical. Abdominal: No right upper quadrant tenderness today. Minimal LL rib tenderness today. No rebound/guarding. Soft. Extremities: Sensation of soft touch intact in hands, feet, knees bilaterally without asymmetry. Endorses qualitative burning and warmth in her hands and forearms, no overlying rash. Pain in feet improved. Results & Data Results & Data ([facility]) Vital Signs (Past 12 Hours) Vital Signs Temp Pulse Pulse Resp BP Pulse Ox O2 Del Method 03/20/22 15:54 36.6 C 95 H 16 112/58 L 94 Room Air 03/20/22 10:51 36.8 C 95 H 16 114/71 94 Room Air 03/20/22 08:46 89 03/20/22 07:23 36.8 C 98 H 16 124/86 94 Room Air PG Care Time/CCT Total # of Minutes Spent Total Time Spent with Patient: Total time spent is greater than 50% in coordination of care (as documented) at patient's floor/unit and/or counseling patient: Coding Level of Care Code 38453 Subseq Hosp Care Lvl 1 Diagnoses Intractable nausea and vomiting R11.2 Polyneuropathy G62.9 UTI (urinary tract infection) N39.0 Hypokalemia E87.6 Hypophosphatemia E83.39 Hypocalcemia E83.51 Alcohol dependence F10.29 Substance use status: unspecified alcohol-induced disorder Lyme disease A69.20 Hypothyroidism E03.9 COPD (chronic obstructive pulmonary disease) J44.9 Depression F32.9 Hemorrhoids K64.9 (1) Alcohol dependence Substance use status: unspecified alcohol-induced disorder Qualified Code(s): F10.29 - Alcohol dependence with unspecified alcohol-induced disorder
--- NOTE | 2022-03-20 17:12 | Discharge Summary ---
Date of Service March 20, 2022 Admission HPI Per Admitting Provider Tamara Hanna is a 51-year-old female with past medical history significant for alcohol abuse, COPD, CAD, hypertension, hypothyroidism, fatty liver, depression, anxiety who presents today from home with complaints of weakness. She states for the past month she has had left-sided abdominal pain and very frequent nausea and vomiting daily, with nearly 10 episodes per day. She was evaluated for this in our ED on 03/03 at that time she was hypokalemic and CT of the abdomen and pelvis was obtained and revealed splenomegaly, severe hepatic steatosis and small abdominal varices with trace pelvic ascites suggestive of portal hypertension, as well as a 7 mm intermediate left renal lesion which was too small to characterize. Appendix appeared normal, there is no bowel obstruction. She was discharged with Phenergan and a potassium supplement recommended to follow-up with her PCP. She did have follow-up with her PCP approximately 1 week later, who referred her to GI as she has frequent follow-up with them. She had a routine colonoscopy scheduled for 719, which revealed nonbleeding internal hemorrhoids and a small lipoma in the ascending colon. Plan was to refer her to [facility] for a lower endoscopy for to further evaluate the ascending colon lesion. Patient does have a longstanding history of alcohol abuse of a fifth a day for past 9 years, however stopped drinking alcohol entirely 1 month ago because she was vomiting so much did not feel it was worth it to keep drinking if she cannot keep it down. Of note, the nausea and vomiting did start before she stopped drinking alcohol. She reports agitation from not being able to drink, however denies any other withdrawal symptoms including seizures or hallucinations. In ED, she presented tachycardic heart rate of 121, otherwise vital signs within normal limits labs significant for elevated WBC of 15.64, elevated CRP at 4.16, potassium 3.1, sodium 134, calcium 8.2, phosphorus 1.9, t bili 2.8, AST 86, alk phos 224, TSH 6.736. UA with nitrites, leuk esterase, WBCs, bacteria and trace blood, ketones. Urine cx pending. Lyme IgM Ab equivocal. CXR unremarkable. Principal Diagnosis Lyme disease Nausea/vomiting Discharge Exam General: A&Ox3. NAD. Cooperative. HEENT: Atraumatic, normocephalic. Vision.hearing intact. Pulm: CTAB A&P. -wheezes, -rales, -rhonchi. Symmetrical chest rise. No increased work of breathing. No respiratory distress. Cardiac: RRR, -mrg. Radial pulses intact and symmetrical. Abdominal: No right upper quadrant tenderness today. Minimal LL rib tenderness today. No rebound/guarding. Soft. Extremities: Sensation to soft touch intact in hands, feet, knees bilaterally without asymmetry. Endorses qualitative burning and warmth in her hands and forearms, no overlying rash. Pain in feet remains improved. Freight Breaker strength 4+/5 bilaterally, ankle dorsiflexion/plantarflexion 4+/5 bilaterally, hip flexion in bed 5/5. Discharge Data Allergies Allergy/AdvReac Type Severity Reaction Status Date / Time promethazine AdvReac Intermediate MADE ME Verified 03/16/22 15:11 SICKER hair dye Allergy Unknown scalp Uncoded 03/16/22 15:11 irriration/swelling Consultations 03/16/22 13:51 ED Decision to Admit Stat 03/16/22 17:12 Consult Gastroenterology Routine 03/17/22 15:17 Consult General Surgery Routine Procedures Performed Operation Date: 03/18/22 09:40 Actual Procedures p Esophagogastroduodenoscopy with bx - Helen Beard DO p Endoscopic Ultrasonography Upper with liver bx - Helen Beard DO Ordered Studies 03/17/22 10:07 US RUQ [US liver] Urgent 03/17/22 17:04 MR MRCP Urgent 03/18/22 12:31 US upper EUS PACS images Routine Hospital Course (1) Intractable nausea and vomiting: Clarissa is a 51-year-old female with a past medical history of severe alcohol abuse/dependence in remission for 1 month, tobacco use, CAD, hypertension, cirrhosis who presented with nausea/vomiting and abdominal pain over 1 month after giving up alcohol and who developed burning discomfort in her hands and feet without overlying rash during admission.MRCP did not show evidence of choledocholithiasis, gallbladder was slightly distended with intraluminal sludge. EUS did not show ampulla pathology, no bile duct pathology, and hypoechoic material consistent with sludge was visualized by ultrasound within the gallbladder. Liver biopsy was taken which was pending at time of discharge. Surgery was consulted during admission and did not recommend surgical intervention at this time. Patient did clinically improve on antibiotics and was tolerating a diet well at time of discharge with regular bowel movements. During admission she did develop a burning pain in her hands, arms, and feet without overlying rash/erythema. This was clinically improving on gabapentin and blood work-up as below was negative, was discharged with follow-up as noted. To do as outpatient: 1. Routine follow-up with PCP 2. If abdominal symptoms return, recommend follow-up with general surgery for reassessment of cholecystectomy. Was not recommended at time of admission and patient's symptoms did clinically improve 3. Complete cefuroxime 500 mg twice daily antibiotics, 8 additional days to complete 14 days total for the treatment of Lyme 4. Follow-up on liver biopsy obtained during admission 5. 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 May consider nerve testing as outpatient. 6. Continue B complex daily Nausea/vomiting, abdominal pain, ?cholecystitis Present for over 1 month, proceeded giving up alcohol Patient does have history of cirrhosis. CT 03/03 with hepatic steatosis and possible portal hypertension, otherwise unremarkable. Follows as outpatient with GI, had a colonoscopy which showed nonbleeding internal hemorrhoids and ascending colon lipoma. Was to have [facility] follow[place]up for EUS as outpatient - US: Gallbladder sludge, biliary ductal dilation, and gallbladder wall thickening is seen. There is tenderness over the gallbladder. Findings may represent acalculous cholecystitis. Covered with roceph/flagyl EGD 03/18: No evidence of varices. Irregular Z-line, biopsies taken. Portal hypertensive gastropathy. Normal duodenum. EUS as noted Liver biopsy pending Ultrasound with concern for gallbladder sludge and debris. MRCP motion compromised, distended gallbladder with intraluminal sludge/debris, trace pericholecystic fluid and a calculus cholecystitis not excluded. CBD mildly dilated, no filling defects to confirm choledocho. Hepatomegaly/hepatic steatosis appreciated. On upper EUS extensive hyperechoic material consistent with sludge visualized on EUS which may be contributing to patient's nausea. Surgery consulted, recommended no indication for cholecystectomy at this time based on symptoms & the setting of cirrhosis. Following peripherally at this time, medical management and antibiotics continued. Patient with constipation, day of discharge patient had multiple bowel movements with increased bowel regimen including milk of magnesia and MiraLAX. (2) Polyneuropathy: Patient endorses polyneuropathy, and pain in hands and feet bilaterally. No dermatomal distribution, upper and lower and bilateral. Endorses that has had this before chronically, but is worse in the last few days than it had been previously. Strength is intact 4+/5, but somewhat diffusely pain limited and uncomfortable, qualitatively decreased per pt No focal neurologic deficits appreciated. No overlying rash/erythema. Spurling's negative B12 normal Calcium was low, this normalized with supplementation Potassium normal, creatinine normal A1c 5.0% Med review with low likelihood for medication causing toxic neuropathy. Hx of EtoH abuse no etoh in last 6 weeks CK Not elevated No history of gout - CRP repeat/ESR/Inflammatory sendout pending - - Lyme tx as below, no other signs of neuro involvement Hep C screen neg. No progressive ascending weakness Improved symptoms in feet, hands somewhat equivocal. Thinks gabapentin is helping 3 times daily, continued (3) UTI (urinary tract infection): - On admission leukocytosis, UA with bacteria, culture multiple colonies high count - Patient asymptomatic other than some back pain which is chronic for her, nausea and vomiting longstanding. - On admit ? if a UTI may be causing some of her discomfort and nausea and vomiting but doubt that this is what caused this over a month ago - No addition tx for this, even if underlying UTI would covered w/ rocephin for Lyme + test (4) Hypokalemia: - Mg, K, Ph repleted on admit and normalized (5) Hypophosphatemia: - Repleted, normalized (6) Hypocalcemia: - Ical low - calcium supplementation ordered Calcium level normal 03/18 (7) Alcohol dependence: - Longstanding history of a fifth of alcohol per day for the past 9 years, however last drink 1 month ago. - AWSS - Banana bag in ED. Continue IVF as needed/if NPO - +Folic acid supplementation during admit (8) Lyme disease: - Tested in ED given history of weakness, while living with an outdoor cat. - IgM is equivocal, IgG bands 4/5 - Rocephin coverage at this time --> cefuroxime on dc (9) Hypothyroidism: - Continue levothyroxine 112 mcg daily. (10) COPD (chronic obstructive pulmonary disease): - Has albuterol as needed, has not used recently. - No shortness of breath, evidence for acute exacerbation. (11) Depression: - No current medications. (12) Hemorrhoids: - Continue Anusol cream. Total Time Total Time Spent Total Time Spent (In Minutes): Time spend day of discharge 45 minutes including direct patient care, documentation, review of labs and images, and coordination of care. Discharge Plan Discharge Items Patient Disposition: Home - Home Health Services Reason For Visit: GENERALLIZED WEANESS, ELECTROLYES ABNORMALITIES Discharge Diagnosis: Weakness Activity: Resume your previous activity Non-emergency contact: Primary Care Provider Call non-emergency contact if: you have any medication questions, your symptoms worsen and your pain is not controlled Follow-up/Referrals: Niraj Alegre MD [Physician] - 10/19/22 8:00 am Natalia Puentes MD [Primary Care Provider] - 03/28/22 11:30 am Diet: Low Fat Addtl Attending Provider Instructions: You are seen in the hospital for nausea, vomiting, abdominal pain, and weakness. You are found to have an equivocal Lyme test were treated with antibiotics. You had an ultrasound and a MRCP scan which did not show gallbladder stones, but did show gallbladder sludge concerning for potential acalculous cholecystitis. Treated with antibiotics, surgery was consulted and did not recommend surgical intervention for this at this time, you may have follow-up as an outpatient if you have recurrent symptoms. You underwent an EGD (scope) on 03/18 which did not show evidence of varices and during which a biopsy was taken. The results of this biopsy were pending at time of discharge, please follow-up with your PCP regarding the final results you clinically improved on antibiotics, and have been discharged to complete a course of antibiotics for Lyme coverage as noted below. You experienced bilateral hand and foot pain during admission. A broad work-up was performed. Your ESR (a marker for vasculitis/inflammatory conditions) was normal, you did not show signs of muscle enzyme breakdown, did not show evidence of diabetes, did not show focal symptoms suggestive of neck/spine impingement, and had normal B12 (vitamin D) levels. Hep C screen was performed which was normal. You were positive for Lyme, you did not show any other signs of gisselle rologic involvement. It is possible that your nerve pain is related to polyneuropathy / toxic neuropathy. You have been continued on a medication called gabapentin for pain, with a short course of tramadol while this takes effect. Please take gabapentin 100 mg by mouth 3 times daily. You may take tramadol 50 mg up to 3 times daily as needed for breakthrough pain. Follow-up with neurology for potential nerve testing is being scheduled for you if your symptoms do not continue to improve. You have been prescribed antibiotic, cefuroxime, for your equivocal Lyme testing. Please take cefuroxime 500 mg by mouth twice daily for 8 additional days to complete a 14-day course of treatment. If you develop any new or worsening symptoms including fever, chills, sweats, chest pain, chest pressure, difficulty breathing, uncontrolled nausea/vomiting, rash, wheezing, passing out or nearly passing out, bleeding, black/bloody bowel movements, or other new or concerning symptoms please call your primary care physician at, or call 911 for re-evaluation in the emergency department if you are very concerned. Pending Studies at Discharge: No Stand-Alone Forms: My [facility] Reasult, Smoking Cessation Medications and DC Order Prescriptions: New cefuroxime axetil 500 mg tablet 500 mg PO BID 9 Days Qty: 18 0RF gabapentin 100 mg Capsule 100 mg PO TID 30 Days Qty: 90 0RF tramadol 50 mg tablet 50 mg PO Q8H PRN (Reason: pain) Qty: 15 0RF Continued omeprazole 20 mg capsule,delayed release(DR/EC) 20 mg PO BID Qty: 60 2RF ascorbic acid (vitamin C) [Vitamin C] 500 mg Tablet 500 mg PO QAM cholecalciferol (vitamin D3) [Vitamin D3] 10 mcg (400 unit) Tablet 10 mcg PO QAM potassium chloride 20 mEq tablet,ER particles/crystals 20 meq PO QAM albuterol sulfate 90 mcg/actuation HFA aerosol inhaler 2 puff inhalation DIRECTED PRN (Reason: COPD/ASTHMA) hydrocortisone [Anusol-HC] 2.5 % cream with perineal applicator 1 applic SC BID PRN (Reason: Hemorrhoids) ondansetron 4 mg tablet,disintegrating 4 mg PO Q6H PRN (Reason: NAUSEA/VOMITING) levothyroxine 112 mcg tablet 112 mcg PO DAILY cyanocobalamin (vitamin B-12) 1,000 mcg capsule 1,000 mcg PO QAM Probiotic 10 billion cell Capsule 10,000 mmu cells PO QAM Discharge Orders: Discharge Order (Routine); Ordered 03/21/22 Ordered By: Paco Morgan Admission Data Admit Date/Time: 03/16/22 14:52 Attending Provider: Paco Morgan Admit Provider: Paco Morgan Primary Care Provider: Natalia Puentes Other Providers: Paco Morgan ; Booker Ellsworth ; Adam Hart ; [facility] Other Interventions: Discharge Summary Assessment (RN) Last Done: 03/21/22 10:41 Coding Level of Care Code D/C DAY MANAGEMENT >30 MINS Diagnoses Intractable nausea and vomiting R11.2 Polyneuropathy G62.9 UTI (urinary tract infection) N39.0 Hypokalemia E87.6 Hypophosphatemia E83.39 Hypocalcemia E83.51 Alcohol dependence F10.29 Substance use status: unspecified alcohol-induced disorder Lyme disease A69.20 Hypothyroidism E03.9 COPD (chronic obstructive pulmonary disease) J44.9 Depression F32.9 Hemorrhoids K64.9
[2022-03-20] MEDS: traMADol HCL 50 MG TABLET PO PRN (21:26)
[2022-03-20] MEDS: MELATONIN 3 MG TAB PO PRN (21:26)
[2022-03-21] MEDS: LEVOTHYROXINE SODIUM 112 MCG TABLET PO SCH (05:31)
[2022-03-21 06:06] LABS: Basophils # (auto) 0.07 K/uL (0-0.2); Basophils % (auto) 0.6 %; Eosinophils # (auto) 0.43 K/uL (0-0.50); Eosinophils % (auto) 3.6 %; Hematocrit (blood only) 31.2 % (34.1-44.9); Hemoglobin 10.4 g/dl (12.0-16.0); Immature Granulocytes # (auto) 0.06 K/uL (0.00-0.02); Immature Granulocytes % (auto) 0.5 %; Lymphocytes # (auto) 2.53 K/uL (1.2-3.4); Lymphocytes % (auto) 21.1 %; Mean Corpuscular Hemoglobin 33.3 pg (25.0-34.0); Mean Corpuscular Hgb Conc 33.3 g/dL (32.0-36.0); Monocytes # (auto) 1.65 K/uL (0.24-0.82); Monocytes % (auto) 13.8 %; Neutrophils # (auto) 7.24 K/uL (1.4-6.5); Neutrophils % (auto) 60.4 %; Platelet Count 347 K/uL (130-400); RDW Coefficient of Variation 16.6 % (11.5-14.5); RDW Standard Deviation 59.9 fL (36.4-46.3); Red Blood Count 3.12 M/uL (3.93-5.22); White Blood Count 11.98 K/ul (4.8-10.8)
[2022-03-21 06:30] LABS: Alanine Aminotransferase 24 U/L (7-52); Albumin Globulin Ratio 1.1 (0.9-2); Albumin Level 2.7 gm/dl (3.4-5.0); Alkaline Phosphatase 181 U/L (34-104); Anion Gap 7 (3-11); Aspartate Aminotransferase 68 U/L (13-39); BUN Creatinine Ratio 13.3 (10-20); Bilirubin,Total 1.8 mg/dl (0.2-1.0); Blood Urea Nitrogen 4 mg/dl (6-23); Carbon Dioxide 26 mmol/L (21-32); Chloride 106 mmol/L (98-107); Creatinine Clr Calc Pharmacy 218.2 ml/min; Est GFR (African American) > 150.0 ml/min; Est GFR (Non-African American) 133.5 ml/min; Globulin 2.4 gm/dl (2.5-4.0); Glucose 107 mg/dl (70-99(Fasting)); Potassium 3.6 mmol/L (3.5-5.1); Sodium 139 mmol/L (136-145); Total Protein 5.1 gm/dl (6.0-8.3)
[2022-03-21] MEDS: metroNIDAZOLE 500 MG/100 ML BAG IV SCH (06:32)
[2022-03-21] MEDS: THIAMINE HCL 100 MG TAB PO SCH (08:42)
[2022-03-21] MEDS: DICLOFENAC SOD 1% GEL 100 GM TUBE EXT PRN (08:42)
[2022-03-21] MEDS: HYDROCORTISONE HC 2.5% CRM 30GM TUBE EXT SCH (08:43)
[2022-03-21] MEDS: CALCIUM CARBONATE 1250MG TAB PO SCH (08:43)
[2022-03-21] MEDS: CYANOCOBALAMIN (B-12) 500 MCG TABLET PO SCH (08:43)
[2022-03-21] MEDS: FOLIC ACID 1 MG TAB PO SCH (08:44)
[2022-03-21] MEDS: POTASSIUM CHLORIDE CRTAB 20 MEQ TABCR PO SCH (08:44)
[2022-03-21] MEDS: ASCORBIC ACID 500 MG TAB PO SCH (08:44)
[2022-03-21] MEDS: PANTOprazole 40 MG TAB PO SCH (08:44)
[2022-03-21] MEDS: CHOLECALCIFEROL 400 UNITS 10 MCG TAB PO SCH (08:45)
[2022-03-21] MEDS: GABAPENTIN 100 MG CAP PO SCH (08:46)
[2022-03-21] MEDS: LIDOCAINE 5% 1 PATCH TD SCH (08:46)
[2022-03-21] MEDS: POLYETHYLENE (MIRALAX) 17 GM PACK PO SCH (08:46)
[2022-03-21] MEDS: cefTRIAXone SODIUM 2,000 MG in DEXTROSE 5% 50 ML IV SCH (09:31)
[2022-03-21] MEDS: traMADol HCL 50 MG TABLET PO PRN (09:31)
[2022-03-22 07:11] LABS: Anti Nuclear Antibody Screen POSITIVE (NEGATIVE)
[2022-03-22 14:14] LABS: ANA Pattern Nuclear, Speckled; ANA Titer 1:40 titer
--- NOTE | 2022-03-24 08:53 | Coding Query ---
CODING QUERY To promote full compliance with coding requirements relating to patient care, provider participation is requested in all cases of hospice art therapist uncertainty. Please assist us with the question(s) below: Coding Question(s): Pt with alcohol dependence in remission for a month presented with abdominal pain and intractable nausea and vomiting. Liver and esophageal biopsies done. Please document, if known or suspected, the etiology of the nausea/vomiting and abdomina pain. Thanks for your help! Monster Espinosa [facility] Physician's Response(s): Suspect 2/2 Gastritis & Esophagitis, ddx includes gallbladder dysfunction without cholelithiasis Principal Diagnosis: "that condition established after study, to be chiefly responsible for occasioning the admission of the patient to the hospital for care." Co-Existing Principal Diagnosis: "when two or more diagnoses equally meet the criteria for principal diagnosis as determined by the circumstances of admission, diagnostic work up, and/or therapy provided, and the Alphabetic Index, Tabular List, or another coding guideline does not provide sequencing direction, any one of the diagnoses may be sequenced first." "When the physician has documented what appears to be a current diagnosis in the body of the record, but has not included the diagnosis in the final diagnostic statement, the physician should be asked whether the diagnosis should be added." (Source Coding Clinic 2 QTR90. p3-4) BRI
== END 2022-03-21 13:12 | disposition home health service (06) | DRG 357 ==
LOC: ED 10:09 → 2W 14:52

== ENCOUNTER 2022-03-29 14:04 | Observation (INO) ==
[2022-03-29] MEDS ORDERED: MULTI-VITAMIN INFUSION 10 ML, THIAMINE HCL 100 MG, FOLIC ACID 1 MG in SODIUM CHLORIDE 0... IV ONE (14:56)
[2022-03-29 16:20] LABS: Basophils % (auto) 0.7 %; Eosinophils # (auto) 0.23 K/uL (0-0.50); Eosinophils % (auto) 1.7 %; Hematocrit (blood only) 34.5 % (34.1-44.9); Hemoglobin 11.7 g/dl (12.0-16.0); Immature Granulocytes # (auto) 0.04 K/uL (0.00-0.02); Immature Granulocytes % (auto) 0.3 %; Lymphocytes # (auto) 2.33 K/uL (1.2-3.4); Mean Corpuscular Hemoglobin 32.6 pg (25.0-34.0); Mean Corpuscular Hgb Conc 33.9 g/dL (32.0-36.0); Mean Corpuscular Volume 96.1 fL (80.0-100.0); Monocytes # (auto) 1.31 K/uL (0.24-0.82); Monocytes % (auto) 9.5 %; Neutrophils # (auto) 9.71 K/uL (1.4-6.5); Neutrophils % (auto) 70.8 %; Platelet Count 371 K/uL (130-400); RDW Coefficient of Variation 15.9 % (11.5-14.5); RDW Standard Deviation 55.8 fL (36.4-46.3); Red Blood Count 3.59 M/uL (3.93-5.22); White Blood Count 13.72 K/ul (4.8-10.8)
[2022-03-29] MEDS ORDERED: ACETAMINOPHEN 1,000 MG/100 ML VIAL IV STA (16:28)
--- NOTE | 2022-03-29 16:31 | Emergency Department Note ---
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(S): Sam Fernandez MD CHIEF COMPLAINT: Skin burning, tingling, pain PLAN: Disposition: Admit MEDICAL DECISION MAKING: The patient is a pleasant 51-year-old woman with a past medical history of alcohol abuse for which she reports she has been sober for the past 2 months and did so independently but denied having any withdrawal, COPD, CAD, hypertension, hypothyroidism, fatty liver, anxiety/depression who presents to the emergency department accompanied by her outpatient case management coordinator for evaluation of ongoing burning/tingling/numbness in her extremities that is worsened with light touch of the skin. She reports she did have symptoms of this when she was admitted to this facility from 03/16-03/20 but reports shortly after getting home the symptoms recurred and has been unbearable. Her case management coordinator reports that it has been difficult for her to function at home. She does have home physical therapy but has no one living with her to help her otherwise. On arrival the patient is no acute distress, afebrile heart in the 100s vital signs otherwise stable. She appears clinically dry. She reports burning and pain to light touch of the skin of her extremities. Reflexes within normal limits. There is no clonus. There is no skin discoloration. There is no edema or warmth of her joints. WBC 13.7K, nonspecific. H/H similar to prior range values. Platelets within normal limits. INR 1.3, similar to prior range of values. Chemistry without metabolic acidosis. Potassium 2.9 and magnesium 1.6 with repletion provided. LFTs are elevated from recent though approximate 2 recent range of values. Total bilirubin 2.5 with AST and ALT 321 and 74, respectively. Alk phos 165. CPK is not elevated. ESR within normal limits. CRP elevated 2.2. Lipase is not elevated. Medical alcohol is undetectable. Lyme screen demonstrates equivocal IgM antibody with Western blot pending. Anaplasma and Babesia test added on and are pending. Given the patient recently had extensive GI evaluation during her last admission including MRCP and EUS will defer additional abdominal imaging at this time given the patient's abdomen is benign Given the patient's electrolyte abnormalities and ongoing pain which is neuropathic in character will admit for further management. Case was discussed with Dr. Garza [facility] hospitalist, who will evaluate the p atient for admission. Triage Nursing notes reviewed and agree them. Prior medical records reviewed Vital Signs: reviewed and remarkable for tachycardia . Differential diagnosis: Infection, dehydration, metabolic abnormality, hypo/hyperglycemia, electrolyte disturbance, anemia, hypoxia, cardiac sources, intracerebral event, toxicologic, neurologic, as well as other pathologies. ER treatment provided: See below. Diagnostics interpreted by me: ECG: Sinus tachycardia, PACs, 108 bpm, no ectopy, no overt ST elevation or depression, QTC 533, QRS 82. Cardiac Monitoring: An order for continuous cardiac monitoring was placed and demonstrated Sinus tachycardia, PACs, 108 bpm, no ectopy. Laboratory studies: See below Imaging studies: See below Consultation(s): Dr. Garza [facility] hospitalist HPI: The patient is a pleasant 51-year-old woman with a past medical history of alcohol abuse for which she reports she has been sober for the past 2 months and did so independently but denied having any withdrawal, COPD, CAD, hypertension, hypothyroidism, fatty liver, anxiety/depression who presents to the emergency department accompanied by her outpatient case management coordinator for evaluation of ongoing burning/tingling/numbness in her extremities that is worsened with light touch of the skin. She reports she did have symptoms of this when she was admitted to this facility from 03/16-03/20 but reports shortly after getting home the symptoms recurred and has been unbearable. Her case management coordinator reports that it has been difficult for her to function at home. She does have home physical therapy but has no one living with her to help her otherwise. ROS: See above HPI for pertinent positives & negatives. A total of 10 systems reviewed and were otherwise negative. VITALS:See Below PHYSICAL EXAMINATION: GENERAL: Awake, alert, chronically ill-appearing, in no distress HENT: Normocephalic, atraumatic. Oropharynx with dry mucous membranes and otherwise unremarkable. EYES: Normal conjunctiva. Sclera non-icteric. NECK: Supple. No nuchal rigidity. FROM. No JVD. RESPIRATORY: Clear to auscultation. CARDIAC: Regular rate, normal rhythm. Extremities warm and well perfused. Pulses equal. ABDOMEN: Soft, non-distended. No tenderness to palpation. No rebound or guarding. No masses. RECTAL: Deferred. MUSCULOSKELETAL: Chest examination reveals no tenderness. The back is symmetrical on inspection without obvious abnormality. There is no CVA tenderness to palpation. No joint edema. LOWER EXTREMITIES: Calves are equal size bilaterally and non-tender. No edema. No discoloration. NEURO: No focal sensory or motor deficits noted. Reports burning and pain to light touch of the skin of her extremities. Reflexes within normal limits. There is no clonus. There is no skin discoloration. There is no edema or warmth of her joints. SKIN: No rash or jaundice noted. Sam Fernandez MD Past Med/Surg History Medical History (Updated 03/29/22 @ 21:19 by Rupesh Garza) Acid reflux Alcohol dependence A FIFTH A DAY FOR 9 YRS NONE FOR LAST 3 WEEKS "WAS GETTING SICK WHEN I DRINK IT AND MY BODY WON'T ALLOW ME TO HAVE IT" Anxiety and depression Constipation REASON FOR UPCOMING PROCEDURE COPD (chronic obstructive pulmonary disease) AND ASTHMA PER PT - LAST USE INHALER LAST WEEK Fatty liver Heavy menses High blood pressure NO MEDS/MONITORS History of anemia History of seizure LAST EVENT 2 YEARS AGO (ALCHOHOL WITHDRAWL) Hypothyroidism Muscle mass LOSS OF MUSCLE MASS OVER LAST 2 MON PTSD (post-traumatic stress disorder) PUD (peptic ulcer disease) Rectal bleeding REASON FOR UPCOMING PROCEDURE Snores Spontaneous pneumothorax HX (REPAIRED 2005) Vitamin D deficiency pt reports probably all her vitamins are low Surgical History H/O tooth extraction 02/11/18 - Multiple teeth extracted under general anesthesia History of section X 3 History of colonoscopy MOST RECENT A COUPLE MONTHS AGO ? - PT NOT SURE DETAILS ON FINDINGS (DONE AT [facility]) History of endoscopy History of esophagogastroduodenoscopy (EGD) 03/18/22 Dr. Helen Beard- Z-line irregularity, biopsied Family History Mother Family hx of colon cancer Stomach cancer Anxiety Depression Kidney disease Colorectal cancer Lung disease Gallbladder disease Family history of cancer Grandmother (Maternal) Stomach cancer Alcohol abuse Father Depression Cardiac disorder Kidney stones Kidney disease Myocardial infarction Oral-mouth cancer Lung disease Hypertension Sister Drug abuse Anxiety Depression Aunt Breast cancer Maternal Brother Family history of diabetes mellitus Other No family history of adverse response to anesthesia Denies family history of Ovarian cancer Prostate cancer Multiple sclerosis Social History Smoking Status: Current every day smoker Tobacco Type: Cigarettes packs per day: 0.5; Years Smoked: 40; Cigarettes Per Day: 8; Second Hand Exposure: Yes; Hx Alcohol Use: Yes (HX VODKA A FIFTH A DAY (FOR 9 YRS), NONE FOR 3 WEEKS) Alcohol type: other Alcohol type Comment: VOLDKA Hx Substance Use: No Preferred Language: Luxembourgish Communication Ability: Effective Senior Nuclear Medicine Technologist Required: No Beliefs That Will Affect Care: None marital status: marital status details: twice Current Living Situation: Other Current Living Situation Comment: RO[place] - in [place] current occupational status: unemployed 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 How many Children do You have: 3 Feels Safe at Home: Yes caffeine: Yes (coffee) Dental Care, Regularly: No Physical Activity Frequency: 1-2 Times per Week Seatbelt Use: always Sunscreen Use: No Assistive Devices: None Allergies Allergies Allergy/AdvReac Type Severity Reaction Status Date / Time promethazine AdvReac Intermediate MADE ME Verified 03/29/22 17:52 SICKER hair dye Allergy Unknown scalp Uncoded 03/29/22 17:52 irriration/swelling Home Meds Home Medications Medication Instructions Recorded Confirmed ascorbic acid (vitamin C) 500 mg 500 mg PO QAM 06/24/21 03/29/22 tablet (Vitamin C) Lactobacillus acidophilus 10 10,000 mmu cells PO QAM 07/20/21 03/29/22 billion cell capsule (Probiotic) cyanocobalamin (vitamin B-12) 1,000 mcg PO QAM 07/20/21 03/29/22 1,000 mcg capsule albuterol sulfate 90 mcg/actuation 2 puff inhalation DIRECTED PRN 03/08/22 03/29/22 aerosol inhaler COPD/ASTHMA cholecalciferol (vitamin D3) 10 10 mcg PO QAM 03/08/22 03/29/22 mcg (400 unit) tablet (Vitamin D3) hydrocortisone 2.5 % topical cream 1 applic MO BID PRN Hemorrhoids 03/16/22 03/29/22 with perineal applicator (Anusol-HC) levothyroxine 112 mcg tablet 112 mcg PO DAILY 03/16/22 03/29/22 ondansetron 4 mg disintegrating 4 mg PO Q6H PRN NAUSEA/VOMITING 03/16/22 03/29/22 tablet Previous Rx's Medication Instructions Recorded omeprazole 20 mg capsule,delayed 20 mg PO BID #60 caps 07/01/21 release cefuroxime axetil 500 mg tablet 500 mg PO BID 9 days #18 tabs 03/21/22 Wheeled Walker #1 ea 03/25/22 potassium chloride 20 mEq 20 meq PO QAM #90 tabs 03/25/22 tablet,extended release(part/cryst) gabapentin 300 mg capsule 600 mg PO TID #90 caps 03/28/22 tramadol 50 mg tablet 50 mg PO Q8H PRN pain #30 tabs 03/29/22 Results & Data (ED) Vital Signs Vital Signs - 24 hr 03/29/22 14:06 03/29/22 14:21 03/29/22 15:26 Temperature 37.4 C Temperature Source Temporal Artery Scan Pulse Rate 120 H Pulse Rate [Apical] 117 H 107 H Pulse Rhythm [Apical] Regular Respiratory Rate 16 18 18 Respiratory Effort / Characteristics Non-Labored Spontaneous Non-Labored Spontaneous Non-Labored Spontaneous Respiratory Depth Normal Normal Normal Respiratory Pattern Regular Regular Blood Pressure 113/66 Blood Pressure [Right Arm] 126/82 126/82 Blood Pressure Mean 81 Blood Pressure Mean [Right Arm] 96 96 Blood Pressure Position Sitting Blood Pressure Position [Right Arm] Lying Lying Pulse Oximetry 95 95 95 Oxygen Delivery Method Room Air Room Air Room Air Sepsis Recent Fever Within 48 Hours No Sepsis New/Unexplained Change in Mental Status No Sepsis Action Taken by Nursing No Action Required 03/29/22 16:19 03/29/22 16:19 03/29/22 17:41 Temperature Temperature Source Pulse Rate Pulse Rate [Apical] 108 H 106 H Pulse Rhythm [Apical] Respiratory Rate 16 20 Respiratory Effort / Characteristics Non-Labored Spontaneous Respiratory Depth Normal Normal Respiratory Pattern Blood Pressure Blood Pressure [Right Arm] 127/75 118/81 Blood Pressure Mean Blood Pressure Mean [Right Arm] 92 93 Blood Pressure Position Blood Pressure Position [Right Arm] Lying Lying Pulse Oximetry 94 94 94 Oxygen Delivery Method Room Air Room Air Room Air Sepsis Recent Fever Within 48 Hours Sepsis New/Unexplained Change in Mental Status Sepsis Action Taken by Nursing 03/29/22 19:05 03/29/22 21:00 Temperature Temperature Source Pulse Rate Pulse Rate [Apical] 103 H 104 H Pulse Rhythm [Apical] Respiratory Rate 20 18 Respiratory Effort / Characteristics Non-Labored Spontaneous Non-Labored Spontaneous Respiratory Depth Normal Normal Respiratory Pattern Blood Pressure Blood Pressure [Right Arm] 134/77 126/77 Blood Pressure Mean Blood Pressure Mean [Right Arm] 96 93 Blood Pressure Position Blood Pressure Position [Right Arm] Lying Lying Pulse Oximetry 94 94 Oxygen Delivery Method Room Air Room Air Sepsis Recent Fever Within 48 Hours Sepsis New/Unexplained Change in Mental Status Sepsis Action Taken by Nursing Laboratory Data Attestation: I reviewed the patient's lab results. Result diagrams: 03/29/22 15:54 03/29/22 15:54 Lab Results 03/29/22 03/29/22 03/29/22 Range/Units 15:54 15:54 15:54 WBC 13.72 H (4.8-10.8) K/ul RBC 3.59 L (3.93-5.22) M/uL Hgb 11.7 L (12.0-16.0) g/dl Hct 34.5 (34.1-44.9) % MCV 96.1 (80.0-100.0) fL MCH 32.6 (25.0-34.0) pg MCHC 33.9 (32.0-36.0) g/dL RDW Std Deviation 55.8 H (36.4-46.3) fL RDW Coeff of Celestina 15.9 H (11.5-14.5) % Plt Count 371 (130-400) K/uL MPV 10.0 (9.4-12.3) fL Immature Gran % (Auto) 0.3 % Neut % (Auto) 70.8 % Lymph % (Auto) 17.0 % Cooke % (Auto) 9.5 % Eos % (Auto) 1.7 % Baso % (Auto) 0.7 % Neut # (Auto) 9.71 H (1.4-6.5) K/uL Lymph # (Auto) 2.33 (1.2-3.4) K/uL [place]oke # (Auto) 1.31 H (0.24-0.82) K/uL Eos # (Auto) 0.23 (0-0.50) K/uL Baso # (Auto) 0.10 (0-0.2) K/uL Immature Gran # (Auto) 0.04 H (0.00-0.02) K/uL ESR (0-30) mm/hr PT (9.0-12.0) Seconds INR (0.9-1.1) Sodium 137 (136-145) mmol/L Potassium 2.9 L (3.5-5.1) mmol/L Chloride 106 (98-107) mmol/L Carbon Dioxide 23 (21-32) mmol/L Anion Gap 8 (3-11) BUN 4 L (6-23) mg/dl Creatinine 0.29 L (0.6-1.2) mg/dl Est Cr Clr Drug Dosing Not Reportable Est GFR ( Amer) > 150.0 ml/min Est GFR (Non-Af Amer) 135.0 ml/min BUN/Creatinine Ratio 13.8 (10-20) Glucose 115 H (70-99(Fasting)) mg/dl Calcium 8.6 (8.5-10.1) mg/dl Phosphorus 3.8 (2.5-4.9) mg/dl Magnesium 1.6 L (1.7-2.4) mg/dl Total Bilirubin 2.5 H (0.2-1.0) mg/dl Direct Bilirubin (0-0.2) mg/dl AST 321 H (13-39) U/L ALT 74 H (7-52) U/L Alkaline Phosphatase 165 H (34-104) U/L Total Creatine Kinase 19 L (26-192) U/L C-Reactive Protein (0-0.5) mg/dl Total Protein 5.4 L (6.0-8.3) gm/dl Albumin 2.8 L (3.4-5.0) gm/dl Globulin 2.6 (2.5-4.0) gm/dl Albumin/Globulin Ratio 1.1 (0.9-2) Lipase 8 L (11-82) U/L Urine Color Urine Appearance (Clear) Urine pH (4.5-7.5) Ur Specific [place] (1.000-1.030) Urine Protein (Negative) Urine Glucose (UA) (Negative) Urine Ketones (Negative) Urine Blood (Negative) Urine Nitrite (Negative) Urine Bilirubin (Negative) Urine Urobilinogen (Negative) Ur Leukocyte Esterase (Negative) Ethyl Alcohol mg/dL < 10.0 (<10.0) mg/dl Anaplasma Smear Babesia Smear Babesia microti DNA PCR Lyme Disease IgG Ab (Negative) Lyme Disease IgM Ab (Negative) SARS-CoV-2, RNA, NAAT (NEGATIVE) 03/29/22 03/29/22 03/29/22 Range/Units 15:54 15:54 15:54 WBC (4.8-10.8) K/ul RBC (3.93-5.22) M/uL Hgb (12.0-16.0) g/dl Hct (34.1-44.9) % MCV (80.0-100.0) fL MCH (25.0-34.0) pg MCHC (32.0-36.0) g/dL RDW Std Deviation (36.4-46.3) fL RDW Coeff of Celestina (11.5-14.5) % Plt Count (130-400) K/uL MPV (9.4-12.3) fL Immature Gran % (Auto) % Neut % (Auto) % Lymph % (Auto) % [place] % (Auto) % Eos % (Auto) % Baso % (Auto) % Neut # (Auto) (1.4-6.5) K/uL Lymph # (Auto) (1.2-3.4) K/uL [place] # (Auto) (0.24-0.82) K/uL Eos # (Auto) (0-0.50) K/uL Baso # (Auto) (0-0.2) K/uL Immature Gran # (Auto) (0.00-0.02) K/uL ESR 19 (0-30) mm/hr PT 13.5 H (9.0-12.0) Seconds INR 1.3 H (0.9-1.1) Sodium (136-145) mmol/L Potassium (3.5-5.1) mmol/L Chloride (98-107) mmol/L Carbon Dioxide (21-32) mmol/L Anion Gap (3-11) BUN (6-23) mg/dl Creatinine (0.6-1.2) mg/dl Est Cr Clr Drug Dosing Est GFR ( Amer) ml/min Est GFR (Non-Af Amer) ml/min BUN/Creatinine Ratio (10-20) Glucose (70-99(Fasting)) mg/dl Calcium (8.5-10.1) mg/dl Phosphorus (2.5-4.9) mg/dl Magnesium (1.7-2.4) mg/dl Total Bilirubin (0.2-1.0) mg/dl Direct Bilirubin (0-0.2) mg/dl AST (13-39) U/L ALT (7-52) U/L Alkaline Phosphatase (34-104) U/L Total Creatine Kinase (26-192) U/L C-Reactive Protein 2.23 H (0-0.5) mg/dl Total Protein (6.0-8.3) gm/dl Albumin (3.4-5.0) gm/dl Globulin (2.5-4.0) gm/dl Albumin/Globulin Ratio (0.9-2) Lipase (11-82) U/L Urine Color Urine Appearance (Clear) Urine pH (4.5-7.5) Ur Specific [place] (1.000-1.030) Urine Protein (Negative) Urine Glucose (UA) (Negative) Urine Ketones (Negative) Urine Blood (Negative) Urine Nitrite (Negative) Urine Bilirubin (Negative) Urine Urobilinogen (Negative) Ur Leukocyte Esterase (Negative) Ethyl Alcohol mg/dL (<10.0) mg/dl Anaplasma Smear Babesia Smear Babesia microti DNA PCR Lyme Disease IgG Ab (Negative) Lyme Disease IgM Ab (Negative) SARS-CoV-2, RNA, NAAT (NEGATIVE) 03/29/22 03/29/22 03/29/22 Range/Units 15:54 15:54 16:33 WBC (4.8-10.8) K/ul RBC (3.93-5.22) M/uL Hgb (12.0-16.0) g/dl Hct (34.1-44.9) % MCV (80.0-100.0) fL MCH (25.0-34.0) pg MCHC (32.0-36.0) g/dL RDW Std Deviation (36.4-46.3) fL RDW Coeff of Celestina (11.5-14.5) % Plt Count (130-400) K/uL MPV (9.4-12.3) fL Immature Gran % (Auto) % Neut % (Auto) % Lymph % (Auto) % [place] % (Auto) % Eos % (Auto) % Baso % (Auto) % Neut # (Auto) (1.4-6.5) K/uL Lymph # (Auto) (1.2-3.4) K/uL [place] # (Auto) (0.24-0.82) K/uL Eos # (Auto) (0-0.50) K/uL Baso # (Auto) (0-0.2) K/uL Immature Gran # (Auto) (0.00-0.02) K/uL ESR (0-30) mm/hr PT (9.0-12.0) Seconds INR (0.9-1.1) Sodium (136-145) mmol/L Potassium (3.5-5.1) mmol/L Chloride (98-107) mmol/L Carbon Dioxide (21-32) mmol/L Anion Gap (3-11) BUN (6-23) mg/dl Creatinine (0.6-1.2) mg/dl Est Cr Clr Drug Dosing Est GFR ( Amer) ml/min Est GFR (Non-Af Amer) ml/min BUN/Creatinine Ratio (10-20) Glucose (70-99(Fasting)) mg/dl Calcium (8.5-10.1) mg/dl Phosphorus (2.5-4.9) mg/dl Magnesium (1.7-2.4) mg/dl Total Bilirubin (0.2-1.0) mg/dl Direct Bilirubin (0-0.2) mg/dl AST (13-39) U/L ALT (7-52) U/L Alkaline Phosphatase (34-104) U/L Total Creatine Kinase (26-192) U/L C-Reactive Protein (0-0.5) mg/dl Total Protein (6.0-8.3) gm/dl Albumin (3.4-5.0) gm/dl Globulin (2.5-4.0) gm/dl Albumin/Globulin Ratio (0.9-2) Lipase (11-82) U/L Urine Color Urine Appearance (Clear) Urine pH (4.5-7.5) Ur Specific [place] (1.000-1.030) Urine Protein (Negative) Urine Glucose (UA) (Negative) Urine Ketones (Negative) Urine Blood (Negative) Urine Nitrite (Negative) Urine Bilirubin (Negative) Urine Urobilinogen (Negative) Ur Leukocyte Esterase (Negative) Ethyl Alcohol mg/dL (<10.0) mg/dl Anaplasma Smear See Comment Babesia Smear See Comment Babesia microti DNA PCR Lyme Disease IgG Ab Negative (Negative) Lyme Disease IgM Ab Equivocal A (Negative) SARS-CoV-2, RNA, NAAT NEGATIVE (NEGATIVE) 03/29/22 03/29/22 03/29/22 Range/Units 18:56 18:56 19:20 WBC (4.8-10.8) K/ul RBC (3.93-5.22) M/uL Hgb (12.0-16.0) g/dl Hct (34.1-44.9) % MCV (80.0-100.0) fL MCH (25.0-34.0) pg MCHC (32.0-36.0) g/dL RDW Std Deviation (36.4-46.3) fL RDW Coeff of Celestina (11.5-14.5) % Plt Count (130-400) K/uL MPV (9.4-12.3) fL Immature Gran % (Auto) % Neut % (Auto) % Lymph % (Auto) % [place] % (Auto) % Eos % (Auto) % Baso % (Auto) % Neut # (Auto) (1.4-6.5) K/uL Lymph # (Auto) (1.2-3.4) K/uL [place] # (Auto) (0.24-0.82) K/uL Eos # (Auto) (0-0.50) K/uL Baso # (Auto) (0-0.2) K/uL Immature Gran # (Auto) (0.00-0.02) K/uL ESR (0-30) mm/hr PT (9.0-12.0) Seconds INR (0.9-1.1) Sodium (136-145) mmol/L Potassium (3.5-5.1) mmol/L Chloride (98-107) mmol/L Carbon Dioxide (21-32) mmol/L Anion Gap (3-11) BUN (6-23) mg/dl Creatinine (0.6-1.2) mg/dl Est Cr Clr Drug Dosing Est GFR ( Amer) ml/min Est GFR (Non-Af Amer) ml/min BUN/Creatinine Ratio (10-20) Glucose (70-99(Fasting)) mg/dl Calcium (8.5-10.1) mg/dl Phosphorus (2.5-4.9) mg/dl Magnesium (1.7-2.4) mg/dl Total Bilirubin (0.2-1.0) mg/dl Direct Bilirubin 1.3 H (0-0.2) mg/dl AST (13-39) U/L ALT (7-52) U/L Alkaline Phosphatase (34-104) U/L Total Creatine Kinase (26-192) U/L C-Reactive Protein (0-0.5) mg/dl Total Protein (6.0-8.3) gm/dl Albumin (3.4-5.0) gm/dl Globulin (2.5-4.0) gm/dl Albumin/Globulin Ratio (0.9-2) Lipase (11-82) U/L Urine Color Dark Yellow Urine Appearance Clear (Clear) Urine pH 6.5 (4.5-7.5) Ur Specific [place] 1.021 (1.000-1.030) Urine Protein Negative (Negative) Urine Glucose (UA) Negative (Negative) Urine Ketones Trace H (Negative) Urine Blood Negative (Negative) Urine Nitrite Negative (Negative) Urine Bilirubin Negative (Negative) Urine Urobilinogen Negative (Negative) Ur Leukocyte Esterase Negative (Negative) Ethyl Alcohol mg/dL (<10.0) mg/dl Anaplasma Smear Babesia Smear Babesia microti DNA PCR Cancelled Lyme Disease IgG Ab (Negative) Lyme Disease IgM Ab (Negative) SARS-CoV-2, RNA, NAAT (NEGATIVE) Administered Medications Discontinued Medications Gadobutrol (Gadobutrol 65ml Vial) 6 ml IV ONCE ONE Stop: 03/29/22 20:36 Last Admin: 03/29/22 20:36 Dose: 6 ml Documented By: AF Multivitamins 10 ml/ Thiamine HCl 100 mg/ Folic Acid 1 mg/Sodium Chloride 1,011.2 mls @ 1,011.2 mls/hr IV .Q1H ONE Stop: 03/29/22 15:55 Last Infusion: 03/29/22 17:18 Dose: 0 mls/hr Documented By: Admin: 03/29/22 16:18 Dose: 1,011.2 mls/hr Documented By: ZULAY Acetaminophen (Ofirmev) 1,000 mg in 100 mls @ 400 mls/hr IV NOW STA Stop: 03/29/22 16:42 Last Infusion: 03/29/22 16:49 Dose: 0 mls/hr Documented By: Admin: 03/29/22 16:32 Dose: 400 mls/hr Documented By: ZULAY Potassium Chloride (K Marquise / Wtr) 10 meq in 100 mls @ 100 mls/hr IV Q1H SLIM; Protocol Stop: 03/29/22 19:44 Last Infusion: 03/29/22 20:50 Dose: 100 mls/hr Documented By: Infusion: 03/29/22 19:30 Dose: 0 mls/hr Documented By: Admin: 03/29/22 19:22 Dose: 100 mls/hr Documented By: Infusion: 03/29/22 19:22 Dose: 0 mls/hr Documented By: Admin: 03/29/22 18:14 Dose: 100 mls/hr Documented By: ZULAY Magnesium Sulfate/Dextrose (Magnesium Sulfate / D5w) 1 gm in 100 mls @ 100 mls/hr IV Q1H SLIM Stop: 03/29/22 18:30 Last Infusion: 03/29/22 19:24 Dose: 0 mls/hr Documented By: Admin: 03/29/22 18:14 Dose: 100 mls/hr Documented By: ZULAY Magnesium Sulfate/Dextrose (Magnesium Sulfate / D5w) 1 gm in 100 mls @ 100 mls/hr IV TODAY@1834 [facility] Stop: 03/29/22 22:00 Last Admin: 03/29/22 21:38 Dose: 100 mls/hr Documented By: ROGER Magnesium Sulfate/Dextrose (Magnesium Sulfate 1gm / D5w Bag) Confirm Administered Dose 1 gm IV .STK-MED ONE Stop: 03/29/22 18:05 Last Admin: 03/29/22 18:15 Dose: Not Given Documented By: ZULAY Imaging Data Radiologist's Impression: Brain MRI 03/29/22 19:12 MRI OF THE BRAIN COMBO CLINICAL HISTORY: Upper and lower extremity paresthesias. COMPARISON STUDY: CT of the brain dated 11/07/2017. TECHNIQUE: MRI of the brain was performed utilizing various T1 and T2-weighted sequences in the axial, sagittal, and coronal planes. Contrast-enhanced sequences were acquired following the administration of 6.5 cc of Gadavist. The examination is compromised by motion artifact. FINDINGS: Brain parenchyma: There is minimal microangiopathic change. The brain parenchyma is otherwise normal in appearance. There is no hemorrhage or mass effect. There is no restricted diffusion to suggest acute ischemia. No enhancing mass lesion is identified on the postcontrast images. Verduczo-white matter differentiation is preserved. No extra-axial fluid collection is seen. The cerebellar tonsils are normal in configuration. Ventricles, sulci, and cisterns: Normal in configuration. Pituitary and sella: Unremarkable. Intracranial vasculature: Normal flow voids are maintained at the skull base. Orbits: The bony orbits are grossly intact. Orbital contents are normal in appearance. Sinuses and mastoids: There is a right mastoid effusion. The left mastoid air cells are clear. Trace mucosal thickening is noted in the maxillary antra and ethmoid sinuses. Calvarium: Unremarkable. Cervical cord: Partially visualized cervical spinal cord is normal in morphology and signal intensity. IMPRESSION: No acute intracranial abnormality. ACT 112: Negative or not required by law. Electronically signed by: Herman Nathan M.D. 03/29/2022 9:54 PM Cervical Spine MRI 03/29/22 19:12 MRI OF THE CERVICAL SPINE COMBO CLINICAL HISTORY: Upper and lower extremity paresthesias. COMPARISON STUDY: CT of the cervical spine dated 11/07/2017. TECHNIQUE: MRI of the cervical spine is performed utilizing various T1 and T2- weighted sequences in the axial and sagittal planes. Contrast-enhanced sequences were acquired following the IV administration of 6 cc of Gadavist. The examination is significantly degraded by motion artifact. FINDINGS: Cervical spine: Vertebral body height and alignment are maintained throughout the cervical spine. Normal marrow signal intensity is preserved throughout the visualized bony structures. There is straightening of the cervical lordosis. The atlantodental articulation is maintained. The spinous processes appear intact. No destructive bony lesion is seen. Tiny anterior osteophytes are noted in the lower cervical region. Intervertebral discs: There is mild degenerative disc desiccation. The disc spaces are maintained. Spinal cord: The cervical spinal cord is normal in morphology and signal intensity. No abnormal postcontrast enhancement is identified. C2-C3: A posterior disc osteophyte complex abuts the ventral cord. The neural foramina are patent. C3-C4: A posterior disc osteophyte complex minimally effaces the ventral subarachnoid space. Uncovertebral and facet arthropathy contribute to mild left- sided neural foraminal narrowing. C4-C5: A posterior disc osteophyte complex eccentric to the right effaces the ventral cord. There is likely left lateral disc bulge. In conjunction with facet arthropathy, there is at least moderate left-sided neural foraminal stenosis. C5-C6: A posterior disc osteophyte complex eccentric to the left abuts the ventral cord. There is likely left lateral disc bulge. This may impinge the exiting left C6 nerve root. In conjunction with facet arthropathy, there is moderate to severe left and at least mild right neural foraminal stenosis. C6-C7: A posterior disc osteophyte complex abuts the ventral cord. There is likely a large left lateral disc bulge which may impinge on the exiting left C7 nerve root. In conjunction with facet arthropathy, there is mild to moderate left and mild right neural foraminal stenosis. C7-T1: Unremarkable. Soft tissues: The prevertebral and paraspinous soft tissues are normal as visualized. Brain parenchyma: Imaged brain parenchyma at the skull base is within normal limits. There is mild mucosal thickening in the maxillary antra. IMPRESSION: 1. Significantly motion compromised examination. 2. The cervical cord is normal in morphology and signal intensity with no abnormal postcontrast enhancement identified. 3. Spondylotic change as above. See discussion for detailed level by level analysis. 4. No destructive bony process is seen. Dictated: 03/29/2022 9:44 PM Transcribed: 03/29/2022 10:02 PM [place] [id number] Daja Electronically signed by: Herman Nathan M.D. 03/29/2022 10:03 PM Discharge Plan Visit Data Chief Complaint: Illness Stated Complaint: NUMBNESS IN HANDS AND FEET ED Provider: Sam Fernandez Discharge Problem: Hypokalemia, Hypomagnesemia, Transaminitis, Cirrhosis, Burning sensation of skin Forms Stand Alone Forms: [employer] Prescriptions Prescriptions: No Action (DME) Wheeled Walker Misc See Rx Instructions .Route Qty: 1 0RF Rx Instructions: As directed Dx:A69.20; G62.9 gabapentin 300 mg capsule 600 mg PO TID Qty: 90 5RF tramadol 50 mg tablet 50 mg PO Q8H PRN (Reason: pain) Qty: 30 0RF omeprazole 20 mg capsule,delayed release(DR/EC) 20 mg PO BID Qty: 60 2RF potassium chloride 20 mEq tablet,ER particles/crystals 20 meq PO QAM Qty: 90 1RF ascorbic acid (vitamin C) [Vitamin C] 500 mg Tablet 500 mg PO QAM cholecalciferol (vitamin D3) [Vitamin D3] 10 mcg (400 unit) Tablet 10 mcg PO QAM albuterol sulfate 90 mcg/actuation HFA aerosol inhaler 2 puff inhalation DIRECTED PRN (Reason: COPD/ASTHMA) hydrocortisone [Anusol-HC] 2.5 % cream with perineal applicator 1 applic [place] BID PRN (Reason: Hemorrhoids) ondansetron 4 mg tablet,disintegrating 4 mg PO Q6H PRN (Reason: NAUSEA/VOMITING) levothyroxine 112 mcg tablet 112 mcg PO DAILY cefuroxime axetil 500 mg tablet 500 mg PO BID 9 Days Qty: 18 0RF Rx Instructions: STARTED 03/21/22 FOR 9 DAYS. cyanocobalamin (vitamin B-12) 1,000 mcg capsule 1,000 mcg PO QAM Probiotic 10 billion cell Capsule 10,000 mmu cells PO QAM Referrals Referrals: Natalia Puentes MD [Primary Care Provider] -
[2022-03-29 16:46] LABS: Alanine Aminotransferase 74 U/L (7-52); Albumin Globulin Ratio 1.1 (0.9-2); Albumin Level 2.8 gm/dl (3.4-5.0); Alkaline Phosphatase 165 U/L (34-104); Anion Gap 8 (3-11); Aspartate Aminotransferase 321 U/L (13-39); BUN Creatinine Ratio 13.8 (10-20); Bilirubin,Total 2.5 mg/dl (0.2-1.0); Blood Urea Nitrogen 4 mg/dl (6-23); Calcium 8.6 mg/dl (8.5-10.1); Carbon Dioxide 23 mmol/L (21-32); Chloride 106 mmol/L (98-107); Creatine Kinase 19 U/L (26-192); Est GFR (African American) > 150.0 ml/min; Globulin 2.6 gm/dl (2.5-4.0); Glucose 115 mg/dl (70-99(Fasting)); Lipase 8 U/L (11-82); Magnesium 1.6 mg/dl (1.7-2.4); Phosphorus 3.8 mg/dl (2.5-4.9); Potassium 2.9 mmol/L (3.5-5.1); Sodium 137 mmol/L (136-145); Total Protein 5.4 gm/dl (6.0-8.3)
[2022-03-29 16:53] LABS: INR 1.3 (0.9-1.1); Prothrombin Time 13.5 Seconds (9.0-12.0)
[2022-03-29 17:34] LABS: Lyme Ab IgG w/WB Rflx Negative (Negative)
[2022-03-29] MEDS ORDERED: MAGNESIUM SULFATE / D5W 1 GM/100 ML BAG IV SCH ×2 (17:34→18:34)
[2022-03-29 17:53] LABS: Lyme Ab IgM w/WB Rflx Equivocal (Negative)
--- NOTE | 2022-03-29 18:01 | History & Physical Report ---
Date of Service March 29, 2022 Assessment & Plan (1) Polyneuropathy: Plan: The patient has painful neuropathy of multiple locations but particularly the hands, legs, and feet. She does not have a sensory level based on exam. She does not have obvious myelopathic signs making transverse myelitis less likely. Her story isn't completely consistent with Guillain-[place] syndrome. Differential - nutritional deficiency leading to her neuropathy vs toxic effects from long-standing etoh abuse vs Lyme vs autoimmune (has +RENITA) vs electrolyte disturbances vs other vs combination of factors. Recent vitamin B12 level was wnl. She is not a diabetic. B1 level was dispatched; while awaiting the level will Rx with IV thiamine 500mg TID. Recent lyme IgM was equivalent, but Western blot was negative, and she had no improvement in symptoms with IV/PO antibiotics regardless. Plan - * continue gabapentin 300mg TID (given the acute worsening in LFTs will use lower dose for now) * thiamine replacement; await level * MRI brain with contrast * MRI cervical spine with contrast; may need the thoracic spine and lumbar spine imaged as well * replace low K and low mag * formal neurology consult will be requested * I'm uncertain to the significance of her +RENITA -- consider rheum referral after discharge * IV dilaudid 0.25mg q6h prn (2) Burning sensation of skin: Plan: see #1 above (3) Hypokalemia: Plan: replace with IV & PO potassium repeat K level am replete low mag (4) Hypomagnesemia: Plan: IV mag sulfate 2 grams x 1 repeat mag level am (5) History of ETOH abuse: Plan: has maintained sobriety x 2 months per the patient she did not show signs of etoh withdrawal during the recent hospital stay MVI/folate/thiamine place on telemetry low threshold to implement the etoh withdrawal protocol (6) Hypothyroidism: Plan: TSH was 16, then 6, over the last month her synthroid is now 112mcg will not increase the dose at this time repeat TSH in 1 month for stability (7) Alcohol dependence: Plan: sober x 2 months per patient see above (8) COPD (chronic obstructive pulmonary disease): Plan: no exacerbation at this time (9) Tobacco dependence: Plan: nicoderm patch 14mg/24 hours 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 alcohol? infectious? other? stop cephalosporin use repeat LFTs am (14) Borderline results on serologic testing for Lyme disease: Plan: IgM is equivocal but recent Western Blot is negative will continue doxycycline IV, however, to cover for possibility of another tick- borne illness (anaplasmosis, etc) (15) DVT prophylaxis: Plan: defer on chemical means for now in the event she needs more invasive testing (LP, etc) History of Present Illness Chief Complaint: burning, numbness and pain of limbs Primary Care Provider: Natalia Puentes MD 51yo female with multiple medical problems including previous alcohol abuse, COPD, CAD, hypertension, hypothyroidism, fatty liver, depression, and anxiety presents with several weeks of burning, numbness, tingling, and "excruciating pain." The pain is "all over" but it seems to be worst in the feet > hands. She thinks the pain started in the feet/legs and then moved up her body but she was inconsistent when I asked her about the timeline. Her neck and face are spared. Her back is spared. She does have numbness/pain in her chest. She has numbness over her abdominal wall. Denies any bowel or bladder incontinence, but then stated she had 2 episodes of bowel incontinence yesterday. Denies any pain along the length of her spine. Denies any injury to her neck or back. She has been able to ambulate and uses a walker at home. However, she feels that she has "lost muscle mass" in her arms and legs. Denies fevers. She denies anorexia, but when she tries to eat, she simply doesn't eat. She blames her lack of eating on the pain and numbness/tingling. Despite treating for possible Lyme disease since hospital discharge her symptoms have persisted. She also states that the gabapentin is not helpful for the above symptoms. She does report a fall "out of the shower" yesterday. She did not have syncope or presyncope. No falls with walking. Denies any etoh use in ~2 months. Denies any recent vaccinations. No recent illnesses. Allergies Allergy/AdvReac Type Severity Reaction Status Date / Time promethazine AdvReac Intermediate MADE ME Verified 03/29/22 17:52 SICKER hair dye Allergy Unknown scalp Uncoded 03/29/22 17:52 irriration/swelling Home Medications Medication Instructions Recorded Confirmed Type ascorbic acid (vitamin C) 500 mg 500 mg PO QAM 06/24/21 03/29/22 History tablet (Vitamin C) omeprazole 20 mg capsule,delayed 20 mg PO BID #60 caps 07/01/21 03/29/22 Rx release Lactobacillus acidophilus 10 10,000 mmu cells PO QAM 07/20/21 03/29/22 History billion cell capsule (Probiotic) cyanocobalamin (vitamin B-12) 1,000 mcg PO QAM 07/20/21 03/29/22 History 1,000 mcg capsule albuterol sulfate 90 mcg/actuation 2 puff inhalation DIRECTED PRN 03/08/22 03/29/22 History aerosol inhaler COPD/ASTHMA cholecalciferol (vitamin D3) 10 10 mcg PO QAM 03/08/22 03/29/22 History mcg (400 unit) tablet (Vitamin D3) hydrocortisone 2.5 % topical cream 1 applic [place] BID PRN Hemorrhoids 03/16/22 03/29/22 History with perineal applicator (Anusol-HC) levothyroxine 112 mcg tablet 112 mcg PO DAILY 03/16/22 03/29/22 History ondansetron 4 mg disintegrating 4 mg PO Q6H PRN NAUSEA/VOMITING 03/16/22 03/29/22 History tablet cefuroxime axetil 500 mg tablet 500 mg PO BID 9 days #18 tabs 03/21/22 03/29/22 Rx Wheeled Walker #1 ea 03/25/22 03/29/22 Rx potassium chloride 20 mEq 20 meq PO QAM #90 tabs 03/25/22 03/29/22 Rx tablet,extended release(part/cryst) gabapentin 300 mg capsule 600 mg PO TID #90 caps 03/28/22 03/29/22 Rx tramadol 50 mg tablet 50 mg PO Q8H PRN pain #30 tabs 03/29/22 03/29/22 Rx Past Med/Surg History Medical History (Updated 03/29/22 @ 21:19 by Rupesh Garza) Acid reflux Alcohol dependence A FIFTH A DAY FOR 9 YRS NONE FOR LAST 3 WEEKS "WAS GETTING SICK WHEN I DRINK IT AND MY BODY WON'T ALLOW ME TO HAVE IT" Anxiety and depression Constipation REASON FOR UPCOMING PROCEDURE COPD (chronic obstructive pulmonary disease) AND ASTHMA PER PT - LAST USE INHALER LAST WEEK Fatty liver Heavy menses High blood pressure NO MEDS/MONITORS History of anemia History of seizure LAST EVENT 2 YEARS AGO (ALCHOHOL WITHDRAWL) Hypothyroidism Muscle mass LOSS OF MUSCLE MASS OVER LAST 2 MON PTSD (post-traumatic stress disorder) PUD (peptic ulcer disease) Rectal bleeding REASON FOR UPCOMING PROCEDURE Snores Spontaneous pneumothorax HX (REPAIRED 2005) Vitamin D deficiency pt reports probably all her vitamins are low Surgical History H/O tooth extraction 02/11/18 - Multiple teeth extracted under general anesthesia History of section X 3 History of colonoscopy MOST RECENT A COUPLE MONTHS AGO ? - PT NOT SURE DETAILS ON FINDINGS (DONE AT [facility]) History of endoscopy History of esophagogastroduodenoscopy (EGD) 03/18/22 Dr. Helen Beard- Z-line irregularity, biopsied Family History Mother Family hx of colon cancer Stomach cancer Anxiety Depression Kidney disease Colorectal cancer Lung disease Gallbladder disease Family history of cancer Grandmother (Maternal) Stomach cancer Alcohol abuse Father Depression Cardiac disorder Kidney stones Kidney disease Myocardial infarction Oral-mouth cancer Lung disease Hypertension Sister Drug abuse Anxiety Depression Aunt Breast cancer Maternal Brother Family history of diabetes mellitus Other No family history of adverse response to anesthesia Denies family history of Ovarian cancer Prostate cancer Multiple sclerosis Social History Smoking Status: Current every day smoker Tobacco Type: Cigarettes packs per day: 0.5; Years Smoked: 40; Cigarettes Per Day: 8; Second Hand Exposure: Yes; Hx Alcohol Use: Yes (HX VODKA A FIFTH A DAY (FOR 9 YRS), NONE FOR 3 WEEKS) Alcohol type: other Alcohol type Comment: VOLDKA Hx Substance Use: No Preferred Language: Lao Communication Ability: Effective 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 eyes - no visual changes HENT - no dysphagia; no runny nose or sore throat neck - no pain CV - no chest pain but has had numbness over her chest pulm - no dyspnea on exertion; no cough GI - no vomiting; some diarrhea - last episode today (this am); then had incontinence x 2 yesterday - no incontinence musculo - knee swelling? endo - no diabetic skin - right leg rash neuro - some headaches - last this am; no h/o migraines; see HPI re: sensory changes; no vertigo psych - does feel depressed Physical Exam Physical Exam: gen - NAD, poor historian, looks older than stated age eyes - PERRL; horizontal nystagmus with leftward gaze; nonicteric sclera mouth - MM dry, ?mild thrush neck - no JVD, no thyroid masses heart - tachy, s1 s2, no murmur lungs - CTA b/l abd - soft NT ND BS+; no hepatomegaly ext - trace-1+ edema b/l feet/ankles; pulses 2+ b/l feet; radial pulses 2+ b/l; cap refill all 4 limbs <2 sec neuro - no facial droop; EOMI; no myopathy - strength of shoulder extension near 5/5 b/l; hip flexion 4-5/5 b/l; handgrip 4/5 b/l; foot dorsiflexion/plantarflexion 4/5 b/l; negative babinski's b/l; sensory - intact to light touch over all dermatomes of chest/abdominal wall/arms and legs but she has hyperalgesia of her hands, shins, and feet; no obvious sensory level; no ataxia with finger/nose/finger maneuver b/l musculo - no pain or tenderness along c-spine, t-spine, or l-spine to palpation; mild fingernail clubbing skin - rosacea type changes on b/l cheeks; mild palmar erythema b/l hands; no rash on arms/legs psych - a/o x 3 Results & Data Results & Data ([facility]) Vital Signs (Past 12 Hours) Vital Signs Temp Pulse Pulse Resp BP BP Pulse Ox 03/29/22 17:41 106 H 20 118/81 94 03/29/22 16:19 108 H 16 127/75 94 03/29/22 16:19 94 03/29/22 15:26 107 H 18 126/82 95 03/29/22 14:21 117 H 18 126/82 95 03/29/22 14:06 37.4 C 120 H 16 113/66 95 O2 Del Method 03/29/22 17:41 Room Air 03/29/22 16:19 Room Air 03/29/22 16:19 Room Air 03/29/22 15:26 Room Air 03/29/22 14:21 Room Air 03/29/22 14:06 Room Air Laboratory Results Laboratory Results - last 24 hr 03/29/22 03/29/22 03/29/22 15:54 15:54 15:54 WBC 13.72 H RBC 3.59 L Hgb 11.7 L Hct 34.5 MCV 96.1 MCH 32.6 MCHC 33.9 RDW Std Deviation 55.8 H RDW Coeff of Celestina 15.9 H Plt Count 371 MPV 10.0 Immature Gran % (Auto) 0.3 Neut % (Auto) 70.8 Lymph % (Auto) 17.0 [place] % (Auto) 9.5 Eos % (Auto) 1.7 Baso % (Auto) 0.7 Neut # (Auto) 9.71 H Lymph # (Auto) 2.33 [place] # (Auto) 1.31 H Eos # (Auto) 0.23 Baso # (Auto) 0.10 Immature Gran # (Auto) 0.04 H ESR PT INR Sodium 137 Potassium 2.9 L Chloride 106 Carbon Dioxide 23 Anion Gap 8 BUN 4 L Creatinine 0.29 L Est Cr Clr Drug Dosing Not Reportable Est GFR ( Amer) > 150.0 Est GFR (Non-Af Amer) 135.0 BUN/Creatinine Ratio 13.8 Glucose 115 H Calcium 8.6 Phosphorus 3.8 Magnesium 1.6 L Total Bilirubin 2.5 H Direct Bilirubin AST 321 H ALT 74 H Alkaline Phosphatase 165 H Total Creatine Kinase 19 L C-Reactive Protein Total Protein 5.4 L Albumin 2.8 L Globulin 2.6 Albumin/Globulin Ratio 1.1 Lipase 8 L Vitamin B1 Urine Color Urine Appearance Urine pH Ur Specific [place] Urine Protein Urine Glucose (UA) Urine Ketones Urine Blood Urine Nitrite Urine Bilirubin Urine Urobilinogen Ur Leukocyte Esterase Ethyl Alcohol mg/dL < 10.0 Anaplasma Smear A. phagocytophilum DNA Babesia Smear Babesia microti DNA PCR Lyme Disease IgG Ab Lyme IgG (Western Blot) Lyme IgG 18 kDa Band Lyme IgG 23 kDa Band Lyme IgG 28 kDa Band Lyme IgG 30 kDa Band Lyme IgG 39 kDa Band Lyme IgG 41 kDa Band Lyme IgG 45 kDa Band Lyme IgG 58 kDa Band Lyme IgG 66 kDa Band Lyme IgG 93 kDa Band Lyme IgM Ab (WB) Lyme Disease IgM Ab Lyme IgM 23 kDa Band Lyme IgM 39 kDa Band Lyme IgM 41 kDa Band SARS-CoV-2, RNA, NAAT 03/29/22 03/29/22 03/29/22 15:54 15:54 15:54 WBC RBC Hgb Hct MCV MCH MCHC RDW Std Deviation RDW Coeff of Celestian Plt Count MPV Immature Gran % (Auto) Neut % (Auto) Lymph % (Auto) [place] % (Auto) Eos % (Auto) Baso % (Auto) Neut # (Auto) Lymph # (Auto) [place] # (Auto) Eos # (Auto) Baso # (Auto) Immature Gran # (Auto) ESR 19 PT 13.5 H INR 1.3 H Sodium Potassium Chloride Carbon Dioxide Anion Gap BUN Creatinine Est Cr Clr Drug Dosing Est GFR ( Amer) Est GFR (Non-Af Amer) BUN/Creatinine Ratio Glucose Calcium Phosphorus Magnesium Total Bilirubin Direct Bilirubin AST ALT Alkaline Phosphatase Total Creatine Kinase C-Reactive Protein 2.23 H Total Protein Albumin Globulin Albumin/Globulin Ratio Lipase Vitamin B1 Urine Color Urine Appearance Urine pH Ur Specific [place] Urine Protein Urine Glucose (UA) Urine Ketones Urine Blood Urine Nitrite Urine Bilirubin Urine Urobilinogen Ur Leukocyte Esterase Ethyl Alcohol mg/dL Anaplasma Smear A. phagocytophilum DNA Babesia Smear Babesia microti DNA PCR Lyme Disease IgG Ab Lyme IgG (Western Blot) Lyme IgG 18 kDa Band Lyme IgG 23 kDa Band Lyme IgG 28 kDa Band Lyme IgG 30 kDa Band Lyme IgG 39 kDa Band Lyme IgG 41 kDa Band Lyme IgG 45 kDa Band Lyme IgG 58 kDa Band Lyme IgG 66 kDa Band Lyme IgG 93 kDa Band Lyme IgM Ab (WB) Lyme Disease IgM Ab Lyme IgM 23 kDa Band Lyme IgM 39 kDa Band Lyme IgM 41 kDa Band SARS-CoV-2, RNA, NAAT 03/29/22 03/29/22 03/29/22 15:54 15:54 15:54 WBC RBC Hgb Hct MCV MCH MCHC RDW Std Deviation RDW Coeff of Celestina Plt Count MPV Immature Gran % (Auto) Neut % (Auto) Lymph % (Auto) [place] % (Auto) Eos % (Auto) Baso % (Auto) Neut # (Auto) Lymph # (Auto) [place] # (Auto) Eos # (Auto) Baso # (Auto) Immature Gran # (Auto) ESR PT INR Sodium Potassium Chloride Carbon Dioxide Anion Gap BUN Creatinine Est Cr Clr Drug Dosing Est GFR ( Amer) Est GFR (Non-Af Amer) BUN/Creatinine Ratio Glucose Calcium Phosphorus Magnesium Total Bilirubin Direct Bilirubin AST ALT Alkaline Phosphatase Total Creatine Kinase C-Reactive Protein Total Protein Albumin Globulin Albumin/Globulin Ratio Lipase Vitamin B1 Urine Color Urine Appearance Urine pH Ur Specific [place] Urine Protein Urine Glucose (UA) Urine Ketones Urine Blood Urine Nitrite Urine Bilirubin Urine Urobilinogen Ur Leukocyte Esterase Ethyl Alcohol mg/dL Anaplasma Smear See Comment A. phagocytophilum DNA Pending Babesia Smear See Comment Babesia microti DNA PCR Lyme Disease IgG Ab Negative Lyme IgG (Western Blot) Lyme IgG 18 kDa Band Lyme IgG 23 kDa Band Lyme IgG 28 kDa Band Lyme IgG 30 kDa Band Lyme IgG 39 kDa Band Lyme IgG 41 kDa Band Lyme IgG 45 kDa Band Lyme IgG 58 kDa Band Lyme IgG 66 kDa Band Lyme IgG 93 kDa Band Lyme IgM Ab (WB) Lyme Disease IgM Ab Equivocal A Lyme IgM 23 kDa Band Lyme IgM 39 kDa Band Lyme IgM 41 kDa Band SARS-CoV-2, RNA, NAAT 03/29/22 03/29/22 03/29/22 15:54 16:33 18:56 WBC RBC Hgb Hct MCV MCH MCHC RDW Std Deviation RDW Coeff of Celestina Plt Count MPV Immature Gran % (Auto) Neut % (Auto) Lymph % (Auto) [place] % (Auto) Eos % (Auto) Baso % (Auto) Neut # (Auto) Lymph # (Auto) [place] # (Auto) Eos # (Auto) Baso # (Auto) Immature Gran # (Auto) ESR PT INR Sodium Potassium Chloride Carbon Dioxide Anion Gap BUN Creatinine Est Cr Clr Drug Dosing Est GFR ( Amer) Est GFR (Non-Af Amer) BUN/Creatinine Ratio Glucose Calcium Phosphorus Magnesium Total Bilirubin Direct Bilirubin 1.3 H AST ALT Alkaline Phosphatase Total Creatine Kinase C-Reactive Protein Total Protein Albumin Globulin Albumin/Globulin Ratio Lipase Vitamin B1 Urine Color Urine Appearance Urine pH Ur Specific [place] Urine Protein Urine Glucose (UA) Urine Ketones Urine Blood Urine Nitrite Urine Bilirubin Urine Urobilinogen Ur Leukocyte Esterase Ethyl Alcohol mg/dL Anaplasma Smear A. phagocytophilum DNA Babesia Smear Babesia microti DNA PCR Lyme Disease IgG Ab Lyme IgG (Western Blot) Pending Lyme IgG 18 kDa Band Pending Lyme IgG 23 kDa Band Pending Lyme IgG 28 kDa Band Pending Lyme IgG 30 kDa Band Pending Lyme IgG 39 kDa Band Pending Lyme IgG 41 kDa Band Pending Lyme IgG 45 kDa Band Pending Lyme IgG 58 kDa Band Pending Lyme IgG 66 kDa Band Pending Lyme IgG 93 kDa Band Pending Lyme IgM Ab (WB) Pending Lyme Disease IgM Ab Lyme IgM 23 kDa Band Pending Lyme IgM 39 kDa Band Pending Lyme IgM 41 kDa Band Pending SARS-CoV-2, RNA, NAAT NEGATIVE 03/29/22 03/29/22 18:56 19:20 WBC RBC Hgb Hct MCV MCH MCHC RDW Std Deviation RDW Coeff of Celestina Plt Count MPV Immature Gran % (Auto) Neut % (Auto) Lymph % (Auto) [place] % (Auto) Eos % (Auto) Baso % (Auto) Neut # (Auto) Lymph # (Auto) [place] # (Auto) Eos # (Auto) Baso # (Auto) Immature Gran # (Auto) ESR PT INR Sodium Potassium Chloride Carbon Dioxide Anion Gap BUN Creatinine Est Cr Clr Drug Dosing Est GFR ( Amer) Est GFR (Non-Af Amer) BUN/Creatinine Ratio Glucose Calcium Phosphorus Magnesium Total Bilirubin Direct Bilirubin AST ALT Alkaline Phosphatase Total Creatine Kinase C-Reactive Protein Total Protein Albumin Globulin Albumin/Globulin Ratio Lipase Vitamin B1 Pending Urine Color Dark Yellow Urine Appearance Clear Urine pH 6.5 Ur Specific [place] 1.021 Urine Protein Negative Urine Glucose (UA) Negative Urine Ketones Trace H Urine Blood Negative Urine Nitrite Negative Urine Bilirubin Negative Urine Urobilinogen Negative Ur Leukocyte Esterase Negative Ethyl Alcohol mg/dL Anaplasma Smear A. phagocytophilum DNA Babesia Smear Babesia microti DNA PCR Cancelled Lyme Disease IgG Ab Lyme IgG (Western Blot) Lyme IgG 18 kDa Band Lyme IgG 23 kDa Band Lyme IgG 28 kDa Band Lyme IgG 30 kDa Band Lyme IgG 39 kDa Band Lyme IgG 41 kDa Band Lyme IgG 45 kDa Band Lyme IgG 58 kDa Band Lyme IgG 66 kDa Band Lyme IgG 93 kDa Band Lyme IgM Ab (WB) Lyme Disease IgM Ab Lyme IgM 23 kDa Band Lyme IgM 39 kDa Band Lyme IgM 41 kDa Band SARS-CoV-2, RNA, NAAT Diagnostic Findings EKG - my reading - sinus tach, prolonged QTc, no ST changes; RSR' pattern V1, etc Code Status & VTE Plan Code Status DNR/DNI PG Care Time/CCT Total # of Minutes Spent Total Time Spent with Patient: Total time spent is greater than 50% in coordination of care (as documented) at patient's floor/unit and/or counseling patient: Coding Level of Care Code 72989 Initial Inpt Care Lvl 3 Diagnoses Polyneuropathy G62.9 Burning sensation of skin R20.8 Hypokalemia E87.6 Hypomagnesemia E83.42 History of ETOH abuse F10.11 Hypothyroidism E03.9 Alcohol dependence F10.29 Substance use status: unspecified alcohol-induced disorder COPD (chronic obstructive pulmonary disease) J44.9 Tobacco dependence F17.200 CAD (coronary artery disease) I25.10 Fatty liver K76.0 Depression F32.9 Abnormal LFTs R79.89 Borderline results on serologic testing for Lyme disease R76.8 DVT prophylaxis Z29.9 (1) Alcohol dependence Substance use status: unspecified alcohol-induced disorder Qualified Code(s): F10.29 - Alcohol dependence with unspecified alcohol-induced disorder
[2022-03-29] MEDS ORDERED: MAGNESIUM SULFATE 1GM / D5W BAG IV ONE (18:04)
[2022-03-29] MEDS: POTASSIUM CHLORIDE / WTR 10 MEQ/100 ML PLCT IV SCH ×2 (18:14→19:22)
[2022-03-29 19:52] LABS: Appearance Urine Clear (Clear); Bilirubin Urine Negative (Negative); Blood Urine Negative (Negative); Color Urine Dark Yellow; Glucose Urine UA Negative (Negative); Ketones Urine Trace (Negative); Leukocyte Esterase Urine Negative (Negative); Nitrite Urine Negative (Negative); Protein Urine Negative (Negative); Specific Gravity Urine 1.021 (1.000-1.030); Urobilinogen Urine Negative (Negative); pH Urine 6.5 (4.5-7.5)
[2022-03-29] MEDS ORDERED: GADOBUTROL 65ML VIAL IV ONE (20:35)
--- NOTE | 2022-03-29 21:56 | Magnetic Resonance Report ---
MRI OF THE BRAIN COMBO CLINICAL HISTORY: Upper and lower extremity paresthesias. COMPARISON STUDY: CT of the brain dated 11/07/2017. TECHNIQUE: MRI of the brain was performed utilizing various T1 and T2-weighted sequences in the axial , sagittal, and coronal planes. Contrast-enhanced sequences were acquired following the administratio n of 6.5 cc of Gadavist. The examination is compromised by motion artifact. FINDINGS: Brain parenchyma: There is minimal microangiopathic change. The brain parenchyma is otherwise normal in appearance. There is no hemorrhage or mass effect. There is no restricted diffusion to suggest acu te ischemia. No enhancing mass lesion is identified on the postcontrast images. Verduzco-white matter dif ferentiation is preserved. No extra-axial fluid collection is seen. The cerebellar tonsils are normal in configuration. Ventricles, sulci, and cisterns: Normal in configuration. Pituitary and sella: Unremarkable. Intracranial vasculature: Normal flow voids are maintained at the skull base. Orbits: The bony orbits are grossly intact. Orbital contents are normal in appearance. Sinuses and mastoids: There is a right mastoid effusion. The left mastoid air cells are clear. Trace mucosal thickening is noted in the maxillary antra and ethmoid sinuses. Calvarium: Unremarkable. Cervical cord: Partially visualized cervical spinal cord is normal in morphology and signal intensity . IMPRESSION: No acute intracranial abnormality. ACT 112: Negative or not required by law. Electronically signed by: Herman Nathan M.D. 03/29/2022 9:54 PM
--- NOTE | 2022-03-29 22:04 | Magnetic Resonance Report ---
MRI OF THE CERVICAL SPINE COMBO CLINICAL HISTORY: Upper and lower extremity paresthesias. COMPARISON STUDY: CT of the cervical spine dated 11/07/2017. TECHNIQUE: MRI of the cervical spine is performed utilizing various T1 and T2-weighted sequences in t he axial and sagittal planes. Contrast-enhanced sequences were acquired following the IV administrati on of 6 cc of Gadavist. The examination is significantly degraded by motion artifact. FINDINGS: Cervical spine: Vertebral body height and alignment are maintained throughout the cervical spine. Nor mal marrow signal intensity is preserved throughout the visualized bony structures. There is straight ening of the cervical lordosis. The atlantodental articulation is maintained. The spinous processes a ppear intact. No destructive bony lesion is seen. Tiny anterior osteophytes are noted in the lower ce rvical region. Intervertebral discs: There is mild degenerative disc desiccation. The disc spaces are maintained. Spinal cord: The cervical spinal cord is normal in morphology and signal intensity. No abnormal postc ontrast enhancement is identified. C2-C3: A posterior disc osteophyte complex abuts the ventral cord. The neural foramina are patent. C3-C4: A posterior disc osteophyte complex minimally effaces the ventral subarachnoid space. Uncovert ebral and facet arthropathy contribute to mild left-sided neural foraminal narrowing. C4-C5: A posterior disc osteophyte complex eccentric to the right effaces the ventral cord. There is likely left lateral disc bulge. In conjunction with facet arthropathy, there is at least moderate lef t-sided neural foraminal stenosis. C5-C6: A posterior disc osteophyte complex eccentric to the left abuts the ventral cord. There is lik tika left lateral disc bulge. This may impinge the exiting left C6 nerve root. In conjunction with fac et arthropathy, there is moderate to severe left and at least mild right neural foraminal stenosis. C6-C7: A posterior disc osteophyte complex abuts the ventral cord. There is likely a large left later al disc bulge which may impinge on the exiting left C7 nerve root. In conjunction with facet arthropa thy, there is mild to moderate left and mild right neural foraminal stenosis. C7-T1: Unremarkable. Soft tissues: The prevertebral and paraspinous soft tissues are normal as visualized. Brain parenchyma: Imaged brain parenchyma at the skull base is within normal limits. There is mild mu cosal thickening in the maxillary antra. IMPRESSION: 1. Significantly motion compromised examination. 2. The cervical cord is normal in morphology and signal intensity with no abnormal postcontrast enhan cement identified. 3. Spondylotic change as above. See discussion for detailed level by level analysis. 4. No destructive bony process is seen. Dictated: 03/29/2022 9:44 PM Transcribed: 03/29/2022 10:02 PM Verenice [id number] NATALIA_[place] Electronically signed by: Herman Nathan M.D. 03/29/2022 10:03 PM
[2022-03-29] MEDS ORDERED: NICOTINE 14 MG/24 HR PATCH TD SCH (22:33)
[2022-03-29] MEDS ORDERED: ALBUTEROL HFA 8 GM INHALER INH PRN (22:33)
[2022-03-29] MEDS ORDERED: POTASSIUM CHLORIDE CRTAB 20 MEQ TABCR PO SCH (22:33)
[2022-03-29] MEDS ORDERED: HYDROCORTISONE HC 2.5% CRM 30GM TUBE EXT PRN (22:33)
[2022-03-29] MEDS ORDERED: ONDANSETRON INJ 2 MG/ML 2 ML VIAL IV PRN (22:33)
[2022-03-29] MEDS ORDERED: NSS + 20MEQ KCL 20 MEQ/1,000 ML BAG IV SCH (22:33)
[2022-03-29] MEDS ORDERED: HYDROmorphone INJ 0.5 MG/0.5 ML SYR IV PRN (22:33)
[2022-03-29] MEDS ORDERED: GABAPENTIN 300 MG CAP PO SCH (22:33)
[2022-03-29] MEDS ORDERED: DOXYCYCLINE HYCLATE 100 MG in DEXTROSE 5% 100 ML IV SCH (23:30)
[2022-03-30] MEDS ORDERED: THIAMINE HCL 500 MG in SODIUM CHLORIDE 0.9% 50 ML IV SCH
[2022-03-30] MEDS ORDERED: LEVOTHYROXINE SODIUM 112 MCG TABLET PO SCH (06:30)
[2022-03-30] MEDS ORDERED: CHOLECALCIFEROL 400 UNITS 10 MCG TAB PO SCH (09:00)
[2022-03-30] MEDS ORDERED: CYANOCOBALAMIN (B-12) 500 MCG TABLET PO SCH (09:00)
[2022-03-30] MEDS ORDERED: ASCORBIC ACID 500 MG TAB PO SCH (09:00)
[2022-03-30] MEDS ORDERED: FOLIC ACID 1 MG in SYRINGE 9.8 ML IV SCH (09:00)
[2022-03-30] MEDS ORDERED: CEROVITE ADV FORMULA TAB PO SCH (09:00)
[2022-03-30] MEDS ORDERED: PANTOprazole 40 MG TAB PO SCH (09:00)
--- NOTE | 2022-03-30 10:11 | Electrocardiogram Report ---
Test Reason : Blood Pressure : / mmHG Vent. Rate : 108 BPM Atrial Rate : 108 BPM P-R Int : 148 ms QRS Dur : 082 ms QT Int : 398 ms P-R-T Axes : 006 023 022 degrees QTc Int : 533 ms Sinus tachycardia with Premature atrial complexes Possible Left atrial enlargement Prolonged QT Abnormal ECG When compared with ECG of 16-MAR-2022 10:29, Premature atrial complexes are now Present Confirmed by Jamari Meyer ([id number]) on 03/30/2022 10:11:35 AM Referred By: REFERRED SELF Confirmed By:Gabe Meyer
[2022-04-01 07:42] LABS: 18KDIGG Band REACTIVE; 23KDIGG Band NON-REACTIVE; 23KDIGM Band NON-REACTIVE; 28KDIGG Band REACTIVE; 30KDIGG Band NON-REACTIVE; 39KDIGG Band REACTIVE; 39KDIGM Band NON-REACTIVE; 41KDIGG Band NON-REACTIVE; 41KDIGM Band NON-REACTIVE; 45KDIGG Band NON-REACTIVE; 58KDIGG Band REACTIVE; 66KDIGG Band NON-REACTIVE; 93KDIGG Band NON-REACTIVE; Lyme Antibodies, WB IgG NEGATIVE (NEGATIVE); Lyme Antibodies, WB IgM NEGATIVE (NEGATIVE)
== END 2022-03-30 00:38 | disposition left against medical advice (07) ==
LOC: ED 14:04 → INTOOBSV 18:50 → EDINP 18:50

== ENCOUNTER 2023-06-21 17:03 | Inpatient (IN) ==
[2023-06-21 17:46] LABS: Basophils # (auto) 0.06 K/uL (0.00-0.20); Basophils % (auto) 0.5 %; Eosinophils # (auto) 0.08 K/uL (0.00-0.50); Eosinophils % (auto) 0.7 %; Hematocrit (blood only) 44.2 % (37.0-47.0); Hemoglobin 15.4 g/dl (12.0-16.0); Immature Granulocytes # (auto) 0.04 K/uL (0.01-0.20); Immature Granulocytes % (auto) 0.3 %; Lymphocytes % (auto) 21.8 %; Mean Corpuscular Hgb Conc 34.8 g/dL (32.0-36.0); Mean Corpuscular Volume 94.6 fL (80.0-100.0); Mean Platelet Volume 9.3 fL (9.4-12.4); Monocytes # (auto) 1.29 K/uL (0.11-0.59); Monocytes % (auto) 11.2 %; Neutrophils # (auto) 7.51 K/uL (1.40-6.50); Neutrophils % (auto) 65.5 %; Platelet Count 301 K/uL (130-400); RDW Coefficient of Variation 17.3 % (11.5-14.5); RDW Standard Deviation 59.8 fL (36.4-46.3); Red Blood Count 4.67 M/uL (4.20-5.40); White Blood Count 11.48 K/ul (4.8-10.8)
[2023-06-21 17:53] LABS: Pregnancy Test, Serum Negative (Negative)
[2023-06-21 18:38] LABS: Alanine Aminotransferase 16 U/L (7-52); Albumin Globulin Ratio 1.2 (0.9-2); Albumin Level 3.8 gm/dl (3.4-5.0); Alkaline Phosphatase 190 U/L (34-104); Anion Gap 13 (3-11); Aspartate Aminotransferase 51 U/L (13-39); BUN Creatinine Ratio 7.7 (10-20); Bilirubin,Total 2.3 mg/dl (0.2-1.0); Blood Urea Nitrogen 3 mg/dl (6-23); Calcium 9.3 mg/dl (8.6-10.3); Carbon Dioxide 35 mmol/L (21-32); Chloride 86 mmol/L (98-107); Est GFR (Non-African American) 120.8 ml/min; Globulin 3.2 gm/dl (2.5-4.0); Glucose 109 mg/dl (70-99(Fasting)); Lipase < 3 U/L (11-82); Magnesium 1.2 mg/dl (1.7-2.4); Potassium 2.2 mmol/L (3.5-5.1); Sodium 134 mmol/L (136-145)
[2023-06-21] MEDS ORDERED: POTASSIUM CHLORIDE CRTAB 20 MEQ TABCR PO STA (18:41)
[2023-06-21] MEDS ORDERED: OPTIRAY 320 100ml IV ONE (18:49)
[2023-06-21] MEDS: MAGNESIUM SULFATE / D5W 1 GM/100 ML BAG IV SCH ×3 (19:06→23:43)
--- NOTE | 2023-06-21 19:13 | CT Scan Report ---
CT OF THE ABDOMEN AND PELVIS WITH CONTRAST CLINICAL HISTORY: Left lower quadrant pain. Nausea and vomiting. COMPARISON STUDY: CT of the abdomen and pelvis April 17, 2022 right upper quadrant ultrasound Febru norah2022. TECHNIQUE: Following IV administration of 91 mL of Optiray, axial images of the abdomen and pelvis we re obtained from the lung bases to the proximal femurs. Images were reviewed in the axial, sagittal, and coronal planes. IV contrast was administered without complication. Automated exposure control wa s utilized for the study. A dose lowering technique was utilized adhering to the principles of ALARA . CT DOSE: 1193.21 mGy.cm FINDINGS: Lung bases are unremarkable. No pneumatosis, free air or portal venous gas is present. Ther e is mild hepatomegaly. There is severe hepatic steatosis. Areas of fatty sparing are present. No dis crete hepatic lesions are identified. Slight dilatation of the common bile duct is unchanged. There i s no pancreatic ductal dilatation. Layering material within the gallbladder is noted. There is no per icholecystic stranding. Spleen, adrenal glands and pancreas are unremarkable. The right kidney is unr emarkable. A 9 mm left mid pole renal lesion on image 116 at 381 measures above water attenuation. At tenuation is 34 Hounsfield units. This is too small to characterize. A few additional left renal lesi ons are also too small to characterize. There are no urinary calculi. Recanalized paraumbilical vein is again noted. Suspected small varices are present. Submucosal fat deposition within portions of the colon is chronic. The appendix is normal. There is no evidence for a bowel obstruction. Major vascul ature is patent. There is no lymphadenopathy. There is no ascites. No acute fractures within the visu alized skeletal structures are present. Mild T12 compression fracture is unchanged since radiographs of March 27, 2023. IMPRESSION: 1. Normal appendix. No bowel obstruction. 2. Severe hepatic steatosis. Mild hepatomegaly. Small varices which suggest portal hypertension possi gonzalez on the basis of cirrhosis. 3. Layering material within the gallbladder which may reflect sludge or stones. No CT evidence for ac freddie cholecystitis. 4. A few subcentimeter left renal lesions. A 9 mm lesion probably reflects a proteinaceous cyst howev er a small solid renal lesion could appear similar. This can be assessed on follow-up exams to ensure stability. ACT 112: Negative or not required by law. Electronically signed by: Cornelio Alvarez M.D. 06/21/2023 7:11 PM
--- NOTE | 2023-06-21 19:50 | Emergency Department Note ---
Impression & Plan Weakness, Hypomagnesemia, Abdominal pain, Nausea & vomiting, Acute hypokalemia ED Provider Note HISTORY OF PRESENT ILLNESS: Patient is a 53-year-old female presenting with abdominal pain, nausea and vomiting and generalized weakness. Patient reports for the last week and a half she has been having generalized abdominal pain and multiple episodes of vomiting. She states that she has been very fatigued and unable to get up and get around and do her basic activities of daily living. She had laboratory work-up done by her outpatient provider which showed that she was hypokalemic. She was sent to the ER for further evaluation. On arrival, the patient is complaining of generalized weakness. Denies any fevers. Denies any chest pain or shortness of breath. Reports generalized abdominal pain that has been constant since onset a week ago. Denies any dysuria or hematuria. Reports that she had poor oral intake in the last week secondary to nausea and vomiting ROS: as above PHYSICAL EXAM: Constitutional: Patient appears in no acute distress. HENT: Head: Normocephalic and atraumatic. Eyes: EOMI, PERRL Mouth/Throat: Mucous membranes moist. Neck: Trachea midline. Neck supple. Cardiovascular: RRR, No murmurs, rubs or gallops. Intact distal pulses. Pulmonary/Chest: No respiratory distress. Breath sounds clear and equal bilaterally. No wheezes or rales. Abdominal: Abdomen soft, no rebound or guarding. Generalized tenderness to palpation Musculoskeletal: No edema, tenderness or deformity noted. Skin: Warm and dry. No rash, erythema, pallor or cyanosis Psychiatric: Appropriate mood and affect for situation. Neurological: Alert and keenly responsive. CN II-XII grossly intact, moving all extremities equally and fully. MDM: - Vitals signs showed borderline tachycardia. - History obtained via patient. Patient presents with abdominal pain, vomiting and generalized weakness. Patient reports for the last week and a half she has had generalized abdominal pain and multiple episodes of vomiting. Reports poor oral intake secondary to her nausea and vomiting. Denies any fevers. Denies any dysuria or hematuria. Denies any chest pain or shortness of breath. She is also felt significantly fatigued. States that she gets very tired and lethargic doing basic chores. - Chronic conditions affecting care: COPD; fatty liver; anemia; hypothyroidism - Differential diagnoses include, but are not limited to: diverticulitis; ischemic colitis; UTI; ureteral calculi - Order placed for continuous cardiac monitoring. At this time, monitor showed rate of 91 bpm with normal sinus rhythm, per my interpretation. - External medical records reviewed. EMS run sheet was reviewed. Patient was vitally stable in route. No medications were given prehospital. - EKG reviewed by myself showed normal sinus rhythm. Rate 95 bpm. QT is prolonged at 398. No acute ischemic changes - Laboratory workup interpreted by myself showed leukocytosis (WBC 11.48); hyponatremia (Na 134); hypokalemia (K 2.2); elevated anion gap (13); hypomagnesemia (Mg 1.2); negative hCG - CT abdomen/pelvis with IV contrast showed no acute pathology. Noted to have layering material within the gallbladder which may reflect sludge or stones - Patient given 20 mEq PO potassium and 20 mEq IV potassium. Given 2g IV magnesium for electrolyte replacement - Given 50 mcg IV fentanyl for pain control. - No clear etiology for the patient's abdominal pain at this time. However, she does have some significant electrolyte abnormalities with EKG changes. - Discussion was had with licensed clinical social worker about patient's case and need for admission - Hospitalist consulted for admission - Patient admitted to [facility] service for further evaluation and management. ASSESSMENT AND PLAN: Diagnosis: Abdominal pain; generalized weakness; hypokalemia; hypomagnesemia Plan: admit Past Med/Surg History Medical History Acid reflux Alcohol dependence Anxiety and depression Constipation COPD (chronic obstructive pulmonary disease) Fatty liver Heavy menses High blood pressure History of anemia History of seizure Hypothyroidism Muscle mass PTSD (post-traumatic stress disorder) PUD (peptic ulcer disease) Rectal bleeding Snores Spontaneous pneumothorax Vitamin D deficiency Surgical History H/O tooth extraction History of section History of colonoscopy History of endoscopy History of esophagogastroduodenoscopy (EGD) Family History Mother Family hx of colon cancer Stomach cancer Anxiety Depression Kidney disease Colorectal cancer Lung disease Gallbladder disease Family history of cancer Grandmother (Maternal) Stomach cancer Alcohol abuse Father Depression Cardiac disorder Kidney stones Kidney disease Myocardial infarction Oral-mouth cancer Lung disease Hypertension Lung cancer Sister Drug abuse Anxiety Depression Aunt Breast cancer Brother Family history of diabetes mellitus Other No family history of adverse response to anesthesia Denies family history of Ovarian cancer Prostate cancer Multiple sclerosis Social History Smoking Status: Current every day smoker Tobacco Type: Cigarettes packs per day: 0.5; Cigarettes Per Day: 11; Second Hand Exposure: Yes; Do You Dip or Chew Tobacco: No; Hx Alcohol Use: Yes (HX VODKA A FIFTH A DAY (FOR 11YRS)) Alcohol type: beer Alcohol type Comment: VODKA Alcohol Intake Frequency: 2-4 x/Month Alcohol Int veronique Frequency Comment: 1 beer per week and no other alcohol since January, Hx Substance Use: No Preferred Language: Slovak Communication Ability: Effective Visual Impairment: No Limitations Oxygen Therapist Required: No Beliefs That Will Affect Care: None marital status: marital status details: twice Current Living Situation: Other Current Living Situation Comment: ROOMATE - in [place] current occupational status: unemployed 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 How many Children do You have: 3 Feels Safe at Home: Yes caffeine: Yes (coffee) Dental Care, Regularly: No Physical Activity Frequency: 1-2 Times per Week Seatbelt Use: always Sunscreen Use: No Assistive Devices: None Allergies Allergies Allergy/AdvReac Type Severity Reaction Status Date / Time gabapentin Allergy Confusion Verified 06/21/23 17:43 promethazine AdvReac Intermediate MADE ME Verified 06/21/23 17:43 SICKER hair dye Allergy Unknown scalp Uncoded 06/21/23 17:43 irriration/swelling Home Meds Home Medications Medication Instructions Recorded Confirmed ascorbic acid (vitamin C) 500 mg 500 mg PO QAM 06/24/21 06/21/23 tablet (Vitamin C) cyanocobalamin (vitamin B-12) 1,000 mcg PO QAM 07/20/21 06/21/23 1,000 mcg capsule cholecalciferol (vitamin D3) 10 10 mcg PO QAM 03/08/22 06/21/23 mcg (400 unit) tablet (Vitamin D3) multivitamin 1 tab PO DAILY 10/24/22 06/21/23 albuterol sulfate 90 mcg/actuation 2 puff inhalation Q6HWA PRN 06/21/23 06/21/23 aerosol inhaler COPD/ASTHMA lidocaine 4 % topical patch 1 patch topical DAILY PRN Pain 06/21/23 06/21/23 ondansetron 4 mg disintegrating 4 mg translingual Q8 PRN Nausea 06/21/23 06/21/23 tablet Previous Rx's Medication Instructions Recorded Donell Ovalles #1 ea 03/25/22 potassium chloride 20 mEq 20 meq PO QAM #90 tabs 03/25/22 tablet,extended release(part/cryst) duloxetine 60 mg capsule,delayed 60 mg PO DAILY #30 caps 03/13/23 release omeprazole 20 mg capsule,delayed 20 mg PO BID #60 caps 03/14/23 release pregabalin 100 mg capsule (Lyrica) 100 mg PO TID #90 caps 03/14/23 levothyroxine 112 mcg tablet 112 mcg PO DAILY #30 tabs 05/17/23 cholecalciferol (vitamin D3) 1,250 50,000 unit PO .one per week #10 05/29/23 mcg (50,000 unit) capsule caps Results & Data (ED) Vital Signs Vital Signs - 24 hr 06/21/23 17:08 06/21/23 17:34 06/21/23 17:40 Temperature 36.6 C Temperature Source Temporal Artery Scan Pulse Rate 105 H 96 H Pulse Rate [Right Finger] 96 H Respiratory Rate 16 12 Respiratory Effort / Characteristics Non-Labored Respiratory Depth Normal Blood Pressure 115/80 Blood Pressure [Right Arm] 128/91 Blood Pressure Mean 91 Blood Pressure Mean [Right Arm] 103 Pulse Oximetry 95 92 Oxygen Delivery Method Room Air Room Air Sepsis Recent Fever Within 48 Hours No Sepsis New/Unexplained Change in Mental Status No Sepsis Action Taken by Nursing No Action Required 06/21/23 21:44 06/21/23 18:00 06/21/23 18:30 Temperature Temperature Source Pulse Rate 90 98 H 95 H Pulse Rate [Right Finger] Respiratory Rate 19 13 Respiratory Effort / Characteristics Respiratory Depth Blood Pressure 120/91 130/89 Blood Pressure [Right Arm] Blood Pressure Mean 100 102 Blood Pressure Mean [Right Arm] Pulse Oximetry 94 91 Oxygen Delivery Method Room Air Room Air Sepsis Recent Fever Within 48 Hours Sepsis New/Unexplained Change in Mental Status Sepsis Action Taken by Nursing 06/21/23 19:30 06/21/23 20:00 06/21/23 21:00 Temperature Temperature Source Pulse Rate 98 H 91 H 96 H Pulse Rate [Right Finger] Respiratory Rate 23 23 22 Respiratory Effort / Characteristics Respiratory Depth Blood Pressure 110/83 120/88 117/76 Blood Pressure [Right Arm] Blood Pressure Mean 92 98 89 Blood Pressure Mean [Right Arm] Pulse Oximetry 93 92 94 Oxygen Delivery Method Room Air Room Air Room Air Sepsis Recent Fever Within 48 Hours Sepsis New/Unexplained Change in Mental Status Sepsis Action Taken by Nursing 06/21/23 21:30 06/21/23 22:00 Temperature Temperature Source Pulse Rate 98 H 92 H Pulse Rate [Right Finger] Respiratory Rate 13 21 Respiratory Effort / Characteristics Respiratory Depth Blood Pressure 111/71 109/71 Blood Pressure [Right Arm] Blood Pressure Mean 84 83 Blood Pressure Mean [Right Arm] Pulse Oximetry 93 93 Oxygen Delivery Method Room Air Room Air Sepsis Recent Fever Within 48 Hours Sepsis New/Unexplained Change in Mental Status Sepsis Action Taken by Nursing Laboratory Data 06/21/23 17:16 06/21/23 17:16 Lab Results 06/21/23 06/21/23 06/21/23 Range/Units 17:16 17:16 17:16 WBC 11.48 H (4.8-10.8) K/ul RBC 4.67 (4.20-5.40) M/uL Hgb 15.4 (12.0-16.0) g/dl Hct 44.2 (37.0-47.0) % MCV 94.6 (80.0-100.0) fL MCH 33.0 (25.0-34.0) pg MCHC 34.8 (32.0-36.0) g/dL RDW Std Deviation 59.8 H (36.4-46.3) fL RDW Coeff of Celestina 17.3 H (11.5-14.5) % Plt Count 301 (130-400) K/uL MPV 9.3 L (9.4-12.4) fL Immature Gran % (Auto) 0.3 % Neut % (Auto) 65.5 % Lymph % (Auto) 21.8 % Kane % (Auto) 11.2 % Eos % (Auto) 0.7 % Baso % (Auto) 0.5 % Neut # (Auto) 7.51 H (1.40-6.50) K/uL Lymph # (Auto) 2.50 (1.20-3.40) K/uL Kane # (Auto) 1.29 H (0.11-0.59) K/uL Eos # (Auto) 0.08 (0.00-0.50) K/uL Baso # (Auto) 0.06 (0.00-0.20) K/uL Immature Gran # (Auto) 0.04 (0.01-0.20) K/uL Sodium 134 L (136-145) mmol/L Potassium 2.2 L* (3.5-5.1) mmol/L Chloride 86 L (98-107) mmol/L Carbon Dioxide 35 H (21-32) mmol/L Anion Gap 13 H (3-11) BUN 3 L (6-23) mg/dl Creatinine 0.39 L (0.6-1.2) mg/dl Est Cr Clr Drug Dosing Not Reportable Est GFR ( Amer) 140.0 ml/min Est GFR (Non-Af Amer) 120.8 ml/min BUN/Creatinine Ratio 7.7 L (10-20) Glucose 109 H (70-99(Fasting)) mg/dl Calcium 9.3 (8.6-10.3) mg/dl Magnesium 1.2 L (1.7-2.4) mg/dl Total Bilirubin 2.3 H (0.2-1.0) mg/dl AST 51 H (13-39) U/L ALT 16 (7-52) U/L Alkaline Phosphatase 190 H (34-104) U/L Total Protein 7.0 (6.0-8.3) gm/dl Albumin 3.8 (3.4-5.0) gm/dl Globulin 3.2 (2.5-4.0) gm/dl Albumin/Globulin Ratio 1.2 (0.9-2) Lipase < 3 L (11-82) U/L HCG, Qual Negative (Negative) Administered Medications Discontinued Medications Magnesium Sulfate/Dextrose (Magnesium Sulfate / D5w) 1 gm in 100 mls @ 100 mls/hr IV Q1H SLIM Stop: 06/21/23 20:40 Last Admin: 06/21/23 21:21 Dose: 100 mls/hr Documented By: Infusion: 06/21/23 20:15 Dose: 0 mls/hr Documented By: Admin: 06/21/23 19:06 Dose: 100 mls/hr Documented By: KENAN Potassium Chloride (K Marquise / Wtr) 10 meq in 100 mls @ 100 mls/hr IV Q1H SLIM Stop: 06/21/23 20:44 Last Infusion: 06/21/23 21:14 Dose: 0 mls/hr Documented By: Admin: 06/21/23 20:08 Dose: 100 mls/hr Documented By: KENAN Ioversol (Optiray 320 100ml) 91 ml IV ONCE ONE Stop: 06/21/23 18:50 Last Admin: 06/21/23 18:50 Dose: 91 ml Documented By: PLRashard Potassium Chloride (Potassium Chloride Crtab 20 Meq Tabcr) 20 meq PO NOW STA Stop: 06/21/23 18:42 Last Admin: 06/21/23 19:06 Dose: 20 meq Documented By: KENAN Imaging Data Radiologist's Impression: Abdomen/Pelvis CT 06/21/23 17:15 CT OF THE ABDOMEN AND PELVIS WITH CONTRAST CLINICAL HISTORY: Left lower quadrant pain. Nausea and vomiting. COMPARISON STUDY: CT of the abdomen and pelvis April 17, 2022 right upper quadrant ultrasound October 14, 2022. TECHNIQUE: Following IV administration of 91 mL of Optiray, axial images of the abdomen and pelvis were obtained from the lung bases to the proximal femurs. Images were reviewed in the axial, sagittal, and coronal planes. IV contrast was administered without complication. Automated exposure control was utilized for the study. A dose lowering technique was utilized adhering to the principles of ALARA. CT DOSE: 1193.21 mGy.cm FINDINGS: Lung bases are unremarkable. No pneumatosis, free air or portal venous gas is present. There is mild hepatomegaly. There is severe hepatic steatosis. Areas of fatty sparing are present. No discrete hepatic lesions are identified. Slight dilatation of the common bile duct is unchanged. There is no pancreatic ductal dilatation. Layering material within the gallbladder is noted. There is no pericholecystic stranding. Spleen, adrenal glands and pancreas are un remarkable. The right kidney is unremarkable. A 9 mm left mid pole renal lesion on image 116 at 381 measures above water attenuation. Attenuation is 34 Hounsfield units. This is too small to characterize. A few additional left renal lesions are also too small to characterize. There are no urinary calculi. Recanalized paraumbilical vein is again noted. Suspected small varices are present. Submucosal fat deposition within portions of the colon is chronic. The appendix is normal. There is no evidence for a bowel obstruction. Major vasculature is patent. There is no lymphadenopathy. There is no ascites. No acute fractures within the visualized skeletal structures are present. Mild T12 compression fracture is unchanged since radiographs of March 27, 2023. IMPRESSION: 1. Normal appendix. No bowel obstruction. 2. Severe hepatic steatosis. Mild hepatomegaly. Small varices which suggest po rtal hypertension possibly on the basis of cirrhosis. 3. Layering material within the gallbladder which may reflect sludge or stones. No CT evidence for acute cholecystitis. 4. A few subcentimeter left renal lesions. A 9 mm lesion probably reflects a proteinaceous cyst however a small solid renal lesion could appear similar. This can be assessed on follow-up exams to ensure stability. ACT 112: Negative or not required by law. Electronically signed by: Cornelio Alvarez M.D. 06/21/2023 7:11 PM Discharge Plan Visit Data Chief Complaint: Abnormal Labs/Diagnostic Testing Stated Complaint: LOW POTASSIUM, DEHYDRATED ED Provider: Phyllis Ellis Discharge Problem: Weakness, Hypomagnesemia, Abdominal pain, Nausea & vomiting, Acute hypokalemia Forms Stand Alone Forms: [facility] Prescriptions Prescriptions: No Action (DME) Donell Ovalles Misc See Rx Instructions .Route Qty: 1 0RF Rx Instructions: As directed Dx:A69.20; G62.9 multivitamin Tablet 1 tab PO DAILY duloxetine 60 mg capsule,delayed release(DR/EC) 60 mg PO DAILY Qty: 30 1RF pregabalin [Lyrica] 100 mg capsule 100 mg PO TID Qty: 90 1RF omeprazole 20 mg capsule,delayed release(DR/EC) 20 mg PO BID Qty: 60 1RF levothyroxine 112 mcg tablet 112 mcg PO DAILY Qty: 30 6RF potassium chloride 20 mEq tablet,ER particles/crystals 20 meq PO QAM Qty: 90 1RF cholecalciferol (vitamin D3) 1,250 mcg (50,000 unit) capsule 50,000 unit PO .one per week Qty: 10 1RF Rx Instructions: take one capsule per week with meal 06/21/23 : THIS MED NOT STARTED YET. ascorbic acid (vitamin C) [Vitamin C] 500 mg Tablet 500 mg PO QAM cholecalciferol (vitamin D3) [Vitamin D3] 10 mcg (400 unit) Tablet 10 mcg PO QAM cyanocobalamin (vitamin B-12) 1,000 mcg capsule 1,000 mcg PO QAM albuterol sulfate 90 mcg/actuation HFA aerosol inhaler 2 puff inhalation Q6HWA PRN (Reason: COPD/ASTHMA) lidocaine 4 % Adhesive Patch,Medicated 1 patch TOPICAL DAILY PRN (Reason: Pain) Rx Instructions: OTC ondansetron 4 mg tablet,disintegrating 4 mg translingual Q8 PRN (Reason: Nausea) Rx Instructions: 06/21/23 THIS MED NOT STARTED YET. Referrals Referrals: Natalia Puentes MD [Primary Care Provider] -
[2023-06-21] MEDS: POTASSIUM CHLORIDE / WTR 10 MEQ/100 ML PLCT IV SCH ×2 (20:08→22:30)
[2023-06-21] MEDS ORDERED: fentaNYL citrate PF 100 MCG/2 ML VIAL IV STA (22:14)
--- NOTE | 2023-06-21 23:41 | History & Physical Report ---
Date of Service June 21, 2023 Assessment & Plan (1) Weakness: (2) Abdominal pain: (3) Nausea & vomiting: (4) Alcoholic myopathy: (5) Idiopathic polyneuropathy: (6) Tobacco dependence: (7) Hypokalemia: (8) Hypomagnesemia: (9) Cirrhosis: (10) Portal hypertension: (11) History of ETOH abuse: (12) COPD (chronic obstructive pulmonary disease): Plan Hypokalemia/hypomagnesemia- Potassium 2.2 and magnesium 1.2 on admission From the ED received potassium chloride 20 mEq p.o. and 10 mEq IV x2 From the ED received magnesium sulfate 2 g IV Given additional 2 g magnesium sulfate IV Placed on NSS + KCl 20 mEq at 100 mL/h Repeat CBC with differential, chemistry profile and magnesium levels in a.m. Severe abdominal pain/cirrhosis/hepatic steatosis/hepatomegaly/EtoH abuse history- CT scan of abdomen pelvis also notes gallbladder with possible sludge and/or stones We will order MRCP to further clarify Continue n.p.o. except medications for now Alcohol use history- Reports she has not had any alcohol to drink in the past 2 weeks, so should not need the alcohol withdrawal protocol History of Present Illness Chief Complaint: The patient had presented to the outpatient office with complaint of 1 and half weeks of generalized abdominal pain, nausea, vomiting and generalized weakness, with subsequent laboratories revealing low potassium, and was then referred to the ED for assessment. Primary Care Provider: Natalia Puentes MD The patient is a 53-year-old female with a past medical history including T12 compression fracture, vitamin D deficiency, B12 deficiency, alcoholic myopathy, alcoholic dependence, idiopathic polyneuropathy, tobacco dependence, cirrhosis, portal hypertension, COPD, CAD, fatty liver and hypertension. She presents to the emergency department as noted above. The patient reports that she had not had a bowel movement in 2 weeks, but also reports not having eaten anything in a week and a half. She had decreased oral intake of liquids during this time as well. Significant laboratories: Potassium 2.2, glucose 109, magnesium 1.2, total bilirubin 2.3, AST 51. CT scan of abdomen pelvis: Severe hepatic steatosis and mild hepatomegaly, varices, portal hypertension, gallbladder with possible sludge or stones, and left renal lesions, largest of which is of 9 mm proteinaceous cyst versus possible solid lesion From the emergency department the patient received the following: Potassium chloride 20 mEq p.o. x1, potassium chloride 10 mill equivalent K riders IV x2, magnesium sulfate 2 g IV Allergies Allergy/AdvReac Type Severity Reaction Status Date / Time gabapentin Allergy Confusion Verified 06/21/23 17:43 promethazine AdvReac Intermediate MADE ME Verified 06/21/23 17:43 SICKER hair dye Allergy Unknown scalp Uncoded 06/21/23 17:43 irriration/swelling Home Medications Medication Instructions Recorded Confirmed Type ascorbic acid (vitamin C) 500 mg 500 mg PO QAM 06/24/21 06/21/23 History tablet (Vitamin C) cyanocobalamin (vitamin B-12) 1,000 mcg PO QAM 07/20/21 06/21/23 History 1,000 mcg capsule cholecalciferol (vitamin D3) 10 10 mcg PO QAM 03/08/22 06/21/23 History mcg (400 unit) tablet (Vitamin D3) Wheeled Walker #1 ea 03/25/22 03/27/23 Rx potassium chloride 20 mEq 20 meq PO QAM #90 tabs 03/25/22 06/21/23 Rx tablet,extended release(part/cryst) multivitamin 1 tab PO DAILY 10/24/22 06/21/23 History duloxetine 60 mg capsule,delayed 60 mg PO DAILY #30 caps 03/13/23 06/21/23 Rx release omeprazole 20 mg capsule,delayed 20 mg PO BID #60 caps 03/14/23 06/21/23 Rx release pregabalin 100 mg capsule (Lyrica) 100 mg PO TID #90 caps 03/14/23 06/21/23 Rx levothyroxine 112 mcg tablet 112 mcg PO DAILY #30 tabs 05/17/23 06/21/23 Rx cholecalciferol (vitamin D3) 1,250 50,000 unit PO .one per week #10 05/29/23 06/21/23 Rx mcg (50,000 unit) capsule caps albuterol sulfate 90 mcg/actuation 2 puff inhalation Q6HWA PRN 06/21/23 06/21/23 History aerosol inhaler COPD/ASTHMA lidocaine 4 % topical patch 1 patch topical DAILY PRN Pain 06/21/23 06/21/23 History ondansetron 4 mg disintegrating 4 mg translingual Q8 PRN Nausea 06/21/23 06/21/23 History tablet Past Med/Surg History Medical History Acid reflux Alcohol dependence Anxiety and depression Constipation COPD (chronic obstructive pulmonary disease) Fatty liver Heavy menses High blood pressure History of anemia History of seizure Hypothyroidism Muscle mass PTSD (post-traumatic stress disorder) PUD (peptic ulcer disease) Rectal bleeding Snores Spontaneous pneumothorax Vitamin D deficiency Surgical History H/O tooth extraction History of section History of colonoscopy History of endoscopy History of esophagogastroduodenoscopy (EGD) Family History Mother Family hx of colon cancer Stomach cancer Anxiety Depression Kidney disease Colorectal cancer Lung disease Gallbladder disease Family history of cancer Grandmother (Maternal) Stomach cancer Alcohol abuse Father Depression Cardiac disorder Kidney stones Kidney disease Myocardial infarction Oral-mouth cancer Lung disease Hypertension Lung cancer Sister Drug abuse Anxiety Depression Aunt Breast cancer Brother Family history of diabetes mellitus Other No family history of adverse response to anesthesia Denies family history of Ovarian cancer Prostate cancer Multiple sclerosis Social History Smoking Status: Current every day smoker Tobacco Type: Cigarettes packs per day: 0.5; Cigarettes Per Day: 11; Second Hand Exposure: Yes; Do You Dip or Chew Tobacco: No; Hx Alcohol Use: Yes (HX VODKA A FIFTH A DAY (FOR 11YRS)) Alcohol type: beer Alcohol type Comment: VODKA Alcohol Intake Frequency: 2-4 x/Month Alcohol Intake Frequency Comment: 1 beer per week and no other alcohol since January, Hx Substance Use: No Preferred Language: Filipino Communication Ability: Effective Visual Impairment: No Limitations Feather Cutting Machine Feeder Required: No Beliefs That Will Affect Care: None marital status: marital status details: twice Current Living Situation: Other Current Living Situation Comment: [place] - in [place] current occupational status: unemployed 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 How many Children do You have: 3 Feels Safe at Home: Yes caffeine: Yes (coffee) Dental Care, Regularly: No Physical Activity Frequency: 1-2 Times per Week Seatbelt Use: always Sunscreen Use: No Assistive Devices: None Review of Systems Review of Systems: The patient denies chest pain, palpitations, shortness of breath, dyspnea on exertion, cough, lower extremity swelling, sore throat, fevers, chills, sweats, blood in urine or stool, dysuria, urinary frequency or urgency, lightheadedness, dizziness, headache, memory loss, loss of consciousness, rash, abnormal bruising or bleeding, imbalance, focal weakness, numbness or tingling in arms or legs, back or neck pain, or night sweats. The review of systems is otherwise negative other than for that already noted above, and at least 10 systems have been reviewed. Physical Exam Physical Exam: The patient is awake, alert and oriented 3, looks severely fatigued, normocephalic and atraumatic, lying in bed and in no acute distress. HEENT--PERRL, EOMI, mucous membranes and oropharynx moderately dry. Neck--supple. No JVD. No bruits. Thyroid normal, trachea midline, no adenopathy. Heart--normal S1 and S2. No murmurs, rubs or gallops. Lungs--clear bilaterally, no respiratory distress, no accessory muscle use. Abdomen--normal bowel sounds and soft. Generalized moderate abdominal pain with palpation. Extremities--no cyanosis or clubbing. No edema. Dermatologic--normal skin turgor, normal color, no abnormal lymph nodes, no rash. Neurologic--cranial nerves II through XII grossly intact. Rheumatologic--limited exam Psychiatric--normal affect. Results & Data Results & Data Vital Signs (Past 12 Hours) Vital Signs Temp Pulse Pulse Resp BP BP Pulse Ox 06/21/23 22:40 94 H 15 120/80 90 06/21/23 22:00 92 H 21 109/71 93 06/21/23 21:30 98 H 13 111/71 93 06/21/23 21:00 96 H 22 117/76 94 06/21/23 20:00 91 H 23 120/88 92 06/21/23 19:30 98 H 23 110/83 93 06/21/23 18:30 95 H 13 130/89 91 06/21/23 18:00 98 H 19 120/91 94 06/21/23 21:44 90 06/21/23 17:40 96 H 12 128/91 92 06/21/23 17:34 96 H 06/21/23 17:08 36.6 C 105 H 16 115/80 95 O2 Del Method 06/21/23 22:40 Room Air 06/21/23 22:00 Room Air 06/21/23 21:30 Room Air 06/21/23 21:00 Room Air 06/21/23 20:00 Room Air 06/21/23 19:30 Room Air 06/21/23 18:30 Room Air 06/21/23 18:00 Room Air 06/21/23 21:44 06/21/23 17:40 Room Air 06/21/23 17:34 06/21/23 17:08 Room Air Laboratory Results Laboratory Results WBC 11.48 K/ul (4.8-10.8) H 06/21/23 17:16 RBC 4.67 M/uL (4.20-5.40) 06/21/23 17:16 Hgb 15.4 g/dl (12.0-16.0) 06/21/23 17:16 Hct 44.2 % (37.0-47.0) 06/21/23 17:16 MCV 94.6 fL (80.0-100.0) 06/21/23 17:16 MCH 33.0 pg (25.0-34.0) 06/21/23 17:16 MCHC 34.8 g/dL (32.0-36.0) 06/21/23 17:16 RDW Std Deviation 59.8 fL (36.4-46.3) H 06/21/23 17:16 RDW Coeff of Celestina 17.3 % (11.5-14.5) H 06/21/23 17:16 Plt Count 301 K/uL (130-400) 06/21/23 17:16 MPV 9.3 fL (9.4-12.4) L 06/21/23 17:16 Immature Gran % (Auto) 0.3 % 06/21/23 17:16 Neut % (Auto) 65.5 % 06/21/23 17:16 Lymph % (Auto) 21.8 % 06/21/23 17:16 Hart % (Auto) 11.2 % 06/21/23 17:16 Eos % (Auto) 0.7 % 06/21/23 17:16 Baso % (Auto) 0.5 % 06/21/23 17:16 Neut # (Auto) 7.51 K/uL (1.40-6.50) H 06/21/23 17:16 Lymph # (Auto) 2.50 K/uL (1.20-3.40) 06/21/23 17:16 Hart # (Auto) 1.29 K/uL (0.11-0.59) H 06/21/23 17:16 Eos # (Auto) 0.08 K/uL (0.00-0.50) 06/21/23 17:16 Baso # (Auto) 0.06 K/uL (0.00-0.20) 06/21/23 17:16 Immature Gran # (Auto) 0.04 K/uL (0.01-0.20) 06/21/23 17:16 Sodium 134 mmol/L (136-145) L 06/21/23 17:16 Potassium 2.2 mmol/L (3.5-5.1) L* 06/21/23 17:16 Chloride 86 mmol/L (98-107) L 06/21/23 17:16 Carbon Dioxide 35 mmol/L (21-32) H 06/21/23 17:16 Anion Gap 13 (3-11) H 06/21/23 17:16 BUN 3 mg/dl (6-23) L 06/21/23 17:16 Creatinine 0.39 mg/dl (0.6-1.2) L 06/21/23 17:16 Est Cr Clr Drug Dosing Not Reportable 06/21/23 17:16 Est GFR ( Amer) 140.0 ml/min 06/21/23 17:16 Est GFR (Non-Af Amer) 120.8 ml/min 06/21/23 17:16 BUN/Creatinine Ratio 7.7 (10-20) L 06/21/23 17:16 Glucose 109 mg/dl (70-99(Fasting)) H 06/21/23 17:16 Calcium 9.3 mg/dl (8.6-10.3) 06/21/23 17:16 Magnesium 1.2 mg/dl (1.7-2.4) L 06/21/23 17:16 Total Bilirubin 2.3 mg/dl (0.2-1.0) H 06/21/23 17:16 AST 51 U/L (13-39) H 06/21/23 17:16 ALT 16 U/L (7-52) 06/21/23 17:16 Alkaline Phosphatase 190 U/L (34-104) H 06/21/23 17:16 Total Protein 7.0 gm/dl (6.0-8.3) 06/21/23 17:16 Albumin 3.8 gm/dl (3.4-5.0) 06/21/23 17:16 Globulin 3.2 gm/dl (2.5-4.0) 06/21/23 17:16 Albumin/Globulin Ratio 1.2 (0.9-2) 06/21/23 17:16 Lipase < 3 U/L (11-82) L 06/21/23 17:16 HCG, Qual Negative (Negative) 06/21/23 17:16 Impressions Abdomen/Pelvis CT 06/21/23 17:15 CT OF THE ABDOMEN AND PELVIS WITH CONTRAST CLINICAL HISTORY: Left lower quadrant pain. Nausea and vomiting. COMPARISON STUDY: CT of the abdomen and pelvis April 17, 2022 right upper quadrant ultrasound October 14, 2022. TECHNIQUE: Following IV administration of 91 mL of Optiray, axial images of the abdomen and pelvis were obtained from the lung bases to the proximal femurs. Images were reviewed in the axial, sagittal, and coronal planes. IV contrast was administered without complication. Automated exposure control was utilized for the study. A dose lowering technique was utilized adhering to the principles of ALARA. CT DOSE: 1193.21 mGy.cm FINDINGS: Lung bases are unremarkable. No pneumatosis, free air or portal venous gas is present. There is mild hepatomegaly. There is severe hepatic steatosis. Areas of fatty sparing are present. No discrete hepatic lesions are identified. Slight dilatation of the common bile duct is unchanged. There is no pancreatic ductal dilatation. Layering material within the gallbladder is noted. There is no pericholecystic stranding. Spleen, adrenal glands and pancreas are unremarkable. The right kidney is unremarkable. A 9 mm left mid pole renal lesion on image 116 at 381 measures above water attenuation. Attenuation is 34 Hounsfield units. This is too small to characterize. A few additional left renal lesions are also too small to characterize. There are no urinary calculi. Recanalized paraumbilical vein is again noted. Suspected small varices are present. Submucosal fat deposition within portions of the colon is chronic. The appendix is normal. There is no evidence for a bowel obstruction. Major vasculature is patent. There is no lymphadenopathy. There is no ascites. No acute fractures within the visualized skeletal structures are present. Mild T12 compression fracture is unchanged since radiographs of March 27, 2023. IMPRESSION: 1. Normal appendix. No bowel obstruction. 2. Severe hepatic steatosis. Mild hepatomegaly. Small varices which suggest por sriram hypertension possibly on the basis of cirrhosis. 3. Layering material within the gallbladder which may reflect sludge or stones. No CT evidence for acute cholecystitis. 4. A few subcentimeter left renal lesions. A 9 mm lesion probably reflects a proteinaceous cyst however a small solid renal lesion could appear similar. This can be assessed on follow-up exams to ensure stability. ACT 112: Negative or not required by law. Electronically signed by: Cornelio Alvarez M.D. 06/21/2023 7:11 PM Code Status & VTE Plan Code Status Full code VTE Prophylaxis Plan VTE Prophylaxis will be ordered: Yes PG Care Time/CCT Total # of Minutes Spent Total Time Spent with Patient: Total time spent is greater than 50% in coordination of care (as documented) at patient's floor/unit and/or counseling patient: Coding Level of Care Code 44519 INT INP/OBS CARE 3/75MIN Diagnoses Weakness R53.1 Abdominal pain R10.9 Nausea & vomiting R11.2 Alcoholic myopathy G72.1 Idiopathic polyneuropathy G60.9 Tobacco dependence F17.200 Hypokalemia E87.6 Hypomagnesemia E83.42 Cirrhosis K74.60 Portal hypertension K76.6 History of ETOH abuse F10.11 COPD (chronic obstructive pulmonary disease) J44.9
[2023-06-21] MEDS: NSS + 20MEQ KCL 20 MEQ/1,000 ML BAG IV SCH (23:44)
[2023-06-22] MEDS: MAGNESIUM SULFATE / D5W 1 GM/100 ML BAG IV SCH (01:45)
[2023-06-22] MEDS ORDERED: ALBUTEROL HFA 8 GM INHALER INH PRN (03:40)
[2023-06-22] MEDS ORDERED: ONDANSETRON 4 MG OD TAB SL PRN (03:40)
[2023-06-22 04:13] LABS: Basophils # (auto) 0.05 K/uL (0.00-0.20); Basophils % (auto) 0.6 %; Eosinophils # (auto) 0.09 K/uL (0.00-0.50); Hematocrit (blood only) 38.4 % (37.0-47.0); Hemoglobin 13.3 g/dl (12.0-16.0); Immature Granulocytes # (auto) 0.03 K/uL (0.01-0.20); Immature Granulocytes % (auto) 0.3 %; Lymphocytes # (auto) 2.04 K/uL (1.20-3.40); Lymphocytes % (auto) 22.5 %; Mean Corpuscular Hemoglobin 33.7 pg (25.0-34.0); Mean Corpuscular Hgb Conc 34.6 g/dL (32.0-36.0); Mean Corpuscular Volume 97.2 fL (80.0-100.0); Mean Platelet Volume 9.4 fL (9.4-12.4); Monocytes # (auto) 0.96 K/uL (0.11-0.59); Monocytes % (auto) 10.6 %; Platelet Count 245 K/uL (130-400); RDW Coefficient of Variation 17.4 % (11.5-14.5); RDW Standard Deviation 63.1 fL (36.4-46.3); Red Blood Count 3.95 M/uL (4.20-5.40); White Blood Count 9.07 K/ul (4.8-10.8)
[2023-06-22 04:27] LABS: Alanine Aminotransferase 11 U/L (7-52); Albumin Globulin Ratio 1.4 (0.9-2); Albumin Level 3.3 gm/dl (3.4-5.0); Alkaline Phosphatase 153 U/L (34-104); Anion Gap 8 (3-11); Aspartate Aminotransferase 40 U/L (13-39); BUN Creatinine Ratio 8.3 (10-20); Bilirubin,Total 2.3 mg/dl (0.2-1.0); Blood Urea Nitrogen 3 mg/dl (6-23); Carbon Dioxide 33 mmol/L (21-32); Chloride 93 mmol/L (98-107); Est GFR (African American) 143.7 ml/min; Globulin 2.4 gm/dl (2.5-4.0); Glucose 110 mg/dl (70-99(Fasting)); Magnesium 2.4 mg/dl (1.7-2.4); Potassium 2.6 mmol/L (3.5-5.1); Sodium 134 mmol/L (136-145); Total Protein 5.7 gm/dl (6.0-8.3)
[2023-06-22 04:57] LABS: Appearance Urine Clear (Clear); Bacteria Urine Automated 1+ (Negative); Blood Urine Negative (Negative); Color Urine Orange; Epithelial Cell Urine Auto >30 /lpf (0-5); Glucose Urine UA Negative (Negative); Ketones Urine Trace (Negative); Leukocyte Esterase Urine 1+ (Negative); Nitrite Urine Positive (Negative); Protein Urine Negative (Negative); RBC Urine Automated 0-4 /hpf (0-4); Specific Gravity Urine > 1.045 (1.000-1.030); Urobilinogen Urine Positive (Negative)
[2023-06-22 05:05] LABS: Bilirubin Urine 2+ (Negative)
[2023-06-22 05:11] LABS: Amphetamines+Metham, Urine Neg (Neg); Barbiturates, Urine Neg (Neg); Benzodiazepine, Urine Neg (Neg); Cocaine, Urine Neg (Neg); MDMA (Ecstacy), Urine Neg (Neg); Methadone, Urine Neg (Neg); Opiate, Urine Neg (Neg); Phencyclidine, Urine Neg (Neg)
[2023-06-22 05:21] LABS: Mucus Urine Present (None Prsent); Renal Epithelial Cells Urine 0-5 /lpf (0-5)
--- NOTE | 2023-06-22 06:55 | Magnetic Resonance Report ---
MRCP CLINICAL HISTORY: RUQ pain, nausea and vomiting. TECHNIQUE: Utilizing a 1.5 Jaleesa magnet and dedicated coil, multiplanar, multiecho imaging of the [facility] abdomen was performed utilizing heavily T2 weighted pulsing sequences without IV contrast. COMPARISON STUDY: MRCP March 17, 2022. CT of the abdomen and pelvis June 21, 2023. FINDINGS: Layering material within the gallbladder is noted. There is no pericholecystic fluid. No ga llbladder wall thickening is noted. Mild dilatation of the common bile duct, measuring 8 mm is simila r to MRCP of March 17, 2022. No common bile duct calculi are identified although sensitivity is dimini shed given motion artifact on the 3-D MRCP sequence. Course and caliber of the main pancreatic duct a re normal. Hepatic steatosis is better depicted on CT. The liver is enlarged. Spleen, adrenal glands and pancreas are unremarkable. An 8 mm mixed signal intensity left renal lesion corresponds to the le paz on CT. This remains indeterminate although favors a proteinaceous cyst. There is no hydronephros is. No abdominal lymphadenopathy. The caliber of visualized small and large bowel are normal. IMPRESSION: 1. Layering material within the gallbladder which could reflect sludge or stones. No convincing evide nce for acute cholecystitis. 2. No change in mild dilatation of the common bile duct since MRCP of March 17, 2022. No common bile d uct calculi identified although exam mildly compromised by motion artifact. 3. Hepatic steatosis and hepatomegaly. ACT 112: Negative or not required by law. Electronically signed by: Cornelio Alvarez M.D. 06/22/2023 6:54 AM
[2023-06-22] MEDS ORDERED: Nursing to Pharmacy Communication SCH (08:00)
[2023-06-22] MEDS: MULTIVITAMIN TAB PO SCH (08:08)
[2023-06-22] MEDS: PANTOprazole 40 MG TAB PO SCH ×2 (08:08→20:36)
[2023-06-22] MEDS: POTASSIUM CHLORIDE CRTAB 20 MEQ TABCR PO SCH ×2 (08:08→20:36)
[2023-06-22] MEDS: ASCORBIC ACID 500 MG TAB PO SCH (08:09)
[2023-06-22] MEDS: LEVOTHYROXINE SODIUM 112 MCG TABLET PO SCH (08:09)
[2023-06-22] MEDS: CYANOCOBALAMIN (B-12) 500 MCG TABLET PO SCH (08:09)
[2023-06-22] MEDS: CHOLECALCIFEROL 400 UNITS 10 MCG TAB PO SCH (08:09)
[2023-06-22] MEDS: DULoxetine HCL 60 MG CAP PO SCH (08:09)
[2023-06-22] MEDS: HEPARIN SOD 5,000 UNIT/0.5 ML VIAL SQ SCH ×3 (08:10→20:49)
[2023-06-22] MEDS: NSS + 20MEQ KCL 20 MEQ/1,000 ML BAG IV SCH ×2 (08:12→16:21)
[2023-06-22] MEDS ORDERED: PREGABALIN 100 MG CAP PO SCH (09:00)
[2023-06-22] MEDS: cefTRIAXone SODIUM 1,000 MG in DEXTROSE 5 % MINI-B 50 ML IV SCH (09:53)
[2023-06-22] MEDS: PREGABALIN 100 MG CAP PO SCH ×2 (13:34→20:47)
--- NOTE | 2023-06-22 15:26 | Hospitalist Progress Note ---
Date of Service June 22, 2023 Assessment & Plan (1) Weakness: (2) Abdominal pain: (3) Nausea & vomiting: (4) Alcoholic myopathy: (5) Idiopathic polyneuropathy: (6) Tobacco dependence: (7) Hypokalemia: (8) Hypomagnesemia: (9) Cirrhosis: (10) Portal hypertension: (11) History of ETOH abuse: (12) COPD (chronic obstructive pulmonary disease): Plan Hypokalemia/hypomagnesemia- Potassium 2.2 and magnesium 1.2 on admission From the ED received potassium chloride 20 mEq p.o. and 10 mEq IV x2 From the ED received magnesium sulfate 2 g IV Given additional 2 g magnesium sulfate IV Placed on NSS + KCl 20 mEq at 100 mL/h Serum K and mg now wnl Severe abdominal pain/cirrhosis/hepatic steatosis/hepatomegaly/EtoH abuse history- CT scan of abdomen pelvis also notes gallbladder with possible sludge and/or stones MRCP confirmed sludge/stones GI on consult, for possible EUS tomorrow NPO after midnight Alcohol use history- Reports she has not had any alcohol to drink in the past 2 weeks, so should not need the alcohol withdrawal protocol CT abdomen shows evidence of cirrhosis Elevated Liver enzymes Mild elevation in liver enzymes MRCP shows only gall stone/sludge, no evidence of cholecystitis GI on consult, plan is for EUS tomorrow Constipation: Now resolved Admission and Anticipated Discharge Date Admission Date: June 21, 2023 Subjective patient seen and examined, still has some abdominal pain, had a bowel movement earlier today Review of Systems Review of Systems: All systems reviewed are negative, apart from the ones contained in the history. Physical Exam Physical Exam: The patient is awake, alert and oriented 3, well developed and well nourished, normocephalic and atraumatic, lying in bed and in no acute distress. HEENT--PERRL, EOMI, mucous membranes and oropharynx mildly dry Neck--supple. No JVD. No bruits. Thyroid normal, trachea midline, no adenopathy. Heart--normal S1 and S2. No murmurs, rubs or gallops. Lungs--clear bilaterally, no respiratory distress, no accessory muscle use. Abdomen--normal bowel sounds and soft. Mild epigastric and left sided abdominal pain Extremities--no cyanosis or clubbing. No edema. Dermatologic--normal skin turgor, normal color, no abnormal lymph nodes, no rash. Neurologic--cranial nerves II through XII grossly intact. Rheumatologic--normal range of motion. Psychiatric--normal affect. Results & Data Results & Data Vital Signs (Past 12 Hours) Vital Signs Pulse Pulse Resp BP Pulse Ox Pulse Ox O2 Del Method 06/22/23 14:04 90 20 114/75 94 Room Air 06/22/23 13:35 94 H 20 123/88 93 Room Air 06/22/23 08:15 Nasal Cannula 06/22/23 08:13 86 20 115/74 97 Nasal Cannula 06/22/23 07:20 81 06/22/23 04:37 Nasal Cannula 06/22/23 03:40 80 16 124/84 94 Nasal Cannula 06/22/23 03:40 94 O2 Del Method O2 Flow Rate O2 Flow Rate 06/22/23 14:04 06/22/23 13:35 06/22/23 08:15 2 06/22/23 08:13 2 06/22/23 07:20 06/22/23 04:37 06/22/23 03:40 2 06/22/23 03:40 Nasal Cannula 3 PG Care Time/CCT Total # of Minutes Spent Total Time Spent with Patient: Total time spent is greater than 50% in coordination of care (as documented) at patient's floor/unit and/or counseling patient: Coding Level of Care Code 12519 SUB INP/OBS CARE 2/35MIN Diagnoses Weakness R53.1 Abdominal pain R10.9 Nausea & vomiting R11.2 Alcoholic myopathy G72.1 Idiopathic polyneuropathy G60.9 Tobacco dependence F17.200 Hypokalemia E87.6 Hypomagnesemia E83.42 Cirrhosis K74.60 Portal hypertension K76.6 History of ETOH abuse F10.11 COPD (chronic obstructive pulmonary disease) J44.9 Time Spent (min) 35
[2023-06-22 17:50] LABS: BUN Creatinine Ratio 9.4 (10-20); Creatinine Clr Calc Pharmacy 199.5 ml/min; Est GFR (African American) 149.4 ml/min; Est GFR (Non-African American) 128.9 ml/min; Potassium 2.6 mmol/L (3.5-5.1)
[2023-06-22] MEDS ORDERED: POTASSIUM CHLORIDE CRTAB 20 MEQ TABCR PO STA (18:11)
--- NOTE | 2023-06-22 19:41 | Surgery Consultation ---
This case was discussed with surgical PA I agree with the plan Date of Consultation June 22, 2023 Assessment & Plan (1) Abdominal pain: The patient has been admitted on the medical service. From a surgical perspective we recommend proceeding as follows: We have been asked to evaluate the patient for evaluation of possible cholecystectomy The available imaging has been completed this admission does not show any convincing evidence of cholecystitis Review of the patient's hepatology notes show the patient does have chronic abdominal pain. Her presenting underlying abdominal pain and complaints could be related to her advanced liver disease It appears as though gastroenterology has scheduled the patient for an endoscopic ultrasound on 06/23/2023 which is tomorrow. We like to see the results of this study before determine if patient would benefit from cholecystectomy In addition it does not appear as though the patient has had coagulation studies checked this admission. These have been added to her a.m. labs for tomorrow morning. At the present time the patient does not appear clinically decompensated from her underlying liver disease as she has no evidence of encephalopathy As noted above we will await the results of patient's endoscopic ultrasound and then the patient will be evaluated by Dr. Lozano, my attending physician and determination will be made if patient would benefit from cholecystectomy History of Present Illness Reason for Consultation: Evaluation for possible cholecystectomy Attending Physician: Shashi Mario MD History of Present Illness Since patient has been admitted to [facility] she has had labs and imaging which independent reviewed. A CT scan of the abdomen and pelvis showed no evidence of appendicitis. She was noted to have severe hepatic steatosis and small varices suggestive of portal hypertension and suggestion of cirrhosis. The patient was noted to have layering material in the gallbladder which was felt to represent either sludge or stones. There is no CT evidence of cholecystitis. An MRCP was performed where patient was noted to have again layering material in the gallbladder that was felt to represent stones or sludge, however there is no convincing evidence of acute cholecystitis on this study. The patient did have some mild dilatation of the common bile duct but this appeared unchanged when compared to an MRCP performed on 03/17/2022. No common bile duct stones were identified on this study. Labs include a CBC her white blood cell count, hemoglobin, hematocrit, and platelet count were normal. Chemistry profile showed sodium was 135 with a potassium of 2.6. BUN and creatinine were 3 and 0.3. Patient's total bilirubin was elevated at 2.3 and her AST was 40. Her ALT was 11 which was nonelevated. There is an elevation of her alkaline phosphatase at 153. A urinalysis was positive for nitrites as well as 1+ leukocyte Estrace. There are 5-10 white blood cells per high-power field and 1+ bacteria. A toxicology screen was checked and was negative for all substances tested, specifically her alcohol level was nonelevated. At the time of my interview the patient notes that her presenting symptoms had somewhat improved and she was in no distress. This is a 53-year-old female who presented to the emergency department secondary to vague abdominal pain that is been present for approximately 2 weeks. She notes that the pain is in the left upper quadrant and right upper quadrant without radiation or modifying factors. In addition the patient says that she has had intermittent nausea and vomiting for approximately 1-1/2 weeks. Patient notes that her symptoms are specifically unrelated to meals and eating does not seem to exacerbate any of her symptomatology. The patient does report that 2 weeks ago she had a bloody bowel movement and she was told that this was due to bleeding hemorrhoids. She denies any hematemesis. The patient reports that she is now constipated and has not had a bowel movement in at least 1 week. She does report that she has had prior surgeries in the form of 3 C-sections. The patient further reports that she has significant liver disease and is followed by Dr. Lourdes Lazcano of [facility] hepatology. The most recent note from Dr. Lazcano's office was from 12/21/2022 which was reviewed. According to this note the patient does not have full cirrhosis but does have advanced liver fibrosis. The patient's liver disease is felt to be secondary to history of alcohol abuse as patient used to drink approximately 1/5 gallon of vodka daily for about 10 years. The patient does report that her most recent alcoholic beverages were consumed approximately 2 weeks ago. Allergies Allergy/AdvReac Type Severity Reaction Status Date / Time gabapentin Allergy Confusion Verified 06/21/23 17:43 promethazine AdvReac Intermediate MADE ME Verified 06/21/23 17:43 SICKER hair dye Allergy Unknown scalp Uncoded 06/21/23 17:43 irriration/swelling Home Medications Medication Instructions Recorded Confirmed Type ascorbic acid (vitamin C) 500 mg 500 mg PO QAM 06/24/21 06/21/23 History tablet (Vitamin C) cyanocobalamin (vitamin B-12) 1,000 mcg PO QAM 07/20/21 06/21/23 History 1,000 mcg capsule cholecalciferol (vitamin D3) 10 10 mcg PO QAM 03/08/22 06/21/23 History mcg (400 unit) tablet (Vitamin D3) Donell Ovalles #1 ea 03/25/22 03/27/23 Rx potassium chloride 20 mEq 20 meq PO QAM #90 tabs 03/25/22 06/21/23 Rx tablet,extended release(part/cryst) multivitamin 1 tab PO DAILY 10/24/22 06/21/23 History duloxetine 60 mg capsule,delayed 60 mg PO DAILY #30 caps 03/13/23 06/21/23 Rx release omeprazole 20 mg capsule,delayed 20 mg PO BID #60 caps 03/14/23 06/21/23 Rx release pregabalin 100 mg capsule (Lyrica) 100 mg PO TID #90 caps 03/14/23 06/21/23 Rx levothyroxine 112 mcg tablet 112 mcg PO DAILY #30 tabs 05/17/23 06/21/23 Rx cholecalciferol (vitamin D3) 1,250 50,000 unit PO .one per week #10 05/29/23 06/21/23 Rx mcg (50,000 unit) capsule caps albuterol sulfate 90 mcg/actuation 2 puff inhalation Q6HWA PRN 06/21/23 06/21/23 History aerosol inhaler COPD/ASTHMA lidocaine 4 % topical patch 1 patch topical DAILY PRN Pain 06/21/23 06/21/23 History ondansetron 4 mg disintegrating 4 mg translingual Q8 PRN Nausea 06/21/23 06/21/23 History tablet Patient History Medical History Acid reflux Alcohol dependence A FIFTH A DAY FOR 9 YRS NONE FOR LAST 3 WEEKS "WAS GETTING SICK WHEN I DRINK IT AND MY BODY WON'T ALLOW ME TO HAVE IT" Anxiety and depression Constipation REASON FOR UPCOMING PROCEDURE COPD (chronic obstructive pulmonary disease) AND ASTHMA PER PT - LAST USE INHALER LAST WEEK Fatty liver Heavy menses High blood pressure NO MEDS/MONITORS History of anemia History of seizure LAST EVENT 2 YEARS AGO (ALCHOHOL WITHDRAWL) Hypothyroidism Muscle mass LOSS OF MUSCLE MASS OVER LAST 2 MON PTSD (post-traumatic stress disorder) PUD (peptic ulcer disease) Rectal bleeding REASON FOR UPCOMING PROCEDURE Snores Spontaneous pneumothorax HX (REPAIRED 2005) Vitamin D deficiency pt reports probably all her vitamins are low Surgical History H/O tooth extraction 02/11/18 - Multiple teeth extracted under general anesthesia History of section X 3 History of colonoscopy MOST RECENT A COUPLE MONTHS AGO ? - PT NOT SURE DETAILS ON FINDINGS (DONE AT [facility]) History of endoscopy History of esophagogastroduodenoscopy (EGD) 03/18/22 Dr. Helen Beard- Z-line irregularity, biopsied Family History Mother , age 65 of metastatic cancer Family hx of colon cancer Stomach cancer Anxiety Depression Kidney disease Colorectal cancer Lung disease Gallbladder disease Family history of cancer Grandmother (Maternal) Stomach cancer Alcohol abuse Father , age 74 of lung cancer Depression Cardiac disorder Kidney stones Kidney disease Myocardial infarction Oral-mouth cancer Lung disease Hypertension Lung cancer Sister Drug abuse Anxiety Depression Aunt Breast cancer Maternal Brother Family history of diabetes mellitus Other No family history of adverse response to anesthesia Denies family history of Ovarian cancer Prostate cancer Multiple sclerosis Social History Smoking Status: Current every day smoker Tobacco Type: Cigarettes packs per day: 0.5; Cigarettes Per Day: 6-9; Second Hand Exposure: No; Do You Dip or Chew Tobacco: No; Hx Alcohol Use: Yes Alcohol type: beer Alcohol type Comment: VODKA Alcohol I ntake Frequency: 2-4 x/Month Alcohol Intake Frequency Comment: 1 beer per week and no other alcohol since January, Hx Substance Use: No Preferred Language: Chilean Communication Ability: Effective Visual Impairment: No Limitations Applications Sales Representative Required: No Beliefs That Will Affect Care: None marital status: marital status details: twice Current Living Situation: Alone Current Living Situation Comment: Apartment, first floor, with cat named Baby current occupational status: unemployed 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 How many Children do You have: 3 Feels Safe at Home: Yes caffeine: Yes (coffee) Dental Care, Regularly: No Physical Activity Frequency: 1-2 Times per Week Seatbelt Use: always Sunscreen Use: No Assistive Devices: Nebulizer and Walker Review of Systems Constitutional: no fever and no chills Ear, Nose, Mouth, Throat: no hearing loss Respiratory: no cough and no dyspnea Cardiovascular: no chest pain Gastrointestinal: as per Subjective / HPI Genitourinary: no dysuria Musculoskeletal: no back pain Integumentary: no rash Neurologic: no localized weakness Physical Exam Constitutional: WD/WN, vitals as above Eyes: + anicteric sclerae ENMT: Ears: no hearing impairment and no external ear abnormality Sublingual jaundice is not noted Neck: trachea midline Respiratory: normal respiratory effort; no respiratory distress and no labored breathing Cardiovascular: Rate/Rhythm: regular rate and regular rhythm Vessels: dorsalis pedis pulses present and radial pulses present Gastrointestinal (Abdomen): Abdomen is soft and nonrigid. It is nondistended. Bowel sounds are present. The patient did have minimal pain with palpation of the right upper quadrant and left upper quadrant. There is no rebound tenderness or guarding. Musculoskeletal: No calf tenderness Skin: no rashes Neurologic: moves all extremities Psychiatric: A+Ox3, euthymic affect Results & Data Vital Signs (Past 12 Hours) Vital Signs Temp Pulse Resp BP Pulse Ox O2 Del Method O2 Flow Rate 06/22/23 18:43 36.5 C 72 22 126/85 95 Room Air 06/22/23 18:00 85 18 122/82 96 Room Air 06/22/23 16:30 82 18 114/78 91 Room Air 06/22/23 16:00 84 18 121/83 93 Room Air 06/22/23 15:00 36.7 C 83 18 110/74 93 Room Air 06/22/23 14:04 90 20 114/75 94 Room Air 06/22/23 13:35 94 H 20 123/88 93 Room Air 06/22/23 08:15 Nasal Cannula 2 06/22/23 08:13 86 20 115/74 97 Nasal Cannula 2 PG Care Time/CCT Total # of Minutes Spent Total Time Spent with Patient: Total time spent is greater than 50% in coordination of care (as documented) at patient's floor/unit and/or counseling patient: Coding Level of Care Code 43673 IN/OBS CONSULT LVL 5,80M Diagnoses Abdominal pain R10.9
[2023-06-23] MEDS ORDERED: ACETAMINOPHEN 1,000 MG/100 ML VIAL IV STA (04:57)
[2023-06-23] MEDS ORDERED: ACETAMINOPHEN 1000 MG/100 ML IV IV ONE (05:03)
[2023-06-23] MEDS: NSS + 20MEQ KCL 20 MEQ/1,000 ML BAG IV SCH (05:09)
[2023-06-23] MEDS: LEVOTHYROXINE SODIUM 112 MCG TABLET PO SCH (05:47)
[2023-06-23 06:11] LABS: Basophils # (auto) 0.04 K/uL (0.00-0.20); Basophils % (auto) 0.6 %; Eosinophils # (auto) 0.16 K/uL (0.00-0.50); Eosinophils % (auto) 2.3 %; Hematocrit (blood only) 35.9 % (37.0-47.0); Hemoglobin 12.3 g/dl (12.0-16.0); Immature Granulocytes # (auto) 0.03 K/uL (0.01-0.20); Immature Granulocytes % (auto) 0.4 %; Lymphocytes # (auto) 1.92 K/uL (1.20-3.40); Lymphocytes % (auto) 27.9 %; Mean Corpuscular Hemoglobin 33.3 pg (25.0-34.0); Mean Corpuscular Hgb Conc 34.3 g/dL (32.0-36.0); Mean Corpuscular Volume 97.3 fL (80.0-100.0); Mean Platelet Volume 9.1 fL (9.4-12.4); Monocytes # (auto) 0.91 K/uL (0.11-0.59); Monocytes % (auto) 13.2 %; Neutrophils # (auto) 3.83 K/uL (1.40-6.50); Neutrophils % (auto) 55.6 %; Platelet Count 227 K/uL (130-400); RDW Coefficient of Variation 17.8 % (11.5-14.5); RDW Standard Deviation 63.7 fL (36.4-46.3); Red Blood Count 3.69 M/uL (4.20-5.40); White Blood Count 6.89 K/ul (4.8-10.8)
[2023-06-23 06:29] LABS: Alanine Aminotransferase 10 U/L (7-52); Albumin Globulin Ratio 1.3 (0.9-2); Alkaline Phosphatase 135 U/L (34-104); Anion Gap 7 (3-11); Aspartate Aminotransferase 43 U/L (13-39); BUN Creatinine Ratio 6.9 (10-20); Bilirubin,Total 1.3 mg/dl (0.2-1.0); Blood Urea Nitrogen 2 mg/dl (6-23); Calcium 7.9 mg/dl (8.6-10.3); Carbon Dioxide 25 mmol/L (21-32); Chloride 107 mmol/L (98-107); Creatinine Clr Calc Pharmacy 219.5 ml/min; Est GFR (African American) > 150.0 ml/min; Est GFR (Non-African American) 133.1 ml/min; Globulin 2.4 gm/dl (2.5-4.0); Glucose 117 mg/dl (70-99(Fasting)); Magnesium 1.7 mg/dl (1.7-2.4); Potassium 3.4 mmol/L (3.5-5.1); Sodium 139 mmol/L (136-145); Total Protein 5.4 gm/dl (6.0-8.3)
[2023-06-23 06:39] LABS: INR 1.1 (0.9-1.1); Prothrombin Time 12.1 Seconds (9.0-12.0)
[2023-06-23 06:40] LABS: Partial Thromboplastin Time 28.2 Seconds (21.0-31.0)
--- NOTE | 2023-06-23 07:35 | Gastrointestinal Consultation ---
Date of Consultation June 23, 2023 Assessment & Plan (1) Hypomagnesemia: (2) Abdominal pain: (3) Nausea & vomiting: (4) Hypokalemia: (5) Abnormal LFTs: (6) Cirrhosis: Pt is a 53 yo female w fatty liver, ETOH cirrhosis (MELD 11), portal HTN, admitted w N/V/D, hypokalemic, hypomagnesemia. Her LFTs were elevated more than baseline and she had previous HIDA scan which showed gallbladder dysfunction. Abd/Pelvis CT and MRCP showed signs of gallstones/sludge wo acute cholecystitis. CBD mildly dilation but no obvious stones. - Keep NPO - Plan for EUS in OR by Dr. Redding today - IVF support - Electrolyte correction per primary team - F/U with Dr. Lazcano for continued cirrhosis management in OP setting upon her DC. Supervising Physician Co-Signing Physician Notes I performed a history and physical examination of the patient today, including specifically on physical exam - soft abdomen. I have discussed the patient's management with the advanced practitioner. Please refer to the nurse practitioner's note for the documented findings and plan of care. MRCP negative. LFTs improved and pattern consistent with cirrhosis. Plan for EUS. History of Present Illness Reason for Consultation: Eval for EUS Requesting Physician: Dr. Shashi Mario Attending Physician: Dr. Milton Redding History of Present Illness Pt is a 53 yo female w hx of ETOH cirrhosis w portal HTN, fatty liver , Vit D, B12 deficiencies, tobacco dependence, COPD, CAD, HTN; who was referred to ED for symptoms of abd pain, n/v, weakness x 1 week. OP labs showed she was hypokalemic w K level of 2. She hasn't been able to tolerate PO intake for 1.5 weeks, last BM yesterday. Labs w mild leukocytosis, hypokalemia currently getting K repletion, hypomagnesemia. It also showed elevated LFTs more than her baseline: Tbili 2.3, AST 40, ALT 11, alk phos 153. She had previous HIDA which showed low gallbladder EF. Been evaluated by Surgery in OP setting but cholecystectomy deferred as she wasn't particularly symptomatic. CT abd/pelvis and MRCP in this visit showed hepatic steatosis w hepatomegaly, gallbladder sludge/stones wo acute cholecystitis. She has mild CBD dilation of 8mm, wo obvious CBD stones though MRCP exam compromised by motion artifact. Allergies Allergy/AdvReac Type Severity Reaction Status Date / Time gabapentin Allergy Confusion Verified 06/21/23 17:43 promethazine AdvReac Intermediate MADE ME Verified 06/21/23 17:43 SICKER hair dye Allergy Unknown scalp Uncoded 06/21/23 17:43 irriration/swelling Home Medications Medication Instructions Recorded Confirmed Type ascorbic acid (vitamin C) 500 mg 500 mg PO QAM 06/24/21 06/21/23 History tablet (Vitamin C) cyanocobalamin (vitamin B-12) 1,000 mcg PO QAM 07/20/21 06/21/23 History 1,000 mcg capsule cholecalciferol (vitamin D3) 10 10 mcg PO QAM 03/08/22 06/21/23 History mcg (400 unit) tablet (Vitamin D3) Donell Ovalles #1 ea 03/25/22 03/27/23 Rx potassium chloride 20 mEq 20 meq PO QAM #90 tabs 03/25/22 06/21/23 Rx tablet,extended release(part/cryst) multivitamin 1 tab PO DAILY 10/24/22 06/21/23 History duloxetine 60 mg capsule,delayed 60 mg PO DAILY #30 caps 03/13/23 06/21/23 Rx release omeprazole 20 mg capsule,delayed 20 mg PO BID #60 caps 03/14/23 06/21/23 Rx release pregabalin 100 mg capsule (Lyrica) 100 mg PO TID #90 caps 03/14/23 06/21/23 Rx levothyroxine 112 mcg tablet 112 mcg PO DAILY #30 tabs 05/17/23 06/21/23 Rx cholecalciferol (vitamin D3) 1,250 50,000 unit PO .one per week #10 05/29/23 06/21/23 Rx mcg (50,000 unit) capsule caps albuterol sulfate 90 mcg/actuation 2 puff inhalation Q6HWA PRN 06/21/23 06/21/23 History aerosol inhaler COPD/ASTHMA lidocaine 4 % topical patch 1 patch topical DAILY PRN Pain 06/21/23 06/21/23 History ondansetron 4 mg disintegrating 4 mg translingual Q8 PRN Nausea 06/21/23 06/21/23 History tablet Patient History Medical History Acid reflux Alcohol dependence A FIFTH A DAY FOR 9 YRS NONE FOR LAST 3 WEEKS "WAS GETTING SICK WHEN I DRINK IT AND MY BODY WON'T ALLOW ME TO HAVE IT" Anxiety and depression Constipation REASON FOR UPCOMING PROCEDURE COPD (chronic obstructive pulmonary disease) AND ASTHMA PER PT - LAST USE INHALER LAST WEEK Fatty liver Heavy menses High blood pressure NO MEDS/MONITORS History of anemia History of seizure LAST EVENT 2 YEARS AGO (ALCHOHOL WITHDRAWL) Hypothyroidism Muscle mass LOSS OF MUSCLE MASS OVER LAST 2 MON PTSD (post-traumatic stress disorder) PUD (peptic ulcer disease) Rectal bleeding REASON FOR UPCOMING PROCEDURE Snores Spontaneous pneumothorax HX (REPAIRED 2005) Vitamin D deficiency pt reports probably all her vitamins are low Surgical History H/O tooth extraction 02/11/18 - Multiple teeth extracted under general anesthesia History of section X 3 History of colonoscopy MOST RECENT A COUPLE MONTHS AGO ? - PT NOT SURE DETAILS ON FINDINGS (DONE AT [facility]) History of endoscopy History of esophagogastroduodenoscopy (EGD) 03/18/22 Dr. Helen Beard- Z-line irregularity, biopsied Family History Mother , age 65 of metastatic cancer Family hx of colon cancer Stomach cancer Anxiety Depression Kidney disease Colorectal cancer Lung disease Gallbladder disease Family history of cancer Grandmother (Maternal) Stomach cancer Alcohol abuse Father , age 74 of lung cancer Depression Cardiac disorder Kidney stones Kidney disease Myocardial infarction Oral-mouth cancer Lung disease Hypertension Lung cancer Sister Drug abuse Anxiety Depression Aunt Breast cancer Maternal Brother Family history of diabetes mellitus Other No family history of adverse response to anesthesia Denies family history of Ovarian cancer Prostate cancer Multiple sclerosis Social History Smoking Status: Current every day smoker Tobacco Type: Cigarettes packs per day: 0.5; Cigarettes Per Day: 6-9; Second Hand Exposure: No; Do You Dip or Chew Tobacco: No; Hx Alcohol Use: Yes Alcohol type: beer Alcohol type Comment: VODKA Alcohol Intake Frequency: 2-4 x/Month Alcohol Intake Frequency Comment: 1 beer per week and no other alcohol since January, Hx Substance Use: No Preferred Language: Spanish Communication Ability: Effective Visual Impairment: No Limitations Coding Compliance Auditor Required: No Beliefs That Will Affect Care: None marital status: marital status details: twice Current Living Situation: Alone Current Living Situation Comment: Apartment, first floor, with cat named Baby current occupational status: unemployed 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 How many Children do You have: 3 Feels Safe at Home: Yes caffeine: Yes (coffee) Dental Care, Regularly: No Physical Activity Frequency: 1-2 Times per Week Seatbelt Use: always Sunscreen Use: No Assistive Devices: Nebulizer and Walker Review of Systems Review of Systems: All systems reviewed & are unremarkable except as noted in HPI & below Physical Exam Constitutional: WD/WN, vitals as above well groomed, cooperative and comfortable Eyes: PERRL, conjunctivae normal, anicteric sclerae ENMT: external ear and nose normal, oropharynx normal Respiratory: normal respiratory effort, lungs clear to auscultation Cardiovascular: RRR, no murmur, no edema Gastrointestinal (Abdomen): normal bowel sounds, soft, nontender, no hepatosplenomegaly Skin: no rashes, warm and dry no jaundice Psychiatric: A+Ox3, euthymic affect Lymphatic: no lymphedema Results & Data Vital Signs (Past 12 Hours) Vital Signs Temp Pulse Pulse Resp BP Pulse Ox O2 Del Method 06/23/23 03:40 06/23/23 03:20 36.6 C 82 18 118/76 90 Room Air 06/22/23 22:55 36.6 C 98 H 16 97/62 L 96 Room Air 06/22/23 23:28 88 O2 Del Method 06/23/23 03:40 Room Air 06/23/23 03:20 06/22/23 22:55 06/22/23 23:28
[2023-06-23] MEDS ORDERED: fentaNYL citrate PF 100 MCG/2 ML VIAL ONE (08:12)
[2023-06-23] MEDS ORDERED: MIDAZOLAM HCL 1 MG/ML 2ML VIAL ONE (08:12)
[2023-06-23] MEDS ORDERED: ONDANSETRON INJ 2 MG/ML 2 ML VIAL ONE (08:14)
[2023-06-23] MEDS ORDERED: LIDOCAINE 2% 2 ML VIAL/AMP(20MG/ML) INFIL ONE (08:14)
[2023-06-23] MEDS ORDERED: GLYCOPYRROLATE 0.2 MG/ML VIAL ONE (08:14)
[2023-06-23] MEDS ORDERED: PROPOFOL IV EMULSION 10 MG/ML 20 ML VIAL IV ONE (08:14)
[2023-06-23] MEDS ORDERED: LACTATED RINGER'S 1,000 ML IV SCH (08:15)
--- NOTE | 2023-06-23 08:18 | History & Physical Bridge Note ---
Date of Service June 23, 2023 History & Physical Bridge Note I have examined the patient, reviewed the History & Physical and in the interval since the performance of the History & Physical I have noted the following changes of clinical significance: no changes noted
--- NOTE | 2023-06-23 08:30 | Anesthesiology Consultation ---
Date of Service June 23, 2023 Assessment & Plan Chart Review Chart Review: Acceptable Risk for Surgery Consults Requested none History Surgery Operation Date: 06/23/23 11:00 Proposed Procedures p Endoscopic Ultrasonography Upper - Milton Redding MD Height/Weight Height: 5 ft 3 in Weight: 74.6 kg Allergies Allergy/AdvReac Type Severity Reaction Status Date / Time gabapentin Allergy Confusion Verified 06/21/23 17:43 promethazine AdvReac Intermediate MADE ME Verified 06/21/23 17:43 SICKER hair dye Allergy Unknown scalp Uncoded 06/21/23 17:43 irriration/swelling Medications Home Medications Medication Instructions Recorded Confirmed Last Taken ascorbic acid (vitamin C) 500 mg 500 mg PO QAM 06/24/21 06/21/23 03/29/22 tablet (Vitamin C) cyanocobalamin (vitamin B-12) 1,000 mcg PO QAM 07/20/21 06/21/23 03/29/22 1,000 mcg capsule cholecalciferol (vitamin D3) 10 10 mcg PO QAM 03/08/22 06/21/23 03/29/22 mcg (400 unit) tablet (Vitamin D3) Wheeled Walker #1 ea 03/25/22 03/27/23 Unknown potassium chloride 20 mEq 20 meq PO QAM #90 tabs 03/25/22 06/21/23 03/29/22 tablet,extended release(part/cryst) multivitamin 1 tab PO DAILY 10/24/22 06/21/23 Unknown duloxetine 60 mg capsule,delayed 60 mg PO DAILY #30 caps 03/13/23 06/21/23 Unknown release omeprazole 20 mg capsule,delayed 20 mg PO BID #60 caps 03/14/23 06/21/23 Unknown release pregabalin 100 mg capsule (Lyrica) 100 mg PO TID #90 caps 03/14/23 06/21/23 Unknown levothyroxine 112 mcg tablet 112 mcg PO DAILY #30 tabs 05/17/23 06/21/23 Unknown cholecalciferol (vitamin D3) 1,250 50,000 unit PO .one per week #10 05/29/23 06/21/23 Unknown mcg (50,000 unit) capsule caps albuterol sulfate 90 mcg/actuation 2 puff inhalation Q6HWA PRN 06/21/23 06/21/23 Unknown aerosol inhaler COPD/ASTHMA lidocaine 4 % topical patch 1 patch topical DAILY PRN Pain 06/21/23 06/21/23 Unknown ondansetron 4 mg disintegrating 4 mg translingual Q8 PRN Nausea 06/21/23 06/21/23 Unknown tablet Active Medications Generic Name Dose Route Start Last Admin Trade Name Henrryq PRN Reason Stop Dose Admin Ascorbic Acid 500 mg 06/22/23 09:00 06/22/23 08:09 Ascorbic Acid 500 Mg Tab PO 07/22/23 08:59 500 mg QAM SLIM Administration Cyanocobalamin 1,000 mcg 06/22/23 09:00 06/22/23 08:09 Cyanocobalamin (B-12) 500 Mcg Tablet PO 07/22/23 08:59 1,000 mcg QAM SLIM Administration Duloxetine HCl 60 mg 06/22/23 09:00 06/22/23 08:09 Duloxetine Hcl 60 Mg Cap PO 07/22/23 08:59 60 mg DAILY SLIM Administration Heparin Sodium (Porcine) 5,000 units 06/22/23 09:00 06/22/23 20:49 Heparin Sod 5,000 Unit/0.5 Ml Vial SQ 07/22/23 08:59 Not Given Q12 SLIM Potassium Chloride/Sodium Chloride 20 meq in 1,000 mls @ 100 mls/hr 06/21/23 23:15 06/23/23 05:09 Normal Saline W/20 Meq Kcl IV 07/21/23 23:14 100 mls/hr .Q10H SLIM Administration Protocol Ceftriaxone Sodium 1,000 mg/ 50 mls @ 100 mls/hr 06/22/23 09:30 06/22/23 13:2 7 Dextrose IV 06/27/23 09:29 Infused Q24H SLIM Infusion Protocol Lactated Ringer's 1,000 mls @ 15 mls/hr 06/23/23 08:15 06/23/23 08:20 Lr IV 07/23/23 08:14 15 mls/hr .Q24H SLIM Administration KVO Levothyroxine Sodium 112 mcg 06/22/23 06:30 06/23/23 05:47 Levothyroxine Sodium 112 Mcg Tablet PO 07/22/23 06:29 Not Given DAILYBB SLIM Multivitamins 1 tab 06/22/23 09:00 06/22/23 08:08 Multivitamin Tab PO 07/22/23 08:59 1 tab DAILY SLIM Administration Pantoprazole Sodium 40 mg 06/22/23 09:00 06/22/23 20:36 Pantoprazole 40 Mg Tab PO 07/22/23 08:59 40 mg BID SLIM Administration Potassium Chloride 20 meq 06/22/23 09:00 06/22/23 20:36 Potassium Chloride Crtab 20 Meq Tabcr PO 07/22/23 08:59 20 meq BID SLIM Administration Pregabalin 100 mg 06/22/23 14:00 06/22/23 20:47 Pregabalin 100 Mg Cap PO 07/22/23 13:59 100 mg TID@0800,1400,2100 SLIM Administration Vitamin D 400 units 06/22/23 09:00 06/22/23 08:09 Cholecalciferol 400 Units 10 Mcg Tab PO 07/22/23 08:59 400 units QAM SLIM Administration NPO Date Last Intake of Fluids: 06/22/23 Time Last Intake of Fluids: 22:30 Date Last Intake of Solids: 06/22/23 Time Last Intake of Solids: 19:00 Past Medical History Medical History Acid reflux Alcohol dependence A FIFTH A DAY FOR 9 YRS NONE FOR LAST 3 WEEKS "WAS GETTING SICK WHEN I DRINK IT AND MY BODY WON'T ALLOW ME TO HAVE IT" Anxiety and depression Constipation REASON FOR UPCOMING PROCEDURE COPD (chronic obstructive pulmonary disease) AND ASTHMA PER PT - LAST USE INHALER LAST WEEK Fatty liver Heavy menses High blood pressure NO MEDS/MONITORS History of anemia History of seizure LAST EVENT 2 YEARS AGO (ALCHOHOL WITHDRAWL) Hypothyroidism Muscle mass LOSS OF MUSCLE MASS OVER LAST 2 MON PTSD (post-traumatic stress disorder) PUD (peptic ulcer disease) Rectal bleeding REASON FOR UPCOMING PROCEDURE Snores Spontaneous pneumothorax HX (REPAIRED 2005) Vitamin D deficiency pt reports probably all her vitamins are low Past Family History Family History Mother , age 65 of metastatic cancer Family hx of colon cancer Stomach cancer Anxiety Depression Kidney disease Colorectal cancer Lung disease Gallbladder disease Family history of cancer Grandmother (Maternal) Stomach cancer Alcohol abuse Father , age 74 of lung cancer Depression Cardiac disorder Kidney stones Kidney disease Myocardial infarction Oral-mouth cancer Lung disease Hypertension Lung cancer Sister Drug abuse Anxiety Depression Aunt Breast cancer Maternal Brother Family history of diabetes mellitus Other No family history of adverse response to anesthesia Denies family history of Ovarian cancer Prostate cancer Multiple sclerosis Past Surgical History Surgical History H/O tooth extraction 02/11/18 - Multiple teeth extracted under general anesthesia History of section X 3 History of colonoscopy MOST RECENT A COUPLE MONTHS AGO ? - PT NOT SURE DETAILS ON FINDINGS (DONE AT [facility]) History of endoscopy History of esophagogastroduodenoscopy (EGD) 03/18/22 Dr. Helen Beard- Z-line irregularity, biopsied Social History Smoking Status: Current every day smoker tobacco type: cigarettes Smoking cigarettes per day: 6-9 Do You Dip or Chew Tobacco: No Hx Alcohol Use: Yes Alcohol type: beer alcohol intake frequency: a few times a month Alcohol Intake Frequency Comment: "Less than one can per week now" Hx Substance Use: No substance use type: does not use Physical Exam Vital Signs Last Vital Signs Temp 36.5 C 06/23/23 07:59 Pulse 74 06/23/23 07:59 Resp 18 06/23/23 07:59 BP 135/88 06/23/23 07:59 Pulse Ox 97 06/23/23 07:59 O2 Del Method Room Air 06/23/23 07:59 O2 Flow Rate 2 06/22/23 08:15 Testing Laboratory Results 06/23/23 05:45 06/23/23 05:45 PT 12.1 Seconds (9.0-12.0) H 06/23/23 05:45 INR 1.1 (0.9-1.1) 06/23/23 05:45 APTT 28.2 Seconds (21.0-31.0) 06/23/23 05:45 Urine Color [place] 06/22/23 04:03 Urine Appearance Clear (Clear) 06/22/23 04:03 Urine pH 8.0 (4.5-7.5) H 06/22/23 04:03 Ur Specific [place] > 1.045 (1.000-1.030) H 06/22/23 04:03 Urine Protein Negative (Negative) 06/22/23 04:03 Urine Glucose (UA) Negative (Negative) 06/22/23 04:03 Urine Ketones Trace (Negative) H 06/22/23 04:03 Urine Nitrite Positive (Negative) A 06/22/23 04:03 Ur Leukocyte Esterase 1+ (Negative) H 06/22/23 04:03 Urine WBC (Auto) 5-10 /hpf (0-5) H 06/22/23 04:03 Urine RBC (Auto) 0-4 /hpf (0-4) 06/22/23 04:03 U Hyaline Cast (Auto) 1-5 /lpf (0-5) 06/22/23 04:03 U Epithel Cells (Auto) >30 /lpf (0-5) H 06/22/23 04:03 Urine Bacteria (Auto) 1+ (Negative) H 06/22/23 04:03 06/22/23 04:03 Urine Culture - Preliminary Urine,Clean Catch Gram negative bacilli Gram negative bacilli#2
[2023-06-23] MEDS ORDERED: PROMETHAZINE HCL 12.5 MG in SODIUM CHLORIDE 0.9% 50 ML IV PRN (08:35)
[2023-06-23] MEDS ORDERED: ONDANSETRON INJ 2 MG/ML 2 ML VIAL IV PRN (08:35)
[2023-06-23] MEDS ORDERED: ATROPINE SULFATE 0.1 MG/ML 10ML SYR IV PRN (08:35)
[2023-06-23] MEDS ORDERED: HYDROmorphone INJ 2 MG/ML SYR/VIAL IV PRN (08:35)
[2023-06-23] MEDS ORDERED: fentaNYL citrate PF 100 MCG/2 ML VIAL IV PRN (08:35)
[2023-06-23] MEDS ORDERED: ePHEDrine sulfate 50 MG/ML AMP IV PRN (08:35)
--- NOTE | 2023-06-23 09:00 | Operative Report ---
Post Operative Report Pre & Post Diagnosis Operation Date: 06/23/23 11:00 Pre-Op Diagnosis: Gallbladder sludge or stones, mild dilation of CBD Post-Op Diagnosis: Normal EGD, gallstones I identified the patient and participated in the time-out.: Yes Procedure Operation Date: 06/23/23 11:00 Actual Procedures p Esophagogastroduodenoscopy(Not Applicable) - Milton Redding MD p Endoscopic Ultrasonography Upper(Not Applicable) - Milton Redding MD Surgeon Milton Redding MD Senior Web Analyst None Estimated Blood Loss 0 Findings See Below (Gallstones and sludge, no choledocholithiasis) Specimens None Description of Procedure EUS I attest to the content of the Intraoperative Record and any orders documented therein. Any exceptions are noted below.
--- NOTE | 2023-06-23 09:18 | GI REPORT ---
Patient Name: Tamara Hanna Procedure Date: 06/23/2023 8:15 AM Date of : 1970 Admit Type: Inpatient Age: 53 Gender: Female Attending MD: Milton Redding MD, Procedure: Upper GI endoscopy Providers: Milton Redding MD Referring MD: Shashi Mario Md Indications: Cirrhosis rule out esophageal varices Medicines: Propofol per Anesthesia Complications: No immediate complications. Estimated Blood Loss: Estimated blood loss: none. Procedure: Pre-Anesthesia Assessment: - Prior to the procedure, a History and Physical was performed, and patient medications, allergies and sensitivities were reviewed. The patient's tolerance of previous anesthesia was reviewed. - The risks and benefits of the procedure and the sedation options and risks were discussed with the patient. All questions were answered and informed consent was obtained. - Patient identification and proposed procedure were verified prior to the procedure by the physician and the nurse. The procedure was verified in the procedure room. - Pre-procedure physical examination revealed no contraindications to sedation. After obtaining informed consent, the endoscope was passed under direct vision. Throughout the procedure, the patient's blood pressure, pulse, and oxygen saturations were monitored continuously. The Endoscope was introduced through the mouth, and advanced to the second part of duodenum. The upper GI endoscopy was accomplished without difficulty. The patient tolerated the procedure well. Findings: A large hiatal hernia was present. The examined esophagus was normal. Mild portal hypertensive gastropathy was found in the stomach. The duodenal bulb and second portion of the duodenum were normal. Impression: - Large hiatal hernia. - Normal esophagus. - Portal hypertensive gastropathy. - Normal duodenal bulb and second portion of the duodenum. - No specimens collected. Recommendation: - Perform an upper endoscopic ultrasound (UEUS) today. Milton Redding MD 06/23/2023 9:18:15 AM This report has been signed electronically. Note Initiated On: 06/23/2023 8:15 AM Number of Addenda: 0 I attest to the content of the Intraoperative Record and orders documented therein, exceptions below {[id number]}
--- NOTE | 2023-06-23 09:23 | GI REPORT ---
Patient Name: Tamara Hanna Procedure Date: 06/23/2023 8:13 AM Date of : 1970 Admit Type: Inpatient Age: 53 Gender: Female Attending MD: Milton Redding MD, Procedure: Upper EUS Providers: Milton Redding MD Referring MD: Shashi Mario Md Indications: Elevated liver enzymes, Suspected choledocholithiasis Medicines: Propofol per Anesthesia Complications: No immediate complications. Estimated Blood Loss: Estimated blood loss: none. Procedure: Pre-Anesthesia Assessment: - Prior to the procedure, a History and Physical was performed, and patient medications, allergies and sensitivities were reviewed. The patient's tolerance of previous anesthesia was reviewed. - The risks and benefits of the procedure and the sedation options and risks were discussed with the patient. All questions were answered and informed consent was obtained. - Patient identification and proposed procedure were verified prior to the procedure by the physician and the nurse. The procedure was verified in the procedure room. - Pre-procedure physical examination revealed no contraindications to sedation. After obtaining informed consent, the endoscope was passed under direct vision. Throughout the procedure, the patient's blood pressure, pulse, and oxygen saturations were monitored continuously. The scope was introduced through the mouth, and advanced to the second part of duodenum. The upper EUS was accomplished without difficulty. The patient tolerated the procedure well. Findings: ENDOSONOGRAPHIC FINDING: : There was no sign of significant endosonographic abnormality in the ampulla. No masses were identified. There was no sign of significant endosonographic abnormality in the common bile duct. The maximum diameter of the duct was 6 mm distally and 8 mm proximally. No stones were identified. Multiple stones and sludge were visualized endosonographically in the gallbladder. They were hyperechoic and characterized by shadowing. There was no sign of significant endosonographic abnormality in the visualized portion of the liver. Homogeneous parenchyma was identified. There was no sign of significant endosonographic abnormality in the entire pancreas. The pancreatic duct measured up to 2 mm in diameter. Impression: - There was no sign of significant pathology in the ampulla. - There was no sign of significant pathology in the common bile duct. Slightly prominent in diameter however no stones seen. - The gallbladder lumen was filled with sludge and stones. - Fatty liver. - There was no sign of significant pathology in the entire pancreas. - No specimens collected. Recommendation: - Return patient to [facility] for [facility] care. - Recall GI if needed. COMMENT: If patient is symptomatic from her GB disease and not a surgical candidate and currently not a transplant candidate then she qualifies for EUS guided GB drainage with Axios stent placement. Milton Redding MD 06/23/2023 9:22:17 AM This report has been signed electronically. Note Initiated On: 06/23/2023 8:13 AM Number of Addenda: 0 I attest to the content of the Intraoperative Record and orders documented therein, exceptions below {[id number]}
--- NOTE | 2023-06-23 09:42 | Anesthesiology Progress Note ---
Date of Service June 23, 2023 Anesthesia Post Procedure Vital Signs Vital Signs: Temp Pulse Pulse Pulse Resp BP Pulse Ox 06/23/23 09:25 36.5 C 82 12 121/76 94 06/23/23 09:15 84 14 114/82 100 06/23/23 09:05 36.7 C 82 16 89/60 L 98 06/23/23 07:59 36.5 C 74 18 135/88 97 06/23/23 07:48 36.5 C 76 18 122/72 95 06/23/23 03:40 06/23/23 03:20 36.6 C 82 18 118/76 90 06/22/23 22:55 36.6 C 98 H 16 97/62 L 96 06/22/23 23:28 88 06/22/23 18:43 36.5 C 72 22 126/85 95 06/22/23 18:00 85 18 122/82 96 06/22/23 16:30 82 18 114/78 91 06/22/23 16:00 84 18 121/83 93 06/22/23 15:00 36.7 C 83 18 110/74 93 06/22/23 14:04 90 20 114/75 94 06/22/23 13:35 94 H 20 123/88 93 O2 Del Method O2 Del Method O2 Flow Rate 06/23/23 09:25 Room Air 06/23/23 09:15 Oxymask 4 06/23/23 09:05 Oxymask 8 06/23/23 07:59 Room Air 06/23/23 07:48 Room Air 06/23/23 03:40 Room Air 06/23/23 03:20 Room Air 06/22/23 22:55 Room Air 06/22/23 23:28 06/22/23 18:43 Room Air 06/22/23 18:00 Room Air 06/22/23 16:30 Room Air 06/22/23 16:00 Room Air 06/22/23 15:00 Room Air 06/22/23 14:04 Room Air 06/22/23 13:35 Room Air Pain Intensity Lower Back: Pain Intensity: 6 Bilateral Back: Pain Intensity: 6 Transfer of Care Handoff Completed per policy Notes Mental Status: alert / awake / arousable and participated in evaluation Patient Amnestic to Procedure: Yes Nausea / Vomiting: adequately controlled Pain: adequately controlled Airway Patency, RR, SpO2: stable & adequate BP & HR: stable & adequate Hydration State: stable & adequate Anesthetic Complications: no major complications apparent
[2023-06-23] MEDS: cefTRIAXone SODIUM 1,000 MG in DEXTROSE 5 % MINI-B 50 ML IV SCH (09:48)
[2023-06-23] MEDS: PREGABALIN 100 MG CAP PO SCH ×3 (09:48→20:49)
[2023-06-23] MEDS: POTASSIUM CHLORIDE CRTAB 20 MEQ TABCR PO SCH ×2 (09:48→20:49)
[2023-06-23] MEDS: CYANOCOBALAMIN (B-12) 500 MCG TABLET PO SCH (09:59)
[2023-06-23] MEDS: HEPARIN SOD 5,000 UNIT/0.5 ML VIAL SQ SCH ×3 (09:59→20:37)
[2023-06-23] MEDS: CHOLECALCIFEROL 400 UNITS 10 MCG TAB PO SCH (09:59)
[2023-06-23] MEDS: ASCORBIC ACID 500 MG TAB PO SCH (09:59)
[2023-06-23] MEDS: DULoxetine HCL 60 MG CAP PO SCH (09:59)
[2023-06-23] MEDS: MULTIVITAMIN TAB PO SCH (09:59)
[2023-06-23] MEDS: PANTOprazole 40 MG TAB PO SCH ×2 (09:59→20:37)
--- NOTE | 2023-06-23 11:53 | Hospitalist Progress Note ---
Date of Service June 23, 2023 Assessment & Plan (1) Weakness: (2) Abdominal pain: (3) Nausea & vomiting: (4) Alcoholic myopathy: (5) Idiopathic polyneuropathy: (6) Tobacco dependence: (7) Hypokalemia: (8) Hypomagnesemia: (9) Cirrhosis: (10) Portal hypertension: (11) History of ETOH abuse: (12) COPD (chronic obstructive pulmonary disease): Plan Hypokalemia/hypomagnesemia- Now resolved following replacement Severe abdominal pain/cirrhosis/hepatic steatosis/hepatomegaly/EtoH abuse history- CT scan of abdomen pelvis also notes gallbladder with possible sludge and/or stones MRCP confirmed sludge/stones GI on consult, Plan is EGD and EUS today Appreciate GI recs Alcohol use history- Reports she has not had any alcohol to drink in the past 2 weeks, so should not need the alcohol withdrawal protocol CT abdomen shows evidence of cirrhosis Elevated Liver enzymes Mild elevation in liver enzymes MRCP shows only gall stone/sludge, no evidence of cholecystitis GI on consult, plan is for EUS today Constipation: Now resolved Admission and Anticipated Discharge Date Admission Date: June 21, 2023 Subjective patient seen and examined, scheduled for EGD and EUS today Review of Systems Review of Systems: All systems reviewed are negative, apart from the ones contained in the history. Physical Exam Physical Exam: The patient is awake, alert and oriented 3, well developed and well nourished, normocephalic and atraumatic, lying in bed and in no acute distress. HEENT--PERRL, EOMI, mucous membranes and oropharynx mildly dry Neck--supple. No JVD. No bruits. Thyroid normal, trachea midline, no adenopathy. Heart--normal S1 and S2. No murmurs, rubs or gallops. Lungs--clear bilaterally, no respiratory distress, no accessory muscle use. Abdomen--normal bowel sounds and soft. Mild epigastric and left sided abdominal pain Extremities--no cyanosis or clubbing. No edema. Dermatologic--normal skin turgor, normal color, no abnormal lymph nodes, no rash. Neurologic--cranial nerves II through XII grossly intact. Rheumatologic--normal range of motion. Psychiatric--normal affect. Results & Data Results & Data Vital Signs (Past 12 Hours) Vital Signs Temp Pulse Pulse Pulse Resp BP Pulse Ox 06/23/23 08:00 74 06/23/23 10:07 83 20 131/79 92 06/23/23 09:45 97.7 F 81 18 126/80 92 06/23/23 09:25 97.7 F 82 12 121/76 94 06/23/23 09:15 84 14 114/82 100 06/23/23 09:05 98.1 F 82 16 89/60 L 98 06/23/23 07:59 97.7 F 74 18 135/88 97 06/23/23 07:48 97.7 F 76 18 122/72 95 06/23/23 03:40 06/23/23 03:20 97.9 F 82 18 118/76 90 O2 Del Method O2 Del Method O2 Flow Rate 06/23/23 08:00 06/23/23 10:07 Room Air 06/23/23 09:45 Room Air 06/23/23 09:25 Room Air 06/23/23 09:15 Oxymask 4 06/23/23 09:05 Oxymask 8 06/23/23 07:59 Room Air 06/23/23 07:48 Room Air 06/23/23 03:40 Room Air 06/23/23 03:20 Room Air PG Care Time/CCT Total # of Minutes Spent Total Time Spent with Patient: Total time spent is greater than 50% in coordination of care (as documented) at patient's floor/unit and/or counseling patient: Coding Level of Care Code 80047 SUB INP/OBS CARE 2/35MIN Diagnoses Weakness R53.1 Abdominal pain R10.9 Nausea & vomiting R11.2 Alcoholic myopathy G72.1 Idiopathic polyneuropathy G60.9 Tobacco dependence F17.200 Hypokalemia E87.6 Hypomagnesemia E83.42 Cirrhosis K74.60 Portal hypertension K76.6 History of ETOH abuse F10.11 COPD (chronic obstructive pulmonary disease) J44.9 Time Spent (min) 35
--- NOTE | 2023-06-23 16:59 | Surgery Progress Note ---
Date of Service June 23, 2023 Assessment & Plan (1) Abdominal pain: Plan: Patient states she is improved with decreasing abdominal pain. Normal WBC for the past 2 days. Afebrile. Patient is tolerating a regular diet. Recommend discharge with antibiotics if no medical necessity for inpatient treatment. Patient has an appointment with a surgeon who previously been evaluating her for biliary disease on Monday. Of note when further queried the patient admits that she has had variceal bleeding in the past and had upper endoscopies for this. She also admits that prior surgical evaluation identified a low ejection fraction for which she was offered a cholecystostomy tube as opposed to surgery due to her extensive liver disease. Complete a course of antibiotics and maintain a low-fat diet. Admission and Anticipated Discharge Date Admission Date: June 21, 2023 Nadeen Romo was seen this AM. She does admit to decreased upper quadrant pains and feeling improved she has been able to tolerate a regular diet. Physical Exam Constitutional: cooperative; not ill appearing, not in distress and not diaphoretic Respiratory: normal respiratory effort; no respiratory distress, no labored breathing and does not use accessory muscles Gastrointestinal (Abdomen): Abdomen is protuberant, soft, no evidence for varices along the abdominal wall. Minimally tender to palpation and at the right upper quadrant and right flank. There is no rebound tenderness or guarding. Neurologic: moves all extremities and awake; no focal motor deficits and not confused Results & Data Vital Signs (Past 12 Hours) Vital Signs Temp Pulse Pulse Pulse Resp BP Pulse Ox 06/23/23 16:04 36.7 C 88 17 105/68 96 06/23/23 15:28 99 H 06/23/23 11:51 36.4 C L 84 18 114/78 96 06/23/23 08:00 74 06/23/23 10:07 83 20 131/79 92 06/23/23 09:45 36.5 C 81 18 126/80 92 06/23/23 09:25 36.5 C 82 12 121/76 94 06/23/23 09:15 84 14 114/82 100 06/23/23 09:05 36.7 C 82 16 89/60 L 98 06/23/23 07:59 36.5 C 74 18 135/88 97 06/23/23 07:48 36.5 C 76 18 122/72 95 O2 Del Method O2 Flow Rate 06/23/23 16:04 Room Air 06/23/23 15:28 06/23/23 11:51 Room Air 06/23/23 08:00 06/23/23 10:07 Room Air 06/23/23 09:45 Room Air 06/23/23 09:25 Room Air 06/23/23 09:15 Oxymask 4 06/23/23 09:05 Oxymask 8 06/23/23 07:59 Room Air 06/23/23 07:48 Room Air PG Care Time/CCT Total # of Minutes Spent Total Time Spent with Patient: Total time spent is greater than 50% in coordination of care (as documented) at patient's floor/unit and/or counseling patient: Coding Level of Care Code 07737 SUB INP/OBS CARE 2/35MIN Diagnoses Abdominal pain R10.9
--- NOTE | 2023-06-23 20:43 | Electrocardiogram Report ---
Test Reason : Blood Pressure : / mmHG Vent. Rate : 095 BPM Atrial Rate : 095 BPM P-R Int : 158 ms QRS Dur : 086 ms QT Int : 398 ms P-R-T Axes : 062 070 079 degrees QTc Int : 500 ms Normal sinus rhythm Incomplete right bundle branch block Prolonged QT Nonspecific ST and T wave abnormality Abnormal ECG When compared with ECG of 17-APR-2022 15:05, No significant change Confirmed by Antonio Haines ([id number]) on 06/23/2023 8:43:04 PM Referred By: REFERRED SELF Confirmed By:Antonio Haines
[2023-06-23] MEDS ORDERED: ACETAMINOPHEN 325 MG TAB PO PRN (21:50)
[2023-06-23] MEDS: DOCUSATE SODIUM 100 MG CAP PO PRN (22:29)
[2023-06-24] MEDS: LEVOTHYROXINE SODIUM 112 MCG TABLET PO SCH (06:06)
[2023-06-24 07:02] LABS: Basophils # (auto) 0.06 K/uL (0.00-0.20); Basophils % (auto) 0.7 %; Eosinophils # (auto) 0.27 K/uL (0.00-0.50); Eosinophils % (auto) 2.9 %; Hematocrit (blood only) 39.8 % (37.0-47.0); Immature Granulocytes # (auto) 0.04 K/uL (0.01-0.20); Immature Granulocytes % (auto) 0.4 %; Lymphocytes % (auto) 23.8 %; Mean Corpuscular Hemoglobin 32.7 pg (25.0-34.0); Mean Corpuscular Hgb Conc 32.7 g/dL (32.0-36.0); Mean Platelet Volume 9.1 fL (9.4-12.4); Monocytes # (auto) 1.07 K/uL (0.11-0.59); Monocytes % (auto) 11.6 %; Neutrophils # (auto) 5.59 K/uL (1.40-6.50); Neutrophils % (auto) 60.6 %; Platelet Count 233 K/uL (130-400); RDW Coefficient of Variation 17.7 % (11.5-14.5); Red Blood Count 3.98 M/uL (4.20-5.40); White Blood Count 9.23 K/ul (4.8-10.8)
[2023-06-24 07:22] LABS: Alanine Aminotransferase 15 U/L (7-52); Albumin Globulin Ratio 1.2 (0.9-2); Albumin Level 3.2 gm/dl (3.4-5.0); Alkaline Phosphatase 153 U/L (34-104); Anion Gap 6 (3-11); Aspartate Aminotransferase 63 U/L (13-39); BUN Creatinine Ratio 9.7 (10-20); Blood Urea Nitrogen 3 mg/dl (6-23); Calcium 8.4 mg/dl (8.6-10.3); Carbon Dioxide 27 mmol/L (21-32); Chloride 104 mmol/L (98-107); Creatinine Clr Calc Pharmacy 209.9 ml/min; Est GFR (African American) > 150.0 ml/min; Est GFR (Non-African American) 130.2 ml/min; Globulin 2.7 gm/dl (2.5-4.0); Glucose 115 mg/dl (70-99(Fasting)); Magnesium 1.5 mg/dl (1.7-2.4); Sodium 137 mmol/L (136-145); Total Protein 5.9 gm/dl (6.0-8.3)
[2023-06-24] MEDS: PREGABALIN 100 MG CAP PO SCH (09:02)
[2023-06-24] MEDS: ASCORBIC ACID 500 MG TAB PO SCH (09:02)
[2023-06-24] MEDS: PANTOprazole 40 MG TAB PO SCH (09:03)
[2023-06-24] MEDS: cefTRIAXone SODIUM 1,000 MG in DEXTROSE 5 % MINI-B 50 ML IV SCH (09:03)
[2023-06-24] MEDS: MULTIVITAMIN TAB PO SCH (09:04)
[2023-06-24] MEDS: HEPARIN SOD 5,000 UNIT/0.5 ML VIAL SQ SCH (09:04)
[2023-06-24] MEDS: DULoxetine HCL 60 MG CAP PO SCH (09:04)
[2023-06-24] MEDS: CHOLECALCIFEROL 400 UNITS 10 MCG TAB PO SCH (09:04)
[2023-06-24] MEDS: CYANOCOBALAMIN (B-12) 500 MCG TABLET PO SCH (09:05)
[2023-06-24] MEDS: POTASSIUM CHLORIDE CRTAB 20 MEQ TABCR PO SCH (09:56)
[2023-06-24] MEDS ORDERED: bisacodyL 10 MG SUPP PR STA (10:12)
--- NOTE | 2023-06-24 11:05 | Discharge Summary ---
Date of Service June 24, 2023 Admission HPI Per Admitting Provider The patient is a 53-year-old female with a past medical history including T12 compression fracture, vitamin D deficiency, B12 deficiency, alcoholic myopathy, alcoholic dependence, idiopathic polyneuropathy, tobacco dependence, cirrhosis, portal hypertension, COPD, CAD, fatty liver and hypertension. She presents to the emergency department as noted above. The patient reports that she had not had a bowel movement in 2 weeks, but also reports not having eaten anything in a week and a half. She had decreased oral intake of liquids during this time as well. Significant laboratories: Potassium 2.2, glucose 109, magnesium 1.2, total bilirubin 2.3, AST 51. CT scan of abdomen pelvis: Severe hepatic steatosis and mild hepatomegaly, varices, portal hypertension, gallbladder with possible sludge or stones, and left renal lesions, largest of which is of 9 mm proteinaceous cyst versus possible solid lesion From the emergency department the patient received the following: Potassium chloride 20 mEq p.o. x1, potassium chloride 10 mill equivalent K riders IV x2, magnesium sulfate 2 g IV Principal Diagnosis gall stone, abd pain Discharge Exam The patient is awake, alert and oriented 3, well developed and well nourished, normocephalic and atraumatic, lying in bed and in no acute distress. HEENT--PERRL, EOMI, mucous membranes and oropharynx mildly dry Neck--supple. No JVD. No bruits. Thyroid normal, trachea midline, no adenopathy. Heart--normal S1 and S2. No murmurs, rubs or gallops. Lungs--clear bilaterally, no respiratory distress, no accessory muscle use. Abdomen--normal bowel sounds and soft. Mild epigastric and left sided abdominal pain Extremities--no cyanosis or clubbing. No edema. Dermatologic--normal skin turgor, normal color, no abnormal lymph nodes, no rash. Neurologic--cranial nerves II through XII grossly intact. Rheumatologic--normal range of motion. Psychiatric--normal affect. Discharge Data Allergies Allergy/AdvReac Type Severity Reaction Status Date / Time gabapentin Allergy Confusion Verified 06/21/23 17:43 promethazine AdvReac Intermediate MADE ME Verified 06/21/23 17:43 SICKER hair dye Allergy Unknown scalp Uncoded 06/21/23 17:43 irriration/swelling Consultations 06/21/23 22:22 ED Decision to Admit Stat 06/22/23 14:30 Consult Gastroenterology Routine 06/22/23 20:27 Consult General Surgery Routine Procedures Performed Operation Date: 06/23/23 11:00 Actual Procedures p Esophagogastroduodenoscopy(Not Applicable) - Milton Redding MD p Endoscopic Ultrasonography Upper(Not Applicable) - Milton Redding MD Ordered Studies 06/21/23 17:15 CT Abd and Pelvis [CT abd pelvis IV con only] Stat 06/22/23 05:00 MR MRCP Stat 06/23/23 08:01 US upper EUS PACS images Routine Hospital Course (1) Weakness: (2) Abdominal pain: (3) Nausea & vomiting: (4) Alcoholic myopathy: (5) Idiopathic polyneuropathy: (6) Tobacco dependence: (7) Hypokalemia: (8) Hypomagnesemia: (9) Cirrhosis: (10) Portal hypertension: (11) History of ETOH abuse: (12) COPD (chronic obstructive pulmonary disease): Plan Hypokalemia/hypomagnesemia- Now resolved following replacement Severe abdominal pain/cirrhosis/hepatic steatosis/hepatomegaly/EtoH abuse history- CT scan of abdomen pelvis also notes gallbladder with possible sludge and/or stones MRCP confirmed sludge/stones GI on consult, She is s/p EGD and EUS Appreciate GI recs Alcohol use history- Reports she has not had any alcohol to drink in the past 2 weeks, so should not need the alcohol withdrawal protocol CT abdomen shows evidence of cirrhosis Elevated Liver enzymes Mild elevation in liver enzymes MRCP shows only gall stone/sludge, no evidence of cholecystitis GI on consult, she is s/p EGD and EUS Constipation: Now resolved Total Time Total Time Spent Total Time Spent (In Minutes): 35 Discharge Plan Discharge Items Patient Disposition: Home - Self-Care Reason For Visit: HYPOKALEMIA, HYPOMAGNESEMIA, SEVERE FATIGUE Discharge Diagnosis: anemia Activity: Resume your previous activity Non-emergency contact: Primary Care Provider and [place] Clerk Call non-emergency contact if: you have any medication questions Follow-up/Referrals: Natalia Puentes MD [Primary Care Provider] - 06/28/23 11:30 am (Follow up scheduled on 06/28/23 @ 11:30 am) Diet: Regular Addtl Attending Provider Instructions: please follow up with your regular PCP. Also make appointment to follow up with gastroenterology Pending Studies at Discharge: No Stand-Alone Forms: My [facility] [place], Smoking Cessation Medications and DC Order Prescriptions: New cephalexin 500 mg capsule 500 mg PO BID 7 Days Qty: 14 0RF metronidazole [Flagyl] 375 mg capsule 375 mg PO BID 7 Days Qty: 14 0RF Continued (DME) [place] Walker Misc See Rx Instructions .Route Qty: 1 0RF Rx Instructions: As directed Dx:A69.20; G62.9 multivitamin Tablet 1 tab PO DAILY duloxetine 60 mg capsule,delayed release(DR/EC) 60 mg PO DAILY Qty: 30 1RF pregabalin [Lyrica] 100 mg capsule 100 mg PO TID Qty: 90 1RF omeprazole 20 mg capsule,delayed release(DR/EC) 20 mg PO BID Qty: 60 1RF levothyroxine 112 mcg tablet 112 mcg PO DAILY Qty: 30 6RF potassium chloride 20 mEq tablet,ER particles/crystals 20 meq PO QAM Qty: 90 1RF cholecalciferol (vitamin D3) 1,250 mcg (50,000 unit) capsule 50,000 unit PO .one per week Qty: 10 1RF Rx Instructions: take one capsule per week with meal 06/21/23 : THIS MED NOT STARTED YET. ascorbic acid (vitamin C) [Vitamin C] 500 mg Tablet 500 mg PO QAM cholecalciferol (vitamin D3) [Vitamin D3] 10 mcg (400 unit) Tablet 10 mcg PO QAM cyanocobalamin (vitamin B-12) 1,000 mcg capsule 1,000 mcg PO QAM albuterol sulfate 90 mcg/actuation HFA aerosol inhaler 2 puff inhalation Q6HWA PRN (Reason: COPD/ASTHMA) lidocaine 4 % Adhesive Patch,Medicated 1 patch TOPICAL DAILY PRN (Reason: Pain) Rx Instructions: OTC ondansetron 4 mg tablet,disintegrating 4 mg translingual Q8 PRN (Reason: Nausea) Rx Instructions: 06/21/23 THIS MED NOT STARTED YET. Discharge Orders: Discharge Order (Routine); Ordered 06/24/23 Ordered By: Shashi Mario Admission Data Admit Date/Time: 06/21/23 23:27 Attending Provider: Shashi Mario Admit Provider: Andrew Pal Primary Care Provider: Natalia Puentes Other Providers: Andrew Pal ; Juan Diego Blackwood ; Booker Ellsworth ; Melissa Huang ; Rosemary Mensah ; Lolly Oliveros ; Isabel Wilde ; Viktor Latham ; Ricco Payne ; Helen Beard ; Amber Mackey ; Kiya Key ; Manuel Weems ; Genia Self ; Yesenia Singer ; Radha Lennon ; Patricia Hall ; Milton Redding ; Enmanuel Wu ; Steven Grullon ; Lourdes Lazcano ; Elías Parks Jr ; Tom Riggs Coding Level of Care Code 82538 INP/OBS DISCH >30 MIN Diagnoses Weakness R53.1 Abdominal pain R10.9 Nausea & vomiting R11.2 Alcoholic myopathy G72.1 Idiopathic polyneuropathy G60.9 Tobacco dependence F17.200 Hypokalemia E87.6 Hypomagnesemia E83.42 Cirrhosis K74.60 Portal hypertension K76.6 History of ETOH abuse F10.11 COPD (chronic obstructive pulmonary disease) J44.9 Time Spent (min) 35
[2023-06-24] MEDS: DOCUSATE SODIUM 100 MG CAP PO PRN (11:54)
== END 2023-06-24 12:46 | disposition home or self-care (01) | DRG 445 ==
LOC: ED 17:03 → EDINP 23:27 → SUATTDRO 23:27 → 2S 06-22 03:41

== ENCOUNTER 2023-10-27 18:03 | Inpatient (IN) ==
--- NOTE | 2023-10-27 18:09 | ED Triage Note ---
Date of Service October 27, 2023 Provider in Triage Author: Leah Werner History of Present Illness This patient was briefly evaluated while in triage. An abbreviated physical exam was performed. This patient is a 53-year-old Female who presents to the ED for evaluation illness, abdominal pain, weak/dizzy x 2 months was here in August for similar symptoms nausea and vomiting generalized pain, abdominal pain, rib pain Physical Exam GENERAL: NAD CARDIOVASCULAR: RRR RESPIRATORY: CTA ABDOMEN: BS x 4. Diffusely TTP. Initial orders for labs and / or imaging were placed and patient was placed in the waiting area until a bed is available. Please see further documentation for the full ED course.
[2023-10-27 19:00] LABS: Basophils # (auto) 0.05 K/uL (0.00-0.20); Basophils % (auto) 0.4 %; Eosinophils # (auto) 0.09 K/uL (0.00-0.50); Eosinophils % (auto) 0.7 %; Hemoglobin 14.3 g/dl (12.0-16.0); Immature Granulocytes # (auto) 0.05 K/uL (0.01-0.20); Immature Granulocytes % (auto) 0.4 %; Lymphocytes # (auto) 2.71 K/uL (1.20-3.40); Lymphocytes % (auto) 21.4 %; Mean Corpuscular Hemoglobin 32.9 pg (25.0-34.0); Mean Corpuscular Volume 96.6 fL (80.0-100.0); Mean Platelet Volume 9.3 fL (9.4-12.4); Monocytes # (auto) 1.67 K/uL (0.11-0.59); Monocytes % (auto) 13.2 %; Neutrophils # (auto) 8.09 K/uL (1.40-6.50); Neutrophils % (auto) 63.9 %; Platelet Count 279 K/uL (130-400); RDW Coefficient of Variation 16.8 % (11.5-14.5); RDW Standard Deviation 60.3 fL (36.4-46.3); Red Blood Count 4.35 M/uL (4.20-5.40); White Blood Count 12.66 K/ul (4.8-10.8)
--- NOTE | 2023-10-27 19:05 | XRay Report ---
PA CHEST WITH ABDOMINAL SERIES CLINICAL HISTORY: Atypical chest pain. Generalized abdominal pain FINDINGS: A PA chest radiograph is compared to study dated 03/25/2022. The cardiomediastinal silhouette is unrem arkable. There is mild bibasilar atelectasis. The lungs and pleural spaces are otherwise clear. No pn eumothorax is seen. The bony thorax is grossly intact. Supine and erect abdominal radiographs are correlated with abdominal CT dated 09/08/2023. There are di stended and gas-filled loops of small bowel which measure up to 3.3 cm in diameter. No evidence of in traperitoneal free air is seen. There are no abnormal abdominal calcifications. Phleboliths are seen in the pelvis. The lumbosacral spine and bony pelvis appear intact. IMPRESSION: 1. No active disease in the chest. 2. There are distended gas-filled loops of small bowel. This could be seen with a nonspecific enterit is or possibly developing bowel obstruction. Clinical correlation will be essential. ACT 112: Negative or not required by law. Electronically signed by: Herman Nathan M.D. 10/27/2023 7:03 PM
[2023-10-27 19:13] LABS: Alanine Aminotransferase 25 U/L (7-52); Albumin Level 3.5 gm/dl (3.4-5.0); Alkaline Phosphatase 246 U/L (34-104); Anion Gap 13 (3-11); Aspartate Aminotransferase 93 U/L (13-39); BUN Creatinine Ratio 7.1 (10-20); Bilirubin,Total 1.9 mg/dl (0.2-1.0); Blood Urea Nitrogen 2 mg/dl (6-23); Carbon Dioxide 25 mmol/L (21-32); Chloride 98 mmol/L (98-107); Est GFR (African American) > 150.0 ml/min; Est GFR (Non-African American) 134.7 ml/min; Globulin 3.4 gm/dl (2.5-4.0); Glucose 108 mg/dl (70-99(Fasting)); Lipase 3 U/L (11-82); Magnesium 1.4 mg/dl (1.7-2.4); Sodium 136 mmol/L (136-145); Total Protein 6.9 gm/dl (6.0-8.3)
[2023-10-27] MEDS: OPTIRAY 320 500ml IV ONE (19:56)
[2023-10-27 20:01] LABS: T4 Free Thyroxine 1.05 ng/dl (0.61-1.60)
[2023-10-27] MEDS: MAGNESIUM SULFATE / D5W 1 GM/100 ML BAG IV SCH (20:08)
--- NOTE | 2023-10-27 20:37 | CT Scan Report ---
Exam(s): CT ABDOMEN + PELVIS With Contrast IV Amt: 87 ml opti 320 EXAM: CT Abdomen and Pelvis With Intravenous Contrast CLINICAL HISTORY: Pain with nausea and vomiting. TECHNIQUE: Axial computed tomography images of the abdomen and pelvis with intravenous contrast. CTDI is 24.59 mGy and DLP is 1244.42 mGy-cm. Automated exposure control was utilized for the study. A dose lowering technique was utilized adhering to the principles of ALARA. CONTRAST: Patient received 87 ml opti 320 of IV contrast COMPARISON: CT abdomen and pelvis 09/08/2023 and MRCP 06/22/2023 FINDINGS: Lung bases: Unremarkable. No mass. No consolidation. ABDOMEN: Liver: Redemonstrated regional fatty infiltration of the liver. Hepatomegaly. Question nodular contour of the liver concerning for cirrhosis. There is an abnormal contour of hepatic segment 4B. Gallbladder and bile ducts: Cholelithiasis. No ductal dilation. Pancreas: Unremarkable. No mass. No ductal dilation. Spleen: Unremarkable. No splenomegaly. Adrenals: Unremarkable. No mass. Kidneys and ureters: Unremarkable. No solid mass. No hydronephrosis. Stomach and bowel: Fat interspersed in the wall of the colon may relate to body habitus or inflammatory bowel disease. No obstruction. No mucosal thickening. PELVIS: Appendix: No findings to suggest acute appendicitis. Bladder: Unremarkable. No mass. Reproductive: Unremarkable as visualized. ABDOMEN and PELVIS: Intraperitoneal space: Unremarkable. No free air. No significant fluid collection. Bones/joints: There are degenerative changes of the spine. No acute fracture. No dislocation. Soft tissues: Unremarkable. Vasculature: Mild atherosclerosis. No abdominal aortic aneurysm. Lymph nodes: Unremarkable. No enlarged lymph nodes. IMPRESSION: 1. Hepatomegaly with fatty infiltration of the liver. Question nodular contour of the liver concerning for cirrhosis. There is abnormal contour of hepatic segment 4B. Recommend further evaluation with dedicated hepatic MRI, which differs from the previous MRCP protocol, as hepatocellular carcinoma needs to be excluded as cirrhosis is suspected. 2. Fat interspersed in the wall of the colon may relate to body habitus or inflammatory bowel disease. 3. Cholelithiasis. 4. Age in determinant T2 compression fracture. Electronically signed by: Alba Marc MD 10/27/23 20:36 PM
--- NOTE | 2023-10-27 21:53 | History & Physical Report ---
Date of Service October 27, 2023 Assessment & Plan (1) Right upper quadrant abdominal pain: Plan: -Ongoing RUQ abdominal pain of several months' duration and abnormal LFTs (TB 1.9, AST 93, ALP 246) in pt with cirrhosis with previous outpatient studies suggesting hepatobiliary cause -CTAP demonstrating hepatomegaly with fatty infiltration and abdominal nodular contour of liver. MRI recommended for further evaluation -Ordered MRI for evaluation of potential hepatocellular carcinoma -As symptoms may be from possible gallbladder infection, began empiric treatment with Zosyn- single dose and deferring continuation to day team -Morphine PRN pain -While less likely to be underlying her presentation, hepatitis panel ordered for AM. Tickborne panel also added -Deferring GI consult until MRI results available -CRP/procalcitonin added to AM labs -Monitor CMP, PT/INR- calculate MELD score once INR results in AM (2) Nausea & vomiting: Plan: -Likely secondary to suspected hepatobiliary pathology as above -Zofran PRN nausea (3) Dehydration: Plan: -Acute dehydration from reduced oral intake + NBNB emesis -Continue fluid repletion- LR 100 cc/hr -Monitor CMP, Mg, Phos (4) Leukocytosis: Plan: -WBC 12.7 on admission -Leukocytosis possibly due to stress demargination vs acute hepatobiliary infection -Pt has been afebrile and denies fever/chills over past few months -Single dose Zosyn given in ER, deferring continuation to day team -CRP/PCT added to AM labs -Monitor CBC (5) Generalized weakness: Plan: -From deconditioning and ongoing GI symptoms -Hydration as above -PT/OT consulted (6) Constipation: Plan: -AXR noting concern for possible obstruction though not seen on CTAP -Bowel regimen initiated (7) Hypokalemia: Plan: -K 3.0 on admission -Repleted in ER with 80 mg PO KCl -Monitor CMP (8) Hypomagnesemia: Plan: -Mg 1.4 on admission -Repleted in ER -Monitor Mg (9) Alcohol use disorder: Plan: -Alcohol level 19 on admission, last reported drink was few sips of beer on 3/ AM -Does not appear to be in withdrawal/acute intoxication (10) Elevated TSH: Plan: -TSH 5.6 and normal fT4 on admission -Previously noted history of hypothyroidism but not on levothyroxine as outpatient per chart review -Repeat TSH as outpatient after acute illness resolves (11) Acid reflux: Plan: -Continue omeprazole (12) COPD (chronic obstructive pulmonary disease): Plan: -Stable, not in exacerbation -Continue albuterol PRN Plan FENGI: Clear liquids Code status: Full DVT prophylaxis: SCDs Isolation: None Unit: Medical/surgical Disposition planning: Pending clinical course History of Present Illness Chief Complaint: Abdominal pain Primary Care Provider: Natalia Puentes MD Pt is 53 yo F with PMH fatty liver, alcoholic cirrhosis, history of severe alcohol use disorder including alcohol-withdrawal seizure now in remission, COPD, hypothyroidism, GERD, chronic constipation presenting with abdominal pain Pt reports several months of ongoing daily GI symptoms- RUQ abdominal pain, nausea, frequent NBNB emesis, all of which has reduced her oral intake (though without significant weight loss). She has had ongoing constipation as well. She did see [facility] hepatology for f/u in 08/2023 for these symptoms. Review of office note indicates her previous liver biopsy had showed concern for advanced fibrosis and cirrhosis, she is to be regularly screened for HCC. She has had EGD, EUS, gastric emptying scan, HIDA scan done in past and only notable finding was 12% EF on HIDA scan and 05/2023 EUS showed sludge/stones in gallbladder. Her primary care provider felt symptoms were due to gallbladder disease and was coordinating possible repeat surgical evaluation since a previous surgeon did not feel she was acceptable surgical candidate for cholecystectomy given her cirrhosis. Pt's symptoms continued to worsen and she reported to ER today due to intolerability of pain. She previously drank a fifth of vodka for nearly 10 years but reports quitting in January 2021 and has only drank 1-2 beers weekly at most since then. She did have a few sips of beer this morning. Pt arrived to ER hemodynamically stable, mild tachycardia to 100s. Initial evaluation significant for WBC 12.7, K 3.0, Mg 1.4, TB 1.9, AST 93, ALP 246, TSH 5.6, normal fT4, alcohol level 19. AXR showing distended small bowel loops concerning for enteritis vs developing SBO. CTAP demonstrating hepatomegaly with fatty infiltration of liver, questionable nodular contour of liver. ER interventions include MgSO4 2g IV. At present, pt reports continued abdominal pain and nausea. Allergies Allergy/AdvReac Type Severity Reaction Status Date / Time gabapentin Allergy Confusion Verified 10/27/23 21:23 promethazine AdvReac Intermediate MADE ME Verified 10/27/23 21:23 SICKER hair dye Allergy Unknown scalp Uncoded 10/27/23 21:23 irriration/swelling Home Medications Medication Instructions Recorded Confirmed Type cyanocobalamin (vitamin B-12) 1,000 mcg PO QAM 07/20/21 10/27/23 History 1,000 mcg capsule multivitamin 1 tab PO DAILY 10/24/22 10/27/23 History albuterol sulfate 90 mcg/actuation 2 puff inhalation Q6HWA PRN 06/21/23 10/27/23 History aerosol inhaler COPD/ASTHMA lidocaine 4 % topical patch 1 patch topical DAILY PRN Pain 06/21/23 10/27/23 History ondansetron 4 mg disintegrating 4 mg translingual Q8 PRN Nausea 06/21/23 10/27/23 History tablet omeprazole 40 mg capsule,delayed 40 mg PO QAM 10/27/23 10/27/23 History release potassium chloride 20 mEq 20 meq PO DAILY 10/27/23 10/27/23 History tablet,extended release Past Med/Surg History Medical History (Updated 10/27/23 @ 22:15 by Leah Werner MD) Muscle mass LOSS OF MUSCLE MASS OVER LAST 2 MON Fatty liver Rectal bleeding REASON FOR UPCOMING PROCEDURE Snores High blood pressure NO MEDS/MONITORS Constipation REASON FOR UPCOMING PROCEDURE Acid reflux History of anemia Anxiety and depression History of seizure LAST EVENT 2 YEARS AGO (ALCHOHOL WITHDRAWL) Spontaneous pneumothorax HX (REPAIRED 2005) Hypothyroidism Heavy menses Vitamin D deficiency pt reports probably all her vitamins are low Alcohol dependence A FIFTH A DAY FOR 9 YRS NONE FOR LAST 3 WEEKS "WAS GETTING SICK WHEN I DRINK IT AND MY BODY WON'T ALLOW ME TO HAVE IT" PUD (peptic ulcer disease) COPD (chronic obstructive pulmonary disease) AND ASTHMA PER PT - LAST USE INHALER LAST WEEK PTSD (post-traumatic stress disorder) Surgical History History of esophagogastroduodenoscopy (EGD) 03/18/22 Dr. Helen Beard- Z-line irregularity, biopsied History of section X 3 History of endoscopy History of colonoscopy MOST RECENT A COUPLE MONTHS AGO ? - PT NOT SURE DETAILS ON FINDINGS (DONE AT [facility]) H/O tooth extraction 02/11/18 - Multiple teeth extracted under general anesthesia Family History Mother , age 65 of metastatic cancer Family hx of colon cancer Stomach cancer Anxiety Depression Kidney disease Colorectal cancer Lung disease Gallbladder disease Family history of cancer Grandmother (Maternal) Stomach cancer Alcohol abuse Father , age 74 of lung cancer Depression Cardiac disorder Kidney stones Kidney disease Myocardial infarction Oral-mouth cancer Lung disease Hypertension Lung cancer Sister Drug abuse Anxiety Depression Aunt Breast cancer Maternal Brother Family history of diabetes mellitus Other No family history of adverse response to anesthesia Denies family history of Ovarian cancer Prostate cancer Multiple sclerosis Social History Smoking Status: Current every day smoker Tobacco Type: Cigarettes packs per day: 0.5; Cigarettes Per Day: 2.5; Second Hand Exposure: No; Do You Dip or Chew Tobacco: No; Hx Alcohol Use: Yes Alcohol type: beer Alcohol type Comment: VODKA Alcohol Intake Frequency: 2-4 x/Month Alcohol Intake Frequency Comment: 1 beer per week and no other alcohol since January, Hx Substance Use: No Preferred Language: Egyptian Communication Ability: Effective Visual Impairment: No Limitations Manager Pharmaceutical Required: No Beliefs That Will Affect Care: None marital status: marital status details: twice Current Living Situation: Alone Current Living Situation Comment: Apartment, first floor, with cat named Baby current occupational status: unemployed 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 How many Children do You have: 3 Feels Safe at Home: Yes caffeine: Yes (coffee) Dental Care, Regularly: No Physical Activity Frequency: 1-2 Times per Week Seatbelt Use: always Sunscreen Use: No Assistive Devices: Nebulizer and Walker Review of Systems Review of Systems: Per HPI/Subjective Physical Exam Physical Exam: General: ill-appearing, no acute distress HEENT: PERRL, EOMI, conjunctivae clear without injection, anicteric sclerae, dry mucous membranes, clear oropharynx without exudate or erythema Neck: supple, trachea midline, no thyromegaly, no JVD, no cervical lymphadenopathy CV: RRR, normal S1 and S2, no murmurs Resp: CTAB, no increased work of breathing, no crackles or wheezes Abd: Soft, diffusely tender but greatest in RUQ + positive Nicholson sign, nondistended, no guarding or rebound, +hepatomegaly MSK: Normal bulk of all four extremities Neuro: AOx3, no focal motor or sensory deficits Skin: no rashes or lesions, warm and dry Ext: no LE peripheral edema or erythema, capillary refill <2s in all four extrem ities, 2+ LE peripheral pulses b/l Results & Data Results & Data Vital Signs (Past 12 Hours) Vital Signs Temp Pulse Pulse Resp BP BP Pulse Ox 10/27/23 20:46 96 H 10/27/23 19:36 98 10/27/23 19:35 102 H 18 117/81 97 10/27/23 18:24 36.6 C 106 H 18 114/70 98 O2 Del Method 10/27/23 20:46 10/27/23 19:36 Room Air 10/27/23 19:35 Room Air 10/27/23 18:24 Room Air Code Status & VTE Plan VTE Prophylaxis Plan VTE Prophylaxis will be ordered: Yes Supervising Physician Co-Signing Physician Notes Attending addendum: I have physically seen this patient, have supervised the medical residents activities, and agree with the H&P unless as otherwise noted. Assessment and Plan: Right upper quadrant abdominal pain/abnormal LFTs/cirrhosis- MRI ordered to assess for possible hepatocellular carcinoma/gallbladder dysfunction MRI pending at this time Acute hepatitis panel pending from morning Tickborne panel pending Zosyn 4.5 g IV every 8 hours Follow serial laboratories Nausea vomiting- NPO IV fluids as noted Zofran 4 mg every 6 hours as needed Resident Activity Tracking Resident Involvement: Resident Care Provided Care Provided: Adult Hospital Medicine (2) Nausea & vomiting Vomiting type: unspecified Qualified Code(s): R11.2 - Nausea with vomiting, unspecified
[2023-10-27] MEDS: POTASSIUM CHLORIDE CRTAB 20 MEQ TABCR PO STA (21:58)
--- NOTE | 2023-10-27 22:02 | Emergency Department Note ---
History of Present Illness General Chief Complaint: Abdominal Pain Stated Complaint: ILLNESS, STOMACH PAIN Time Seen by Provider: 10/27/23 19:40 History of Present Illness Provider Complaint: abdominal pain Onset (ago): 5 day(s) Pain Consistency: intermittent Location: diffuse Severity: moderate Maximum Pain Intensity: 7 Current Pain Intensity: 7 Quality: + stabbing and + sharp Relieved By: + nothing Exacerbated By: + nothing Context: no foreign travel, no possible food poisoning, no sick contacts, no recent antibiotic use, no recent surgery/procedure or no recent injury Associated Symptoms: + nausea, + vomiting and + diarrhea; no fever, no chills, no constipation, no dysuria, no hematemesis, no hematochezia, no melena, no hematuria, no syncope, no headache and no chest pain Home Medications Medication Instructions Recorded Confirmed Type cyanocobalamin (vitamin B-12) 1,000 mcg PO QAM 07/20/21 10/27/23 History 1,000 mcg capsule multivitamin 1 tab PO DAILY 10/24/22 10/27/23 History albuterol sulfate 90 mcg/actuation 2 puff inhalation Q6HWA PRN 06/21/23 10/27/23 History aerosol inhaler COPD/ASTHMA lidocaine 4 % topical patch 1 patch topical DAILY PRN Pain 06/21/23 10/27/23 History ondansetron 4 mg disintegrating 4 mg translingual Q8 PRN Nausea 06/21/23 10/27/23 History tablet omeprazole 40 mg capsule,delayed 40 mg PO QAM 10/27/23 10/27/23 History release potassium chloride 20 mEq 20 meq PO DAILY 10/27/23 10/27/23 History tablet,extended release Allergies Allergy/AdvReac Type Severity Reaction Status Date / Time gabapentin Allergy Confusion Verified 10/27/23 21:23 promethazine AdvReac Intermediate MADE ME Verified 10/27/23 21:23 SICKER hair dye Allergy Unknown scalp Uncoded 10/27/23 21:23 irriration/swelling Past Med/Surg History Medical History Muscle mass LOSS OF MUSCLE MASS OVER LAST 2 MON Fatty liver Rectal bleeding REASON FOR UPCOMING PROCEDURE Snores High blood pressure NO MEDS/MONITORS Constipation REASON FOR UPCOMING PROCEDURE Acid reflux History of anemia Anxiety and depression History of seizure LAST EVENT 2 YEARS AGO (ALCHOHOL WITHDRAWL) Spontaneous pneumothorax HX (REPAIRED 2005) Hypothyroidism Heavy menses Vitamin D deficiency pt reports probably all her vitamins are low Alcohol dependence A FIFTH A DAY FOR 9 YRS NONE FOR LAST 3 WEEKS "WAS GETTING SICK WHEN I DRINK IT AND MY BODY WON'T ALLOW ME TO HAVE IT" PUD (peptic ulcer disease) COPD (chronic obstructive pulmonary disease) AND ASTHMA PER PT - LAST USE INHALER LAST WEEK PTSD (post-traumatic stress disorder) Surgical History History of esophagogastroduodenoscopy (EGD) 03/18/22 Dr. Helen Beard- Z-line irregularity, biopsied History of section X 3 History of endoscopy History of colonoscopy MOST RECENT A COUPLE MONTHS AGO ? - PT NOT SURE DETAILS ON FINDINGS (DONE AT [facility]) H/O tooth extraction 02/11/18 - Multiple teeth extracted under general anesthesia Family History Mother , age 65 of metastatic cancer Family hx of colon cancer Stomach cancer Anxiety Depression Kidney disease Colorectal cancer Lung disease Gallbladder disease Family history of cancer Grandmother (Maternal) Stomach cancer Alcohol abuse Father , age 74 of lung cancer Depression Cardiac disorder Kidney stones Kidney disease Myocardial infarction Oral-mouth cancer Lung disease Hypertension Lung cancer Sister Drug abuse Anxiety Depression Aunt Breast cancer Maternal Brother Family history of diabetes mellitus Other No family history of adverse response to anesthesia Denies family history of Ovarian cancer Prostate cancer Multiple sclerosis Social History Smoking Status: Current every day smoker Tobacco Type: Cigarettes packs per day: 0.5; Cigarettes Per Day: 6-9; Second Hand Exposure: No; Do You Dip or Chew Tobacco: No; Hx Alcohol Use: Yes Alcohol type: beer Alcohol type Comment: VODKA Alcohol Intake Frequency: 2-4 x/Month Alcohol Intake Frequency Comment: 1 beer per week and no other alcohol since January, Hx Substance Use: No Preferred Language: Setswana Communication Ability: Effective Visual Impairment: No Limitations Continuous Improvement Coach Required: No Beliefs That Will Affect Care: None marital status: marital status details: twice Current Living Situation: Alone Current Living Situation Comment: Apartment, first floor, with cat named Baby current occupational status: unemployed 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 How many Children do You have: 3 Feels Safe at Home: Yes caffeine: Yes (coffee) Dental Care, Regularly: No Physical Activity Frequency: 1-2 Times per Week Seatbelt Use: always Sunscreen Use: No Assistive Devices: Nebulizer and Walker Physical Exam 2 Vital Signs: Vital Signs - 24 hr 10/27/23 18:24 10/27/23 19:35 10/27/23 19:36 Temperature 36.6 C Temperature Source Temporal Artery Sc an Pulse Rate 106 H Pulse Rate [Finger ] 102 H Pulse Rhythm Regular Pulse Strength Normal Respiratory Rate 18 18 Respiratory Effort / Characteristics Non-Labored Respiratory Depth Normal Respiratory Patter n Regular Blood Pressure 114/70 Blood Pressure [Le ft Arm] 117/81 Blood Pressure Leesa n 84 Blood Pressure Leesa n [Left Arm] 93 Pulse Oximetry 98 97 98 Oxygen Delivery Me thod Room Air Room Air Room Air Sepsis Recent Feve r Within 48 Hours No Sepsis New/Unexpla ined Change in Men sriram Status No Sepsis Action Take n by Nursing No Action Required 10/27/23 20:46 Temperature Temperature Source Pulse Rate 96 H Pulse Rate [Finger ] Pulse Rhythm Pulse Strength Respiratory Rate Respiratory Effort / Characteristics Respiratory Depth Respiratory Patter n Blood Pressure Blood Pressure [Le ft Arm] Blood Pressure Leesa n Blood Pressure Leesa n [Left Arm] Pulse Oximetry Oxygen Delivery Me thod Sepsis Recent Feve r Within 48 Hours Sepsis New/Unexpla ined Change in Men sriram Status Sepsis Action Take n by Nursing Physical Exam: Physical Exam GENERAL: She is oriented to person, place, and time. She appears well-developed and well-nourished. She does not appear distressed. HENT: Exam performed. -Head: Normocephalic and atraumatic. -Right Ear: External ear normal. No mastoid erythema -Left Ear: External ear normal. No mastoid erythema -Mouth/Throat: The oropharynx is clear and moist. No trismus in the jaw. No dental abscesses or uvula swelling. No oropharyngeal exudate or tonsillar abscesses. EYES: Conjunctivae and EOM are normal.Right eye exhibits no discharge. Left eye exhibits no discharge. No scleral icterus. NECK: Normal range of motion. Neck supple. No JVD present. No tracheal deviation and normal range of motion present. CV: Normal rate, regular rhythm, normal heart sounds and intact distal pulses. There is no peripheral edema. Palpable radial pulses bue. PULM/CHEST: Effort normal and breath sounds normal. No respiratory distress. No stridor. She has no wheezes. She has no rales. -Chest Wall: She exhibits no tenderness. ABD: The abdomen is soft. She has no distension. No mass is present. There is diffuse tenderness to palpation. There is no rebound, no guarding, no Nicholson's sign and no tenderness at McBurney's point. Rovsig negative MUSC/SKEL: Normal range of motion. There is no peripheral edema, tenderness or deformity. NEURO: Motor and sensation grossly intact. SKIN: Skin is warm and dry. She is not diaphoretic. PSYCH: She has a normal mood and affect. Behavior is normal. Judgment and thought content normal. Course Course 1939: The patient was evaluated in room A9. A complete history and physical exam was performed Cardiac monitoring: An order was placed for continuous cardiac monitoring. The monitor shows a rate of 100 with sinus rhythm interpreted by ar 2105: Vital signs stable. Labs show white blood cell count of 12.66 potassium of 3 magnesium of 1.4. Magnesium repletion started in the emergency department. Total bilirubin 1.9 AST 93 ALT within normal limits at 25. Imaging shows hepatomegaly with fatty infiltration of the liver there is question of cirrhosis and an abnormal contour in segment 4B. Radiology is recommending a hepatic MRI. [facility] will be [facility]. Administered Medications Potassium Chloride (Potassium Chloride Crtab 20 Meq Tabcr) 80 meq PO NOW STA Stop: 10/27/23 21:49 Last Admin: 10/27/23 21:58 Dose: 80 meq Documented By: SAM Discontinued Medications Magnesium Sulfate/Dextrose (Magnesium Sulfate / D5w) 1 gm in 100 mls @ 100 mls/hr IV Q1H [facility] Stop: 10/27/23 21:40 Last Admin: 10/27/23 21:05 Dose: 100 mls/hr Documented By: Infusion: 10/27/23 21:05 Dose: Infused Documented By: Admin: 10/27/23 20:08 Dose: 100 mls/hr Documented By: SAM Ioversol (Optiray 320 500ml) 87 ml IV ONCE ONE Stop: 10/27/23 19:55 Last Admin: 10/27/23 19:56 Dose: 87 ml Documented By: MELISSA Medical Decision Making Laboratory Data Attestation: I reviewed the patient's lab results. 10/27/23 18:40 10/27/23 18:40 Lab Results 10/27/23 10/27/23 Range/Units 18:40 21:10 WBC 12.66 H (4.8-10.8) K/ul RBC 4.35 (4.20-5.40) M/uL Hgb 14.3 (12.0-16.0) g/dl Hct 42.0 (37.0-47.0) % MCV 96.6 (80.0-100.0) fL MCH 32.9 (25.0-34.0) pg MCHC 34.0 (32.0-36.0) g/dL RDW Std Deviation 60.3 H (36.4-46.3) fL RDW Coeff of Celestina 16.8 H (11.5-14.5) % Plt Count 279 (130-400) K/uL MPV 9.3 L (9.4-12.4) fL Immature Gran % (Auto) 0.4 % Neut % (Auto) 63.9 % Lymph % (Auto) 21.4 % Oldham % (Auto) 13.2 % Eos % (Auto) 0.7 % Baso % (Auto) 0.4 % Neut # (Auto) 8.09 H (1.40-6.50) K/uL Lymph # (Auto) 2.71 (1.20-3.40) K/uL Oldham # (Auto) 1.67 H (0.11-0.59) K/uL Eos # (Auto) 0.09 (0.00-0.50) K/uL Baso # (Auto) 0.05 (0.00-0.20) K/uL Immature Gran # (Auto) 0.05 (0.01-0.20) K/uL Sodium 136 (136-145) mmol/L Potassium 3.0 L (3.5-5.1) mmol/L Chloride 98 (98-107) mmol/L Carbon Dioxide 25 (21-32) mmol/L Anion Gap 13 H (3-11) BUN 2 L (6-23) mg/dl Creatinine 0.28 L (0.6-1.2) mg/dl Est Cr Clr Drug Dosing Not Reportable Est GFR ( Amer) > 150.0 ml/min Est GFR (Non-Af Amer) 134.7 ml/min BUN/Creatinine Ratio 7.1 L (10-20) Glucose 108 H (70-99(Fasting)) mg/dl Calcium 9.0 (8.6-10.3) mg/dl Magnesium 1.4 L (1.7-2.4) mg/dl Total Bilirubin 1.9 H (0.2-1.0) mg/dl AST 93 H (13-39) U/L ALT 25 (7-52) U/L Alkaline Phosphatase 246 H (34-104) U/L Ammonia TNP 28.0 Total Protein 6.9 (6.0-8.3) gm/dl Albumin 3.5 (3.4-5.0) gm/dl Globulin 3.4 (2.5-4.0) gm/dl Albumin/Globulin Ratio 1.0 (0.9-2) Lipase 3 L (11-82) U/L TSH 5.560 H (0.300-4.500) uIu/ml Free T4 1.05 (0.61-1.60) ng/dl Ethyl Alcohol mg/dL 19.2 H (<10.0) mg/dl Imaging Data Radiologist's Impression: Chest/Abdomen X-ray 10/27/23 18:29 PA CHEST WITH ABDOMINAL SERIES CLINICAL HISTORY: Atypical chest pain. Generalized abdominal pain FINDINGS: A PA chest radiograph is compared to study dated 03/25/2022. The cardiomediastinal silhouette is unremarkable. There is mild bibasilar atelectasis. The lungs and pleural spaces are otherwise clear. No pneumothorax is seen. The bony thorax is grossly intact. Supine and erect abdominal radiographs are correlated with abdominal CT dated 09/08/2023. There are distended and gas-filled loops of small bowel which measure up to 3.3 cm in diameter. No evidence of intraperitoneal free air is seen. There are no abnormal abdominal calcifications. Phleboliths are seen in the pelvis. The lumbosacral spine and bony pelvis appear intact. IMPRESSION: 1. No active disease in the chest. 2. There are distended gas-filled loops of small bowel. This could be seen with a nonspecific enteritis or possibly developing bowel obstruction. Clinical correlation will be essential. ACT 112: Negative or not required by law. Electronically signed by: Herman Nathan M.D. 10/27/2023 7:03 PM Abdomen/Pelvis CT 10/27/23 19:40 Exam(s): CT ABDOMEN + PELVIS With Contrast IV Amt: 87 ml opti 320 EXAM: CT Abdomen and Pelvis With Intravenous Contrast CLINICAL HISTORY: Pain with nausea and vomiting. TECHNIQUE: Axial computed tomography images of the abdomen and pelvis with intravenous contrast. CTDI is 24.59 mGy and DLP is 1244.42 mGy-cm. Automated exposure control was utilized for the study. A dose lowering technique was utilized adhering to the principles of ALARA. CONTRAST: Patient received 87 ml opti 320 of IV contrast COMPARISON: CT abdomen and pelvis 09/08/2023 and MRCP 06/22/2023 FINDINGS: Lung bases: Unremarkable. No mass. No consolidation. ABDOMEN: Liver: Redemonstrated regional fatty infiltration of the liver. Hepatomegaly. Question nodular contour of the liver concerning for cirrhosis. There is an abnormal contour of hepatic segment 4B. Gallbladder and bile ducts: Cholelithiasis. No ductal dilation. Pancreas: Unremarkable. No mass. No ductal dilation. Spleen: Unremarkable. No splenomegaly. Adrenals: Unremarkable. No mass. Kidneys and ureters: Unremarkable. No solid mass. No hydronephrosis. Stomach and bowel: Fat interspersed in the wall of the colon may relate to body habitus or inflammatory bowel disease. No obstruction. No mucosal thickening. PELVIS: Appendix: No findings to suggest acute appendicitis. Bladder: Unremarkable. No mass. Reproductive: Unremarkable as visualized. ABDOMEN and PELVIS: Intraperitoneal space: Unremarkable. No free air. No significant fluid collection. Bones/joints: There are degenerative changes of the spine. No acute fracture. No dislocation. Soft tissues: Unremarkable. Vasculature: Mild atherosclerosis. No abdominal aortic aneurysm. Lymph nodes: Unremarkable. No enlarged lymph nodes. IMPRESSION: 1. Hepatomegaly with fatty infiltration of the liver. Question nodular contour of the liver concerning for cirrhosis. There is abnormal contour of hepatic segment 4B. Recommend further evaluation with dedicated hepatic MRI, which differs from the previous MRCP protocol, as hepatocellular carcinoma needs to be excluded as cirrhosis is suspected. 2. Fat interspersed in the wall of the colon may relate to body habitus or inflammatory bowel disease. 3. Cholelithiasis. 4. Age in determinant T2 compression fracture. Electronically signed by: Alba Marc MD 10/27/23 20:36 PM ECG Data Attestation: I personally reviewed and interpreted this ECG as follows: Rate (beats per minute): 103 Rhythm: sinus tachycardia Findings: no ST depression, no ST elevation or no prolonged QT MDM Narrative 1940: The patient was evaluated in room A9. A complete history and physical exam was performed Cardiac monitoring: An order was placed for continuous cardiac monitoring. The monitor shows a rate of 100 with sinus rhythm interpreted by me 2105: Vital signs stable. Labs show white blood cell count of 12.66 potassium of 3 magnesium of 1.4. Magnesium repletion started in the emergency department. Total bilirubin 1.9 AST 93 ALT within normal limits at 25. Imaging shows hepatomegaly with fatty infiltration of the liver there is question of cirrhosis and an abnormal contour in segment 4B. Radiology is recommending a hepatic MRI. [facility] team will be notified. Impression & Plan Hypokalemia, Hypomagnesemia, Transaminitis, Cirrhosis Discharge Plan Visit Data Chief Complaint: Abdominal Pain Stated Complaint: ILLNESS, STOMACH PAIN ED Provider: Chris Bateman Discharge Problem: Hypokalemia, Hypomagnesemia, Transaminitis, Cirrhosis Patient Disposition: Admitted As Inpatient Forms Stand Alone Forms: My [facility] Prescriptions Prescriptions: No Action multivitamin Tablet 1 tab PO DAILY cyanocobalamin (vitamin B-12) 1,000 mcg capsule 1,000 mcg PO QAM albuterol sulfate 90 mcg/actuation HFA aerosol inhaler 2 puff inhalation Q6HWA PRN (Reason: COPD/ASTHMA) lidocaine 4 % Adhesive Patch,Medicated 1 patch TOPICAL DAILY PRN (Reason: Pain) Rx Instructions: OTC ondansetron 4 mg tablet,disintegrating 4 mg translingual Q8 PRN (Reason: Nausea) Rx Instructions: 06/21/23 THIS MED NOT STARTED YET. omeprazole 40 mg capsule,delayed release(DR/EC) 40 mg PO QAM potassium chloride 20 mEq tablet extended release 20 meq PO DAILY Referrals Referrals: Natalia Puentes MD [Primary Care Provider] -
[2023-10-27] MEDS: ONDANSETRON INJ 2 MG/ML 2 ML VIAL ONE (22:22)
[2023-10-27] MEDS: GADOXETATE DISODIUM IV ONE (22:54)
[2023-10-27] MEDS: ONDANSETRON INJ 2 MG/ML 2 ML VIAL IV STA (22:58)
[2023-10-27] MEDS: PIPERACILLIN/TAZOBACTAM 4.5 GM/100 ML BAG IV ONE (23:32)
--- NOTE | 2023-10-27 23:44 | Magnetic Resonance Report ---
Exam(s): MRI ABDOMEN W/WO Contrast IV Amt: 10 cc eovist EXAM: MR Abdomen Without and With Intravenous Contrast CLINICAL HISTORY: Thyromegaly. TECHNIQUE: Multiplanar magnetic resonance images of the abdomen without and with intravenous contrast. CONTRAST: Patient received 10 cc eovist of IV contrast COMPARISON: CT abdomen and pelvis from earlier today and MRCP 06/22/2023. FINDINGS: Lung bases: Unremarkable. No mass. No consolidation. Liver: Of hepatic segment 4B there is a 3.2 x 2.0 cm area of subtle washout with a thin enhancing capsule. There is no correlating T2 signal body or diffusion restriction. There is no arterial enhancement of this lesion. Hepatomegaly with regional fatty infiltration of the liver. Redemonstrated nodular contour concerning for cirrhosis. The liver measures 17.3 cm. There is a nonenhancing probable cyst at the dome of the liver in segment 8 which is difficult to visualize but likely represents a cyst. Gallbladder and bile ducts: Cholelithiasis. The common bile duct is unremarkable measuring 0.6 cm. Pancreas: Unremarkable. No ductal dilation. No mass. Spleen: The spleen measures 11.6 cm. Adrenals: Unremarkable. No mass. Kidneys and ureters: Simple appearing left renal cysts are present, no follow-up is needed. No hydronephrosis. Stomach and bowel: Unremarkable. No obstruction. Intraperitoneal space: Unremarkable. No significant fluid collection. Soft tissues: Unremarkable. Vasculature: Unremarkable. Lymph nodes: Unremarkable. No enlarged lymph nodes. IMPRESSION: 1. In hepatic segment 4B there is a 3.2 x 2.0 cm area of subtle washout with a thin enhancing capsule. There is no correlating T2 signal body or diffusion restriction. There is no arterial enhancement of this lesion. This had normal contour is new since the prior MRCP. LR-4 - Probably HCC. Recommend multi-disciplinary discussion for tailored workup which may include biopsy. 2. Hepatomegaly with regional fatty infiltration of the liver. Redemonstrated nodular contour concerning for cirrhosis. 3. Cholelithiasis. Electronically signed by: Alba Marc MD 10/27/23 23:44 PM
[2023-10-28] MEDS ORDERED: ALBUTEROL HFA 8 GM INHALER INH PRN (00:56)
[2023-10-28 01:46] LABS: Appearance Urine Clear (Clear); Bacteria Urine Automated Negative (Negative); Blood Urine Negative (Negative); Color Urine Dark Yellow; Epithelial Cell Urine Auto >30 /lpf (0-5); Glucose Urine UA Negative (Negative); Ketones Urine Negative (Negative); Leukocyte Esterase Urine Negative (Negative); Nitrite Urine Positive (Negative); Protein Urine 1+ (Negative); RBC Urine Automated 0-4 /hpf (0-4); Specific Gravity Urine > 1.045 (1.000-1.030); Urobilinogen Urine Positive (Negative); pH Urine 5.5 (4.5-7.5)
[2023-10-28] MEDS: LACTATED RINGER'S 1,000 ML IV SCH (01:46)
[2023-10-28] MEDS: MoRPHine SULFATE 2 MG/ML CARP IV PRN (01:46)
[2023-10-28 01:51] LABS: Bilirubin Urine 2+ (Negative)
[2023-10-28 02:08] LABS: Amphetamines+Metham, Urine Neg (Neg); Barbiturates, Urine Neg (Neg); Benzodiazepine, Urine Neg (Neg); Cocaine, Urine Neg (Neg); MDMA (Ecstacy), Urine Neg (Neg); Marijuana, Urine Neg (Neg); Methadone, Urine Neg (Neg); Opiate, Urine Neg (Neg); Phencyclidine, Urine Neg (Neg)
[2023-10-28] MEDS: MELATONIN 3 MG TAB PO PRN (02:12)
[2023-10-28 06:27] LABS: Hematocrit (blood only) 34.8 % (37.0-47.0); Hemoglobin 11.7 g/dl (12.0-16.0); Mean Corpuscular Hemoglobin 32.6 pg (25.0-34.0); Mean Corpuscular Hgb Conc 33.6 g/dL (32.0-36.0); Mean Corpuscular Volume 96.9 fL (80.0-100.0); Mean Platelet Volume 9.2 fL (9.4-12.4); Platelet Count 223 K/uL (130-400); RDW Coefficient of Variation 16.9 % (11.5-14.5); RDW Standard Deviation 59.3 fL (36.4-46.3); Red Blood Count 3.59 M/uL (4.20-5.40); White Blood Count 11.16 K/ul (4.8-10.8)
--- NOTE | 2023-10-28 06:43 | Billing Data ---
Date of Service October 28, 2023 Coding Level of Care Code 63078 INT INP/OBS CARE
[2023-10-28 06:52] LABS: Albumin Globulin Ratio 1.2 (0.9-2); BUN Creatinine Ratio 5.9 (10-20); C Reactive Protein 2.24 mg/dl (0-0.5); Calcium 7.9 mg/dl (8.6-10.3); Creatinine Clr Calc Pharmacy 191.9 ml/min; Est GFR (African American) 146.4 ml/min; Est GFR (Non-African American) 126.3 ml/min; Globulin 2.6 gm/dl (2.5-4.0); Phosphorus 2.6 mg/dl (2.5-4.9); Potassium 3.9 mmol/L (3.5-5.1); Total Protein 5.6 gm/dl (6.0-8.3)
[2023-10-28 06:53] LABS: INR 1.2 (0.9-1.1); Prothrombin Time 13.5 Seconds (9.0-12.0)
[2023-10-28 06:58] LABS: Procalcitonin 0.24 ng/ml (0-0.5)
[2023-10-28 07:24] LABS: Lyme Screen Rflx Confirmation Negative (Negative)
[2023-10-28] MEDS: PIPERACILLIN/TAZOBACTAM 4.5 GM in DEXTROSE 5% MINI-B 100 ML IV SCH (08:24)
--- NOTE | 2023-10-28 08:36 | Electrocardiogram Report ---
Test Reason : Blood Pressure : / mmHG Vent. Rate : 103 BPM Atrial Rate : 103 BPM P-R Int : 136 ms QRS Dur : 084 ms QT Int : 364 ms P-R-T Axes : 058 066 023 degrees QTc Int : 476 ms Sinus tachycardia Nonspecific T wave abnormality Inferior leads Prolonged QT Abnormal ECG When compared with ECG of 21-JUN-2023 17:16, Nonspecific T wave abnormality Anterior leads no longer present Confirmed by Scooter Terry ([id number]) on 10/28/2023 8:36:20 AM Referred By: REFERRED SELF Confirmed By:Scooter Terry
[2023-10-28] MEDS: POTASSIUM CHLORIDE CRTAB 20 MEQ TABCR PO SCH (08:37)
[2023-10-28] MEDS: POLYETHYLENE (MIRALAX) 17 GM PACK PO SCH (08:37)
[2023-10-28] MEDS: PANTOprazole 40 MG TAB PO SCH ×2 (08:37→21:31)
[2023-10-28] MEDS ORDERED: LIDOCAINE 5% 1 PATCH TD STA (16:53)
--- NOTE | 2023-10-28 16:55 | Hospitalist Progress Note ---
Date of Service October 28, 2023 Assessment & Plan (1) Right upper quadrant abdominal pain: Plan: -Ongoing RUQ abdominal pain of several months' duration and abnormal LFTs (TB 1.9, AST 93, ALP 246) in pt with cirrhosis with previous outpatient studies suggesting hepatobiliary cause -CTAP demonstrating hepatomegaly with fatty infiltration and abdominal nodular contour of liver. -MRI for evaluation of potential hepatocellular carcinoma -As symptoms may be from possible gallbladder infection, empiric treatment with Zosyn for at least 48 hours -Morphine PRN for pain control -While less likely to be underlying her presentation, hepatitis panel and tickborne panel ordered -- pending results. -CRP mildly elevated at 2.24, procalcitonin within normal limits at 0.24 -MELD score = 11 -Discussed MRI results with [facility] radiologist, Dany Chawla, who interpreted the MRI has cirrhosis with fatty infiltrate. Recommends a 3-month follow-up MRI as a precaution. -Alpha-fetoprotein lab sent out -pending results -Pantoprazole increased to 40 mg p.o. twice daily -Start Carafate 1 g p.o. 4 times daily (2) Nausea & vomiting: Plan: -Likely secondary to suspected hepatobiliary pathology as above -Zofran PRN nausea (3) Dehydration: Plan: -Acute dehydration from reduced oral intake + NBNB emesis -Continue fluid repletion- LR 100 cc/hr (4) Leukocytosis: Plan: -WBC 12.7 on admission - improving -Leukocytosis possibly due to stress demargination vs acute hepatobiliary infection -Pt has been afebrile and denies fever/chills over past few months -Continue Zosyn to cover possible gallbladder infection for at least 48 hours (5) Generalized weakness: Plan: -From deconditioning and ongoing GI symptoms -Hydration as above -PT/OT consulted (6) Constipation: Plan: -Abd XR noting concern for possible obstruction though not seen on CTAP -Bowel regimen initiated (7) Hypokalemia: Plan: -K 3.0 on admission -Repleted in ER with 80 mg PO KCl -K 3.9 on 10/28/2023 (8) Hypomagnesemia: Plan: -Mag 1.4 on admission -Repleted in ER -Mag 2.0 on 10/28/23 (9) Alcohol use disorder: Plan: -Alcohol level 19 on admission, last reported drink was few sips of beer on 3/1 AM -Does not appear to be in withdrawal/acute intoxication (10) Elevated TSH: Plan: -TSH 5.6 and normal fT4 on admission -Previously noted history of hypothyroidism but not on levothyroxine as outpatient per chart review -Repeat TSH as outpatient after acute illness resolves (11) Acid reflux: Plan: -Continue omeprazole (12) COPD (chronic obstructive pulmonary disease): Plan: -Stable, not in exacerbation -Continue albuterol PRN Plan FENGI: Clear liquids Code status: Full DVT prophylaxis: SCDs Admission and Anticipated Discharge Date Admission Date: October 27, 2023 Subjective Patient seen and evaluated at bedside. She reports that for several months she has had GI symptoms of right upper quadrant abdominal pain, nausea, frequent NBNB emesis, decreased appetite, and constipation. She met with [facility] hepatology in August 2023 for the symptoms. EUS from May 2023 showed sludge/stones in gallbladder. Her water sander felt symptoms were due to gallbladder disease and was coordinating possible repeat surgical evaluation for cholecystectomy, since a previous surgeon did not feel she was a good surgical candidate due to her cirrhosis. During admission of this hospital stay, patient had abdominal MRI and I discussed the results with the [facility] radiologist who felt the MRI revealed cirrhosis with fatty infiltration, but did not feel as though this study sugges karen HCC. Therefore, a liver biopsy is not necessary at this time. Recommend a 3-month follow-up MRI to monitor cirrhosis progression and screen for HCC. Patient currently complains of diffuse abdominal tenderness, with more prominent pain localized to the right upper quadrant. She reports her nausea has improved. She denies any chest pain, shortness of breath, lightheadedness, or urinary symptoms. She also complained of lower back pain which is chronic. She reports she uses a lidocaine patch at home which provides some relief. Lidocaine patch was ordered for lower back pain management at this time. Physical Exam Physical Exam: General: No acute distress, nondiaphoretic, well-developed, well-nourished. Skin: The skin was without rashes, erythema, edema, or bruising. HEENT: Conjunctivae clear without injection, anicteric sclerae, moist mucus membranes, clear oropharynx Cardiac: Regular rate and rhythm without murmurs gallops or rubs. Pulm: Clear to auscultation bilaterally without wheezes, rales or rhonchi. No retractions or accessory muscle use. Abdominal: Soft, diffusely tender most prominent in RUQ, hepatomegaly. Positive bowel sounds x 4. No guarding or rebound tenderness. Tympanic to percussion. Neuro: A&O x3. No focal neurological deficits. Results & Data Results & Data Vital Signs (Past 12 Hours) Vital Signs Temp Pulse Resp BP Pulse Ox O2 Del Method 10/28/23 14:55 36.7 C 93 H 17 103/69 94 Room Air 10/28/23 07:22 36.7 C 98 H 16 95/62 L 96 Room Air Laboratory Results Reviewed CBC Reviewed CMP Reviewed UA Reviewed toxicology Diagnostic Findings Reviewed abdomen MRI PG Care Time/CCT Total # of Minutes Spent Total Time Spent with Patient: Total time spent is greater than 50% in coordination of care (as documented) at patient's floor/unit and/or counseling patient: Coding Level of Care Code 11864 SUB INP/OBS CARE 3/50MIN Diagnoses Right upper quadrant abdominal pain R10.11 Nausea and vomiting, unspecified vomiting type R11.2 Vomiting type: unspecified Dehydration E86.0 Leukocytosis D72.829 Generalized weakness R53.1 Constipation K59.00 Hypokalemia E87.6 Hypomagnesemia E83.42 Alcohol use disorder F10.90 Elevated TSH R79.89 Acid reflux K21.9 COPD (chronic obstructive pulmonary disease) J44.9 (2) Nausea & vomiting Vomiting type: unspecified Qualified Code(s): R11.2 - Nausea with vomiting, unspecified
[2023-10-28] MEDS: SUCRALFATE 1 GM TAB PO SCH (18:00)
[2023-10-28] MEDS: LIDOCAINE 5% 1 PATCH TD SCH (18:00)
[2023-10-28] MEDS: ONDANSETRON INJ 2 MG/ML 2 ML VIAL IV PRN (19:45)
[2023-10-29] MEDS: METOCLOPRAMIDE HCL INJ 5 MG/ML 2 ML VIAL IV STA (00:28)
[2023-10-29 05:42] LABS: HBSAG NON-REACTIVE (NON-REACTIVE); Hepatitis A Antibody IgM NON-REACTIVE (NON-REACTIVE); Hepatitis B Core Antibody IgM NON-REACTIVE (NON-REACTIVE)
[2023-10-29 06:09] LABS: Hematocrit (blood only) 35.2 % (37.0-47.0); Mean Corpuscular Hemoglobin 32.6 pg (25.0-34.0); Mean Corpuscular Hgb Conc 34.1 g/dL (32.0-36.0); Mean Corpuscular Volume 95.7 fL (80.0-100.0); Mean Platelet Volume 9.3 fL (9.4-12.4); Platelet Count 240 K/uL (130-400); RDW Coefficient of Variation 17.2 % (11.5-14.5); RDW Standard Deviation 60.7 fL (36.4-46.3); Red Blood Count 3.68 M/uL (4.20-5.40); White Blood Count 9.19 K/ul (4.8-10.8)
[2023-10-29 06:38] LABS: Alanine Aminotransferase 22 U/L (7-52); Albumin Globulin Ratio 1.1 (0.9-2); Albumin Level 3.1 gm/dl (3.4-5.0); Alkaline Phosphatase 196 U/L (34-104); Anion Gap 7 (3-11); Aspartate Aminotransferase 77 U/L (13-39); Bilirubin,Total 2.2 mg/dl (0.2-1.0); Blood Urea Nitrogen < 2 mg/dl (6-23); Carbon Dioxide 27 mmol/L (21-32); Chloride 103 mmol/L (98-107); Creatinine Clr Calc Pharmacy 217.5 ml/min; Est GFR (African American) > 150.0 ml/min; Est GFR (Non-African American) 131.6 ml/min; Globulin 2.7 gm/dl (2.5-4.0); Glucose 109 mg/dl (70-99(Fasting)); Potassium 3.2 mmol/L (3.5-5.1); Sodium 137 mmol/L (136-145); Total Protein 5.8 gm/dl (6.0-8.3)
[2023-10-29] MEDS: POTASSIUM CHLORIDE CRTAB 20 MEQ TABCR PO STA (08:13)
--- NOTE | 2023-10-29 15:15 | Discharge Summary ---
Date of Service October 29, 2023 Admission HPI Per Admitting Provider Pt is 53 yo F with PMH fatty liver, alcoholic cirrhosis, history of severe alcohol use disorder including alcohol-withdrawal seizure now in remission, COPD, hypothyroidism, GERD, chronic constipation presenting with abdominal pain Pt reports several months of ongoing daily GI symptoms- RUQ abdominal pain, nausea, frequent NBNB emesis, all of which has reduced her oral intake (though without significant weight loss). She has had ongoing constipation as well. She did see [facility] hepatology for f/u in 08/2023 for these symptoms. Review of office note indicates her previous liver biopsy had showed concern for advanced fibrosis and cirrhosis, she is to be regularly screened for HCC. She has had EGD, EUS, gastric emptying scan, HIDA scan done in past and only notable finding was 12% EF on HIDA scan and 05/2023 EUS showed sludge/stones in gallbladder. Her human factors specialist felt symptoms were due to gallbladder disease and was coordinating possible repeat surgical evaluation since a previous surgeon did not feel she was acceptable surgical candidate for cholecystectomy given her cirrhosis. Pt's symptoms continued to worsen and she reported to ER today due to intolerability of pain. She previously drank a fifth of vodka for nearly 10 years but reports quitting in January 2021 and has only drank 1-2 beers weekly at most since then. She did have a few sips of beer this morning. Pt arrived to ER hemodynamically stable, mild tachycardia to 100s. Initial evaluation significant for WBC 12.7, K 3.0, Mg 1.4, TB 1.9, AST 93, ALP 246, TSH 5.6, normal fT4, alcohol level 19. AXR showing distended small bowel loops c oncerning for enteritis vs developing SBO. CTAP demonstrating hepatomegaly with fatty infiltration of liver, questionable nodular contour of liver. ER interventions include MgSO4 2g IV. At present, pt reports continued abdominal pain and nausea. Admission Exam Per Admitting Provider General: ill-appearing, no acute distress HEENT: PERRL, EOMI, conjunctivae clear without injection, anicteric sclerae, dry mucous membranes, clear oropharynx without exudate or erythema Neck: supple, trachea midline, no thyromegaly, no JVD, no cervical lymphadenopathy CV: RRR, normal S1 and S2, no murmurs Resp: CTAB, no increased work of breathing, no crackles or wheezes Abd: Soft, diffusely tender but greatest in RUQ + positive Nicholson sign, nondistended, no guarding or rebound, +hepatomegaly MSK: Normal bulk of all four extremities Neuro: AOx3, no focal motor or sensory deficits Skin: no rashes or lesions, warm and dry Ext: no LE peripheral edema or erythema, capillary refill <2s in all four extremities, 2+ LE peripheral pulses b/l Principal Diagnosis Right upper quadrant abdominal pain Liver fibrosis/cirrhosis Discharge Exam General: No acute distress, nondiaphoretic, well-developed, well-nourished. Skin: The skin was without rashes, erythema, edema, or bruising. HEENT: Conjunctivae clear without injection, anicteric sclerae, moist mucus membranes, clear oropharynx Cardiac: Regular rate and rhythm without murmurs gallops or rubs. Pulm: Clear to auscultation bilaterally without wheezes, rales or rhonchi. No retractions or accessory muscle use. Abdominal: Soft, diffusely tender most prominent in RUQ, hepatomegaly. Distended. Positive bowel sounds x 4. No guarding or rebound tenderness. Tympanic to percussion. Neuro: A&O x3. No focal neurological deficits. Discharge Data Allergies Allergy/AdvReac Type Severity Reaction Status Date / Time gabapentin Allergy Confusion Verified 10/27/23 21:23 promethazine AdvReac Intermediate MADE ME Verified 10/27/23 21:23 SICKER hair dye Allergy Unknown scalp Uncoded 10/27/23 21:23 irriration/swelling Consultations 10/27/23 21:07 ED Decision to Admit Stat Ordered Studies 10/27/23 19:40 CT abd pelvis IV con only Stat IMPRESSION: 1. Hepatomegaly with fatty infiltration of the liver. Question nodular contour of the liver concerning for cirrhosis. There is abnormal contour of hepatic segment 4B. Recommend further evaluation with dedicated hepatic MRI, which differs from the previous MRCP protocol, as hepatocellular carcinoma needs to be excluded as cirrhosis is suspected. 2. Fat interspersed in the wall of the colon may relate to body habitus or inflammatory bowel disease. 3. Cholelithiasis. 4. Age in determinant T2 compression fracture. 10/27/23 21:48 MRI Abdomen [MR abdomen wo/w con] Routine IMPRESSION: 1. In hepatic segment 4B there is a 3.2 x 2.0 cm area of subtle washout with a thin enhancing capsule. There is no correlating T2 signal body or diffusion restriction. There is no arterial enhancement of this lesion. This had normal contour is new since the prior MRCP. LR-4 - Probably HCC. Recommend multi-disciplinary discussion for tailored workup which may include biopsy. 2. Hepatomegaly with regional fatty infiltration of the liver. Redemonstrated nodular contour concerning for cirrhosis. 3. Cholelithiasis. Hospital Course (1) Right upper quadrant abdominal pain: -Ongoing RUQ abdominal pain of several months' duration and abnormal LFTs (TB 1.9, AST 93, ALP 246) in pt with cirrhosis with previous outpatient studies suggesting hepatobiliary cause. -CTAP demonstrating hepatomegaly with fatty infiltration and abdominal nodular contour of liver. -MRI for evaluation of potential hepatocellular carcinoma. -Discussed MRI results with [facility] radiologist, Dany Chawla, who interpreted the MRI has cirrhosis with fatty infiltrate. Recommends a 3-month follow-up MRI as a precaution. -As symptoms may be from possible gallbladder infection, empiric treatment with Zosyn for at least 48 hours --last dose on 10/29/2023. -Morphine PRN for pain control. -While less likely to be underlying her presentation, hepatitis panel and tickborne panel ordered -- results were negative. -MELD score = 11 -Alpha-fetoprotein lab sent out -- pending results. -Continue increased omeprazole 40 mg p.o. twice daily -Continue Carafate 1 g p.o. 4 times daily -Zofran PRN nausea -Recommend low-sodium and low fiber diet -Follow-up with gastroenterology at [facility] (2) Nausea & vomiting: -Likely secondary to suspected hepatobiliary pathology as above (3) Dehydration: -Acute dehydration from reduced oral intake + NBNB emesis -Continue fluid repletion- LR 100 cc/hr -Encourage oral intake as tolerated (4) Leukocytosis: -WBC 12.7 on admission - resolved 10/29/23 -Leukocytosis possibly due to stress demargination vs acute hepatobiliary infection -Pt has been afebrile and denies fever/chills over past few months -Continue Zosyn to cover possible gallbladder infection for at least 48 hours (5) Generalized weakness: -From deconditioning and ongoing GI symptoms -Hydration as above -PT/OT consulted (6) Constipation: -Abd XR noting concern for possible obstruction though not seen on CTAP -Bowel regimen initiated (7) Hypokalemia: -K 3.0 on admission. Repleted in ER with 80 mg PO KCl -K 3.9 on 10/28/2023 -K 3.2 on 10/29/2023. Repleted with 80 mg p.o. KCl (8) Hypomagnesemia: -Mag 1.4 on admission -Repleted in ER -Mag 2.0 on 10/28/23 (9) Alcohol use disorder: -Alcohol level 19 on admission, last reported drink was few sips of beer on 3 AM -Does not appear to be in withdrawal/acute intoxication -Recommend strong adherence to alcohol cessation (10) Elevated TSH: -TSH 5.6 and normal fT4 on admission -Previously noted history of hypothyroidism but not on levothyroxine as outpatient per chart review -Repeat TSH as outpatient after acute illness resolves Plan Code status: Full Total Time Total Time Spent Total Time Spent (In Minutes): Greater than 30 minutes spent completing this discharge process including direct patient care, medication reconciliation, documentation, review of labs and images, and coordination of care. Discharge Plan Discharge Items Patient Disposition: Home - Self-Care Reason For Visit: ABDOMINAL PAIN, DEHYDRATION Discharge Diagnosis: Right upper quadrant abdominal pain Activity: Resume your previous activity Non-emergency contact: Primary Care Provider Call non-emergency contact if: your symptoms worsen Follow-up/Referrals: Natalia Puentes MD [Primary Care Provider] - Diet: Low Fiber and Low Sodium (2gm) Addtl Attending Provider Instructions: You were admitted to the hospital because of right upper quadrant abdominal pain and elevated liver enzymes. You had a CT scan of your abdomen and pelvis which showed an enlarged liver with fatty infiltration and abnormal nodular contour of your liver. The abdominal MRI showed cirrhosis with fatty infiltrate. Your symptoms may have been from possible gallbladder infection, so you were treated empirically with antibiotics while in the hospital. It does not appear that there is an infection, so you do not need antibiotics once you are discharged. Your PPI (omeprazole) was increased to 40 mg twice daily, and you were started on Carafate 4 times daily. Both of these are for protecting your stomach from acid. You can continue to take Zofran as needed for nausea. Continue to stay hydrated and eat as tolerated. I recommend a low sodium and low fiber diet because of the liver fibrosis/cirrhosis. It is important to avoid drinking any alcohol. Case management at the hospital will contact gastroenterology (GI) at [facility] to schedule a follow-up appointment. Your CT and MRI images will be sent to them as well. It is important to continue to follow with GI for the management of your liver fibrosis/cirrhosis as well as gallbladder sludge. Recommend 3-month follow-up MRI as a precaution. You can also make an appointment to see your PCP in the next 1 to 2 weeks to discuss your hospital course. Please return to the hospital if you have any of the following symptoms: Blood in your stool, vomiting blood, fever or chills, worsening stomach pain, trouble breathing, extreme tiredness, confusion, or jaundice (yellowing of the skin or whites of your eyes). Pending Studies at Discharge: No Stand-Alone Forms: My [facility] [employer], Smoking Cessation Medications and DC Order Prescriptions: New sucralfate 1 gram Tablet 1 g PO QID Qty: 120 0RF Continued multivitamin Tablet 1 tab PO DAILY cyanocobalamin (vitamin B-12) 1,000 mcg capsule 1,000 mcg PO QAM albuterol sulfate 90 mcg/actuation HFA aerosol inhaler 2 puff inhalation Q6HWA PRN (Reason: COPD/ASTHMA) lidocaine 4 % Adhesive Patch,Medicated 1 patch TOPICAL DAILY PRN (Reason: Pain) Rx Instructions: OTC potassium chloride 20 mEq tablet extended release 20 meq PO DAILY ondansetron 4 mg tablet,disintegrating 4 mg translingual Q8 PRN (Reason: Nausea) Qty: 30 0RF Rx Instructions: 06/21/23 THIS MED NOT STARTED YET. Changed omeprazole 40 mg capsule,delayed release(DR/EC) 40 mg PO BID Qty: 60 0RF Discharge Orders: Discharge Order (Routine); Ordered 10/29/23 Ordered By: Ivana Stringer Admission Data Admit Date/Time: 10/27/23 21:47 Attending Provider: Jaison Casper Admit Provider: Leah Werner Primary Care Provider: Natalia Puentes Other Providers: Andrew Pal Coding Level of Care Code 68571 INP/OBS DISCH >30 MIN Diagnoses Right upper quadrant abdominal pain R10.11 Nausea and vomiting, unspecified vomiting type R11.2 Vomiting type: unspecified Dehydration E86.0 Leukocytosis D72.829 Generalized weakness R53.1 Constipation K59.00 Hypokalemia E87.6 Hypomagnesemia E83.42 Alcohol use disorder F10.90 Elevated TSH R79.89
[2023-11-01 12:56] LABS: Babesia microti DNA Not Detected (Not Detected)
== END 2023-10-29 17:13 | disposition home or self-care (01) | DRG 392 ==
LOC: ED 18:03 → 3E 21:47 → SUATTDRO 21:47 → 3E 23:42

== ENCOUNTER 2023-10-30 18:05 | Observation (INO) ==
--- NOTE | 2023-10-30 18:38 | ED Triage Note ---
Date of Service October 30, 2023 Provider in Triage Author: Palma Ramos History of Present Illness This patient was briefly evaluated while in triage. An abbreviated physical exam was performed. This patient is a 53-year-old Female who presents to the ED for evaluation of a fall. She states she lives alone. She fell and states that she can't walk because her legs are very weak. She states her legs gave out, causing her to fall. She states her doctor wanted her to come here. She states her entire body hurts. She was seen here over the weekend and was discharged yesterday. Her sister in law states that she cannot go home and take care of herself and they need a solution. Physical Exam GENERAL: Non-toxic and in no acute distress. HEENT: Pupils equal. No obvious scleral icterus. HEART: Regular rate and rhythm. LUNGS: Clear to auscultation. No accessory muscle use. NEURO: Alert and oriented. No obvious neurological deficits on quick neuro exam. MUSCULOSKELETAL: Decreased strength bilateral lower extremities. Initial orders for labs and / or imaging were placed and patient was placed in the waiting area until a bed is available. Please see further documentation for the full ED course.
--- NOTE | 2023-10-30 19:06 | XRay Report ---
XR chest 1V portable HISTORY: 53 years-old Female weakness acute weakness. COMPARISON: 10/27/2023 TECHNIQUE: AP view of the chest FINDINGS: Cardiomediastinal and hilar silhouettes are within normal limits. No pneumothorax or overt pulmonary edema. Mild linear bibasilar densities with blunting of the costophrenic angles. Bones appear grossly intact. IMPRESSION: Mild bibasilar atelectasis. ACT 112: Negative or not required by law. The above report was generated using voice recognition software. It may contain grammatical, syntax o r spelling errors. Electronically signed by: Dany Chawla M.D. 10/30/2023 7:05 PM
[2023-10-30 19:12] LABS: Basophils # (auto) 0.05 K/uL (0.00-0.20); Basophils % (auto) 0.4 %; Eosinophils % (auto) 0.8 %; Hematocrit (blood only) 39.8 % (37.0-47.0); Hemoglobin 13.3 g/dl (12.0-16.0); Immature Granulocytes # (auto) 0.06 K/uL (0.01-0.20); Immature Granulocytes % (auto) 0.5 %; Lymphocytes # (auto) 2.49 K/uL (1.20-3.40); Lymphocytes % (auto) 20.6 %; Mean Corpuscular Hemoglobin 32.8 pg (25.0-34.0); Mean Corpuscular Hgb Conc 33.4 g/dL (32.0-36.0); Mean Corpuscular Volume 98.3 fL (80.0-100.0); Monocytes # (auto) 1.25 K/uL (0.11-0.59); Monocytes % (auto) 10.4 %; Neutrophils # (auto) 8.11 K/uL (1.40-6.50); Neutrophils % (auto) 67.3 %; Platelet Count 281 K/uL (130-400); RDW Coefficient of Variation 16.8 % (11.5-14.5); RDW Standard Deviation 61.8 fL (36.4-46.3); Red Blood Count 4.05 M/uL (4.20-5.40); White Blood Count 12.06 K/ul (4.8-10.8)
[2023-10-30 19:21] LABS: Alanine Aminotransferase 25 U/L (7-52); Albumin Globulin Ratio 1.1 (0.9-2); Albumin Level 3.5 gm/dl (3.4-5.0); Alkaline Phosphatase 219 U/L (34-104); Anion Gap 11 (3-11); Aspartate Aminotransferase 83 U/L (13-39); Bilirubin,Total 1.6 mg/dl (0.2-1.0); Blood Urea Nitrogen < 2 mg/dl (6-23); Calcium 8.8 mg/dl (8.6-10.3); Carbon Dioxide 26 mmol/L (21-32); Chloride 100 mmol/L (98-107); Creatinine Clr Calc Pharmacy 203.8 ml/min; Est GFR (African American) > 150.0 ml/min; Est GFR (Non-African American) 130.2 ml/min; Globulin 3.2 gm/dl (2.5-4.0); Glucose 112 mg/dl (70-99(Fasting)); Magnesium 1.7 mg/dl (1.7-2.4); Potassium 3.2 mmol/L (3.5-5.1); Sodium 137 mmol/L (136-145); Total Protein 6.7 gm/dl (6.0-8.3)
--- NOTE | 2023-10-30 21:28 | Emergency Department Note ---
Impression & Plan Weakness, Cirrhosis, Ambulatory dysfunction, Fall ED Provider Note CHIEF COMPLAINT: Weakness, fall HISTORY OF PRESENTING ILLNESS: This 53-year-old female patient presents to the emergency department with her brother for evaluation of weakness and a fall. The patient states that she was still feeling weak after discharge on 10/29/23. She states that she had progressively worsening weakness getting up and down most of the day today. The patient lives alone and feels that she needed assistance at home to help her get around and do her normal activities. The patient states that she fell from a standing position around 8:30 am and now cannot walk. She states that the trouble walking is from the progressive weakness that she has been having and not from the fall. Has weakness on both sides of her body. She did not hit her head. She is not on blood thinners. Has chronic back pain, but worse since the fall. Complaining of mild left ankle pain from the fall, but denies any other injuries from the fall. Rates her discomfort as 9/10. She still feels like her stomach is going to "blow up" from the bloating. Will sometimes get discomfort in her chest, but that has been going on for a while. Sometimes feels numb throughout her body. This morning she had "2-3 sips" of a beer. The patient states that she does not feel that she can take care of herself at home because she cannot get around safely on her own. She does not have anybody at home to take care of her. The patient is interested in going to a rehab facility to help with her weakness and ambulation. The patient was just discharged yesterday after an evaluation for abdominal pain. The patient has a history of alcoholic cirrhosis with a history of severe alcohol use disorder with previous alcohol withdrawal seizures, but now in remission. She also has a history of COPD, hypothyroidism, GERD, and chronic constipation. The patient follows up with [facility] hepatology with her last office visit in August 2023. The patient has had an EGD, EUS, gastric emptying study, and HIDA scan. HIDA scan showed 12% EF and EUS in May 2023 showed sludge and stones in her gallbladder. However, she was not felt to be a surgical candidate due to her cirrhosis. The patient had a CT scan of the abdomen pelvis as well as MRI to evaluate for HCC while admitted. The patient has been complaining of generalized weakness from her ongoing GI symptoms. The patient did have a few sips of beer on 10/27/2023 and her alcohol level was 19 on admission. REVIEW OF SYSTEMS: See HPI for pertinent positives and pertinent negatives. ALLERGIES: Gabapentin, promethazine, hair dye MEDICATIONS: See below PAST MEDICAL HISTORY: See below PHYSICAL EXAM: VITALS: Vitals are noted on the nurse's note and reviewed by myself. GENERAL: No acute distress, non-diaphoretic. SKIN: The skin was without obvious lacerations or abrasions. Capillary reflex less than 2 seconds. HEAD: Normocephalic. No scalp tenderness or step-offs felt. EARS: Bilateral external auditory canals clear without tragus tenderness. Bilateral tympanic membranes pearly stewart without erythema or effusion. No mastoid tenderness bilaterally. No hemotympanum. No ayon sign. EYES: Pupils equal round and reactive to light and accommodation. Conjunctivae without injection, sclerae without icterus. Extraocular movements intact. NOSE: Patent without discharge. No sinus tenderness. No septal hematoma or bleeding. FACE: No facial bone tenderness. Full range of motion of the jaw without tenderness. MOUTH: Mucous membranes moist. Pharynx without erythema or exudate. Uvula midline. Airway patent. Tongue does not deviate. NECK: Supple without nuchal rigidity. Cervical spine is nontender. Full range of motion of the neck without tenderness. HEART: Regular rate and rhythm without murmurs gallops or rubs. LUNGS: Clear to auscultation bilaterally without wheezes, rales or rhonchi. No retractions or accessory muscle use. CHEST: No chest wall tenderness. ABDOMEN: Positive bowel sounds x 4. Normal tympanic percussion. Soft, generalized abdominal pain worse in the upper quadrants. No obvious masses or organomegaly. No guarding or rebound tenderness. MUSCULOSKELETAL: The patient is tender to palpation to the mid to lower lumbar spine and paraspinal muscles. No tenderness of the thoracic spine or paraspinal muscles. No tenderness with pelvic rocking. The patient is mildly tender to palpation over the lateral malleolus of the left ankle. No other tenderness to palpation over the bony aspects of the left lower extremities. The patient has generalized muscular discomfort to all extremities. The patient is able to move her bilateral upper and lower extremities, but there is weakness present. Unknown if this is baseline or worse than baseline. Peripheral pulses 2+ and equal in the bilateral upper and lower extremities. NEURO: Patient was alert and oriented to person place and time. Normal mental status exam. No asterixis. DIFFERENTIAL DIAGNOSIS: Differential diagnosis includes fracture, dislocation, subluxation, contusion, intra-abdominal injury, pneumothorax, intrathoracic injury, intracranial injury, neurologic, as well as other pathologies. ED COURSE AND MEDICAL DECISION MAKING: HISTORY FROM INDEPENDENT HISTORIAN: Additional history was obtained from the patient's brother. MONITOR: Continuous manager monitoring: Order was placed for continuous manager monitoring. Patient was placed on the manager monitoring and continuous pulse ox. Patient was noted to be in normal sinus rhythm at an initial rate of 90 bpm per my interpretation. EKG: EKG was interpreted by myself as sinus tachycardia at 108 bpm with no acute ST or T wave changes and no significant change from her previous EKGs.. MEDICATIONS GIVEN: 500 mL normal saline solution bolus. Tylenol 650 mg p.o. INTERPRETATION OF LABS: I interpreted the labs with full lab results as below in the lab section of this note. White blood cell count elevated at 12.06. Hemoglobin normal at 13.3. Platelet count normal at 281. INR elevated, but stable at 1.2. PT 13 and APTT 32. PTT ratio normal at 1.1. Potassium stable at 3.2. Glucose 112, total bilirubin improved at 1.6, AST stable at 83, and alk phos stable at 219. CMP otherwise without significant abnormalities. Serum ammonia level normal. CPK not elevated. High-sensitivity troponin normal. Urinalysis without evidence for infection. Urine drug screen is negative. Medical alcohol level is less than 10. INTERPRETATION OF IMAGING: X-ray of the left ankle per my interpretation was negative for acute fracture or dislocation. Radiology report still pending. Remainder of the imaging studies were interpreted by myself and read by radiology as per the imaging section of this note. Chest x-ray with mild bibasilar atelectasis. CT scan of the cervical spine without contrast was negative for acute fracture or or subluxation. CT scan of the head without contrast showed no acute intracranial abnormalities. CT scan of the lumbar spine without contrast showed no acute fracture or subluxation, but did show a mild chronic appearing compression deformity at the superior endplate of T12. CTA of the head with contrast showed no large vessel intracranial occlusion. It did show a 1.5 mm saccular outpouching adjacent to the junction of the right A1 artery and anterior communicating artery infundibular origin versus a small saccular aneurysm. CTA of the neck with contrast showed no hemodynamically significant carotid stenosis. Bilateral vertebral arteries are patent without occlusion or dissection. EXTERNAL RECORDS REVIEWED: I reviewed the patient's most recent admission as summarized above. CONSULTATIONS: On-call hospitalist MDM SUMMARY: The patient was seen during a time of extreme volume and extreme acuity. Nursing triage protocols were initiated with IV lock, labs, and/or imaging studies conducted by protocol in the triage area. The patient was examined by myself once they were taken back to an exam room. I reviewed the patient's most recent admission as summarized above. The patient was discharged yesterday, but states that she still feels very weak and has trouble ambulating at home. The patient states that she fell at home because of her weakness and difficulty ambulating. She states that she does not have anybody to take care of her at home. Workup findings as above without acute concerning abnormalities and no acute traumatic injuries from her fall. The patient does not feel comfortable being discharged home alone because of her weakness and difficulty ambulating. The patient is agreeable to placement in a rehab facility to help with PT/OT etc until she can be safely discharged home. I had a meaningful discussion about this patient with Dr. Sweeney who agrees with my assessment and the treatment plan. I spoke with the on-call hospitalist who agreed to admit the patient for further management until she can be placed. Please refer to their dictation for further details. The patient's care was transferred in stable condition. DIAGNOSIS: Weakness Ambulatory dysfunction Fall Alcoholic cirrhosis Past Med/Surg History Medical History (Updated 10/31/23 @ 00:34 by Sharon Miguel PA-C) Muscle mass LOSS OF MUSCLE MASS OVER LAST 2 MON Fatty liver Rectal bleeding REASON FOR UPCOMING PROCEDURE Snores High blood pressure NO MEDS/MONITORS Constipation REASON FOR UPCOMING PROCEDURE Acid reflux History of anemia Anxiety and depression History of seizure LAST EVENT 2 YEARS AGO (ALCHOHOL WITHDRAWL) Spontaneous pneumothorax HX (REPAIRED 2005) Hypothyroidism Heavy menses Vitamin D deficiency pt reports probably all her vitamins are low Alcohol dependence A FIFTH A DAY FOR 9 YRS NONE FOR LAST 3 WEEKS "WAS GETTING SICK WHEN I DRINK IT AND MY BODY WON'T ALLOW ME TO HAVE IT" PUD (peptic ulcer disease) COPD (chronic obstructive pulmonary disease) AND ASTHMA PER PT - LAST USE INHALER LAST WEEK PTSD (post-traumatic stress disorder) Surgical History History of esophagogastroduodenoscopy (EGD) 03/18/22 Dr. Helen Beard- Z-line irregularity, biopsied History of section X 3 History of endoscopy History of colonoscopy MOST RECENT A COUPLE MONTHS AGO ? - PT NOT SURE DETAILS ON FINDINGS (DONE AT [facility]) H/O tooth extraction 02/11/18 - Multiple teeth extracted under general anesthesia Family History Mother , age 65 of metastatic cancer Family hx of colon cancer Stomach cancer Anxiety Depression Kidney disease Colorectal cancer Lung disease Gallbladder disease Family history of cancer Grandmother (Maternal) Stomach cancer Alcohol abuse Father , age 74 of lung cancer Depression Cardiac disorder Kidney stones Kidney disease Myocardial infarction Oral-mouth cancer Lung disease Hypertension Lung cancer Sister Drug abuse Anxiety Depression Aunt Breast cancer Maternal Brother Family history of diabetes mellitus Other No family history of adverse response to anesthesia Denies family history of Ovarian cancer Prostate cancer Multiple sclerosis Social History Smoking Status: Current every day smoker Tobacco Type: Cigarettes packs per day: 0.5; Cigarettes Per Day: 2.5; Second Hand Exposure: No; Do You Dip or Chew Tobacco: No; Hx Alcohol Use: Yes Alcohol type: beer Alcohol type Comment: VODKA Alcohol Intake Frequency: 2-4 x/Month Alcohol Intake Frequency Comment: 1 beer per week and no other alcohol since January, Hx Substance Use: No Preferred Language: Turkish Communication Ability: Effective Visual Impairment: No Limitations [employer] Required: No Beliefs That Will Affect Care: None marital status: marital status details: twice Current Living Situation: Alone Current Living Situation Comment: Apartment, first floor, with cat named Baby current occupational status: unemployed 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 How many Children do You have: 3 Feels Safe at Home: Yes caffeine: Yes (coffee) Dental Care, Regularly: No Physical Activity Frequency: 1-2 Times per Week Seatbelt Use: always Sunscreen Use: No Assistive Devices: Nebulizer and Walker Allergies Allergies Allergy/AdvReac Type Severity Reaction Status Date / Time promethazine AdvReac Intermediate MADE ME Verified 10/30/23 15:49 SICKER gabapentin AdvReac Confusion Verified 10/31/23 00:26 Home Meds Home Medications Medication Instructions Recorded Confirmed cyanocobalamin (vitamin B-12) 1,000 mcg PO QAM 07/20/21 10/30/23 1,000 mcg capsule multivitamin 1 tab PO DAILY 10/24/22 10/30/23 albuterol sulfate 90 mcg/actuation 2 puff inhalation [id number] PRN 06/21/23 10/30/23 aerosol inhaler COPD/ASTHMA lidocaine 4 % topical patch 1 patch topical DAILY PRN Pain 06/21/23 10/30/23 potassium chloride 20 mEq 20 meq PO DAILY 10/27/23 10/30/23 tablet,extended release Previous Rx's Medication Instructions Recorded omeprazole 40 mg capsule,delayed 40 mg PO BID #60 caps 10/29/23 release ondansetron 4 mg disintegrating 4 mg translingual Q8 PRN Nausea 10/29/23 tablet #30 tabs sucralfate 1 gram tablet 1 g PO QID #120 tabs 10/29/23 Results & Data (ED) Vital Signs Vital Signs - 24 hr 10/30/23 18:06 10/30/23 20:44 10/30/23 21:13 Temperature 36.6 C Temperature Source Temporal Artery Scan Pulse Rate 109 H 99 H 98 H Respiratory Rate 18 19 Respiratory Effort / Characteristics Respiratory Depth Blood Pressure 128/77 123/73 Blood Pressure Mean 94 89 Pulse Oximetry 97 97 Oxygen Delivery Method Sepsis Recent Fever Within 48 Hours No Sepsis New/Unexplained Change in Mental Status N/A Sepsis Action Taken by Nursing No Action Required 10/30/23 22:29 10/30/23 22:30 10/30/23 22:40 Temperature Temperature Source Pulse Rate 95 H 97 H 97 H Respiratory Rate 16 20 16 Respiratory Effort / Characteristics Respiratory Depth Blood Pressure Blood Pressure Mean Pulse Oximetry 97 Oxygen Delivery Method Room Air Sepsis Recent Fever Within 48 Hours Sepsis New/Unexplained Change in Mental Status Sepsis Action Taken by Nursing 10/30/23 22:50 10/30/23 23:00 10/30/23 23:10 Temperature Temperature Source Pulse Rate 98 H 95 H Respiratory Rate 19 15 14 Respiratory Effort / Characteristics Respiratory Depth Blood Pressure Blood Pressure Mean Pulse Oximetry 96 Oxygen Delivery Method Sepsis Recent Fever Within 48 Hours Sepsis New/Unexplained Change in Mental Status Sepsis Action Taken by Nursing 10/30/23 23:21 10/30/23 23:25 Temperature Temperature Source Pulse Rate Respiratory Rate 16 Respiratory Effort / Characteristics Non-Labored Respiratory Depth Normal Blood Pressure Blood Pressure Mean Pulse Oximetry Oxygen Delivery Method Sepsis Recent Fever Within 48 Hours Sepsis New/Unexplained Change in Mental Status Sepsis Action Taken by Nursing Laboratory Data 10/30/23 18:43 10/30/23 18:43 Lab Results 10/30/23 10/30/23 10/30/23 Range/Units 18:43 22:20 23:20 WBC 12.06 H (4.8-10.8) K/ul RBC 4.05 L (4.20-5.40) M/uL Hgb 13.3 (12.0-16.0) g/dl Hct 39.8 (37.0-47.0) % MCV 98.3 (80.0-100.0) fL MCH 32.8 (25.0-34.0) pg MCHC 33.4 (32.0-36.0) g/dL RDW Std Deviation 61.8 H (36.4-46.3) fL RDW Coeff of Celestina 16.8 H (11.5-14.5) % Plt Count 281 (130-400) K/uL MPV 9.0 L (9.4-12.4) fL Immature Gran % (Auto) 0.5 % Neut % (Auto) 67.3 % Lymph % (Auto) 20.6 % [place] % (Auto) 10.4 % Eos % (Auto) 0.8 % Baso % (Auto) 0.4 % Neut # (Auto) 8.11 H (1.40-6.50) K/uL Lymph # (Auto) 2.49 (1.20-3.40) K/uL [place] # (Auto) 1.25 H (0.11-0.59) K/uL Eos # (Auto) 0.10 (0.00-0.50) K/uL Baso # (Auto) 0.05 (0.00-0.20) K/uL Immature Gran # (Auto) 0.06 (0.01-0.20) K/uL PT 13.0 H (9.0-12.0) Seconds INR 1.2 H (0.9-1.1) APTT 32 H (21-31) Seconds PTT Ratio 1.1 Sodium 137 (136-145) mmol/L Potassium 3.2 L (3.5-5.1) mmol/L Chloride 100 (98-107) mmol/L Carbon Dioxide 26 (21-32) mmol/L Anion Gap 11 (3-11) BUN < 2 L (6-23) mg/dl Creatinine 0.31 L (0.6-1.2) mg/dl Est Cr Clr Drug Dosing 203.8 ml/min Est GFR ( Amer) > 150.0 ml/min Est GFR (Non-Af Amer) 130.2 ml/min BUN/Creatinine Ratio TNP Glucose 112 H (70-99(Fasting)) mg/dl Calcium 8.8 (8.6-10.3) mg/dl Magnesium 1.7 (1.7-2.4) mg/dl Total Bilirubin 1.6 H (0.2-1.0) mg/dl AST 83 H (13-39) U/L ALT 25 (7-52) U/L Alkaline Phosphatase 219 H (34-104) U/L Ammonia 41.0 (18-72) umol/L Total Creatine Kinase 25 L (26-192) U/L Troponin I High Sens 6.1 (0-14) pg/ml Total Protein 6.7 (6.0-8.3) gm/dl Albumin 3.5 (3.4-5.0) gm/dl Globulin 3.2 (2.5-4.0) gm/dl Albumin/Globulin Ratio 1.1 (0.9-2) Urine Color Dark Yellow Urine Appearance Clear (Clear) Urine pH 8.0 H (4.5-7.5) Ur Specific [place] > 1.045 H (1.000-1.030) Urine Protein Trace H (Negative) Urine Glucose (UA) Negative (Negative) Urine Ketones Negative (Negative) Urine Blood Trace H (Negative) Urine Nitrite Negative (Negative) Urine Bilirubin 1+ H (Negative) Urine Urobilinogen Negative (Negative) Ur Leukocyte Esterase Negative (Negative) Urine WBC (Auto) 1-5 (0-5) /hpf Urine RBC (Auto) 0-4 (0-4) /hpf U Hyaline Cast (Auto) 5-10 H (0-5) /lpf U Epithel Cells (Auto) >30 H (0-5) /lpf Urine Bacteria (Auto) Negative (Negative) Urine Opiates Screen Neg (Neg) Ur Methadone, Qual Neg (Neg) Urine Barbiturates Neg (Neg) Ur Phencyclidine (PCP) Neg (Neg) U Amphetamin/Meth Scrn Neg (Neg) MDMA (Ecstasy) Screen Neg (Neg) U Benzodiazepines Scrn Neg (Neg) Ur Cocaine Metabolite Neg (Neg) U Marijuana (THC) Screen Neg (Neg) Ethyl Alcohol mg/dL < 10.0 (<10.0) mg/dl Administered Medications Magnesium Sulfate/Dextrose (Magnesium Sulfate / D5w) 1 gm in 100 mls @ 50 mls/hr IV ONE STA Stop: 10/31/23 02:27 Last Admin: 10/31/23 01:19 Dose: 50 mls/hr Documented By: NASEEM Discontinued Medications Acetaminophen (Acetaminophen 325 Mg Tab) 650 mg PO NOW STA Stop: 10/30/23 21:43 Last Admin: 10/30/23 22:22 Dose: 650 mg Documented By: KELLY Cyanocobalamin (Cyanocobalamin 1000 Mcg/Ml Vial) 1,000 mcg IM NOW STA Stop: 10/31/23 00:24 Last Admin: 10/31/23 01:12 Dose: 1,000 mcg Documented By: NASEEM Sodium Chloride (Nss) 500 mls @ 999 mls/hr IV .Q31M ONE Stop: 10/30/23 22:12 Last Infusion: 10/30/23 22:56 Dose: Infused Documented By: Admin: 10/30/23 22:22 Dose: 999 mls/hr Documented By: CPB Thiamine HCl 100 mg/ Syringe 10 mls @ 2 mls/min IV NOW STA Stop: 10/31/23 00:31 Last Admin: 10/31/23 01:19 Dose: 2 mls/min Documented By: NASEEM Folic Acid 1 mg/ Syringe 10 mls @ 5 mls/min IV NOW STA Stop: 10/31/23 00:27 Last Admin: 10/31/23 01:18 Dose: 5 mls/min Documented By: NASEEM Ioversol (Optiray 320 125ml) 117 ml IV ONCE ONE Stop: 10/30/23 22:13 Last Admin: 10/30/23 22:12 Dose: 117 ml Documented By: [email or web address] Imaging Data Radiologist's Impression: Chest X-Ray 10/30/23 18:38 XR chest 1V portable HISTORY: 53 years-old Female weakness acute weakness. COMPARISON: 10/27/2023 TECHNIQUE: AP view of the chest FINDINGS: Cardiomediastinal and hilar silhouettes are within normal limits. No pneumothorax or overt pulmonary edema. Mild linear bibasilar densities with blunting of the costophrenic angles. Bones appear grossly intact. IMPRESSION: Mild bibasilar atelectasis. ACT 112: Negative or not required by law. The above report was generated using voice recognition software. It may contain grammatical, syntax or spelling errors. Electronically signed by: Dany Chawla M.D. 10/30/2023 7:[address] 10/30/23 21:40 Exam(s): CT C SPINE EXAM: CT Cervical Spine Without Intravenous Contrast CLINICAL HISTORY: Reason for exam: Fall, weakness, paresthesias. TECHNIQUE: Axial computed tomography images of the cervical spine without intravenous contrast. CTDI is 12.24 mGy and DLP is 487.13 mGy-cm. Automated exposure control was utilized for the study. A dose lowering technique was utilized adhering to the principles of ALARA. COMPARISON: No relevant prior studies available. FINDINGS: The vertebral body heights are maintained. The craniocervical junction is intact. The atlanto-dens interval is maintained. The dens is intact. There is no spondylolisthesis. Multilevel cervical spondylosis and degenerative disc disease. Straightening of the cervical lordosis. The unenhanced neck soft tissues are grossly unremarkable. The visualized lung apices are grossly clear. IMPRESSION: No acute fracture or subluxation of the cervical spine. Electronically signed by: Arnold Jorgensen MD 10/30/23 22:[address] 10/30/23 21:40 Exam(s): CT HEAD Without Contrast EXAM: CT Head Without Intravenous Contrast CLINICAL HISTORY: Reason for exam: Fall, weakness, paresthesias. TECHNIQUE: Axial computed tomography images of the head/brain without intravenous contrast. CTDI is 39.4 mGy and DLP is 1220.19 mGy-cm. Automated exposure control was utilized for the study. A dose lowering technique was utilized adhering to the principles of ALARA. COMPARISON: No relevant prior studies available. FINDINGS: No acute intracranial hemorrhage. No midline shift or mass effect. The territorial stewart-white matter differentiation is maintained throughout. The ventricles and sulci are commensurate with age. The visualized orbits appear grossly unremarkable. The calvarium is intact. The visualized paranasal sinuses and mastoid air cells are grossly clear. IMPRESSION: No acute intracranial hemorrhage, midline shift, or mass effect. Electronically signed by: Arnold Jorgensen MD 10/30/23 22:41 PM Head CTA 10/30/23 21:40 Exam(s): CTA HEAD With Contrast IV Amt: 117 cc opti 320 EXAM: CT Angiography Head With Intravenous Contrast CLINICAL HISTORY: Reason for exam: Fall, weakness, paresthesias. TECHNIQUE: Axial computed tomographic angiography images of the head with intravenous contrast. CTDI is 39.4 mGy and DLP is 1220.19 mGy-cm. Automated exposure control was utilized for the study. A dose lowering technique was utilized adhering to the principles of ALARA. MIP reconstructed images were created and reviewed. CONTRAST: Patient received 117 cc opti 320 of IV contrast COMPARISON: No relevant prior studies available. FINDINGS: Right internal carotid artery: Mild calcified plaque within the cavernous portion of the distal intracranial right internal carotid artery. Intracranial segment is patent with no significant stenosis. No aneurysm. Right anterior cerebral artery: 1.5 mm saccular outpouching adjacent to the junction of the right A1 artery and anterior communicating artery infundibular origin versus a small saccular aneurysm. No occlusion or significant stenosis. Right middle cerebral artery: Unremarkable. No occlusion or significant stenosis. No aneurysm. Right posterior cerebral artery: Unremarkable. No occlusion or significant stenosis. No aneurysm. Right vertebral artery: Unremarkable as visualized. Left internal carotid artery: Mild calcified plaque within the cavernous portion of the distal intracranial left internal carotid artery. Intracranial segment is patent with no significant stenosis. No aneurysm. Left anterior cerebral artery: Unremarkable. No occlusion or significant stenosis. No aneurysm. Left middle cerebral artery: Unremarkable. No occlusion or significant stenosis. No aneurysm. Left posterior cerebral artery: origin to the left posterior cerebral artery territory. Left posterior communicating artery is unremarkable. No occlusion or significant stenosis. No aneurysm. Left vertebral artery: Unremarkable as visualized. Basilar artery: Unremarkable. No occlusion or significant stenosis. No aneurysm. IMPRESSION: No large vessel intracranial occlusion. 1.5 mm saccular outpouching adjacent to the junction of the right A1 artery and anterior communicating artery infundibular origin versus a small saccular aneurysm. Electronically signed by: Case Llanos M.D. 10/30/23 23:[address] 10/30/23 21:40 Exam(s): CT L SPINE EXAM: CT Lumbar Spine Without Intravenous Contrast CLINICAL HISTORY: Reason for exam: fall, low back pain. TECHNIQUE: Axial computed tomography images of the lumbar spine without intravenous contrast. CTDI is 37.87 mGy and DLP is 624.41 mGy-cm. Automated exposure control was utilized for the study. A dose lowering technique was utilized adhering to the principles of ALARA. COMPARISON: No relevant prior studies available. FINDINGS: Mild chronic-appearing compression deformity involving the superior endplate of T12. No lumbar spine compression fracture. The lumbar lordosis is preserved. There is no spondylolisthesis. The posterior elements are maintained, without evidence of acute fracture. The pedicles are intact. Multilevel lumbar spondylosis and degenerative disc disease. Hepatic steatosis. IMPRESSION: No acute fracture or subluxation of the lumbar spine. Mild chronic-appearing compression deformity involving the superior endplate of T12. Electronically signed by: Arnold Jorgensen MD 10/30/23 22:42 PM Neck CTA 10/30/23 21:40 Exam(s): CTA NECK With Contrast IV Amt: 117 cc opti 320 EXAM: CT Angiography Neck With Intravenous Contrast CLINICAL HISTORY: Reason for exam: Fall, weakness, paresthesias. TECHNIQUE: Routine carotid CT angiography protocol was performed with intravenous contrast. NASCET criteria using the distal ICAs for comparison were used for evaluation of stenoses. CTDI is 12.24 mGy and DLP is 487.13 mGy-cm. Automated exposure control was utilized for the study. A dose lowering technique was utilized adhering to the principles of ALARA. MIP reconstructed images were created and reviewed. CONTRAST: Patient received 117 cc opti 320 of IV contrast COMPARISON: None. FINDINGS: VASCULATURE: Right common carotid artery: Unremarkable. No occlusion or significant stenosis. No dissection. Right internal carotid artery: Unremarkable. Extracranial segment is patent with no occlusion or significant stenosis. No dissection. Right external carotid artery: Unremarkable. No occlusion. Right vertebral artery: Dominant right vertebral artery. No occlusion or significant stenosis. No dissection. Left common carotid artery: Unremarkable. No occlusion or significant stenosis. No dissection. Left internal carotid artery: Unremarkable. Extracranial segment is patent with no occlusion or significant stenosis. No dissection. Left external carotid artery: Unremarkable. No occlusion. Left vertebral artery: Left vertebral artery arises directly off the aortic arch. No occlusion or significant stenosis. No dissection. NECK: Bones/joints: Unremarkable. No acute fracture. Soft tissues: Unremarkable. Lung apices: Clear. CAROTID STENOSIS REFERENCE USING NASCET CRITERIA: % ICA stenosis = (1 - narrowest ICA diameter/diameter of distal cervical ICA) x 100. Mild - <50% stenosis. Moderate - 50-69% stenosis. Severe - 70-94% stenosis. Near occlusion - 95-99% stenosis. Occluded - 100% stenosis. IMPRESSION: 1. No hemodynamically significant carotid stenosis. 2. Bilateral vertebral arteries are patent along their cervical course without occlusion or dissection. Electronically signed by: Case Llanos M.D. 10/30/23 23:07 PM Discharge Plan Visit Data Chief Complaint: Leg Weakness, Bilateral Stated Complaint: WEAKNESS/CAN'T WALK, FELL ED Provider: Genaro Sweeney ED Midlevel Provider: Sharon Miguel Discharge Problem: Weakness, Cirrhosis, Ambulatory dysfunction, Fall Patient Disposition: Admitted As Inpatient Condition: Good Discharge Instructions Interventions: ED Discharge Assessment Last Done: 10/31/23 01:47 Discharge Problem: Cirrhosis Qualifiers: Hepatic cirrhosis type: alcoholic cirrhosis Ascites presence: unspecified Q ualified Code(s): K70.30 - Alcoholic cirrhosis of liver without ascites Fall Qualifiers: Encounter type: initial encounter Qualified Code(s): W19.XXXA - Unspecified fall, initial encounter
[2023-10-30 22:09] LABS: Creatine Kinase 25 U/L (26-192)
[2023-10-30] MEDS: OPTIRAY 320 125ml IV ONE (22:12)
[2023-10-30 22:18] LABS: Troponin I High Sensitivity 6.1 pg/ml (0-14)
[2023-10-30] MEDS: ACETAMINOPHEN 325 MG TAB PO STA (22:22)
[2023-10-30] MEDS: SODIUM CHLORIDE 0.9% 500 ML IV ONE (22:22)
--- NOTE | 2023-10-30 22:41 | CT Scan Report ---
Exam(s): CT C SPINE EXAM: CT Cervical Spine Without Intravenous Contrast CLINICAL HISTORY: Reason for exam: Fall, weakness, paresthesias. TECHNIQUE: Axial computed tomography images of the cervical spine without intravenous contrast. CTDI is 12.24 mGy and DLP is 487.13 mGy-cm. Automated exposure control was utilized for the study. A dose lowering technique was utilized adhering to the principles of ALARA. COMPARISON: No relevant prior studies available. FINDINGS: The vertebral body heights are maintained. The craniocervical junction is intact. The atlanto-dens interval is maintained. The dens is intact. There is no spondylolisthesis. Multilevel cervical spondylosis and degenerative disc disease. Straightening of the cervical lordosis. The unenhanced neck soft tissues are grossly unremarkable. The visualized lung apices are grossly clear. IMPRESSION: No acute fracture or subluxation of the cervical spine. Electronically signed by: Arnold Jorgensen MD 10/30/23 22:40 PM
--- NOTE | 2023-10-30 22:42 | CT Scan Report ---
Exam(s): CT HEAD Without Contrast EXAM: CT Head Without Intravenous Contrast CLINICAL HISTORY: Reason for exam: Fall, weakness, paresthesias. TECHNIQUE: Axial computed tomography images of the head/brain without intravenous contrast. CTDI is 39.4 mGy and DLP is 1220.19 mGy-cm. Automated exposure control was utilized for the study. A dose lowering technique was utilized adhering to the principles of ALARA. COMPARISON: No relevant prior studies available. FINDINGS: No acute intracranial hemorrhage. No midline shift or mass effect. The territorial stewart-white matter differentiation is maintained throughout. The ventricles and sulci are commensurate with age. The visualized orbits appear grossly unremarkable. The calvarium is intact. The visualized paranasal sinuses and mastoid air cells are grossly clear. IMPRESSION: No acute intracranial hemorrhage, midline shift, or mass effect. Electronically signed by: Arnold Jorgensen MD 10/30/23 22:41 PM
--- NOTE | 2023-10-30 22:43 | CT Scan Report ---
Exam(s): CT L SPINE EXAM: CT Lumbar Spine Without Intravenous Contrast CLINICAL HISTORY: Reason for exam: fall, low back pain. TECHNIQUE: Axial computed tomography images of the lumbar spine without intravenous contrast. CTDI is 37.87 mGy and DLP is 624.41 mGy-cm. Automated exposure control was utilized for the study. A dose lowering technique was utilized adhering to the principles of ALARA. COMPARISON: No relevant prior studies available. FINDINGS: Mild chronic-appearing compression deformity involving the superior endplate of T12. No lumbar spine compression fracture. The lumbar lordosis is preserved. There is no spondylolisthesis. The posterior elements are maintained, without evidence of acute fracture. The pedicles are intact. Multilevel lumbar spondylosis and degenerative disc disease. Hepatic steatosis. IMPRESSION: No acute fracture or subluxation of the lumbar spine. Mild chronic-appearing compression deformity involving the superior endplate of T12. Electronically signed by: Arnold Jorgensen MD 10/30/23 22:42 PM
--- NOTE | 2023-10-30 23:04 | CT Scan Report ---
Exam(s): CTA HEAD With Contrast IV Amt: 117 cc opti 320 EXAM: CT Angiography Head With Intravenous Contrast CLINICAL HISTORY: Reason for exam: Fall, weakness, paresthesias. TECHNIQUE: Axial computed tomographic angiography images of the head with intravenous contrast. CTDI is 39.4 mGy and DLP is 1220.19 mGy-cm. Automated exposure control was utilized for the study. A dose lowering technique was utilized adhering to the principles of ALARA. MIP reconstructed images were created and reviewed. CONTRAST: Patient received 117 cc opti 320 of IV contrast COMPARISON: No relevant prior studies available. FINDINGS: Right internal carotid artery: Mild calcified plaque within the cavernous portion of the distal intracranial right internal carotid artery. Intracranial segment is patent with no significant stenosis. No aneurysm. Right anterior cerebral artery: 1.5 mm saccular outpouching adjacent to the junction of the right A1 artery and anterior communicating artery infundibular origin versus a small saccular aneurysm. No occlusion or significant stenosis. Right middle cerebral artery: Unremarkable. No occlusion or significant stenosis. No aneurysm. Right posterior cerebral artery: Unremarkable. No occlusion or significant stenosis. No aneurysm. Right vertebral artery: Unremarkable as visualized. Left internal carotid artery: Mild calcified plaque within the cavernous portion of the distal intracranial left internal carotid artery. Intracranial segment is patent with no significant stenosis. No aneurysm. Left anterior cerebral artery: Unremarkable. No occlusion or significant stenosis. No aneurysm. Left middle cerebral artery: Unremarkable. No occlusion or significant stenosis. No aneurysm. Left posterior cerebral artery: origin to the left posterior cerebral artery territory. Left posterior communicating artery is unremarkable. No occlusion or significant stenosis. No aneurysm. Left vertebral artery: Unremarkable as visualized. Basilar artery: Unremarkable. No occlusion or significant stenosis. No aneurysm. IMPRESSION: No large vessel intracranial occlusion. 1.5 mm saccular outpouching adjacent to the junction of the right A1 artery and anterior communicating artery infundibular origin versus a small saccular aneurysm. Electronically signed by: Case Llanos M.D. 10/30/23 23:03 PM
--- NOTE | 2023-10-30 23:07 | CT Scan Report ---
Exam(s): CTA NECK With Contrast IV Amt: 117 cc opti 320 EXAM: CT Angiography Neck With Intravenous Contrast CLINICAL HISTORY: Reason for exam: Fall, weakness, paresthesias. TECHNIQUE: Routine carotid CT angiography protocol was performed with intravenous contrast. NASCET criteria using the distal ICAs for comparison were used for evaluation of stenoses. CTDI is 12.24 mGy and DLP is 487.13 mGy-cm. Automated exposure control was utilized for the study. A dose lowering technique was utilized adhering to the principles of ALARA. MIP reconstructed images were created and reviewed. CONTRAST: Patient received 117 cc opti 320 of IV contrast COMPARISON: None. FINDINGS: VASCULATURE: Right common carotid artery: Unremarkable. No occlusion or significant stenosis. No dissection. Right internal carotid artery: Unremarkable. Extracranial segment is patent with no occlusion or significant stenosis. No dissection. Right external carotid artery: Unremarkable. No occlusion. Right vertebral artery: Dominant right vertebral artery. No occlusion or significant stenosis. No dissection. Left common carotid artery: Unremarkable. No occlusion or significant stenosis. No dissection. Left internal carotid artery: Unremarkable. Extracranial segment is patent with no occlusion or significant stenosis. No dissection. Left external carotid artery: Unremarkable. No occlusion. Left vertebral artery: Left vertebral artery arises directly off the aortic arch. No occlusion or significant stenosis. No dissection. NECK: Bones/joints: Unremarkable. No acute fracture. Soft tissues: Unremarkable. Lung apices: Clear. CAROTID STENOSIS REFERENCE USING NASCET CRITERIA: % ICA stenosis = (1 - narrowest ICA diameter/diameter of distal cervical ICA) x 100. Mild - <50% stenosis. Moderate - 50-69% stenosis. Severe - 70-94% stenosis. Near occlusion - 95-99% stenosis. Occluded - 100% stenosis. IMPRESSION: 1. No hemodynamically significant carotid stenosis. 2. Bilateral vertebral arteries are patent along their cervical course without occlusion or dissection. Electronically signed by: Case Llanos M.D. 10/30/23 23:07 PM
[2023-10-30 23:31] LABS: Appearance Urine Clear (Clear); Bacteria Urine Automated Negative (Negative); Blood Urine Trace (Negative); Color Urine Dark Yellow; Epithelial Cell Urine Auto >30 /lpf (0-5); Glucose Urine UA Negative (Negative); Ketones Urine Negative (Negative); Leukocyte Esterase Urine Negative (Negative); Nitrite Urine Negative (Negative); RBC Urine Automated 0-4 /hpf (0-4); Specific Gravity Urine > 1.045 (1.000-1.030); Urobilinogen Urine Negative (Negative)
[2023-10-30 23:41] LABS: Bilirubin Urine 1+ (Negative); Protein Urine Trace (Negative)
[2023-10-30 23:56] LABS: Amphetamines+Metham, Urine Neg (Neg); Barbiturates, Urine Neg (Neg); Benzodiazepine, Urine Neg (Neg); Cocaine, Urine Neg (Neg); MDMA (Ecstacy), Urine Neg (Neg); Marijuana, Urine Neg (Neg); Methadone, Urine Neg (Neg); Opiate, Urine Neg (Neg); Phencyclidine, Urine Neg (Neg)
[2023-10-31 00:13] LABS: INR 1.2 (0.9-1.1); Partial Thromboplastin Ratio 1.1; Partial Thromboplastin Time 32 Seconds (21-31)
--- NOTE | 2023-10-31 00:26 | History & Physical Report ---
Date of Service October 31, 2023 Assessment & Plan (1) Fall: (2) Ambulatory dysfunction: (3) Weakness: (4) Alcohol use disorder: (5) Dehydration: (6) Hypomagnesemia: (7) T12 compression fracture: (8) Acute hypokalemia: (9) B12 deficiency: (10) Vitamin D deficiency: (11) Idiopathic polyneuropathy: (12) Tobacco dependence: (13) Cirrhosis: (14) Portal hypertension: (15) Sensory ataxic gait: (16) Thiamine deficiency: Plan Status post fall/ambulatory dysfunction- Multifactorial including not limited to: Alcoholic myopathy, polyneuropathy, vitamin D deficiency, vitamin B12 deficiency, folate deficiency, thiamine deficiency, generalized weakness, dehydration Workup this evening included a normal CT scan of head, CT scan cervical spine, CTA neck, left ankle x-ray, chest x-ray CTA head question the possibility of a 1.5 mm saccular aneurysm versus outpouching versus artifact. This should be followed serially CT scan of the lumbar spine confirmed a chronic T12 superior endplate compression deformity UA negative Urine drug screen negative Alcohol level less than 10 Thiamine 100 mg IV now and every morning Folic acid 1 mg IV now and every morning B12 1000 mcg IM now and 1000 mcg p.o. every morning Complete alcohol and tobacco avoidance Consult PT/OT Should go to inpatient rehab I would have concerns that patient would ever be able to live outside of a structured setting unless she has significant help at home Abdominal pain/alcoholic cirrhosis/intermittent nausea- Had a workup done during last admission MRCP was performed, but there was question about possibly doing a hepatic MRI to evaluate for possible hepatocellular carcinoma Could consult GI for their opinion and consideration for EGD Hypokalemia/hypomagnesemia/dehydration- Placed on NSS + KCl 20 mill equivalents at 100 mL/h x 1 L Give magnesium sulfate 1 g IV Repeat laboratories in a.m. History of Present Illness Chief Complaint: The patient presents to the emergency department with her brother, for assessment of progressive generalized weakness since her discharge on 10/29/2023, and a fall that occurred today at home. Primary Care Provider: Natalia Puentes MD The patient is a 53-year-old female with a past medical history including ambulatory dysfunction, alcohol use disorder, generalized weakness, hypomagnesemia, hypokalemia, T12 compression fracture, vitamin D deficiency, vitamin B12 deficiency, thiamine deficiency, alcoholic myopathy, sensory ataxic gait, idiopathic polyneuropathy, tobacco dependence, cirrhosis, history of Lyme disease, COPD, CAD, ADD and hypertension. The patient was recently admitted to the [facility] from 10/26-10/29/2023 for right upper quadrant pain, was diagnosed with cirrhosis, and after workup was discharged to home. The patient had persistence and progression of her generalized weakness, known issues with polyneuropathy and gait disturbance, and had a fall at home with family concerns that they could not take care of her. the patient is willing to go to physical rehab. Allergies Allergy/AdvReac Type Severity Reaction Status Date / Time promethazine AdvReac Intermediate MADE ME Verified 10/30/23 15:49 SICKER gabapentin AdvReac Confusion Verified 10/31/23 00:26 Home Medications Medication Instructions Recorded Confirmed Type cyanocobalamin (vitamin B-12) 1,000 mcg PO QAM 07/20/21 10/30/23 History 1,000 mcg capsule multivitamin 1 tab PO DAILY 10/24/22 10/30/23 History albuterol sulfate 90 mcg/actuation 2 puff inhalation Q6HWA PRN 06/21/23 10/30/23 History aerosol inhaler COPD/ASTHMA lidocaine 4 % topical patch 1 patch topical DAILY PRN Pain 06/21/23 10/30/23 History potassium chloride 20 mEq 20 meq PO DAILY 10/27/23 10/30/23 History tablet,extended release omeprazole 40 mg capsule,delayed 40 mg PO BID #60 caps 10/29/23 10/30/23 Rx release ondansetron 4 mg disintegrating 4 mg translingual Q8 PRN Nausea 10/29/23 10/30/23 Rx tablet #30 tabs sucralfate 1 gram tablet 1 g PO QID #120 tabs 10/29/23 10/30/23 Rx Past Med/Surg History Medical History (Updated 10/31/23 @ 05:05 by Andrew Pal MD) Muscle mass LOSS OF MUSCLE MASS OVER LAST 2 MON Fatty liver Rectal bleeding REASON FOR UPCOMING PROCEDURE Snores High blood pressure NO MEDS/MONITORS Constipation REASON FOR UPCOMING PROCEDURE Acid reflux History of anemia Anxiety and depression History of seizure LAST EVENT 2 YEARS AGO (ALCHOHOL WITHDRAWL) Spontaneous pneumothorax HX (REPAIRED 2005) Hypothyroidism Heavy menses Vitamin D deficiency pt reports probably all her vitamins are low Alcohol dependence A FIFTH A DAY FOR 9 YRS NONE FOR LAST 3 WEEKS "WAS GETTING SICK WHEN I DRINK IT AND MY BODY WON'T ALLOW ME TO HAVE IT" PUD (peptic ulcer disease) COPD (chronic obstructive pulmonary disease) AND ASTHMA PER PT - LAST USE INHALER LAST WEEK PTSD (post-traumatic stress disorder) Surgical History History of esophagogastroduodenoscopy (EGD) 03/18/22 Dr. Helen Beard- Z-line irregularity, biopsied History of section X 3 History of endoscopy History of colonoscopy MOST RECENT A COUPLE MONTHS AGO ? - PT NOT SURE DETAILS ON FINDINGS (DONE AT [facility]) H/O tooth extraction 02/11/18 - Multiple teeth extracted under general anesthesia Family History Mother , age 65 of metastatic cancer Family hx of colon cancer Stomach cancer Anxiety Depression Kidney disease Colorectal cancer Lung disease Gallbladder disease Family history of cancer Grandmother (Maternal) Stomach cancer Alcohol abuse Father , age 74 of lung cancer Depression Cardiac disorder Kidney stones Kidney disease Myocardial infarction Oral-mouth cancer Lung disease Hypertension Lung cancer Sister Drug abuse Anxiety Depression Aunt Breast cancer Maternal Brother Family history of diabetes mellitus Other No family history of adverse response to anesthesia Denies family history of Ovarian cancer Prostate cancer Multiple sclerosis Social History Smoking Status: Current some day smoker Tobacco Type: Cigarettes packs per day: 0.5; Cigarettes Per Day: 2.5; Second Hand Exposure: No; Do You Dip or Chew Tobacco: No; Hx Alcohol Use: Yes Alcohol type: hard liquor Alcohol type Comment: VODKA Alcohol Intake Frequency: 2-4 x/Month Alcohol Intake Frequency Comment: 1 beer per week and no other alcohol since January, Hx Substance Use: No Preferred Language: Romanian Communication Ability: Effective Visual Impairment: No Limitations Passementerie Worker Required: No Beliefs That Will Affect Care: None marital status: marital status details: twice Current Living Situation: Alone Current Living Situation Comment: By self (with cat, Baby), rented house current occupational status: unemployed 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 How many Children do You have: 3 Other Information That Helps Us Care for You: No (Likes blankets and pillows!) Feels Safe at Home: Yes Safety Concerns: Feels Safe At This Time caffeine: Yes (coffee) Dental Care, Regularly: No Physical Activity Frequency: 1-2 Times per Week Seatbelt Use: always Sunscreen Use: No Assistive Devices: Walker Review of Systems Review of Systems: The patient denies chest pain, palpitations, shortness of breath, dyspnea on exertion, cough, lower extremity swelling, sore throat, fevers, chills, sweats, nausea, vomiting, blood in urine or stool, dysuria, urinary frequency or urgency, loss of consciousness, rash, abnormal bruising or bleeding, focal or generalized weakness, numbness or tingling in arms, back or neck pain, or night sweats. The review of systems is otherwise negative other than for that already noted above, and at least 10 systems have been reviewed. Physical Exam Physical Exam: The patient is awake, alert and oriented 3, well developed and well nourished, normocephalic and atraumatic, lying in bed and in no acute distress. HEENT--PERRL, EOMI, mucous membranes and oropharynx dry. Neck--supple. No JVD. No bruits. Thyroid normal, trachea midline, no adenopathy. Heart--normal S1 and S2. No murmurs, rubs or gallops. Lungs--clear bilaterally, no respiratory distress, no accessory muscle use. Abdomen--normal bowel sounds and soft. Nontender. Nondistended Extremities--No edema. Dermatologic--normal skin turgor, normal color, no abnormal lymph nodes, no rash. Neurologic--cranial nerves II through XII grossly intact. Rheumatologic--normal range of motion. Psychiatric--normal affect. Results & Data Results & Data Vital Signs (Past 12 Hours) Vital Signs Temp Pulse Resp BP Pulse Ox O2 Del Method 10/30/23 23:21 16 10/30/23 23:10 14 96 10/30/23 23:00 95 H 15 10/30/23 22:50 98 H 19 10/30/23 22:40 97 H 16 10/30/23 22:30 97 H 20 10/30/23 22:29 95 H 16 97 Room Air 10/30/23 21:13 98 H 19 123/73 97 10/30/23 20:44 99 H 10/30/23 18:06 36.6 C 109 H 18 128/77 97 Laboratory Results Laboratory Results WBC 12.06 K/ul (4.8-10.8) H 10/30/23 18:43 RBC 4.05 M/uL (4.20-5.40) L 10/30/23 18:43 Hgb 13.3 g/dl (12.0-16.0) 10/30/23 18:43 Hct 39.8 % (37.0-47.0) 10/30/23 18:43 MCV 98.3 fL (80.0-100.0) 10/30/23 18:43 MCH 32.8 pg (25.0-34.0) 10/30/23 18:43 MCHC 33.4 g/dL (32.0-36.0) 10/30/23 18:43 RDW Std Deviation 61.8 fL (36.4-46.3) H 10/30/23 18:43 RDW Coeff of Celestina 16.8 % (11.5-14.5) H 10/30/23 18:43 Plt Count 281 K/uL (130-400) 10/30/23 18:43 MPV 9.0 fL (9.4-12.4) L 10/30/23 18:43 Immature Gran % (Auto) 0.5 % 10/30/23 18:43 Neut % (Auto) 67.3 % 10/30/23 18:43 Lymph % (Auto) 20.6 % 10/30/23 18:43 [place] % (Auto) 10.4 % 10/30/23 18:43 Eos % (Auto) 0.8 % 10/30/23 18:43 Baso % (Auto) 0.4 % 10/30/23 18:43 Neut # (Auto) 8.11 K/uL (1.40-6.50) H 10/30/23 18:43 Lymph # (Auto) 2.49 K/uL (1.20-3.40) 10/30/23 18:43 [place] # (Auto) 1.25 K/uL (0.11-0.59) H 10/30/23 18:43 Eos # (Auto) 0.10 K/uL (0.00-0.50) 10/30/23 18:43 Baso # (Auto) 0.05 K/uL (0.00-0.20) 10/30/23 18:43 Immature Gran # (Auto) 0.06 K/uL (0.01-0.20) 10/30/23 18:43 PT 13.0 Seconds (9.0-12.0) H 10/30/23 18:43 INR 1.2 (0.9-1.1) H 10/30/23 18:43 APTT 32 Seconds (21-31) H 10/30/23 18:43 PTT Ratio 1.1 10/30/23 18:43 Sodium 137 mmol/L (136-145) 10/31/23 03:53 Potassium 3.0 mmol/L (3.5-5.1) L 10/31/23 03:53 Chloride 105 mmol/L (98-107) 10/31/23 03:53 Carbon Dioxide 23 mmol/L (21-32) 10/31/23 03:53 Anion Gap 9 (3-11) 10/31/23 03:53 BUN < 2 mg/dl (6-23) L 10/31/23 03:53 Creatinine 0.30 mg/dl (0.6-1.2) L 10/31/23 03:53 Est Cr Clr Drug Dosing 210.6 ml/min 10/31/23 03:53 Est GFR ( Amer) > 150.0 ml/min 10/31/23 03:53 Est GFR (Non-Af Amer) 131.6 ml/min 10/31/23 03:53 BUN/Creatinine Ratio TNP 10/31/23 03:53 Glucose 124 mg/dl (70-99(Fasting)) H 10/31/23 03:53 Calcium 8.1 mg/dl (8.6-10.3) L 10/31/23 03:53 Magnesium 1.7 mg/dl (1.7-2.4) 10/30/23 18:43 Total Bilirubin 1.4 mg/dl (0.2-1.0) H 10/31/23 03:53 AST 66 U/L (13-39) H 10/31/23 03:53 ALT 19 U/L (7-52) 10/31/23 03:53 Alkaline Phosphatase 176 U/L (34-104) H 10/31/23 03:53 Ammonia 41.0 umol/L (18-72) 10/30/23 22:20 Total Creatine Kinase 25 U/L (26-192) L 10/30/23 18:43 Troponin I High Sens 6.1 pg/ml (0-14) 10/30/23 18:43 Total Protein 5.7 gm/dl (6.0-8.3) L 10/31/23 03:53 Albumin 3.1 gm/dl (3.4-5.0) L 10/31/23 03:53 Globulin 2.6 gm/dl (2.5-4.0) 10/31/23 03:53 Albumin/Globulin Ratio 1.2 (0.9-2) 10/31/23 03:53 Urine Color Dark Yellow 10/30/23 23:20 Urine Appearance Clear (Clear) 10/30/23 23:20 Urine pH 8.0 (4.5-7.5) H 10/30/23 23:20 Ur Specific [place] > 1.045 (1.000-1.030) H 10/30/23 23:20 Urine Protein Trace (Negative) H 10/30/23 23:20 Urine Glucose (UA) Negative (Negative) 10/30/23 23:20 Urine Ketones Negative (Negative) 10/30/23 23:20 Urine Blood Trace (Negative) H 10/30/23 23:20 Urine Nitrite Negative (Negative) 10/30/23 23:20 Urine Bilirubin 1+ (Negative) H 10/30/23 23:20 Urine Urobilinogen Negative (Negative) 10/30/23 23:20 Ur Leukocyte Esterase Negative (Negative) 10/30/23 23:20 Urine WBC (Auto) 1-5 /hpf (0-5) 10/30/23 23:20 Urine RBC (Auto) 0-4 /hpf (0-4) 10/30/23 23:20 U Hyaline Cast (Auto) 5-10 /lpf (0-5) H 10/30/23 23:20 U Epithel Cells (Auto) >30 /lpf (0-5) H 10/30/23 23:20 Urine Bacteria (Auto) Negative (Negative) 10/30/23 23:20 Urine Opiates Screen Neg (Neg) 10/30/23 23:20 Ur Methadone, Qual Neg (Neg) 10/30/23 23:20 Urine Barbiturates Neg (Neg) 10/30/23 23:20 Ur Phencyclidine (PCP) Neg (Neg) 10/30/23 23:20 U Amphetamin/Meth Scrn Neg (Neg) 10/30/23 23:20 MDMA (Ecstasy) Screen Neg (Neg) 10/30/23 23:20 U Benzodiazepines Scrn Neg (Neg) 10/30/23 23:20 Ur Cocaine Metabolite Neg (Neg) 10/30/23 23:20 U Marijuana (THC) Screen Neg (Neg) 10/30/23 23:20 Ethyl Alcohol mg/dL < 10.0 mg/dl (<10.0) 10/30/23 22:20 Impressions Chest X-Ray 10/30/23 18:38 XR chest 1V portable HISTORY: 53 years-old Female weakness acute weakness. COMPARISON: 10/27/2023 TECHNIQUE: AP view of the chest FINDINGS: Cardiomediastinal and hilar silhouettes are within normal limits. No pneumothorax or overt pulmonary edema. Mild linear bibasilar densities with blunting of the costophrenic angles. Bones appear grossly intact. IMPRESSION: Mild bibasilar atelectasis. ACT 112: Negative or not required by law. The above report was generated using voice recognition software. It may contain grammatical, syntax or spelling errors. Electronically signed by: Dany Chawla M.D. 10/30/2023 7:[address] 10/30/23 21:40 Exam(s): CT C SPINE EXAM: CT Cervical Spine Without Intravenous Contrast CLINICAL HISTORY: Reason for exam: Fall, weakness, paresthesias. TECHNIQUE: Axial computed tomography images of the cervical spine without intravenous contrast. CTDI is 12.24 mGy and DLP is 487.13 mGy-cm. Automated exposure control was utilized for the study. A dose lowering technique was utilized adhering to the principles of ALARA. COMPARISON: No relevant prior studies available. FINDINGS: The vertebral body heights are maintained. The craniocervical junction is intact. The atlanto-dens interval is maintained. The dens is intact. There is no spondylolisthesis. Multilevel cervical spondylosis and degenerative disc disease. Straightening of the cervical lordosis. The unenhanced neck soft tissues are grossly unremarkable. The visualized lung apices are grossly clear. IMPRESSION: No acute fracture or subluxation of the cervical spine. Electronically signed by: Arnold Jorgensen MD 10/30/23 22:[address] 10/30/23 21:40 Exam(s): CT HEAD Without Contrast EXAM: CT Head Without Intravenous Contrast CLINICAL HISTORY: Reason for exam: Fall, weakness, paresthesias. TECHNIQUE: Axial computed tomography images of the head/brain without intravenous contrast. CTDI is 39.4 mGy and DLP is 1220.19 mGy-cm. Automated exposure control was utilized for the study. A dose lowering technique was utilized adhering to the principles of ALARA. COMPARISON: No relevant prior studies available. FINDINGS: No acute intracranial hemorrhage. No midline shift or mass effect. The territorial stewart-white matter differentiation is maintained throughout. The ventricles and sulci are commensurate with age. The visualized orbits appear grossly unremarkable. The calvarium is intact. The visualized paranasal sinuses and mastoid air cells are grossly clear. IMPRESSION: No acute intracranial hemorrhage, midline shift, or mass effect. Electronically signed by: Arnold Jorgensen MD 10/30/23 22:41 PM Head CTA 10/30/23 21:40 Exam(s): CTA HEAD With Contrast IV Amt: 117 cc opti 320 EXAM: CT Angiography Head With Intravenous Contrast CLINICAL HISTORY: Reason for exam: Fall, weakness, paresthesias. TECHNIQUE: Axial computed tomographic angiography images of the head with intravenous contrast. CTDI is 39.4 mGy and DLP is 1220.19 mGy-cm. Automated exposure control was utilized for the study. A dose lowering technique was utilized adhering to the principles of ALARA. MIP reconstructed images were created and reviewed. CONTRAST: Patient received 117 cc opti 320 of IV contrast COMPARISON: No relevant prior studies available. FINDINGS: Right internal carotid artery: Mild calcified plaque within the cavernous portion of the distal intracranial right internal carotid artery. Intracranial segment is patent with no significant stenosis. No aneurysm. Right anterior cerebral artery: 1.5 mm saccular outpouching adjacent to the junction of the right A1 artery and anterior communicating artery infundibular origin versus a small saccular aneurysm. No occlusion or significant stenosis. Right middle cerebral artery: Unremarkable. No occlusion or significant stenosis. No aneurysm. Right posterior cerebral artery: Unremarkable. No occlusion or significant stenosis. No aneurysm. Right vertebral artery: Unremarkable as visualized. Left internal carotid artery: Mild calcified plaque within the cavernous portion of the distal intracranial left internal carotid artery. Intracranial segment is patent with no significant stenosis. No aneurysm. Left anterior cerebral artery: Unremarkable. No occlusion or significant stenosis. No aneurysm. Left middle cerebral artery: Unremarkable. No occlusion or significant stenosis. No aneurysm. Left posterior cerebral artery: origin to the left posterior cerebral artery territory. Left posterior communicating artery is unremarkable. No occlusion or significant stenosis. No aneurysm. Left vertebral artery: Unremarkable as visualized. Basilar artery: Unremarkable. No occlusion or significant stenosis. No aneurysm. IMPRESSION: No large vessel intracranial occlusion. 1.5 mm saccular outpouching adjacent to the junction of the right A1 artery and anterior communicating artery infundibular origin versus a small saccular aneurysm. Electronically signed by: Case Llanos M.D. 10/30/23 23:[address] 10/30/23 21:40 Exam(s): CT L SPINE EXAM: CT Lumbar Spine Without Intravenous Contrast CLINICAL HISTORY: Reason for exam: fall, low back pain. TECHNIQUE: Axial computed tomography images of the lumbar spine without intravenous contrast. CTDI is 37.87 mGy and DLP is 624.41 mGy-cm. Automated exposure control was utilized for the study. A dose lowering technique was utilized adhering to the principles of ALARA. COMPARISON: No relevant prior studies available. FINDINGS: Mild chronic-appearing compression deformity involving the superior endplate of T12. No lumbar spine compression fracture. The lumbar lordosis is preserved. There is no spondylolisthesis. The posterior elements are maintained, without evidence of acute fracture. The pedicles are intact. Multilevel lumbar spondylosis and degenerative disc disease. Hepatic steatosis. IMPRESSION: No acute fracture or subluxation of the lumbar spine. Mild chronic-appearing compression deformity involving the superior endplate of T12. Electronically signed by: Arnold Jorgensen MD 10/30/23 22:42 PM Neck CTA 10/30/23 21:40 Exam(s): CTA NECK With Contrast IV Amt: 117 cc opti 320 EXAM: CT Angiography Neck With Intravenous Contrast CLINICAL HISTORY: Reason for exam: Fall, weakness, paresthesias. TECHNIQUE: Routine carotid CT angiography protocol was performed with intravenous contrast. NASCET criteria using the distal ICAs for comparison were used for evaluation of stenoses. CTDI is 12.24 mGy and DLP is 487.13 mGy-cm. Automated exposure control was utilized for the study. A dose lowering technique was utilized adhering to the principles of ALARA. MIP reconstructed images were created and reviewed. CONTRAST: Patient received 117 cc opti 320 of IV contrast COMPARISON: None. FINDINGS: VASCULATURE: Right common carotid artery: Unremarkable. No occlusion or significant stenosis. No dissection. Right internal carotid artery: Unremarkable. Extracranial segment is patent with no occlusion or significant stenosis. No dissection. Right external carotid artery: Unremarkable. No occlusion. Right vertebral artery: Dominant right vertebral artery. No occlusion or significant stenosis. No dissection. Left common carotid artery: Unremarkable. No occlusion or significant stenosis. No dissection. Left internal carotid artery: Unremarkable. Extracranial segment is patent with no occlusion or significant stenosis. No dissection. Left external carotid artery: Unremarkable. No occlusion. Left vertebral artery: Left vertebral artery arises directly off the aortic arch. No occlusion or significant stenosis. No dissection. NECK: Bones/joints: Unremarkable. No acute fracture. Soft tissues: Unremarkable. Lung apices: Clear. CAROTID STENOSIS REFERENCE USING NASCET CRITERIA: % ICA stenosis = (1 - narrowest ICA diameter/diameter of distal cervical ICA) x 100. Mild - <50% stenosis. Moderate - 50-69% stenosis. Severe - 70-94% stenosis. Near occlusion - 95-99% stenosis. Occluded - 100% stenosis. IMPRESSION: 1. No hemodynamically significant carotid stenosis. 2. Bilateral vertebral arteries are patent along their cervical course without occlusion or dissection. Electronically signed by: Case Llanos M.D. 10/30/23 23:07 PM Code Status & VTE Plan Code Status Full code VTE Prophylaxis Plan VTE Prophylaxis will be ordered: Yes PG Care Time/CCT Total # of Minutes Spent Total Time Spent with Patient: Total time spent is greater than 50% in coordination of care (as documented) at patient's floor/unit and/or counseling patient: Coding Level of Care Code 86023 INT INP/OBS CARE 3/75MIN Diagnoses Fall W19.XXXA Encounter type: initial encounter Ambulatory dysfunction R26.2 Weakness R53.1 Alcohol use disorder F10.90 Dehydration E86.0 Hypomagnesemia E83.42 T12 compression fracture S22.080A Acute hypokalemia E87.6 B12 deficiency E53.8 Vitamin D deficiency E55.9 Idiopathic polyneuropathy G60.9 Tobacco dependence F17.200 Cirrhosis K70.30 Ascites presence: unspecified Hepatic cirrhosis type: alcoholic cirrhosis Portal hypertension K76.6 Sensory ataxic gait R26.0 Thiamine deficiency E51.9 (1) Fall Encounter type: initial encounter Qualified Code(s): W19.XXXA - Unspecified fall, initial encounter (13) Cirrhosis Ascites presence: unspecified Hepatic cirrhosis type: alcoholic cirrhosis Qualified Code(s): K70.30 - Alcoholic cirrhosis of liver without ascites
[2023-10-31] MEDS: CYANOCOBALAMIN 1000 MCG/ML VIAL IM STA (01:12)
[2023-10-31] MEDS: FOLIC ACID 1 MG in SYRINGE 9.8 ML IV STA (01:18)
[2023-10-31] MEDS: THIAMINE HCL 100 MG in SYRINGE 9 ML IV STA (01:19)
[2023-10-31] MEDS: MAGNESIUM SULFATE / D5W 1 GM/100 ML BAG IV STA (01:19)
[2023-10-31] MEDS ORDERED: ALBUTEROL HFA 8 GM INHALER INH PRN (01:46)
[2023-10-31] MEDS ORDERED: ONDANSETRON 4 MG OD TAB SL PRN (01:46)
[2023-10-31] MEDS ORDERED: ONDANSETRON INJ 2 MG/ML 2 ML VIAL IV PRN (01:46)
[2023-10-31] MEDS: NSS + 20MEQ KCL 20 MEQ/1,000 ML BAG IV SCH (03:51)
[2023-10-31 04:42] LABS: Alanine Aminotransferase 19 U/L (7-52); Albumin Globulin Ratio 1.2 (0.9-2); Albumin Level 3.1 gm/dl (3.4-5.0); Alkaline Phosphatase 176 U/L (34-104); Anion Gap 9 (3-11); Aspartate Aminotransferase 66 U/L (13-39); Bilirubin,Total 1.4 mg/dl (0.2-1.0); Blood Urea Nitrogen < 2 mg/dl (6-23); Calcium 8.1 mg/dl (8.6-10.3); Carbon Dioxide 23 mmol/L (21-32); Chloride 105 mmol/L (98-107); Creatinine Clr Calc Pharmacy 210.6 ml/min; Est GFR (African American) > 150.0 ml/min; Est GFR (Non-African American) 131.6 ml/min; Globulin 2.6 gm/dl (2.5-4.0); Glucose 124 mg/dl (70-99(Fasting)); Sodium 137 mmol/L (136-145); Total Protein 5.7 gm/dl (6.0-8.3)
--- NOTE | 2023-10-31 07:30 | XRay Report ---
XR ankle LT min 3V routine HISTORY: 53 years-old Female Trauma acute left ankle pain COMPARISON: Left foot radiographs 01/18/2023 TECHNIQUE: 3 views of the left ankle FINDINGS: Demineralized appearance of the bones. Mild osteoarthritis. No acute fracture, dislocation or opaque foreign body. IMPRESSION: 1. No acute fracture. 2. Age advanced bone demineralization redemonstrated. ACT 112: Negative or not required by law. The above report was generated using voice recognition software. It may contain grammatical, syntax o r spelling errors. Electronically signed by: Dany Chawla M.D. 10/31/2023 7:27 AM
--- NOTE | 2023-10-31 08:24 | Electrocardiogram Report ---
Test Reason : Blood Pressure : / mmHG Vent. Rate : 108 BPM Atrial Rate : 108 BPM P-R Int : 144 ms QRS Dur : 076 ms QT Int : 360 ms P-R-T Axes : 041 022 065 degrees QTc Int : 482 ms Sinus tachycardia Left atrial enlargement Incomplete right bundle branch block Nonspecific T wave abnormality Inferior leads Abnormal ECG When compared with ECG of 27-OCT-2023 18:38, Incomplete right bundle branch block now present Confirmed by Scooter Terry ([id number]) on 10/31/2023 8:24:22 AM Referred By: REFERRED SELF Confirmed By:Scooter Terry
[2023-10-31] MEDS: SUCRALFATE 1 GM TAB PO SCH (08:41)
[2023-10-31] MEDS: MULTIVITAMIN TAB PO SCH (08:41)
[2023-10-31] MEDS: ENOXAPARIN INJ 40 MG/0.4 ML SYR SQ SCH (08:41)
[2023-10-31] MEDS: PANTOprazole 40 MG TAB PO SCH (08:41)
[2023-10-31] MEDS: CYANOCOBALAMIN (B-12) 500 MCG TABLET PO SCH (08:41)
[2023-10-31] MEDS: POTASSIUM CHLORIDE CRTAB 20 MEQ TABCR PO SCH (08:41)
[2023-10-31] MEDS: THIAMINE HCL 100 MG in SYRINGE 9 ML IV SCH (08:42)
[2023-10-31] MEDS: FOLIC ACID 1 MG in SYRINGE 9.8 ML IV SCH (08:42)
[2023-10-31] MEDS: LIDOCAINE 5% 1 PATCH TD STA (12:20)
--- NOTE | 2023-10-31 15:56 | Hospitalist Progress Note ---
Date of Service October 31, 2023 Assessment & Plan (1) Ambulatory dysfunction: Plan: - Status post fall/ambulatory dysfunction- - Multifactorial including not limited to: Alcoholic myopathy, polyneuropathy, vitamin D deficiency, vitamin B12 deficiency, folate deficiency, thiamine deficiency, generalized weakness, dehydration - Workup on admission included a normal CT scan of head, CT scan cervical spine, CTA neck, left ankle x-ray, chest x-ray - CTA head question the possibility of a 1.5 mm saccular aneurysm versus outpouching versus artifact. This should be followed serially upon discharge - CT scan of the lumbar spine confirmed a chronic T12 superior endplate compression deformity -- lidocaine patch PRN for back pain - UA negative, Urine drug screen negative - Alcohol level less than 10 - Thiamine 100 mg IV QAM - Folic acid 1 mg IV QAM - B12 1000 mcg p.o. QAM - PT / OT recommend inpatient rehab upon discharge - I would have concerns that patient would ever be able to live outside of a structured setting unless she has significant help at home - Waiting on rehab authorization and placement (2) Cirrhosis: Plan: Abdominal pain/alcoholic cirrhosis/intermittent nausea- Had a workup done during last admission October 2023 Follow-up with [facility] Tramadol 50 mg p.o. every 4 hours as needed (3) Dehydration: Plan: Hypokalemia/hypomagnesemia/dehydration- Placed on NSS + KCl 20 mill equivalents at 100 mL/h x 1 L Give magnesium sulfate 1 g IV Repeat laboratories in a.m. (4) Alcohol use disorder: Plan: Complete alcohol avoidance Plan VTE prevention: Lovenox 40 mg SQ daily CODE STATUS: Full code Admission and Anticipated Discharge Date Admission Date: October 31, 2023 Subjective Patient is seen and evaluated at bedside in the ED. Patient reports upon discharge from hospital on 11/25/2023, she was very weak and had difficulty ambulating at home. She experienced a fall at home and after discussion with her brother, she felt that she could not take care of herself at home adequately. 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 She is open to acute rehab placement. She reports abdominal pain, which is chronic and not worse than her baseline, and generalized weakness. She denies nausea, chest pain, shortness of breath, or urinary symptoms. Physical Exam Physical Exam: General: No acute distress, nondiaphoretic, well-developed, well-nourished. Skin: The skin was without rashes, erythema, edema, or bruising. HEENT: Conjunctivae clear without injection, anicteric sclerae, moist mucus membranes, clear oropharynx Cardiac: Regular rate and rhythm without murmurs gallops or rubs. Pulm: Clear to auscultation bilaterally without wheezes, rales or rhonchi. No retractions or accessory muscle use. Abdominal: Soft, diffusely tender most prominent in RUQ, hepatomegaly. Distended. Positive bowel sounds x 4. No guarding or rebound tenderness. Tympanic to percussion. Neuro: A&O x3. No focal neurological deficits. Results & Data Results & Data Vital Signs (Past 12 Hours) Vital Signs Temp Pulse Resp BP BP Pulse Ox Pulse Ox 10/31/23 15:26 36.8 C 107 H 18 119/81 93 10/31/23 15:26 94 10/31/23 12:20 93 H 20 106/70 93 10/31/23 05:15 10/31/23 05:00 108/66 10/31/23 04:53 92 10/31/23 04:50 94 10/31/23 04:46 92 10/31/23 04:46 113/81 10/31/23 04:40 92 10/31/23 04:33 93 10/31/23 04:10 96 10/31/23 04:00 95 10/31/23 03:50 92 O2 Del Method O2 Del Method 10/31/23 15:26 Room Air 10/31/23 15:26 Room Air 10/31/23 12:20 Room Air 10/31/23 05:15 Room Air 10/31/23 05:00 10/31/23 04:53 10/31/23 04:50 10/31/23 04:46 10/31/23 04:46 10/31/23 04:40 10/31/23 04:33 10/31/23 04:10 10/31/23 04:00 10/31/23 03:50 Laboratory Results Reviewed CMP PG Care Time/CCT Total # of Minutes Spent Total Time Spent with Patient: Total time spent is greater than 50% in coordination of care (as documented) at patient's floor/unit and/or counseling patient: Coding Level of Care Code 15662 SUB INP/OBS CARE 3/50MIN Diagnoses Ambulatory dysfunction R26.2 Cirrhosis K70.30 Ascites presence: unspecified Hepatic cirrhosis type: alcoholic cirrhosis Dehydration E86.0 Alcohol use disorder F10.90 (2) Cirrhosis Ascites presence: unspecified Hepatic cirrhosis type: alcoholic cirrhosis Qualified Code(s): K70.30 - Alcoholic cirrhosis of liver without ascites
[2023-10-31] MEDS: traMADol HCL 50 MG TABLET PO PRN (20:13)
--- OUTSIDE RECORDS SUMMARY | 2023-11-01 04:07 | External Medical Summary | Summary of Care ---
Author Name Unknown Organization [facility] Address [address] [place] [address] Phone [phone] Care Team Providers Care Endoscopy Technican Name Role Phone Natalia Puentes MD Primary Care Provider [phone] Encounter Details Date Type Department Care Team (Late st Contact Info) Description 10/27/2023 Orders Only Trans[facility], [place] [address] [place] [address] Delio Mulligan MD [address] [place] [address] Allergies Active Allergy Reactions Criticality Noted Date Comments Gabapentin 09/08/2022 Promethazine 09/08/2022 documented as of this encounter (statuses as of 10/30/2023) Medications Medication Sig Dispensed Refills Start Date End Date Status Albuterol Sulfate 108 (90 Base) MCG/ACT Inhalation Aerosol Powder Breath Activated Inhale by mouth 1 Puff daily as needed . 0 03/04/2022 Active Vitamin D3 10 MCG (400 UNIT) Oral Tablet (Cholecalciferol) Take 1 Tablet by mouth in the morning. 0 03/04/2022 Active Vitamin B-12 1000 MCG Oral Tablet Take 1 Tablet by mouth in the morning. 0 03/04/2022 Active Probiotic Advanced Oral Capsule Take by mouth 1 Capsule daily . 0 03/04/2022 Active Ascorbic Acid 500 MG Oral Capsule Take by mouth 500 mg daily . 0 03/04/2022 Active Docusate Sodium 100 MG Oral Capsule Take 3 Capsules by mouth every evening. 0 Active Omeprazole 40 MG Oral Capsule Delayed Release (PriLOSEC) Take 1 Capsule by mouth in the morning. 180 Capsule 3 06/16/2023 Active Potassium Chloride ER 20 MEQ Oral Tablet Extended ReleaseIndications: Hypokalemia Take 40 meq (2 tabs) for 3 days 6 Tablet 0 09/20/2023 Active documented as of this encounter (statuses as of 10/30/2023) Active Problems Problem Noted Date Diagnosed Date ADVANCE DIRECTIVE INFORMATION 01/24/2006 Overview: No advance directive- info given FLU W RESP MANIFEST NEC 10/25/2000 documented as of this encounter (statuses as of 10/30/2023) Social History Tobacco Use Types Packs/Day Years Used Date Smoking Tobacco: Every Day Cigarettes 0.3 11 Smokeless Tobacco: Never Comments:6 a day Alcohol Use Standard Drinks/Week Comments Not Currently 0 (1 standard drink = 0.6 oz pur e alcohol) social "sips here and there" Sex and Gender Information Value Date Recorded Sex Assigned at Not on file Gender Identity Not on file Sexual Orientation Not on file Job Start Date Occupation Industry Not on file Not on file Not on file documented as of this encounter Plan of Treatment Upcoming Encounters Date Type Department Care Team (Late st Contact Info) Description 11/07/2023 10:30 AM EDT Office Visit Gastroenterology, [facility] [address] [address] Radha Lennon CRNP [address] [address] 12/13/2023 1:00 PM EDT Imaging Radiology [facility] [address] [address] 12/18/2023 11:00 AM EDT Office Visit Hepatology, [facility] [address] [address] Lourdes Lazcano DO [address] [address] Scheduled Procedures Name Priority Associated Diagnoses Date/Ti me COLONOSCOPY FLEXIBLE PROXIMA L DIAGNOSTIC Recall Screening for colon cancer Health Maintenance Due Date Last Done Comments Lipid Panel 1971 Pneumococcal Vaccine: Pediatrics (0 to 5 Years) and At-Risk Patients (6 to 64 Years) (1 of 2 - PCV) 1977 Depression Screening 1983 HIV Screening 1986 Hepatitis C Screening 1989 Hepatitis B (1 of 3 - 19+ 3-dose series) 1990 DTaP,Tdap,and Td Vaccines (1 - Tdap) 02/27/1996 02/26/1996 HPV/Co-Test 2001 Cervical Cancer Screening 01/24/2009 Pap Smear 01/24/2009 01/24/2006, 12/28, 04/26/1999 Mammogram 2011 Cologuard 2016 Fecal Occult Blood Test 2016 Sigmoidoscopy 2016 Zoster Vaccines (1 of 2) 2021 COVID-19 Vaccine (1 - 2022-24 season) 2023 Influenza Vaccine (FLU shot) (#1) 2023 Diabetes Screening 09/26/2026 09/26/2023, 0 09/19/2023, 08/31/2023, Additional history exists Colonoscopy 06/02/2032 06/02/2022 Colorectal Cancer Screening 06/02/2032 GARDASIL-HPV IMMUNIZATION SERIES Aged Out No longer eligible based on patient's age to complete this topic MENINGOCOCCAL (MENACTRA/MENVEO) Aged Out No longer eligible based on patient's age to complete this topic documented as of this encounter Medical Devices Not on filedocumented as of this encounter Procedures Procedure Name Priority Date/Time Associated Diagnosis Comments RADIOLOGY EXAM - GENERAL RAD (IMAGES ONLY,NO REPORT) Routine 10/27/2023 6:45 PM EST documented in this encounter Results * RADIOLOGY EXAM - GENERAL RAD (IMAGES ONLY,NO REPORT) (10/27/2023 6:45 PM EST) 10/27/2023 6:45 PM EST Narrative Scheduling, Silent - 10/30/2023 6:59 PM EST This is an imaging study not interpreted or resulted by a [facility] or [employer] contracted radiologist. Delio Mulligan MD RADIOLOGY (RAD GENER AL) documented in this encounter Care Teams Endoscopy Technican Relationship Specialty Start Date End Date Natalia Peuntes MD [address] [place], [place] [address] [address] PCP - General Family Medicine 04/21/22 documented as of this encounter
--- OUTSIDE RECORDS SUMMARY | 2023-11-01 04:07 | External Medical Summary | Summary of Care ---
Author Name Unknown Organization [facility] Address [address] [place] [address] Phone [phone] Care Team Providers Care Brewery Pumper Name Role Phone Natalia Puentes MD Primary Care Provider [phone] Encounter Details Date Type Department Care Team (Late st Contact Info) Description 10/27/2023 Orders Only Transplant Clinic, [place] [address] [place] [address] Delio Mulligan MD [address] [place] [address] Allergies Active Allergy Reactions Criticality [...] 11/07/2023 10:30 AM EDT Office Visit Gastroenterology, [facility] [address] [address] Radha Lennon CRNP [address] [address] 12/13/2023 1:00 PM EDT Imaging Radiology [facility] [address] [address] 12/18/2023 11:00 AM EDT Office Visit Hepatology, [facility] [address] [address] Lourdes Lazcano DO [address] [address] Scheduled Procedures Name Priority Associated Diagnoses Date/Ti [...] Date/Time Associated Diagnosis Comments RADIOLOGY EXAM - CT (IMAGES ONLY, NO REPORT) Routine 10/27/2023 7:55 PM EST documented in this encounter Results * RADIOLOGY EXAM - CT (IMAGES ONLY, NO REPORT) (10/27/2023 7:55 PM EST) 10/27/2023 7:52 PM EST Narrative Scheduling, Silent - 10/30/2023 7:01 PM EST This is an imaging study not interpreted or resulted by a [facility] or [employer] contracted radiologist. Delio Mulligan MD RAD CT documented in this encounter Care Teams Brewery Pumper Relationship Specialty Start Date End Date Natalia Puentes MD [address] [place] [address] [place] [id number] PCP - General Family Medicine 04/21/22 documented as of this encounter
--- OUTSIDE RECORDS SUMMARY | 2023-11-01 04:07 | External Medical Summary | Summary of Care ---
Author Name Unknown Organization [facility] Address [address] [place] [address] Phone [phone] Care Team Providers Care Plant Breeder Scientist Name Role Phone Natalia Puentes MD Primary Care Provider [phone] Encounter Details Date Type Department Care Team (Late st Contact Info) Description 10/27/2023 Orders Only Transplant Clinic, [place] [address] [place] [address] Delio Mulligan MD [address] [place] [address] Allergies Active Allergy Reactions Criticality [...] 11/07/2023 10:30 AM EDT Office Visit Gastroenterology, [facility] [address] [address] Radha Lennon CRNP [address] [address] 12/13/2023 1:00 PM EDT Imaging Radiology [facility] [address] [address] 12/18/2023 11:00 AM EDT Office Visit Hepatology, [facility] [address] [address] Lourdes Lazcano DO [address] [address] Scheduled Procedures Name Priority Associated Diagnoses Date/Ti [...] Date/Time Associated Diagnosis Comments RADIOLOGY EXAM - MRI (IMAGES ONLY, NO REPORT) Routine 10/27/2023 10:30 PM EST documented in this encounter Results * RADIOLOGY EXAM - MRI (IMAGES ONLY, NO REPORT) (10/27/2023 10:30 PM EST) 10/27/2023 10:3 0 PM EST Narrative Scheduling, Silent - 10/30/2023 7:03 PM EST This is an imaging study not interpreted or resulted by a [facility] or [employer] contracted radiologist. Delio Mulligan MD RAD MRI-MRA documented in this encounter Care Teams Plant Breeder Scientist Relationship Specialty Start Date End Date Natalia Puentes MD [address] [place], [place] [address] [address] PCP - General Family Medicine 04/21/22 documented as of this encounter
[2023-11-01 07:32] LABS: Hematocrit (blood only) 35.6 % (37.0-47.0); Hemoglobin 11.5 g/dl (12.0-16.0); Mean Corpuscular Hemoglobin 32.1 pg (25.0-34.0); Mean Corpuscular Hgb Conc 32.3 g/dL (32.0-36.0); Mean Corpuscular Volume 99.4 fL (80.0-100.0); Platelet Count 239 K/uL (130-400); RDW Coefficient of Variation 17.2 % (11.5-14.5); RDW Standard Deviation 62.5 fL (36.4-46.3); Red Blood Count 3.58 M/uL (4.20-5.40); White Blood Count 9.71 K/ul (4.8-10.8)
[2023-11-01] MEDS: LIDOCAINE 5% 1 PATCH TD SCH (07:49)
[2023-11-01 08:00] LABS: Alanine Aminotransferase 20 U/L (7-52); Albumin Globulin Ratio 1.2 (0.9-2); Albumin Level 2.9 gm/dl (3.4-5.0); Alkaline Phosphatase 161 U/L (34-104); Anion Gap 6 (3-11); Aspartate Aminotransferase 74 U/L (13-39); BUN Creatinine Ratio 7.7 (10-20); Bilirubin,Total 1.4 mg/dl (0.2-1.0); Blood Urea Nitrogen 2 mg/dl (6-23); Calcium 8.1 mg/dl (8.6-10.3); Carbon Dioxide 29 mmol/L (21-32); Chloride 107 mmol/L (98-107); Creatinine Clr Calc Pharmacy 253.2 ml/min; Est GFR (African American) > 150.0 ml/min; Globulin 2.5 gm/dl (2.5-4.0); Glucose 105 mg/dl (70-99(Fasting)); Magnesium 1.7 mg/dl (1.7-2.4); Potassium 3.4 mmol/L (3.5-5.1); Sodium 142 mmol/L (136-145); Total Protein 5.4 gm/dl (6.0-8.3)
--- NOTE | 2023-11-01 15:20 | Hospitalist Progress Note ---
Date of Service November 01, 2023 Assessment & Plan (1) Ambulatory dysfunction: Plan: - Status post fall/ambulatory dysfunction- - Multifactorial including not limited to: Alcoholic myopathy, polyneuropathy, vitamin D deficiency, vitamin B12 deficiency, folate deficiency, thiamine deficiency, generalized weakness, dehydration - Workup on admission included a normal CT scan of head, CT scan cervical spine, CTA neck, left ankle x-ray, chest x-ray - CTA head question the possibility of a 1.5 mm saccular aneurysm versus outpouching versus artifact. This should be followed serially upon discharge - CT scan of the lumbar spine confirmed a chronic T12 superior endplate compression deformity -- lidocaine patch PRN for back pain - UA negative, Urine drug screen negative - Thiamine 100 mg IV QAM - Folic acid 1 mg IV QAM - B12 1000 mcg p.o. QAM - Concerns for patient living independently/outside structured setting unless she has significant help at home -- [facility] has offered a rehab bed, waiting on insurance authorization will most likely be discharged to rehab tomorrow, 11/02/23 (2) Cirrhosis: Plan: - Abdominal pain/alcoholic cirrhosis/intermittent nausea- - Had a workup done during last admission October 2023 - Follow-up with [facility] - Tramadol 50 mg p.o. every 4 hours as needed - Approximately 2g decrease in Hgb on 11/01/23 -- no s/s of GI bleed, most likely secondary to dilutional effect, follow chemistries in AM and reassess (3) Dehydration: Plan: Hypokalemia/hypomagnesemia/dehydration- - Potassium Chloride 20 meq p.o. daily - Mag repleted 1.7 (4) Alcohol use disorder: Plan: Complete alcohol avoidance Plan VTE prevention: Lovenox 40 mg SQ daily CODE STATUS: Full code Admission and Anticipated Discharge Date Admission Date: October 31, 2023 Subjective Patient seen and evaluated at bedside. She reports an improvement of pain compared to yesterday after receiving tramadol. She continues to experience weakness and difficulty ambulating. 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 I have concerns that the patient can live independently or outside of a structured setting unless she has significant help at home. [facility] has a subacute rehab bed available for her, currently waiting on authorization from her insurance. She reports her baseline abdominal pain and generalized weakness. Denies nausea, chest pain, shortness of breath, urinary symptoms. She will most likely be discharged tomorrow for subacute rehab placement. Physical Exam Physical Exam: General: No acute distress, nondiaphoretic, well-developed, well-nourished. Skin: The skin was without rashes, erythema, edema, or bruising. HEENT: Conjunctivae clear without injection, anicteric sclerae, moist mucus membranes, clear oropharynx Cardiac: Regular rate and rhythm without murmurs gallops or rubs. Pulm: Clear to auscultation bilaterally without wheezes, rales or rhonchi. No retractions or accessory muscle use. Abdominal: Soft, diffusely tender most prominent in RUQ, hepatomegaly. Distended. Positive bowel sounds x 4. No guarding or rebound tenderness. Tympanic to percussion. Neuro: A&O x3. No focal neurological deficits. Results & Data Results & Data Vital Signs (Past 12 Hours) Vital Signs Temp Pulse Pulse Resp BP BP Pulse Ox 11/01/23 11:22 37.1 C 97 H 20 103/68 92 11/01/23 07:50 11/01/23 07:47 37.0 C 90 18 125/83 93 11/01/23 07:00 97 H 11/01/23 03:23 36.9 C 97 H 18 120/77 92 O2 Del Method 11/01/23 11:22 Room Air 11/01/23 07:50 Room Air 11/01/23 07:47 Room Air 11/01/23 07:00 11/01/23 03:23 Room Air Laboratory Results Reviewed CBC Reviewed CMP PG Care Time/CCT Total # of Minutes Spent Total Time Spent with Patient: Total time spent is greater than 50% in coordination of care (as documented) at patient's floor/unit and/or counseling patient: Coding Level of Care Code 39413 SUB INP/OBS CARE 2/35MIN Diagnoses Ambulatory dysfunction R26.2 Cirrhosis K70.30 Ascites presence: unspecified Hepatic cirrhosis type: alcoholic cirrhosis Dehydration E86.0 Alcohol use disorder F10.90 (2) Cirrhosis Ascites presence: unspecified Hepatic cirrhosis type: alcoholic cirrhosis Qualified Code(s): K70.30 - Alcoholic cirrhosis of liver without ascites
[2023-11-02 07:38] LABS: Hematocrit (blood only) 33.3 % (37.0-47.0); Hemoglobin 11.1 g/dl (12.0-16.0); Mean Corpuscular Hemoglobin 32.6 pg (25.0-34.0); Mean Corpuscular Hgb Conc 33.3 g/dL (32.0-36.0); Mean Corpuscular Volume 97.9 fL (80.0-100.0); Mean Platelet Volume 9.2 fL (9.4-12.4); Platelet Count 243 K/uL (130-400); RDW Coefficient of Variation 17.3 % (11.5-14.5); RDW Standard Deviation 62.6 fL (36.4-46.3); White Blood Count 9.97 K/ul (4.8-10.8)
[2023-11-02 08:25] LABS: Bilirubin,Total 1.1 mg/dl (0.2-1.0); Calcium 8.4 mg/dl (8.6-10.3); Magnesium 1.5 mg/dl (1.7-2.4); Potassium 3.4 mmol/L (3.5-5.1)
[2023-11-02 08:31] LABS: Albumin Globulin Ratio 1.3 (0.9-2); BUN Creatinine Ratio 9.4 (10-20); Creatinine Clr Calc Pharmacy 205.8 ml/min; Est GFR (African American) 149.4 ml/min; Est GFR (Non-African American) 128.9 ml/min; Globulin 2.4 gm/dl (2.5-4.0); Total Protein 5.4 gm/dl (6.0-8.3)
[2023-11-02] MEDS: POTASSIUM CHLORIDE CRTAB 20 MEQ TABCR PO STA (09:18)
[2023-11-02] MEDS: MAGNESIUM SULFATE / D5W 1 GM/100 ML BAG IV ONE (09:23)
--- NOTE | 2023-11-02 18:07 | Discharge Summary ---
Date of Service November 02, 2023 Admission HPI Per Admitting Provider The patient is a 53-year-old female with a past medical history including ambulatory dysfunction, alcohol use disorder, generalized weakness, hypomagnesemia, hypokalemia, T12 compression fracture, vitamin D deficiency, v itamin B12 deficiency, thiamine deficiency, alcoholic myopathy, sensory ataxic gait, idiopathic polyneuropathy, tobacco dependence, cirrhosis, history of Lyme disease, COPD, CAD, ADD and hypertension. The patient was recently admitted to the [facility] from 10/26-10/29/2023 for right upper quadrant pain, was diagnosed with cirrhosis, and after workup was discharged to home. The patient had persistence and progression of her generalized weakness, known issues with polyneuropathy and gait disturbance, and had a fall at home with family concerns that they could not take care of her. the patient is willing to go to physical rehab. Admission Exam Per Admitting Provider The patient is awake, alert and oriented 3, well developed and well nourished, normocephalic and atraumatic, lying in bed and in no acute distress. HEENT--PERRL, EOMI, mucous membranes and oropharynx dry. Neck--supple. No JVD. No bruits. Thyroid normal, trachea midline, no adenopathy. Heart--normal S1 and S2. No murmurs, rubs or gallops. Lungs--clear bilaterally, no respiratory distress, no accessory muscle use. Abdomen--normal bowel sounds and soft. Nontender. Nondistended Extremities--No edema. Dermatologic--normal skin turgor, normal color, no abnormal lymph nodes, no rash. Neurologic--cranial nerves II through XII grossly intact. Rheumatologic--normal range of motion. Psychiatric--normal affect. Principal Diagnosis Ambulatory dysfunction secondary to generalized weakness Cirrhosis Discharge Exam General: No acute distress, nondiaphoretic, well-developed, well-nourished. Skin: The skin was without rashes, erythema, edema, or bruising. HEENT: Conjunctivae clear without injection, anicteric sclerae, moist mucus membranes, clear oropharynx Cardiac: Regular rate and rhythm without murmurs gallops or rubs. Pulm: Clear to auscultation bilaterally without wheezes, rales or rhonchi. No retractions or accessory muscle use. Abdominal: Soft, diffusely tender most prominent in RUQ, hepatomegaly. Distended. Positive bowel sounds x 4. No guarding or rebound tenderness. Tympanic to percussion. Neuro: A&O x3. No focal neurological deficits. Discharge Data Allergies Allergy/AdvReac Type Severity Reaction Status Date / Time promethazine AdvReac Intermediate MADE ME Verified 10/30/23 15:49 SICKER gabapentin AdvReac Confusion Verified 10/31/23 00:26 Consultations 10/31/23 00:04 ED Decision to Admit Stat Ordered Studies 10/30/23 21:40 CT cervical spine wo con Stat CT head/brain wo con Stat CT lumbar spine wo con Stat CTA head w con [CT angio head w con] Stat CTA neck with con [CT angio neck with con] Stat Hospital Course (1) Ambulatory dysfunction: - Status post fall/ambulatory dysfunction- - Multifactorial including not limited to: Alcoholic myopathy, polyneuropathy, vitamin D deficiency, vitamin B12 deficiency, folate deficiency, thiamine deficiency, generalized weakness, dehydration - Workup on admission included a normal CT scan of head, CT scan cervical spine, CTA neck, left ankle x-ray, chest x-ray - CTA head question the possibility of a 1.5 mm saccular aneurysm versus outpouching versus artifact. This should be followed serially upon discharge - CT scan of the lumbar spine confirmed a chronic T12 superior endplate compression deformity -- lidocaine patch PRN for back pain - UA negative, Urine drug screen negative - Thiamine 100 mg IV QAM - Folic acid 1 mg IV QAM - B12 1000 mcg p.o. QAM - Concerns for patient living independently/outside structured setting unless she has significant help at home -- Discharged to [facility] skilled rehab (2) Cirrhosis: - Abdominal pain/alcoholic cirrhosis/intermittent nausea- - Had a workup done during last admission October 2023 - [facility] - Tramadol 50 mg p.o. every 4 hours as needed - Approximately 2g decrease in Hgb on 11/01/23 -- no s/s of GI bleed, most likely secondary to dilutional effect (3) Dehydration: Hypokalemia/hypomagnesemia/dehydration- - Potassium Chloride 20 meq p.o. daily - Mag repleted 1.7 (4) Alcohol use disorder: Complete alcohol avoidance Plan CODE STATUS: Full code Total Time Total Time Spent Total Time Spent (In Minutes): Greater than 30 minutes spent completing this discharge process including direct patient care, medication reconciliation, documentation, review of labs and images, and coordination of care. Discharge Plan Discharge Items Patient Disposition: Transfer Residential Fac Reason For Visit: S/P FALL, GENERAL WEAKNESS Discharge Diagnosis: Ambulatory dysfunction in the setting of generalized weakness Condition on Discharge: Good Activity: Resume your previous activity Non-emergency contact: Primary Care Provider Call non-emergency contact if: your symptoms worsen Follow-up/Referrals: Natalia Puentes MD [Primary Care Provider] - Diet: Regular Addtl Attending Provider Instructions: You were admitted to the hospital due to generalized weakness after experiencing a fall at home. You had imaging of your head, neck, back, chest, and left ankle. The picture of your lumbar spine confirmed a chronic compression deformity at T12. You can continue using the lidocaine patch as needed for back pain from this. Additionally, the picture of your head questioned the possibility of a saccular aneurysm versus outpouching versus artifact. I recommend that this is followed up upon discharge with your PCP. While in the hospital, you had some electrolyte abnormalities which were repleted and within normal limits on day of discharge. Upon leaving the hospital, you are being discharged to [facility] for skilled rehab to get stronger and work on the generalized weakness you experienced at home. As we discussed, it is important to attend your appointment with gastroenterology (GI) on 11/07/2023 at [facility] I recommend organizing personal transport to and from this appointment. However, if this is not feasible, you can discuss with [facility] the options available to get you to this appointment. Please return to the hospital if you have any of the following symptoms: Chest pain, shortness of breath, blood in your stool, vomiting blood, fever or chills, worsening stomach pain, trouble breathing, extreme tiredness, confusion, or jaundice (yellowing of the skin or whites of your eyes). Pending Studies at Discharge: No Stand-Alone Forms: My [facility] Skilled Items Patient informed of condition?: Yes DNR: No Discharge Level of Care: Skilled Communicable Disease: No Discharge Prognosis: Stable Lines: None Urinary Catheter: No Medications and DC Order Prescriptions: Continued multivitamin Tablet 1 tab PO DAILY zoledronic [id number] [Reclast] 5 mg/100 mL piggyback 1 ea IV YEARLY Rx Instructions: Fist reclast infusion 11/17/23 cyanocobalamin (vitamin B-12) 1,000 mcg capsule 1,000 mcg PO QAM albuterol sulfate 90 mcg/actuation HFA aerosol inhaler 2 puff inhalation Q6HWA PRN (Reason: COPD/ASTHMA) lidocaine 4 % Adhesive Patch,Medicated 1 patch TOPICAL DAILY PRN (Reason: Pain) Rx Instructions: OTC potassium chloride 20 mEq tablet extended release 20 meq PO DAILY ondansetron 4 mg tablet,disintegrating 4 mg translingual Q8 PRN (Reason: Nausea) Qty: 30 0RF Rx Instructions: 06/21/23 THIS MED NOT STARTED YET. sucralfate 1 gram Tablet 1 g PO QID Qty: 120 0RF omeprazole 40 mg capsule,delayed release(DR/EC) 40 mg PO BID Qty: 60 0RF Discharge Orders: Discharge Order (Routine); Ordered 11/02/23 Ordered By: Ivana Stringer Admission Data Admit Date/Time: 10/31/23 15:40 Attending Provider: Jaison Casper Admit Provider: Andrew Pal Primary Care Provider: Natalia Puentes Other Providers: Andrew Pal; [facility],; [facility] Other Interventions: Discharge Summary Assessment (RN) Last Done: 11/02/23 15:17 Coding Level of Care Code 12015 INP/OBS DISCH >30 MIN Diagnoses Ambulatory dysfunction R26.2 Cirrhosis K70.30 Ascites presence: unspecified Hepatic cirrhosis type: alcoholic cirrhosis Dehydration E86.0 Alcohol use disorder F10.90
== END 2023-11-02 16:00 ==
LOC: ED 18:05 → EDINP 18:05 → SUATTDRO 10-31 00:25 → 2N 10-31 01:47 → 3N 11-01 15:42